=== PATIENT | female | born 1940 | race Caucasian/White ===

== ENCOUNTER 2017-02-09 08:48 | Inpatient (IN) | payer MEDICARE, OTHER ==
[2017-02-09 09:18] LABS: Hematocrit 42 % (35-47); Hemoglobin 14.4 g/dl (12.0-16.0); Mean Corpuscular HGB Conc 35 g/dl (31-36); Mean Corpuscular Hemoglobin 33 pg (27-31); Mean Corpuscular Volume 95 fL (80-97); Mean Platelet Volume 9 um3 (7.4-10.4); Red Blood Count 4.39 10^6/ul (4.0-5.4); Red Cell Distribution Width 12 % (10.5-15); White Blood Count 7.9 10^3/ul (3.5-10.8)
--- NOTE | 2017-02-09 09:30 | RAD ---
INDICATION: Right-sided weakness. COMPARISON: There are no prior studies available for comparison. TECHNIQUE: A portable view of the chest was obtained. FINDINGS: Cardiac and mediastinal contours appear to be within normal limits. The lungs are clear. No pleural effusion is seen. IMPRESSION: NO EVIDENCE FOR ACUTE DISEASE.
--- NOTE | 2017-02-09 09:33 | RAD ---
INDICATION: Right-sided weakness. COMPARISON: There are no prior studies available for comparison. TECHNIQUE: Contiguous axial sections of the brain were obtained from the skull base to the vertex without contrast. FINDINGS: The ventricles, cisterns and sulci are enlarged consistent with age-related atrophy. No significant focal abnormality or mass effect is seen. There is no evidence for hemorrhage. No significant focal osseous abnormality is seen. The visualized portion of the paranasal sinuses and mastoid air cells appear clear. IMPRESSION: NO EVIDENCE FOR GROSS ACUTE INFARCT, MASS EFFECT OR HEMORRHAGE.
[2017-02-09 09:37] LABS: Troponin I 0.01 ng/mL (<0.04)
[2017-02-09 09:40] LABS: ALT 9 U/L (7-52); AST 23 U/L (13-39); Alkaline Phosphatase 90 U/L (34-104); Anion Gap 5 mmol/L (2-11); BUN/Creatinine Ratio 23.2 (8-20); Blood Urea Nitrogen 16 mg/dL (6-24); CO2 Carbon Dioxide 26 mmol/L (22-32); Calcium 8.7 mg/dL (8.6-10.3); Chloride 105 mmol/L (101-111); Cholesterol 204 mg/dL; EGFR African American 105.8 (>60); EGFR Non-African American 82.3 (>60); Globulin 2.5 g/dL (2-4); Glucose 114 mg/dL (70-100); HDL Cholesterol 46.7 mg/dL; LDL Cholesterol 144 mg/dL; Potassium 3.7 mmol/L (3.5-5.0); Sodium 136 mmol/L (133-145); Total Protein 6.5 g/dL (6.4-8.9); Triglycerides 66 mg/dL
[2017-02-09] MEDS ORDERED: Aspirin SUPP* 300 MG PR ONE (09:44)
[2017-02-09 09:48] LABS: Urine Bacteria Absent (Absent); Urine Bilirubin Negative (Negative); Urine Glucose Negative (Negative); Urine Nitrite Negative (Negative)
[2017-02-09] MEDS ORDERED: Iohexol 350* (CONTRAST) 500 ML MDV IV ONE (10:05)
[2017-02-09] MEDS ORDERED: LORazepam INJ* 2 MG/ML 1 ML VIAL IV PUSH PRN (11:07)
[2017-02-09] MEDS ORDERED: Labetalol IV* 5 MG/ML 20 ML VIAL IV PUSH PRN (11:08)
--- NOTE | 2017-02-09 11:19 | RAD ---
INDICATION: Seizure. Possible CVA. Negative noncontrast CT brain COMPARISON: CT brain same date TECHNIQUE: Axial source images were acquired with coronal and sagittal reconstructions. CT angiographic technique was utilized with injection of 80 mL Omnipaque 350. FINDINGS: Aortic arch: There are no significant CT angiogram abnormalities of the arch or the great vessels arising from the arch. Right carotid: The internal carotid artery, carotid bifurcation, extracranial portions of the internal carotid artery, carotid artery at the skull base, carotid siphon, and carotid termination appear patent there is limited evaluation. The origin of the internal carotid artery due to artifact from dental amalgam and due to motion. Suggest sonography. The right internal carotid artery is also noted to be very tortuous with a loop configuration. Left carotid:The internal carotid artery, carotid bifurcation, extracranial portions of the internal carotid artery, carotid artery at the skull base, carotid siphon, and carotid termination appear patent. There is a smooth, 30% stenosis at the origin of the left internal carotid artery. There is also significant tortuosity of the left internal carotid artery. Right middle and anterior cerebral arteries: There are no significant CT angiographic abnormalities of the middle or anterior cerebral arteries. Left middle and anterior cerebral arteries: There are no CT angiographic abnormalities of the anterior cerebral artery. There is a apparent high-grade stenosis of the M1 segment of the left MCA. The distal distribution of the MCA is normal. Right vertebral: The right vertebral artery is very diminutive in size from its origin to the skull base. At the skull base the vertebral artery is difficult to visualize at its confluence to form the basilar artery. Left vertebral: The CT angiographic appearance of the vertebral artery is normal. The left vertebral artery is dominant Basilar artery: The basilar artery and basilar tip appear normal. Posterior cerebral arteries: The distal distribution of the right and left posterior cerebral arteries is normal. [place]: The CT angiographic appearance of the [place] is normal. Source images show no evidence of mass or adenopathy within the neck. There are no focal parenchymal abnormalities or abnormal areas of enhancement. IMPRESSION: 1. Limited evaluation the right bifurcation due to the presence of mild underlying disease, artifact from dental amalgam, and motion. Suggest sonographic interrogation.. Smooth, 30% diameter stenosis left internal carotid artery. 2. Diminutive right vertebral artery. The right vertebral artery at the skull base is difficult to delineate. 3. Probable high-grade left M1 segment MCA stenosis. CPT II Codes: 3100F PQRS
[2017-02-09 11:46] LABS: TSH (Thyroid Stimulating Horm) 2.01 mcIU/mL (0.34-5.60)
[2017-02-09] MEDS ORDERED: Ondansetron INJ* 2 MG/ML VIAL IV PRN (11:50)
[2017-02-09] MEDS ORDERED: Acetaminophen SUPP* 650 MG SUPP PR PRN (11:50)
[2017-02-09 11:58] LABS: Folate > 20.00 ng/mL (>3.99); Vitamin B12 718 pg/mL (180-914)
[2017-02-09 11:59] LABS: Free T4 1.13 ng/dL (0.61-1.12)
[2017-02-09 12:18] LABS: Creatine Kinase 434 U/L (10-223)
[2017-02-09] MEDS: NS 0.9% 1000 ML* 1,000 ML IV SCH (13:38)
--- NOTE | 2017-02-09 13:43 | CONS ---
CONSULTATION REPORT: DATE OF CONSULT: 02/09/17 LOCATION: She is currently in the ER. REASON FOR CONSULT: Right-sided weakness and history of seizures. HISTORY OF PRESENT ILLNESS: Ms. Marrero is a 76-year-old female who lives with her at an assisted living home. She has a history of seizures that her states was diagnosed 20 years ago. She follows with Dr. Heath in [place] and is currently on Keppra 1500 mg p.o. b.i.d. and zonisamide 100 mg p.o. b.i.d. Her states that her last seizure was approximately 2 years ago and that she has been well controlled. She has Ativan, which she takes p.r.n. seizure activity and has taken it a couple of times when she had some anxiety and depression, but overall she does not take that on a regular basis. Her states that yesterday at around 9 p.m. they were coming in from swimming and she suddenly became very tremulous and was grabbing onto the wall. He was concerned that she may be having a seizure. He was able to get her down and subsequently she was shaking, was confused afterwards. There was no bladder incontinence at that time. No bowel incontinence and no tongue biting, although her states that she has had tongue biting in the past. He states that her seizures in the past are more generalized tonic clonic in nature. She has also had several episodes in the last several years where she would stare and Dr. Heath was aware of this, but apparently made no medication changes and told her that she could take Ativan if those happened. She has not had any of those recently. After she stabilized, he was able to get her to bed. He states that he woke up at around midnight to go to the bathroom , when he came back to the bed, her legs were hanging over the side of the bed and she was drooping off the side of the bed. She was not very responsive to him. Apparently, she was not talking at that time. He states that since her episode at 9 last night, she was not talking as much, but was communicating some but last night at midnight, he states that she was not speaking to him, he had a very hard time getting her to the bathroom, but he is unclear whether she had focal weakness at that time. He states that he worked for several hours in the bathroom to try to get her onto the toilet and to get her to use the bathroom. She had bladder incontinence at least 3 times. There was no reported generalized tonic-clonic activity at that time, but she was very confused. Finally, he got a pillow, cleaned her up and put a blanket down and she slept on the floor in the bathroom. This morning when he got up, he noticed that she was not speaking at all and that her right side was not moving at all. He brought her to the hospital for further workup. Initial CT of the head was reviewed, shows no acute abnormalities. No evidence of bleeding. Her lab work in the ER shows a CBC with diff that is essentially normal. INR of 0.95 and a complete metabolic profile significant for a BUN/creatinine ratio of 23.2 and a glucose of 114. Her lactic acid was 0.7. LDL cholesterol 144, HDL cholesterol 46.7, cholesterol of 204, and triglycerides of 66. The states that she has been in her usual state of health. No recent illness, fevers, chills, nausea, vomiting, diarrhea, constipation, dysuria, frequency, urgency, neck pain, headaches, vision changes, focal numbness, tingling, or weakness. She has had no shortness of breath, dyspnea on exertion. She has had no problems swallowing or speaking. No vision changes and she has never had an episode like this in the past. In the ER, she continues to have profound right-sided weakness and is not able to give me any history. Currently aphasic. PAST MEDICAL HISTORY: Includes: 1. Seizure disorder, followed by a neurologist, on medication. 2. History of hypothyroidism. 3. History of glaucoma. 4. History of several episodes of depression, but none recently. PAST SURGICAL HISTORY: Includes bilateral hip replacement several years ago. No other significant surgeries. FAMILY HISTORY: There is no history of seizures, strokes, heart attacks in her family that they are aware of. SOCIAL HISTORY: No tobacco, alcohol or drug use. She did drink in the past socially, but quit 20 years ago when she was diagnosed with epilepsy. She lives with her in an assisted living facility. Her son is with her at the bedside currently and is active in her care. ALLERGIES: To AMOXICILLIN and SULFA. CURRENT HOME MEDICATIONS: Include: 1. Keppra 1500 mg p.o. b.i.d. 2. Zonisamide 100 mg p.o. b.i.d. 3. Timolol eye drops. 4. Levothyroxine 50 mcg daily. 5. Lorazepam 0.5 mg b.i.d. p.r.n. seizure activity. REVIEW OF SYSTEMS: Review of systems in 14-organ systems as noted above from the . The patient is unable to give me any information. PHYSICAL EXAM: Vital Signs: Blood pressure 130/64 to 129/74 to 118/63, pulse of 55, respiratory rate of 12, pulse ox of 99%. She is afebrile. In general, she is a well-nourished, well-developed female. She is sitting in her hospital bed with head approximately at 60 degrees. Her and son were at the bedside. She is well dressed, well groomed. HEENT: She is normocephalic, atraumatic. Sclerae are anicteric. Mucous membranes are moist. Oropharynx appears clear with good dentition. Nares are patent. Neck is supple. No thyromegaly. No carotid bruits. Chest: Clear to auscultation bilaterally. Cardiovascular: Regular rate and rhythm without murmurs. Abdomen: Nondistended. Extremities: There is no significant clubbing, cyanosis, or edema. She does have some bruising on her right knee, which her states that she injured at one point. Her skin is warm and dry otherwise. On neurologic exam, she is awake, she is somewhat somnolent, but sitting up. She remains awake during the entire examination. Her speech, she is aphasic, not producing any words. It appears to be more of a expressive aphasia, although there appears to be an element of some receptive aphasia as well. Cranial Nerves: Her pupils are equally round and reactive to light. Extraocular muscles, she is looking in all quadrants and follows my finger. Her visual campo appear to be intact by confrontation. She blinks from all quadrants. Her face shows a right lower facial droop with inability to smile, although the examination is very difficult. She does not follow all of my commands. It is difficult to assess facial sensation. Hearing appears to be grossly intact bilaterally. Tongue: She would not protrude her tongue, but appears to be midline in the mouth. Palate was difficult to visualize but appears to be symmetric bilaterally. I could not test her sternocleido-mastoid and trapezius. Motor exam: On the left side, she has good resistance. She is lifting her arm and leg. Does follow simple command to lift the arm and leg. She would not hold it up in position, so drift is difficult to tell but in general, she appears to have resistance on that side. On the right side, she has some movement to command. She will try to lift her right arm and try to lift her right leg, although she is only able to really move them at the shoulder and hip. Otherwise, dense paresis. She does have increased tone in the right arm and leg to flexion and extension throughout. She would not casino controller my hand on the right. She would not wiggle her toes on the right, she did on the left, and her tone on the left appears to be slightly increased but more normal. DTRs were difficult to assess because of the patient's compliance, but appeared to be symmetric, 2+ in the upper and lower extremities. I saw no hyperreflexia. Babinski's were equivocal. Sensation: It appears that she is not withdrawing in the right arm and leg, she does on the left. Gait could not be tested at this time. DIAGNOSTIC STUDIES/LAB DATA: Lab work as noted above. She did have the CT as noted above. Chest x-ray showed no active disease. She did receive aspirin 1 time in the ER. ASSESSMENT: Ms. Marrero is a 76-year-old female with a history of hypothyroidism , history of epilepsy diagnosed 20 years ago, followed by Dr. Heath in [place], [place] on Keppra 1500 mg p.o. b.i.d. and Zonegran 100 mg p.o. b.i.d. She appears to have had a seizure yesterday at around 9 p.m., although the semiology and the description of the event is somewhat unclear. The feels that she had something another event at midnight, which could have been another seizure, was confused afterwards. This morning, presents with clear right-sided hemiparesis, facial droop, some aphasia and my suspicion that this is a Benedict's paralysis is extremely low. Her hemiparesis on the right side has not improved. Of concern to me is the fact that her tone on the right side is increased. I am going to get a stat EEG to rule out any status or subclinical status given her continued symptoms, but my suspicion is low that she is currently in status. I suspect a left MCA stroke causing her symptoms. CT shows no evidence of hemorrhage. PLAN: 1. She received an aspirin in the ER. Will continue this daily. 2. Will need to start a statin once she is stable, but for now she is n.p.o. 3. Swallowing evaluation but n.p.o. until cleared. 4. She is to have a CT angiogram and MRI of the brain and echocardiogram for a full stroke workup. 5. I will check labs to rule out reversible causes of stroke. 6. I will continue her Keppra 1500 mg IV for now b.i.d. Zonegran only comes orally, for now we will hold that and if she continues to have seizure activity , I may supplement with another medication. 7. Place her on seizure precautions. Will have Ativan p.r.n. for seizures. 8. DVT prophylaxis. 9. I will continue to follow her closely and make further recommendations as necessary. Thank you for the opportunity to participate in her care. [id number]/[facility] #: [id number] JR
--- NOTE | 2017-02-09 15:40 | RAD ---
CPT II: CPT II Codes: 3100F Indication: Carotid artery stenosis. Duplex Doppler sonography of the carotid arteries was performed. Comparison is made with a recent CTA of the neck dated earlier the same day. The right common carotid artery demonstrates intimal wall thickening with plaque in the carotid bulb. Peak systolic velocity of the right internal carotid artery is 90 cm/s. Peak systolic velocity of the distal right common carotid artery is 76 cm/s. The ICA/CC ratio is 1.2. Right vertebral artery demonstrates antegrade flow. The left common carotid artery demonstrates intimal wall thickening with plaque in the carotid bulb extending into the left internal carotid artery. Peak systolic velocity of the distal left common carotid artery 69 cm/s. Peak systolic velocity of the left internal carotid artery proximally is 55 cm/s. The IC/CC ratio is 0.8. Left vertebral artery demonstrates antegrade flow. IMPRESSION: Less than 50% stenosis of both internal carotid arteries.
--- NOTE | 2017-02-09 16:39 | RAD ---
INDICATION: CVA. COMPARISON: Comparison is made with a prior CT of the brain from February 09, 2017. TECHNIQUE: Sagittal T1, axial T1, T2, susceptibility, FLAIR and diffusion weighted images were obtained. FINDINGS: There is a focal moderate size area of increased T2 signal intensity and of restricted diffusion present in the left basal ganglia and periventricular white matter. There is mild local mass effect with compression of the body of the left lateral ventricle. No midline shift is present. There is also a small focus of restricted diffusion present in the posterior inferior left temporal lobe. There is no evidence for hemorrhage. There are also scattered small focal areas of increased T2 signal intensity in the periventricular and subcortical white matter bilaterally most system with mild chronic small vessel ischemic changes. The visualized portion of the paranasal sinuses and mastoid air cells appear clear. The results of this examination were discussed with Dr. Stewart. IMPRESSION: FINDINGS CONSISTENT WITH A NONHEMORRHAGIC INFARCT PRESENT IN THE LEFT LENTIFORM NUCLEUS AND PERIVENTRICULAR WHITE MATTER MODERATE IN SIZE WITH MILD MASS EFFECT. THERE IS ALSO A SECOND SMALL FOCUS OF INFARCTION IN THE POSTERIOR INFERIOR LEFT TEMPORAL LOBE.
--- NOTE | 2017-02-09 20:27 | HP ---
CC: Dr. Rose Marie Beth; Dr. Stewart * HISTORY AND PHYSICAL: DATE OF ADMISSION: 02/09/17 PRIMARY CARE PROVIDER: Dr. Rose Marie Beth. ATTENDING PHYSICIAN WHILE IN THE HOSPITAL: Esvin Galvez MD * (report dictated by Chris Heaton NP). CONSULTING NEUROLOGIST: Dr. Stewart. CHIEF COMPLAINTS: 1. Question of seizure. 2. Altered mental status. 3. Right-sided weakness. HISTORY OF PRESENT ILLNESS: Mrs. Marrero is a 76-year-old female patient. She has a history of hypothyroidism, history of seizures, and a history of glaucoma. She comes in to the ED today and is really unable to tell me what happened as she is aphasic. According to the , it is noted around 9 o' clock last night she became very tense and stiff and she was having a little bit of shaking and she hit the wall and it had looked like that she was having a seizure. He gave her some Ativan. He got her into bed. She really was having a hard time walking and brought her in to the bedroom with a rolling chair. He got up around midnight to check on her and he noted that she was half in bed, half out of bed. She was having difficulty with moving still. She was trying to get to the bathroom. The thinks she is unsure if she had another seizure or not. There were no reports of incontinence at that point ; however, he was able to move her into the bathroom and she was incontinent at that point, but there was no seizure-like activity reported. The patient's laid her down and she slept on the floor through the night. This morning, he was hopeful that when he woke up that she would be better. He felt that she had had a seizure, unfortunately though the patient was not speaking, she was lethargic, she was not moving her right side, called the son and son was concerned and brought her in to the hospital. There have been no reports of recently any medication changes. She has been taking her meds as prescribed. She has had a history of seizures for about 20 years and the last time she had a seizure was 2 years ago. She does get her care from Dr. Heath at [facility]. Again, there has been no nausea, vomiting. No chest pain was reported. No shortness of breath. She came in, there was concern for possible stroke or seizure. We were asked to evaluate for admission. PAST MEDICAL HISTORY: She has a history of seizure, glaucoma, and a history of hypothyroidism. PAST SURGICAL HISTORY: She has had bilateral total hip arthroplasties. MEDICATIONS: The home meds include: 1. Zonegran 100 mg p.o. b.i.d. 2. Timolol 1 drop both eyes b.i.d. 3. Synthroid 50 mcg daily. 4. Keppra 1500 mg p.o. b.i.d. 5. Ativan 0.5 mg p.o. b.i.d. as needed. ALLERGIES: Her allergies to medications include SULFA DRUGS and AMOXICILLIN. FAMILY HISTORY: Mother's history was reviewed, noncontributory. There have been no reports of seizures or strokes. Father does have a history of OR at 79. SOCIAL HISTORY: She does not smoke. She does not drink. Surrogate decision maker is her . She lives at [facility]. REVIEW OF SYSTEMS: Unable to be obtained from the patient given that she is aphasic at this point. PHYSICAL EXAMINATION GENERAL: At this time, Mrs. Marrero is an 76-year-old female patient. She appears to be well nourished, well developed. She does not appear to be in any acute distress. She is sitting in the ER stretcher. VITAL SIGNS: Blood pressure 141/66, pulse 62, respirations 15, O2 sat 98%, and temperature 97.6. HEENT: Head: Atraumatic, normocephalic. Sclerae were anicteric, not pale. Throat: Oral mucosa appears to be moist. No oropharyngeal erythema. NECK: Supple. LUNGS: Clear to auscultation. HEART: Sounds S1, S2. Regular rate and rhythm. No murmurs, rubs, or gallops. ABDOMEN: Soft, flat, nontender. Bowel sounds were present. EXTREMITIES: Pulses 2+ throughout. No peripheral edema. NEUROLOGIC: Again, she will awaken to her name being called. She will follow simple commands. She has hemiplegia noted to the right upper and right lower extremity. She is unable to move the right arm. She cannot move her fingers at this point, it is contracted at the elbow. She is able to move her toes on the right side. Sensation is intact. In terms of speech, again she is aphasic. She does have a facial droop to the right side and her tongue is deviated to the right. EOMs were intact. No other gross focal deficits. SKIN: Intact. LABORATORY DATA/DIAGNOSTIC STUDIES: WBC 7.9, RBC of 4.39, hemoglobin 14.4, hematocrit 42, and platelet count of 153. INR 0.95. Sodium 136, potassium of 3.7, chloride of 105, bicarb 26, BUN 16, creatinine of 0.69, and glucose 114. Lactate 0.7. Calcium 8.7. Total bili 0.7, AST 23, ALT 9, alk phos 90. Troponin 0.01. Albumin 4.0. The triglycerides were 266, LDH 144. TSH normal. Free T3 pending. Urine obtained negative. She had a brain CT obtained today, which revealed no evidence of gross acute infarct, mass effect, or hemorrhage. Chest x-ray obtained today showed no evidence for acute disease. Head CTA showed limited evaluation of the right bifurcation due to presence of mild underlying disease. Artifact from dental amalgam and motion suggests this sonographic interrogation smooth, 30% diameter stenosis in the left internal carotid. She had a diminutive right vertebral artery. The vertebral artery is at the skull base. It is difficult to delineate, she had probable high grade left M1 segment MCA stenosis. EKG shows a sinus bradycardia, rate of 54, no ST elevation or T wave inversions. Old medical records were reviewed. ASSESSMENT AND PLAN: Mrs. Marrero is a 76-year-old female patient coming in to the ED today with complaints of concern for seizure, now found to have right- sided weakness, hemiplegia, and she is aphasic. She will be admitted under inpatient status for: 1. Presumed cerebrovascular accident. At this point, I suspect that she had a left-sided M1 segment of the MCA on the left side stroke. The MRI is pending. Dr. Stewart did evaluate the patient. I have ordered a speech evaluation for swallowing safety. I also have ordered aspirin HI. I would like to start her on Plavix when she is able to take p.o. due to the high-grade stenosis. In addition to this, she will benefit from a high-dose statin when she is able to take p.o., but I do not think she is safe for now to swallow. We will continue the aspirin just for now. We will keep the head of the bed 20 degrees or less, hydrate her, keep the blood pressure at least greater than 140 and we will treat for blood pressure, systolics 200 and diastolics greater than 110. I will get neuro checks frequently. Echo has been ordered and we will continue to follow. 2. Seizure disorder. EEG was performed. We are awaiting for official read, but there does not appear to be any obvious abnormality at this point. We will go ahead and continue her Keppra as prescribed. We will order for seizure precautions. 3. Glaucoma. We are holding the timolol at this point. 4. Hypothyroidism. Continue IV Synthroid. 5. DVT prophylaxis. In the setting of a stroke, I am going to hold off on heparin subcu. We will just put her on SCDs. 6. Code status. The who is speaking for her as her healthcare proxy, said that she had wished to be a DNR. He states he does have paperwork on this. We will try to get that paperwork. If not, we will fill on a MOLST form. 7. Fluids, electrolytes, and nutrition. She is n.p.o. pending swallow eval. TIME SPENT: On the admission was approximately 60 minutes, greater than half the time was spent [id number] with the patient obtaining my history and physical; other half time was spent going over the plan of care and implementing plan of care. I did discuss the plan of care with my attending, Dr. Galvez, he is in agreement. CHRIS HEATON, FERMIN [id number]/[facility] #: [id number] JR
--- NOTE | 2017-02-10 03:12 | EEG ---
ELECTROENCEPHALOGRAPHY: DATE OF STUDY: 02/09/17 - ROOM #447 LOCATION: The patient is in the emergency department. ORDERING PHYSICIAN: Dr. Leon and Dr. Stewart. CLINICAL PROBLEM: This is a 76-year-old woman with a history of epilepsy. The family states that she had a seizure at 9 p.m. last evening and her gave her Ativan and put her to bed. Around midnight, he woke up to use the bathroom and noticed her dangling off the edge of the bed. He called their son to come help at 7 o'clock. They tried to get her up, got her dressed and called the ambulance to bring her to the emergency department. In the emergency department, she is awake and alert, but unable to speak with right- sided facial weakness and right-sided hemiplegia. EEG is requested to evaluate for status epilepticus. MEDICATIONS: Levetiracetam. REPORT: The most notable feature of the interictal EEG is the presence of continuous, polymorphic slowing in the left temporal region, which sometimes extends into the left frontal central region as well. The slowing is in the range of 2 to 5 Hz with superimposed beta activity. Occasionally, there are sharp contours associated with this slowing, but there are no definitive focal epileptiform discharges. In addition, the patient has occasional generalized spike and wave discharges, which are sometimes seen to fragment in the right or left frontal regions and at other times are seen to be represented diffusely across both hemispheres. Most commonly, the discharges occur as single spike wave discharges lasting a fraction of a second. On one occasion, a cluster of discharges lasting 1.5 seconds was noted at a frequency of 3 Hz with a bias towards the right hemisphere. There were some polyspike components intermixed within this burst of discharges. Otherwise, the waking background showed appropriate organization with clearly defined anterior to posterior voltage and frequency gradients. There was a defined, posterior dominant rhythm of 8 Hz, which was symmetrical, but was slower than expected for age. Anteriorly, there was an expected pattern of lower voltage, irregular, mixed faster frequencies. There was excess beta activity noted, which was better seen over the right hemisphere than the left hemisphere. CLINICAL IMPRESSION: This is an abnormal waking EEG with 2 distinct findings. 1. First, there is continuous, slowing in the left hemisphere, which is maximal in the left temporal region, but also extends into the left frontal region at times. 2. There are burst of generalized discharges, which have a frontal central predominance and at most last 1.5 seconds during the recording. In addition, there is a slow background rhythm. These findings are suggestive of a generalized epilepsy trait with superimposed underlying neuronal dysfunction in the left hemisphere, which primarily affects the left temporal region. There is no evidence of status epilepticus on this EEG. Given the presence of focal dysfunction in the left temporal region, further imaging with CT scan or MRI scan is recommended if clinically appropriate. [id number]/[facility] #: [id number] JR
[2017-02-10] MEDS: NS 0.9% 1000 ML* 1,000 ML IV SCH ×2 (04:12→09:41)
[2017-02-10] MEDS: Levothyroxine INJ* 100 MCG/5 ML VIAL IV SCH (05:53)
[2017-02-10 06:00] LABS: Hematocrit 38 % (35-47); Hemoglobin 12.8 g/dl (12.0-16.0); Mean Corpuscular HGB Conc 34 g/dl (31-36); Mean Corpuscular Hemoglobin 32 pg (27-31); Mean Corpuscular Volume 96 fL (80-97); Mean Platelet Volume 9 um3 (7.4-10.4); Red Blood Count 3.96 10^6/ul (4.0-5.4); Red Cell Distribution Width 13 % (10.5-15)
[2017-02-10 06:02] LABS: Comments Flag Yes
[2017-02-10 06:14] LABS: Calcium 8.2 mg/dL (8.6-10.3); EGFR African American 96.1 (>60); EGFR Non-African American 74.7 (>60); HDL Cholesterol 37.7 mg/dL; Potassium 3.5 mmol/L (3.5-5.0)
[2017-02-10] MEDS ORDERED: Perflutren Lipid Microsphere* 3 ML VIAL ONE (07:59)
[2017-02-10] MEDS ORDERED: NS 0.9% 500 ML* 500 ML IV ONE (08:29)
--- NOTE | 2017-02-10 08:32 | ED ---
Mu Palomino Angela, scribed for Shmuel Leon MD on 02/09/17 at 0900 . Neurological HPI - HPI Summary HPI Summary: This pt is a 76 y/o female accompanied by her and son presenting to [facility] via EMS from [place] c/o seizure last night at 2100. Per (who lives with her in [place]), pt was fine last night. states that he went swimming and pt was sitting down while watching him. reports that they both went back inside to their room at approximately 2100 last night. Once inside their room, notes the pt started to have a seizure and tried to calm her down. notes he gave her Ativan and both went to bed at 2200. At midnight, states that he woke up to go to the bathroom and his was dangling off the edge of the bed. He tried to move her to go to the bathroom but couldn't. At 0300 today, gave up as he couldn't move the pt to the bathroom, so he called his son. Pt's son arrived at 0715 and called an ambulance to bring her to the ED. Per , pt has not had a seizure in over 2 years. PMHx: epilepsy. states pt was diagnosed with epilepsy 20 years ago. HPI is limited due to level 5 caveat - pt is not verbal s/p seizure. - History of Current Complaint Stated Complaint: SEIZURE Hx Obtained From: Family/Claims Correspondence Clerk - and son Hx From Patient Unobtainable Due To: Other - level 5 caveat - pt is not verbal Onset/Duration: Sudden Onset - last night at 2100 Timing: Sudden Onset Neurological Deficit Location: Facial - right sided, RUE, RLE Headache Location: Diffuse (Right) Character: Impaired Speech Episode Lasting: Seconds/Minutes - minutes, per Associated Signs and Symptoms: Positive: Weakness, Impaired Speech Related Hx: Seizure - Allergy/Home Medications Allergies/Adverse Reactions: Allergies Allergy/AdvReac Type Severity Reaction Status Date / Time Amoxicillin Allergy Unknown Verified 02/09/17 09:20 Reaction Details Sulfa Antibiotics Allergy Unknown Verified 02/09/17 09:20 Reaction Details Home Medications: Home Medications LORazepam TAB(*) [Ativan 0.5 MG TAB (*)] 0.5 mg PO BID PRN 02/09/17 [History Confirmed 02/09/17] Levothyroxine TAB* [Synthroid TAB*] 50 mcg PO DAILY 02/09/17 [History Confirmed 02/09/17] Timolol 0.5% OPTH.IAM* [Timoptic 0.5% Opth*] 1 drop BOTH EYES BID 02/09/17 [ History Confirmed 02/09/17] Zonisamide(NF) [Zonegran(NF)] 100 mg PO BID 02/09/17 [History Confirmed 02/09/17 ] levETIRAcetam TAB* [Keppra TAB*] 1,500 mg PO BID 02/09/17 [History Confirmed ] PMH/Surg Hx/FS Hx/Imm Hx Endocrine/Hematology History: Denies: Hx Diabetes Cardiovascular History: Denies: Hx Hypertension Neurological History: Reports: Other Neuro Impairments/Disorders - epilepsy - Family History Known Family History: Positive: Unknown - due to pt's current condition, nonverbal - Social History Lives: Assisted Living - [place] Alcohol Use: None Hx Substance Use: No Substance Use Type: Reports: None Smoking Status (MU): Former Smoker Review of Systems Negative: Fever, Chills Neurological: Other - right sided facial droop Positive: Weakness - right sided All Other Systems Reviewed And Are Negative: No - Comments Additional Review of Systems Comments: ROS is limited secondary to level 5 caveat - pt is not verbal Physical Exam - Summary Physical Exam Summary: VITAL SIGNS: Reviewed. GENERAL: Patient is a well-developed female who is lying comfortable in the stretcher. Patient is not in any acute respiratory distress. HEAD AND FACE: No signs of trauma. No ecchymosis, hematomas or skull depressions. No sinus tenderness. EYES: PERRLA, EOMI x 2, No injected conjunctiva, no nystagmus. EARS: Hearing grossly intact. Ear canals and tympanic membranes are within normal limits. MOUTH: Oropharynx within normal limits. NECK: Supple, trachea is midline, no adenopathy, no JVD, no carotid bruit, no c- spine tenderness, neck with full ROM. CHEST: Symmetric, no tenderness at palpation LUNGS: Clear to auscultation bilaterally. No wheezing or crackles. CVS: Regular rate and rhythm, S1 and S2 present, no murmurs or gallops appreciated. ABDOMEN: Soft, non-tender. No signs of distention. No rebound no guarding, and no masses palpated. Bowel sounds are normal. EXTREMITIES: FROM in all major joints, no edema, no cyanosis or clubbing. NEURO: Pt has right sided weakness. She has right sided facial droop. Pt is not alert or oriented. SKIN: Dry and warm Triage Information Reviewed: Yes Vital Signs On Initial Exam: Initial Vitals Pulse Ox 99 02/09/17 08:59 Vital Signs Reviewed: Yes Completion Of Physical Exam Limited Due To: Level 5 - pt is not verbal Diagnostics - Vital Signs Vital Signs Temp Pulse Resp BP Pulse Ox 02/09/17 10:00 55 12 118/63 99 02/09/17 09:30 55 13 129/74 99 02/09/17 09:17 130/64 02/09/17 09:01 67 12 99 02/09/17 09:00 97.6 F 66 14 133/71 99 02/09/17 08:59 99 - Laboratory Lab Results: Lab Results 02/09/17 02/09/17 02/09/17 Range/Units 09:05 09:05 09:05 WBC 7.9 (3.5-10.8) 10^3/ul RBC 4.39 (4.0-5.4) 10^6/ul Hgb 14.4 (12.0-16.0) g/dl Hct 42 (35-47) % MCV 95 (80-97) fL MCH 33 H (27-31) pg MCHC 35 (31-36) g/dl RDW 12 (10.5-15) % Plt Count 163 (150-450) 10^3/ul MPV 9 (7.4-10.4) um3 Neut % (Auto) 77.8 (38-83) % Lymph % (Auto) 14.8 L (25-47) % Wise % (Auto) 6.6 (1-9) % Eos % (Auto) 0.2 (0-6) % Baso % (Auto) 0.6 (0-2) % Absolute Neuts (auto) 6.1 (1.5-7.7) 10^3/ul Absolute Lymphs (auto) 1.2 (1.0-4.8) 10^3/ul Absolute Monos (auto) 0.5 (0-0.8) 10^3/ul Absolute Eos (auto) 0 (0-0.6) 10^3/ul Absolute Basos (auto) 0 (0-0.2) 10^3/ul Absolute Nucleated RBC 0 10^3/ul Nucleated RBC % 0 INR (Anticoag Therapy) (0.89-1.11) Sodium 136 (133-145) mmol/L Potassium 3.7 (3.5-5.0) mmol/L Chloride 105 (101-111) mmol/L Carbon Dioxide 26 (22-32) mmol/L Anion Gap 5 (2-11) mmol/L BUN 16 (6-24) mg/dL Creatinine 0.69 (0.51-0.95) mg/dL Est GFR ( Amer) 105.8 (>60) Est GFR (Non-Af Amer) 82.3 (>60) BUN/Creatinine Ratio 23.2 H (8-20) Glucose 114 H (70-100) mg/dL Lactic Acid (0.5-2.0) mmol/L Calcium 8.7 (8.6-10.3) mg/dL Total Bilirubin 0.70 (0.2-1.0) mg/dL AST 23 (13-39) U/L ALT 9 (7-52) U/L Alkaline Phosphatase 90 (34-104) U/L Total Creatine Kinase 434 H (10-223) U/L Troponin I 0.01 (<0.04) ng/mL Total Protein 6.5 (6.4-8.9) g/dL Albumin 4.0 (3.2-5.2) g/dL Globulin 2.5 (2-4) g/dL Albumin/Globulin Ratio 1.6 (1-3) Triglycerides 66 mg/dL Cholesterol 204 mg/dL LDL Cholesterol 144 mg/dL HDL Cholesterol 46.7 mg/dL Vitamin B12 718 (180-914) pg/mL Folate > 20.00 (>3.99) ng/mL TSH 2.01 (0.34-5.60) mcIU/mL Free T4 1.13 H (0.61-1.12) ng/dL Urine Color Urine Appearance Urine pH (5-9) Ur Specific [place] (1.010-1.030) Urine Protein (Negative) Urine Ketones (Negative) Urine Blood (Negative) Urine Nitrate (Negative) Urine Bilirubin (Negative) Urine Urobilinogen (Negative) Ur Leukocyte Esterase (Negative) Urine WBC (Auto) (Absent) Urine RBC (Auto) (Absent) Urine Bacteria (Absent) Urine Glucose (Negative) Urine Ascorbic Acid (Negative) Blood Type O Positive Antibody Screen Negative 02/09/17 02/09/17 02/09/17 Range/Units 09:05 09:05 09:33 WBC (3.5-10.8) 10^3/ul RBC (4.0-5.4) 10^6/ul Hgb (12.0-16.0) g/dl Hct (35-47) % MCV (80-97) fL MCH (27-31) pg MCHC (31-36) g/dl RDW (10.5-15) % Plt Count (150-450) 10^3/ul MPV (7.4-10.4) um3 Neut % (Auto) (38-83) % Lymph % (Auto) (25-47) % Wise % (Auto) (1-9) % Eos % (Auto) (0-6) % Baso % (Auto) (0-2) % Absolute Neuts (auto) (1.5-7.7) 10^3/ul Absolute Lymphs (auto) (1.0-4.8) 10^3/ul Absolute Monos (auto) (0-0.8) 10^3/ul Absolute Eos (auto) (0-0.6) 10^3/ul Absolute Basos (auto) (0-0.2) 10^3/ul Absolute Nucleated RBC 10^3/ul Nucleated RBC % INR (Anticoag Therapy) 0.95 (0.89-1.11) Sodium (133-145) mmol/L Potassium (3.5-5.0) mmol/L Chloride (101-111) mmol/L Carbon Dioxide (22-32) mmol/L Anion Gap (2-11) mmol/L BUN (6-24) mg/dL Creatinine (0.51-0.95) mg/dL Est GFR ( Amer) (>60) Est GFR (Non-Af Amer) (>60) BUN/Creatinine Ratio (8-20) Glucose (70-100) mg/dL Lactic Acid 0.7 (0.5-2.0) mmol/L Calcium (8.6-10.3) mg/dL Total Bilirubin (0.2-1.0) mg/dL AST (13-39) U/L ALT (7-52) U/L Alkaline Phosphatase (34-104) U/L Total Creatine Kinase (10-223) U/L Troponin I (<0.04) ng/mL Total Protein (6.4-8.9) g/dL Albumin (3.2-5.2) g/dL Globulin (2-4) g/dL Albumin/Globulin Ratio (1-3) Triglycerides mg/dL Cholesterol mg/dL LDL Cholesterol mg/dL HDL Cholesterol mg/dL Vitamin B12 (180-914) pg/mL Folate (>3.99) ng/mL TSH (0.34-5.60) mcIU/mL Free T4 (0.61-1.12) ng/dL Urine Color Yellow Urine Appearance Cloudy Urine pH 8.0 (5-9) Ur Specific [place] 1.017 (1.010-1.030) Urine Protein Negative (Negative) Urine Ketones Trace H (Negative) Urine Blood Negative (Negative) Urine Nitrate Negative (Negative) Urine Bilirubin Negative (Negative) Urine Urobilinogen Negative (Negative) Ur Leukocyte Esterase Negative (Negative) Urine WBC (Auto) Trace(0-5/hpf) (Absent) Urine RBC (Auto) Trace(0-2/hpf) (Absent) Urine Bacteria Absent (Absent) Urine Glucose Negative (Negative) Urine Ascorbic Acid * H (Negative) Blood Type Antibody Screen Result Diagrams: 02/09/17 09:05 02/09/17 09:05 Lab Statement: Any lab studies that have been ordered have been reviewed, and results considered in the medical decision making process. - Radiology Chest XR Xray Interpretation: No Acute Changes - IMPRESSION: No evidence for acute disease. ED physician has reviewed this radiology report and agrees. Radiology Interpretation Completed By: Radiologist - CT CT Brain CT Interpretation: No Acute Changes - IMPRESSION: No evidence for gross acute infarct, mass effect, or hemorrhage. ED physician has reviewed this radiology report and agrees. CT Interpretation Completed By: Radiologist - EKG 0923 Cardiac Rate: Bradycardia - 54 bpm EKG Rhythm: Sinus Rhythm EKG Interpretation: No ST elevations - Additional Comments Diagnostic Additional Comments: Head CTA, per radiologist: IMPRESSION: 1. Limited evaluation the right bifurcation due to the presence of mild underlying disease, artifact from dental amalgam, and motion. Suggest sonographic interrogation. Smooth, 30% diameter stenosis left internal carotid artery. 2. Diminutive right vertebral artery. The right vertebral artery at the skull base is difficulty to delineate. 3. Probably high-grade left M1 segment MCA stenosis. ED physician has reviewed this radiology report and agrees. Course/Dx - Course Assessment/Plan: This pt is a 76 y/o female accompanied by her and son presenting to [facility] via EMS from [place] c/o seizure last night at 2100. Per (who lives with her in [place]), pt was fine last night. states that he went swimming and pt was sitting down while watching him. reports that they both went back inside to their room at approximately 2100 last night. Once inside their room, notes the pt started to have a seizure and tried to calm her down. notes he gave her Ativan and both went to bed at 2200. At midnight, states that he woke up to go to the bathroom and his was dangling off the edge of the bed. He tried to move her to go to the bathroom but couldn't. At 0300 today, gave up as he couldn't move the pt to the bathroom, so he called his son. Pt's son arrived at 0715 and called an ambulance to bring her to the ED. Per , pt has not had a seizure in over 2 years. PMHx: epilepsy. states pt was diagnosed with epilepsy 20 years ago. HPI is limited due to level 5 caveat - pt is not verbal s/p seizure. Test results show glucose of114, CPK of 434. Urinalysis is negative for UTI. Chest XR shows no evidence for acute disease. Head CT is negative for acute intracranial pathology. Pt was hydrated and was given aspirin. I discussed the case with Dr. Stewart who came and assessed the pt. He recommended an EEG, CTA and MRI. He also recommends the pt to be given 1.5 grams of Keppra and admit the pt to the hospitalist for further management. The pt is stable. I discussed the case with Dr. Galvez, who accepted the pt for admission and further management. - Differential Dx Differential Diagnoses Neuro: Positive: Cerebrovascular Accident, Seizure Disorder, Temporal Arteritis, Transient Ischemic Attack - Diagnoses Provider Diagnoses: Acute CVA (cerebrovascular accident) - Physician Notifications Discussed Care Of Patient With: Miguel Stewart Time Discussed With Above Provider: 09:57 Instructed by Provider To: Other - I discussed pt care with Dr. Stewart who recommends a CTA of head/neck. Dr. Stewart came to see the pt at 10:22. He requests to order an MRI in addition to a CTA. At 10:41 Dr. Stewart is requesting to order an EEG stat and give the pt Keppra. At 10:43, I discused patient care with Dr. Galvez, who has accepted the pt for admission. Discharge - Discharge Plan Condition: Stable Disposition: ADMITTED TO [facility] documentation as recorded by the Mu valverde Angela accurately reflects the service I personally performed and the decisions made by , Shmuel Leon MD.
[2017-02-10] MEDS: Aspirin SUPP* 300 MG PR SCH (09:08)
--- NOTE | 2017-02-10 11:50 | ECHO ---
Patient: KALPANA HAYES [facility] Rec#: [id number] : 1940 Date: 02/10/2017 Age: 76y Height: 154.94 cm / 61.0 in Weight: 59.87 kg / 132.0 lbs Sex: F BSA: 1.58 Room#: [facility] Admit Date#: 02/09/2017 Type: Inpatient Referring: Tod Stewart Reading: Yoel Hill MD Paid Intern: Caty Ding RDCS CC: Rose Marie Beth Transthoracic Echocardiogram Indication: CVA BP: 120/55 HR: 68 Rhythm: NSR Findings History: Seizures,hypothyroidism. Technical Comments: The study quality is good. Completed at 0900. Left Ventricle: The left ventricular chamber size is normal. Global left ventricular wall motion and contractility are within normal limits. There is normal left ventricular systolic function. The estimated ejection fraction is 55-60%. The assessment of diastolic function is non-diagnostic. The patient was unable to perform a Valsalva maneuver. Left Atrium: The left atrium is normal in size. Right Ventricle: The right ventricular cavity size is normal. The right ventricular global systolic function is normal. Right Atrium: The right atrial cavity size is normal. There were late bubbles seen in the left atrium. Agitated normal saline used to detect shunting. A patent foramen ovale is demonstrated by agitated contrast. Poor substernal views made color flow analysis suboptimal for shunt assessment. There is evidence of an atrial septal aneurysm. Aortic Valve: The aortic valve is trileaflet. There is no evidence of aortic regurgitation. There is no evidence of aortic stenosis. Mitral Valve: The mitral valve leaflets are mildly thickened. There is mild mitral regurgitation. There is no evidence of mitral stenosis. Tricuspid Valve: The tricuspid valve leaflets are normal. There is mild tricuspid regurgitation. There is no tricuspid stenosis. Pulmonic Valve: The pulmonic valve appears normal. There is trace to mild pulmonic regurgitation. There is no pulmonic stenosis. Pericardium: The pericardium appears normal. Aorta: The ascending aorta is not well visualized. There is no dilatation of the aortic arch. There is no dilation of the aortic root. Pulmonary Artery: The main pulmonary artery appears normal. Venous: The venous system is not well visualized. Contrast: Definity was used to optimize study. Intravenous contrast was used to enhance endocardial border definition. A total of 4 ml used. Conclusions The estimated ejection fraction is 55-60%. There is normal left ventricular systolic function. The assessment of diastolic function is non-diagnostic. The patient was unable to perform a Valsalva maneuver. No significant valvular disease. There were late bubbles seen in the left atrium. Agitated normal saline used to detect shunting. There is evidence of an atrial septal aneurysm. Poor substernal views made color flow analysis suboptimal for shunt assessment. Recommend SRINIVASAN for atrial septal assessment to assess for shunting. Measurements Name Value Normal Range RVIDd (AP) 2D 3.2 cm (0.9 - 2.6) RVDdMajor (2D) 3 cm (2.2 - 4.4) RAd ISD 4CH 4.3 cm (3.4 - 4.9) RA (A4C)W 3.6 cm (2.9 - 4.6) IVSd (2D) 1 cm (0.6 - 1) LVPWd (2D) 0.9 cm (0.6 - 1) LVIDd (2D) 3.6 cm (3.6 - 5.4) LVIDs (2D) 2.3 cm - LV FS (2D) 38 % (25 - 45) Aortic Annulus 1.6 cm (1.4 - 2.6) Ao root diameter (2D) 3.2 cm (2.1 - 3.5) Ascending Ao 3.1 cm (2.1 - 3.4) Aortic arch 2.1 cm (1.8 - 3.4) Descending Ao 0.7 cm - LA dimension (AP) 2D 2.8 cm (2.3 - 3.8) LAd ISD 4CH 4.2 cm (2.9 - 5.3) LA ISD 4CH W 3.2 cm (2.5 - 4.5) Name Value Normal Range LA ESV SP 4CH (A/L) 26 ml - LA ESV SP 2CH (A/L) 29 ml - LA ESV BP (A/L) 28 ml - LA ESV BP (A/L) index 17.44 ml/m2 - LA ESV SP 4CH (MOD) 23 ml - LA ESV SP 2CH (MOD) 27 ml - Name Value Normal Range MV E-wave Vmax 0.7 m/sec - MV deceleration time 178 msec - MV A-wave Vmax 1.09 m/sec - MV E:A ratio 0.59 ratio - LV septal e' Vmax 0.06 m/sec - LV lateral e' Vmax 0.09 m/sec - LV E:e' septal ratio 11.67 ratio - LV E:e' lateral ratio 7.78 ratio - Name Value Normal Range AV Vmax 1.6 m/sec - AV VTI 39.1 cm - AV peak gradient 10.42 mmHg - AV mean gradient 4.37 mmHg - LVOT Vmax 1.3 m/sec - LVOT VTI 30.7 cm - LVOT peak gradient 6.52 mmHg - LVOT mean gradient 2.5 mmHg - Name Value Normal Range TR Vmax 2.5 m/sec - TR peak gradient 24 mmHg - RAP 8 mmHg - RVSP 32 mmHg - Name Value Normal Range PV Vmax 0.8 m/sec - PV peak gradient 2.3 mmHg -
--- NOTE | 2017-02-10 14:02 | RAD ---
HISTORY: Cerebrovascular accident one day earlier TECHNIQUE: Multiple transverse and longitudinal ultrasound images were obtained of the veins of the bilateral lower extremities using grayscale, color Doppler, and spectral Doppler imaging with and without compression and with augmentation. FINDINGS: VEINS: The common femoral vein, deep femoral vein, femoral vein and popliteal vein are compressible throughout their course, with normal flow on color Doppler imaging and normal response to augmentation on spectral Doppler imaging. SOFT TISSUES: Grossly normal. No large popliteal fossa cyst was identified. IMPRESSION: No sonographic evidence of deep vein thrombosis.
--- NOTE | 2017-02-10 14:10 | PN ---
Subjective Date of Service: 02/10/17 Interval History: HOSPITALIST PROGRESS NOTE Patient seen and examined at bedside. Non-verbal, but able to follow commands. As per she's comfortable now. Family History: Unchanged from Admission Social History: Unchanged from Admission Past Medical History: Unchanged from Admission Objective Active Medications: Acetaminophen (Tylenol Supp*) 650 mg NJ Q4H PRN PRN Reason: FEVER/PAIN Aspirin (Aspirin Supp*) 300 mg NJ DAILY [facility] Last Admin: 02/10/17 09:08 Dose: 300 mg Levetiracetam 1,500 mg/ Sodium (Chloride) 115 mls @ 460 mls/hr IVPB Q12H [facility] Last Admin: 02/10/17 09:43 Dose: 460 mls/hr Sodium Chloride (Ns 0.9% 1000 Ml*) 1,000 mls @ 75 mls/hr IV PER RATE [facility] Last Admin: 02/10/17 09:41 Dose: 75 mls/hr Labetalol HCl (Trandate Iv*) 20 mg IV PUSH Q20M PRN PRN Reason: BLOOD PRESSURE Levothyroxine Sodium (Synthroid Inj*) 25 mcg IV 0600 [facility] Last Admin: 02/10/17 05:53 Dose: 25 mcg Lorazepam (Ativan Inj*) 1 mg IV PUSH Q10M PRN PRN Reason: SEIZURES Ondansetron HCl (Zofran Inj*) 4 mg IV Q6H PRN PRN Reason: NAUSEA Vital Signs 02/10/17 11:55 Temperature 98.9 F Pulse Rate 63 Respiratory 16 Rate Blood Pressure 133/61 (mmHg) O2 Sat by Pulse 98 Oximetry Oxygen Devices in Use Now: None Appearance: Elderly lady lying in bed in [facility]. Eyes: No Scleral Icterus Ears/Nose/Mouth/Throat: Mucous Membranes Moist Neck: Trachea Midline Respiratory: Symmetrical Chest Expansion and Respiratory Effort, Clear to Auscultation Cardiovascular: RRR - Normal S1 and S2 Neurological: - - Alert and awake, aphasic, follows commands, right facial weakness, right hemiparesis Lines/Tubes/Other Access: Clean, Dry and Intact Peripheral IV Result Diagrams: 02/10/17 05:29 02/10/17 05:32 Assess/Plan/Problems-Billing Assessment: Mrs. Marrero is a 76yo F with PMH of seizure disorder, hypothyroidism, glaucoma, who presented to ED with c/o altered MS and right sided weakness, found to have a left MCA CVA. - Patient Problems (1) CVA (cerebral vascular accident) Comment: - MRI brain showed non hemorrhagic infarct in the left lentiform nucleus and periventricular white matter moderate in size with mild mass effect and a second small focus in the inferior posterior left temporal lobe. - CTA head showed high grade left M1 segment MCA stenosis, carotid US showed less than 50% stenosis bilaterally. - D/w Neurology - recommended bed rest until tomorrow, monitor BP, continue Aspirin NJ. If not able to take PO by tomorrow, will place NGT so we can start Plavix. - Echo showed EF 55-60% with atrial septal aneurysm and late bubbles seen in the left atrium; recommended SRINIVASAN - Neurology recommends waiting until more stable. LE doppler negative for DVT. - Continue neurochecks. - PT/OT on hold for now. (2) Seizure disorder Comment: - Continue IV Keppra. (3) Hypothyroid Comment: - Continue IV levothyroxine. (4) DVT prophylaxis Comment: - SCDs for now, will probably start SQ heparin in AM. Status and Disposition: Inpatient. and sons updated at bedside.
--- NOTE | 2017-02-10 16:26 | PN ---
PROGRESS NOTE: DATE OF PROGRESS NOTE: 02/10/17 LOCATION: Currently in room 447, bed 1. SUBJECTIVE: Overnight, no seizure activity. The patient continues to have dense right-sided hemiparesis. She is unable to speak and has a right facial droop. There has been no real change in her status, although she does seem to be following some commands. Her son is at the bedside this morning and I updated him. She is receiving Keppra IV and aspirin suppository. She is NPO and have a swallowing evaluation, although given her current state, it might be difficult. No other new issues overnight. OBJECTIVE: Vital Signs: Blood pressures have been 118/68 to 135/65 to 114/50 to 120/55; she has been afebrile; pulse of 57 earlier this morning to 56 to 70; respiratory rate of 16; pulse ox of 96%. In general, she is a well-nourished, well- developed female, lying in the hospital bed. She is awake. Her son is at the bedside. HEENT: She is normocephalic, atraumatic. Sclerae are anicteric. Mucous membranes are dry. Oropharynx is clear. Neck is supple. No carotid bruits. Chest: Clear to auscultation bilaterally. Cardiovascular: Regular rate and rhythm. Abdomen is nondistended. Extremities: There is no significant clubbing, cyanosis, or edema. Her skin is warm and dry. Neurologic : She is awake. She is somewhat somnolent, but is responsive to some commands. She will wiggle her left fingers and toes and try to lift her left arm and leg. She has no movement on her right side. Her pupils are equally round and reactive to light. Extraocular muscles appeared to be intact, although she may have some difficulty with right gaze, again difficult to fully assess. She is not compliant with the examination. Face: She has significant right lower facial droop. She would not stick out her tongue. I could not evaluate her palate. She is spontaneously moving the left side and will move to command. No movement in the right side. She does withdraw slightly to pain in the right lower extremity and she extends her arm posture somewhat in the right upper extremity with pain. She winces on the left side bilaterally. It is difficult to tell if she is extinguishing. Could not test [id number], rapid alternating movements. DTRs were 1+ and symmetric on the right side, 2+ and symmetric on the left side. Withdraw Babinski on the left, somewhat upgoing on the right. DIAGNOSTIC STUDIES/LAB DATA: Lab work this morning, white count of 6.0, hemoglobin of 12.8 and hematocrit of 38, platelet count of 141. BMP was normal. Calcium of 8.2, LDL cholesterol 128, cholesterol 178, HDL of 37.7, triglycerides of 62. Her free T4 1.13, B12 718, folate of greater than 20, TSH of 2.01. Urine yesterday was essentially normal. She did have an EEG yesterday, which showed slowing in the left hemisphere, maximal in the left temporal region but also extends in the left frontal region , bursts of generalized discharges, which have a frontal central predominance and at most lasts 1.5 seconds during the recording. In addition, there is a slow background rhythm suggestive of a generalized epilepsy trait with superimposed underlying neuronal dysfunction in the left hemisphere. There is no evidence of status epilepticus. She had an MRI of the brain, which showed a nonhemorrhagic infarct present in the left lentiform nucleus and periventricular white matter moderate in size with mild mass effect. There is also second small focus of infarction in the posterior inferior left temporal lobe. She had a head and neck CTA done, which showed limited evaluation of the right bifurcation in the presence of mild underlying disease, artifacts from dental amalgam or motion, diminutive right vertebral artery at the skull base. It is difficult to delineate probable high-grade left M1 segment stenosis. The left internal carotid artery showed a 30% diameter stenosis. Echocardiogram is pending today. She did have a carotid ultrasound as well, followup, which showed less than 50% stenosis of both internal carotid arteries. ASSESSMENT AND PLAN: Ms. Marrero is a 76-year-old female with a known seizure disorder as an outpatient, on Keppra and Zonegran. She also has had a moderate size left-sided stroke with resultant expressive aphasia plus or minus some receptive aphasia, dense right hemiparesis. As far as her seizures are concerned currently, she is stable, there has been no seizure activity. EEG showed no status, although it did show evidence of underlying epileptogenic activity. She is getting Keppra 1500 mg IV b.i.d. at this point. We are holding her Zonegran as she cannot take p.o. If she has seizures, we can consider adding a second IV agent but I would hold for now. From a stroke standpoint, we are allowing for a permissive hypertension, I am going to bolus her some additional fluid this morning in an attempt to keep her blood pressures elevated. She is on aspirin given the high- grade stenosis in the M1. She will need to be on dual-antiplatelet therapy. We will add Plavix once she can take p.o. or we have addressed the nutrition issue. She will need a statin as well once she is able to take p.o. She is currently NPO pending a swallowing evaluation. I suspect she will fail and we will need to address nutritional status in the next 24 to 48 hours. We will follow up the echocardiogram report. Continue to watch for any decline and would repeat a CT scan given the mild mass effect noted on MRI. At this point, I see no worsening of her symptoms, but no improvement as well. I did briefly update the family this morning and will continue to see them throughout the day. We will continue to follow her closely and make further recommendations. [id number]/[facility] #: [id number] JR
[2017-02-11] MEDS: NS 0.9% 1000 ML* 1,000 ML IV SCH ×2 (00:16→15:45)
[2017-02-11] MEDS: Levothyroxine INJ* 100 MCG/5 ML VIAL IV SCH (06:12)
--- NOTE | 2017-02-11 08:44 | RAD ---
INDICATION: Nonhemorrhagic left lentiform nucleus infarct COMPARISON: CT brain February 09, 2017; MRI brain February 09, 2017 TECHNIQUE: Noncontrast axial source images were acquired from the skull base to the vertex. FINDINGS: Ventricles/sulci: There is mild mass effect upon the left frontal horn. Brain parenchyma: There is decreased attenuation in the left basal ganglia and periventricular white matter consistent with evolving nonhemorrhagic infarct. This is described on earlier MR imaging. There are no additional focal parenchymal findings. There is mild mass effect on the left frontal horn and there is mild effacement of adjacent sulci. Intracranial hemorrhage:None. Extra-axial spaces: There are no abnormal extra axial fluid collections or evidence of extra-axial mass. Calvarium: There is no calvarial fracture or other calvarial abnormality. Scalp: There is no evidence of scalp or extracalvarial soft tissue abnormality. Paranasal sinuses/mastoid: The paranasal sinuses and mastoid air cells are clear. Other: None. IMPRESSION: Evolving nonhemorrhagic left basal ganglia and periventricular infarct with mild associated mass effect.
[2017-02-11] MEDS: Aspirin SUPP* 300 MG PR SCH (08:53)
--- NOTE | 2017-02-11 14:03 | PN ---
Subjective Date of Service: 02/11/17 Interval History: HOSPITALIST PROGRESS NOTE Patient seen and examined at bedside. She is non-verbal, but able to communicate with nods and shakes of her head. Points to Hall catheter when asked if she has pain. Family History: Unchanged from Admission Social History: Unchanged from Admission Past Medical History: Unchanged from Admission Objective Active Medications: Acetaminophen (Tylenol Supp*) 650 mg IA Q4H PRN PRN Reason: FEVER/PAIN Aspirin (Aspirin Supp*) 300 mg IA DAILY [facility] Last Admin: 02/11/17 08:53 Dose: 300 mg Levetiracetam 1,500 mg/ Sodium (Chloride) 115 mls @ 460 mls/hr IVPB Q12H [facility] Last Admin: 02/11/17 08:53 Dose: 460 mls/hr Sodium Chloride (Ns 0.9% 1000 Ml*) 1,000 mls @ 75 mls/hr IV PER RATE [facility] Last Admin: 02/11/17 00:16 Dose: 75 mls/hr Labetalol HCl (Trandate Iv*) 20 mg IV PUSH Q20M PRN PRN Reason: BLOOD PRESSURE Levothyroxine Sodium (Synthroid Inj*) 25 mcg IV 0600 [facility] Last Admin: 02/11/17 06:12 Dose: 25 mcg Lorazepam (Ativan Inj*) 1 mg IV PUSH Q10M PRN PRN Reason: SEIZURES Ondansetron HCl (Zofran Inj*) 4 mg IV Q6H PRN PRN Reason: NAUSEA Vital Signs 02/11/17 02/11/17 02/11/17 03:20 08:00 08:01 Temperature 98.4 F 98.6 F Pulse Rate 66 71 Respiratory 16 20 20 Rate Blood Pressure 144/57 152/67 (mmHg) O2 Sat by Pulse 95 97 Oximetry Oxygen Devices in Use Now: None Appearance: Elderly lady lying in bed in [facility]. Eyes: No Scleral Icterus Ears/Nose/Mouth/Throat: Mucous Membranes Moist Neck: Trachea Midline Respiratory: Symmetrical Chest Expansion and Respiratory Effort, Clear to Auscultation Cardiovascular: RRR - Normal S1 and S2 Abdominal: NL Sounds; No Tenderness; No Distention Extremities: No Edema Neurological: - - Alert and awake, non-verbal, but follows commands, right facial weakness, right hemiparesis, arm>leg Lines/Tubes/Other Access: Clean, Dry and Intact Peripheral IV Result Diagrams: 02/10/17 05:29 02/10/17 05:32 Assess/Plan/Problems-Billing Assessment: Mrs. Marrero is a 76yo F with PMH of seizure disorder, hypothyroidism, glaucoma, who presented to ED with c/o altered MS and right sided weakness, found to have a left MCA CVA. - Patient Problems (1) CVA (cerebral vascular accident) Comment: - MRI brain showed non hemorrhagic infarct in the left lentiform nucleus and periventricular white matter moderate in size with mild mass effect and a second small focus in the inferior posterior left temporal lobe. - CTA head showed high grade left M1 segment MCA stenosis, carotid US showed less than 50% stenosis bilaterally. - D/w Neurology - recommended bed rest until tomorrow, monitor BP, continue Aspirin IA. If not able to take PO by tomorrow, will place NGT so we can start Plavix. - Echo showed EF 55-60% with atrial septal aneurysm and late bubbles seen in the left atrium; recommended SRINIVASAN - Neurology recommends waiting until more stable. LE doppler negative for DVT. - Change neurochecks to q4h. - PT/OT evaluations. - Speech therapy eval appreciated - recommends pureed diet, crushed meds in pudding, pudding thick liquids. - Change Aspirin to PO, add Plavix and Atorvastatin. (2) Seizure disorder Comment: - Continue IV Keppra. (3) Hypothyroid Comment: - Change levothyroxine to PO. (4) DVT prophylaxis Comment: - SCDs for now, will probably start SQ heparin in AM. (5) Full code status Comment: - D/w and sons - patient is a Full code at this time. I left a MOLST form with them so they can go over it and ask questions as needed. Status and Disposition: Inpatient. and sons updated at bedside.
[2017-02-11] MEDS ORDERED: Acetaminophen TAB* 325 MG PO PRN (14:13)
[2017-02-11] MEDS: Clopidogrel TAB* 75 MG PO SCH (15:56)
[2017-02-11] MEDS: Atorvastatin* 80 MG TAB PO SCH (19:44)
--- NOTE | 2017-02-11 23:02 | PN ---
PROGRESS NOTE: DATE OF PROGRESS NOTE: 02/11/17 LOCATION: She is currently in room 447, bed 1. SUBJECTIVE: Overnight, the nurse noted that she may have had some weakness in her left death clearance coordinator. A CT of the head was reported. I reviewed the films. I see no obvious hemorrhage, no major changes in the left-sided stroke. She does have some mass effect on the lateral ventricle. Otherwise, she has no major changes. This morning, she was much more compliant with the examination, so I feel that it may have just been confusion on her part and I had to ask her to do things multiple times. There has been no other major issues overnight. No seizure activity was reported. OBJECTIVE: Vital Signs: Temp of 98.4, pulse rate is 66, respiratory rate of 16 , O2 sat of 95, blood pressure 144/57, mean blood pressure 77. Her blood pressures overnight had been in the 140s/60s. In general, she is a well- nourished, well- developed female, lying in her hospital bed. She smiles, is pleasant, awake. HEENT: She is normocephalic, atraumatic. Sclerae are anicteric. Mucous membranes are dry. Oropharynx is clear. Neck is supple. No carotid bruits. Chest: Clear to auscultation bilaterally. Cardiovascular: Regular rate and rhythm. Abdomen is nontender. Extremities: There is no significant clubbing, cyanosis, or edema. Her skin is warm and dry. On neurologic exam, she is awake, she is alert. She tries to speak, but is unable to speak. Her speech is nonfluent with an expressive aphagia. She seems to understand and follow some commands. Pupils are equal, round, and reactive to light. Extraocular muscles appear intact. She looks in all quadrants. Visual campo were difficult to assess, but there does not appear to be any major deficits. She has a right lower facial droop. No significant change since yesterday. Facial sensation difficult to assess. Her hearing appears to be intact bilaterally as she is following some commands. Tongue is midline. The posterior oropharynx is difficult to visualize. She spontaneously moves her left thigh. She is following commands. She will hold her arm up antigravity. There was no significant left arm drift. She squeezes my hand approximately 4+/ 5. Her left leg, she will hold up. There is no significant drift, but it took me several times to get her to comply with the examination on the left side. On the right side, she has dense hemiparesis. She has no real movement of the right arm or leg. She would not move to command. She did verbalize that she felt sensation on her left side, but again difficult examination. She appears to have withdraw on the left side and is withdrawing with some extension posturing on the right lower extremity and right upper extremity with grimacing. DTRs were somewhat difficult to assess, but appeared to be 1+ in the upper extremities bilaterally, trace at patella bilaterally, absent at the ankles, and upgoing Babinski on the right. LABORATORY WORK: Her hemoglobin A1c was 5.2. LDL of 128, cholesterol of 178, triglycerides of 62, HDL 37.7. No new labs. DIAGNOSTIC STUDIES: CT scan as noted above. She did have venous Dopplers yesterday, which showed no sonographic evidence of deep vein thrombosis. Her transthoracic echocardiogram did show evidence of ASD. Her current transthoracic echocardiogram showed an ejection fraction of 55% to 60%, normal left ventricular systolic function, assessment of diastolic function is nondiagnostic. The patient was unable to perform a Valsalva maneuver. No significant valvular disease. There were late bubbles seen in the left atrium, agitated normal saline used to detect shunting. There is evidence of an atrial septal defect, poor substernal views, for shunt assessment. Recommend SRINIVASAN for atrial assessment. ASSESSMENT AND PLAN: Ms. Marrero is a 76-year-old female with a known history of seizures, previously on Keppra and Zonegran, possible seizure on the day of admission, although it is unclear. She also has been found to have a moderate to large left-sided infarct involving the left lentiform nucleus and periventricular white matter with some mass effect, also a small focus of infarction in the posterior inferior left temporal lobe. 1. Her seizures seemed to be well controlled. She is currently on IV Keppra. Unfortunately, she is unable to take p.o. at this point. Once she is, we will restart the Zonegran, but she has had no further seizure activity. Her EEG did show some suspicious activity, but no ongoing seizure activity. 2. Stroke. From a stroke standpoint, she is relatively stable. She has not made any major improvement. She does have what appears to be more of a expressive aphasia and she is following some commands. She has dense right hemiparesis as well. Swallowing has been an issue. She has failed several swallowing studies. The plan is to get another swallowing study today. If she fails, then we will put an NG tube in. Because of her high-grade stenosis on the left M1, I would like to manage her with dual-antiplatelet. Once she has an NG tube or is able to swallow, we will start Plavix. We will also start high -dose statin therapy. At this point, we are letting her blood pressures ride and hydrating her. Given the stenosis, eventually we will want to start to bring those down and control them closely. She has no strong evidence of diabetes at this time. Her venous Dopplers were negative. Again, the atrial septal defect, they recommended a SRINIVASAN, but I worry about the possibility of hypotension during the examination and I think at this point given the size of her stroke, it would not change coordinator. Stroke was more likely thromboembolic and not cardioembolic. She has no history of atrial fibrillation in the past. We will continue with dual-antiplatelet therapy, can address the possible atrial septal defect at a later; but at this point, I would not put her through a SRINIVASAN. We will continue to follow her closely and make further recommendations if necessary. Dr. Santoyo will be taking over the service tomorrow, I will sign off to him. [id number]/[facility] #: [id number] JR
[2017-02-12] MEDS: Levothyroxine TAB* 50 MCG TAB PO SCH (05:22)
[2017-02-12 06:31] LABS: BUN/Creatinine Ratio 16.1 (8-20); Calcium 8.1 mg/dL (8.6-10.3); EGFR African American 119.7 (>60); EGFR Non-African American 93.1 (>60); Potassium 3.9 mmol/L (3.5-5.0)
[2017-02-12] MEDS ORDERED: Aspirin EC Low Dose* 81 MG TAB.EC PO SCH (09:00)
[2017-02-12] MEDS: Clopidogrel TAB* 75 MG PO SCH (09:29)
[2017-02-12] MEDS: NS 0.9% 1000 ML* 1,000 ML IV SCH (09:31)
[2017-02-12] MEDS: Docusate LIQ* 100 MG/10 ML UDC PO PRN (17:03)
[2017-02-12] MEDS: Atorvastatin* 80 MG TAB PO SCH (17:03)
[2017-02-12] MEDS: Magnesium Hydroxide LIQ* 30 ML UDC PO PRN (17:03)
[2017-02-12] MEDS: levETIRAcetam LIQ* 500 MG/5 ML UDC PO SCH (21:14)
[2017-02-12] MEDS: CMC:Zonisamide (NF) 50 MG CAP PO SCH (21:14)
[2017-02-12] MEDS: Polyethylene Glycol 3350* 17 GM PACKET PO SCH ×2 (21:18→21:38)
--- NOTE | 2017-02-12 23:07 | PN ---
NEUROLOGICAL FOLLOWUP NOTE: DATE OF VISIT: 02/12/2017. PATIENT OF: Dr. Lawrence. HISTORY: This is a neurological followup on this 76-year-old woman who sustained a severe stroke leaving her aphasic with dense hemiparesis and is on aspirin and Plavix after an evaluation by Dr. Stewart. She has had no further seizures in the hospital. She had been on Zonegran at home 100 mg twice a day in addition to her Keppra 1500 mg a day. She is on the Keppra now, aspirin, and Plavix, and Synthroid 50 mg daily. Temperature 97.8, pulse 68, respirations 16, blood pressure 136/64. She was alert, did not speak, did not follow commands. She had a right facial droop and some possible neglect or decreased reaction to threat on the right side. She had a dense right hemiparesis. Chest is clear. Cardiovascular: Regular rate and rhythm. Abdomen: Soft with positive bowel sounds. I do not have further recommendations regarding stroke. I would recommend that she be started on Zonegran 100 mg b.i.d. when she can tolerate p.o. medications well. [id number]/[facility] #: [id number] [facility]
[2017-02-13] MEDS: Levothyroxine TAB* 50 MCG TAB PO SCH (05:40)
[2017-02-13] MEDS: NS 0.9% 1000 ML* 1,000 ML IV SCH (05:45)
--- NOTE | 2017-02-13 08:40 | RAD ---
Indication: Fever, aphasia. CVA, seizure. Comparison: February 09, 2017 Technique: Upright AP 0025 hours Report: Suboptimal inspiration with crowding of the pulmonary markings. Disproportionate mild alveolar opacity at the LEFT lung base. Potential small LEFT pleural effusion. Negative for pneumothorax. Upper normal heart size. Unremarkable central pulmonary vasculature. IMPRESSION: Low lung volumes with subsegmental atelectasis. Disproportionate alveolar consolidation at the LEFT lung base may represent pneumonia. Potential small LEFT pleural effusion.
[2017-02-13] MEDS: Aspirin Low Dose CHEW TAB* 81 MG PO SCH (08:57)
[2017-02-13] MEDS: Clopidogrel TAB* 75 MG PO SCH (08:57)
[2017-02-13] MEDS: levETIRAcetam LIQ* 500 MG/5 ML UDC PO SCH ×2 (08:58→19:55)
[2017-02-13] MEDS: CMC:Zonisamide (NF) 50 MG CAP PO SCH ×2 (09:02→19:56)
--- NOTE | 2017-02-13 09:13 | PN ---
Subjective Date of Service: 02/13/17 Interval History: HOSPITALIST PROGRESS NOTE Patient seen and examined at bedside. In good spirits, today, being fed by her son. Tolerating pureed diet and pudding thick liquids well, was able to swallow Zonisamide capsule with no problem. Spiked fever 103 last night, noted to have some right hand swelling, but no other new complaints. Family History: Unchanged from Admission Social History: Unchanged from Admission Past Medical History: Unchanged from Admission Objective Active Medications: Acetaminophen (Tylenol Tab*) 650 mg PO Q6H PRN PRN Reason: pain/fever Last Admin: 02/12/17 23:44 Dose: 650 mg Aspirin (Aspirin Low Dose Tab*) 81 mg PO DAILY [facility] Last Admin: 02/13/17 08:57 Dose: 81 mg Atorvastatin Calcium (Lipitor*) 80 mg PO 1700 [facility] Last Admin: 02/12/17 17:03 Dose: 80 mg Clopidogrel Bisulfate (Plavix Tab*) 75 mg PO DAILY [facility] Last Admin: 02/13/17 08:57 Dose: 75 mg Docusate Sodium (Colace Liq*) 100 mg PO BID PRN PRN Reason: CONSTIPATION Last Admin: 02/12/17 17:03 Dose: 100 mg Sodium Chloride (Ns 0.9% 1000 Ml*) 1,000 mls @ 50 mls/hr IV PER RATE [facility] Last Admin: 02/13/17 05:45 Dose: 50 mls/hr Levetiracetam (Keppra Liq*) 1,500 mg PO BID [facility] Last Admin: 02/13/17 08:58 Dose: 1,500 mg Levothyroxine Sodium (Synthroid Tab*) 50 mcg PO DAILY@0600 [facility] Last Admin: 02/13/17 05:40 Dose: 50 mcg Magnesium Hydroxide (Milk Of Magnesia Liq*) 30 ml PO BID PRN PRN Reason: CONSTIPATION Last Admin: 02/12/17 17:03 Dose: 30 ml Ondansetron HCl (Zofran Inj*) 4 mg IV Q6H PRN PRN Reason: NAUSEA Polyethylene Glycol/Electrolytes (Miralax*) 17 gm PO 0800,2100 [facility] Last Admin: 02/12/17 21:38 Dose: Not Given Timolol Maleate (Timoptic 0.5% Opth*) 1 drop BOTH EYES BID [facility] Zonisamide (Zonegran (Nf)) 100 mg PO BID BRIAN Last Admin: 02/13/17 09:02 Dose: 100 mg Vital Signs 02/13/17 02/13/17 02/13/17 05:46 08:15 08:32 Temperature 97.5 F 98.2 F Pulse Rate 73 Respiratory 20 Rate Blood Pressure 142/68 (mmHg) O2 Sat by Pulse 97 96 Oximetry Oxygen Devices in Use Now: None Appearance: Pleasant lady lying in bed, smiling, non-verbal, but able to communicate with nods and shakes of her head. Eyes: No Scleral Icterus Ears/Nose/Mouth/Throat: Mucous Membranes Moist Neck: Trachea Midline Respiratory: Symmetrical Chest Expansion and Respiratory Effort, Clear to Auscultation Cardiovascular: RRR - Normal S1 and S2 Abdominal: NL Sounds; No Tenderness; No Distention Extremities: - - Mild right hand edema, no erythema, warmth or tenderness. No edema of LE. Neurological: - - Alert and awake, right hemiparesis, non-verbal, but follows commands Result Diagrams: 02/10/17 05:29 02/12/17 05:33 Assess/Plan/Problems-Billing Assessment: Mrs. Marrero is a 76yo F with PMH of seizure disorder, hypothyroidism, glaucoma, who presented to ED with c/o altered MS and right sided weakness, found to have a left MCA CVA. - Patient Problems (1) CVA (cerebral vascular accident) Comment: - MRI brain showed non hemorrhagic infarct in the left lentiform nucleus and periventricular white matter moderate in size with mild mass effect and a second small focus in the inferior posterior left temporal lobe. - CTA head showed high grade left M1 segment MCA stenosis, carotid US showed less than 50% stenosis bilaterally. - Tolerating Aspirin, Plavix, statin PO. - Echo showed EF 55-60% with atrial septal aneurysm and late bubbles seen in the left atrium; recommended SRINIVASAN - Neurology recommends waiting until more stable. LE doppler negative for DVT. - Continue neurochecks q4h. - PT/OT evaluations appreciated. - Speech therapy eval appreciated - recommends pureed diet, crushed meds in pudding, pudding thick liquids. (2) Seizure disorder Comment: - Continue Keppra and Zonisamide. (3) Hypothyroid Comment: - Change levothyroxine to PO. (4) DVT prophylaxis Comment: - SCDs. (5) Full code status Status and Disposition: Inpatient. Son updated at bedside.
[2017-02-13] MEDS: Polyethylene Glycol 3350* 17 GM PACKET PO SCH ×2 (10:14→19:55)
[2017-02-13] MEDS: cefTRIAXone VIAL(*) 1,000 MG in NS 0.9% 50 ML* 50 ML IVPB SCH (10:15)
[2017-02-13 10:22] LABS: Urine Bacteria Absent (Absent); Urine Bilirubin Negative (Negative); Urine Glucose Negative (Negative); Urine Nitrite Negative (Negative)
[2017-02-13] MEDS: metroNIDAZOLE IV 500 MG/100ML* 500 MG/100 ML BAG IVPB SCH ×2 (11:10→17:33)
[2017-02-13] MEDS: Timolol 0.5% OPTH.SOL* BTL BOTH EYES SCH ×2 (11:10→19:55)
[2017-02-13] MEDS: Magnesium Hydroxide LIQ* 30 ML UDC PO PRN (17:33)
[2017-02-13] MEDS: Docusate LIQ* 100 MG/10 ML UDC PO PRN (17:33)
[2017-02-13] MEDS: Atorvastatin* 80 MG TAB PO SCH (17:34)
[2017-02-14] MEDS: metroNIDAZOLE IV 500 MG/100ML* 500 MG/100 ML BAG IVPB SCH (02:45)
[2017-02-14] MEDS: NS 0.9% 1000 ML* 1,000 ML IV SCH (04:17)
[2017-02-14] MEDS: Levothyroxine TAB* 50 MCG TAB PO SCH (04:46)
[2017-02-14] MEDS ORDERED: Perflutren Lipid Microsphere* 3 ML VIAL ONE (07:56)
[2017-02-14] MEDS: levETIRAcetam LIQ* 500 MG/5 ML UDC PO SCH (09:54)
[2017-02-14] MEDS: Clopidogrel TAB* 75 MG PO SCH (09:56)
[2017-02-14] MEDS: CMC:Zonisamide (NF) 50 MG CAP PO SCH (09:57)
[2017-02-14] MEDS: Aspirin Low Dose CHEW TAB* 81 MG PO SCH (09:58)
[2017-02-14] MEDS: Polyethylene Glycol 3350* 17 GM PACKET PO SCH (09:58)
[2017-02-14] MEDS: Timolol 0.5% OPTH.SOL* BTL BOTH EYES SCH (10:00)
[2017-02-14] MEDS: cefTRIAXone VIAL(*) 1,000 MG in NS 0.9% 50 ML* 50 ML IVPB SCH (10:01)
[2017-02-14 12:16] VITALS: BP 118/60
--- NOTE | 2017-02-15 12:42 | DS ---
CC: Rose Marie Beth MD; Dr. Stewart; Susie Avitia MD* DISCHARGE SUMMARY: DATE OF ADMISSION: 02/09/17 DATE OF DISCHARGE: 02/14/17 PRIMARY CARE PROVIDER: Rose Marie Beth MD CLASSROOM AIDE NEUROLOGIST: Dr. Stewart. ACCEPTING [facility] PHYSICIAN: Susie Avitia MD DISCHARGE DIAGNOSES: 1. 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 2. Possible aspiration pneumonia. SECONDARY DIAGNOSES: 1. Seizure disorder. 2. Hypothyroidism. 3. Glaucoma. MEDICATION LIST: 1. Zonisamide 100 mg p.o. b.i.d. 2. Timolol 0.5% one drop to both eyes b.i.d. 3. Levothyroxine 50 mcg p.o. daily. 4. Lorazepam 0.5 mg p.o. b.i.d. as needed for anxiety. 5. Keppra 1500 mg p.o. b.i.d. New medications: 1. Metronidazole 500 mg IV q.8 hours. 2. Ceftriaxone 1 g IV daily. 3. MiraLAX 17 g p.o. b.i.d. 4. Milk of magnesia 30 mL p.o. b.i.d. as needed for constipation. 5. Clopidogrel 75 mg p.o. daily. 6. Atorvastatin 80 mg p.o. daily. 7. Aspirin 81 mg p.o. daily. 8. Acetaminophen 650 mg p.o. q.6 hours p.r.n. pain or fever. HOSPITAL COURSE: Ms. Marrero is a 76-year-old lady with a past medical history as stated above that presented to the emergency room on 02/09/17 with altered mental status and right-sided weakness. The patient has a known history of seizure disorder and the thought that at 9 o'clock at night prior to admission she had a seizure at home. He gave her some Ativan and he was able to get her into bed. Around midnight, he checked on her and noted that [facility] [place] [facility] and with difficulty moving. The was not sure if she had another seizure or not. The patient was trying to go to the bathroom and became incontinent, but with no seizure-like activity at that moment. The next morning, the patient was too aphasic. She was not moving her right side. So, he decided to bring her to the emergency room for further evaluation. For more details about her presentation, I refer you to her history and physical. She was seen in consultation by Neurology (Dr. Stewart) and his impression is that although it appears as she had seizure the day prior to admission, he felt that her presentation was clear right-sided hemiparesis, facial droop, aphasia, was that she likely had a CVA, a left MCA stroke and not Benedict's paralysis. The patient was admitted for further workup. Initial CT of the brain showed no evidence for a gross acute infarct, mass effect, or hemorrhage. Chest x-ray showed no evidence for acute disease. CTA of the head showed probable high grade left M1 segment MCA stenosis. The carotid arteries were not well visualized and the recommendation was for a carotid Doppler study that showed less than 50% stenosis on both internal carotid arteries. MRI of the brain showed findings consistent with a known hemorrhagic infarct in the left lentiform nucleus and periventricular white matter, moderate in size with mild mass effect. There is also second small focus of infarction in the posterior inferior left temporal lobe. Transthoracic echocardiogram showed ejection fraction of 55% to 60% with normal left ventricular systolic function. There were late bubbles in the left atrium. Agitated normal saline was used to detect shunting, but there was no evidence of an atrial septal aneurysm. Poor sternal views made color flow analysis suboptimal for shunt assessment. Recommendation was for SRINIVASAN for atrial septal assessment to assess for shunting. Those recommendations were discussed with Dr. Stewart and he felt the patient was not stable to have this procedure performed as the concern was that sedation necessary for SRINIVASAN would cause worsening of her CVA at this point. The plan is later on when the patient is more stable to have a SRINIVASAN done as outpatient. The patient initially failed her swallow evaluation. She was kept n.p.o. and received IV medications. Later on, she had some improvement and she was able to tolerate a pureed texture diet with pudding thick liquids. She was also able to tolerate medications crushed. The zonisamide cannot be crushed, so the patient had to take that capsule whole and she was able to do so. For now, she is taking Keppra in its liquid form and tolerated it well. As there was concern for possible right to left shunt, the patient had a lower extremity Doppler and it showed no evidence of deep vein thrombosis. A repeat CT of the brain showed an evolving no hemorrhagic left basal ganglia, impaired ventricular infarct with mild associated mass effect, but no signs of bleeding. The patient continued to put great effort into her PT/OT sessions and continues to make progress. At this point, she is still aphasic, but able to communicate pointing to things, nodding and shaking her head. She has significant PT/OT and speech needs and she was offered a bed at [facility] to continue her rehabilitation process. Unfortunately, on 02/13/17, the patient spiked a temperature of 103. Blood cultures showed no growth so far. Her urinalysis showed 3+ blood, 3+ wbc's, 3+ rbc's and urine culture is pending at this time. A chest x-ray was performed that showed low lung volumes with subsegmental atelectasis. Disproportionate alveolar consolidation at the left lung base may represent pneumonia and there was concern that this could represent aspiration pneumonia considering her significant dysphagia. The patient is allergic to AMOXICILLIN, so she was started on ceftriaxone and metronidazole. This was discussed with [facility] provider and they will continue her antibiotic therapy at [facility] and follow her final culture results. PHYSICAL EXAMINATION: Vital Signs: Temperature 97.8, heart rate is 75, respiratory rate is 18, oxygen saturation is 97% on room air, and blood pressure is 118/60. General: The patient is a pleasant elderly lady, sitting up in a recliner, in no acute distress. HEENT: Pupils are equal. Moist mucous membranes. CVS: Normal S1, S2. Regular rate and rhythm with no murmurs. Chest: Breath sounds present bilaterally with no added sounds. Extremities: Lower extremities, no edema. There is mild edema to the right hand. There is no erythema. Neuro: She is alert and awake. Aphasic. Able to communicate through shakes and nods of her head. She has right hemiparesis ( she is able to move her right leg, but not her right arm). There is right facial asymmetry with weakness. DIET: Regular diet, pureed texture, pudding thick liquids. ACTIVITIES: Continue PT, OT, and speech as tolerated. DISPOSITION: To [facility] STATUS WHILE IN THE HOSPITAL: Inpatient. Please keep in mind this is a summarized version of this patient's complex hospital stay. If you need more information, please feel free to call me at [phone] or please obtain the full medical records. TIME SPENT: Approximately 45 minutes were spent to complete this discharge. [id number]/[facility] #: [id number] JR
== END 2017-02-14 13:08 | DRG 64 ==
LOC: ED 08:48 → MEDTELE 10:53
PROVIDERS: ADMIT Hospitalist; ATTEND Internal Medicine
PROC: 4A00X4Z Measurement of Central Nervous Electrical Activity, External Approach (ICD-10-PCS; principal; 2017-02-09)
DX: I63.512 Cerebral infarction due to unspecified occlusion or stenosis of left middle cerebral artery (principal); J69.0 Pneumonitis due to inhalation of food and vomit; G81.91 Hemiplegia, unspecified affecting right dominant side; R47.01 Aphasia; R13.10 Dysphagia, unspecified; G40.909 Epilepsy, unspecified, not intractable, without status epilepticus; H40.9 Unspecified glaucoma; R29.810 Facial weakness; R00.1 Bradycardia, unspecified; F32.9 Major depressive disorder, single episode, unspecified; I65.23 Occlusion and stenosis of bilateral carotid arteries; E03.9 Hypothyroidism, unspecified; Z88.1 Allergy status to other antibiotic agents; Z88.2 Allergy status to sulfonamides
CPT/HCPCS: 36415; 70450; 70496; 70498; 70551; 71010; 80048; 80053; 80061; 81003; 81015; 82550; 82607; 82746; 83036; 83090; 83605; 84439; 84443; 84484; 85025; 85610; 86850; 86900; 86901; 87040; 87641; 93005; 93306; 93880; 93970; 94760; 95816; A9270-GY; C8929; G8996-GN-CL; G8996-GN-CN; G8997-GN-CJ; J0696; Q9967

== ENCOUNTER 2017-02-14 11:06 | Inpatient (IN) | payer MEDICARE, OTHER ==
[2017-02-14] MEDS ORDERED: Magnesium Hydroxide LIQ* 30 ML UDC PO PRN (15:52)
[2017-02-14] MEDS ORDERED: Polyethylene Glycol 3350* 17 GM PACKET PO PRN (17:00)
[2017-02-14] MEDS: Atorvastatin* 80 MG TAB PO SCH (17:46)
[2017-02-14] MEDS ORDERED: Enoxaparin(*) 30 MG/0.3 ML SYR SUBCUT SCH (18:00)
[2017-02-14] MEDS: metroNIDAZOLE IV 500 MG/100ML* 500 MG/100 ML BAG IVPB SCH (18:10)
[2017-02-14] MEDS ORDERED: Senna TAB PO PRN (21:00)
[2017-02-14] MEDS: Timolol 0.5% OPTH.SOL* BTL BOTH EYES SCH (21:39)
[2017-02-14] MEDS: levETIRAcetam TAB* 500 MG PO SCH (21:39)
[2017-02-14] MEDS: Docusate CAP* 100 MG PO SCH (21:39)
[2017-02-14] MEDS: CMCS: Zonisamide (NF) 50 MG CAP PO SCH (21:40)
--- NOTE | 2017-02-14 23:12 | HP ---
ADMISSION HISTORY AND PHYSICAL: DATE OF ADMISSION: 02/14/17 REASON FOR ADMISSION: Stroke with right hemiplegia and aphasia. HISTORY OF ILLNESS AND HOSPITAL COURSE: Becki Marrero is a 76-year-old female. She has a medical history significant for a seizure disorder, which she has had for 20 years. Over the course of the past 3 years, she has had increasing difficulty with memory. At her son's request, she and her moved from [place], [place] to [place] to be closer to her son. She lived in the [facility] apartments at [place], which are completely independent. According to the son, the patient had a seizure on 02/08/17. It was the first seizure she had had in nearly 2 years. Her was able to get her settled and she seemed to return to her baseline. She went to bed and in the middle of the night , her noticed that her legs were hanging out outside of the bed. This was atypical. The felt something was wrong and he called his son. The son came over to the house and felt that 911 should be called. The patient was brought to the hospital and had noticeable right facial weakness as well as right arm weakness. She also had difficulty communicating and was felt to be aphasic. She had a CAT scan of her brain, which was read as having no evidence of a new stroke. She also had a CT angiogram done. She had a consultation done with Dr. Tod Stewart from Neurology. The CT angiogram showed some stenosis in the right carotid at the bifurcation. The MRI of the brain, which was done on 02/09/17, showed a non- hemorrhagic infarct in the left lentiform nucleus and periventricular white matter. There also appeared to be a second small sulcus of infarction in the posteroinferior left temporal lobe. Dr. Stewart saw the patient and recommended continuing her on an aspirin a day. The patient was having difficulty swallowing and was n.p.o. A NG tube was placed, so that she could start Plavix. She was kept on bedrest initially and on IV Keppra. The patient was worked with Speech Therapy. She was able to start swallowing medications. She was put on a pureed diet with putting thick liquids. She did spike a fever to 103 and was felt to have an aspiration pneumonia after her chest x-ray showed some consolidation at the left lung base. She was started on IV ceftriaxone and Flagyl. The patient was felt to have needs in physical therapy, occupational therapy, and speech therapy. She is now being admitted for inpatient rehab, so that she might return to independent living. PAST MEDICAL HISTORY: Significant for the aforementioned seizure disorder. She has a history of hypothyroidism as well and glaucoma. As mentioned, there may have been some memory problems, which necessitated to move to [place]. CURRENT MEDICATIONS: Include: 1. Keppra. 2. Zonegran. 3. Aspirin. 4. Plavix. 5. Lipitor. 6. Synthroid. 7. IV ceftriaxone. 8. IV Flagyl. ALLERGIES: To AMOXICILLIN and SULFA. SOCIAL HISTORY: She is a nonsmoker and nondrinker, lives with her in one of the [facility] apartments at [place]. She has a son living nearby. Her is her healthcare proxy. REVIEW OF SYSTEMS: The patient is aphasic. Really unable to answer. PHYSICAL EXAMINATION Vital Signs: The patient's temperature is 99.5, blood pressure is 118/53, pulse 74, respirations 20. HEENT: Her extraocular movements are intact. NECK: Supple with no lymphadenopathy. LUNGS: Sounded mostly clear with some scattered rhonchi. HEART: Heart sounds are regular. S1, S2 are audible. ABDOMEN: Soft and nontender. EXTREMITIES: Her right upper extremity had increased tone as did the right lower extremity. Peripheral pulses were intact. NEUROLOGIC: She was awake and alert. She was almost completely aphasic, although was able to mutter no a few times. It was unclear how accurate her yes /no answers were. Her muscle strength was about 5/5 on the left and 0/5 in the right arm. There was trace movement at the right shoulder. Her right leg again trace at the right hip, but otherwise I did not detect any active movement. Her functional exam, the patient transfers independent. 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 PLAN: We are going to integrate her into comprehensive and therapeutic rehab program with the following goals: 1. Physical Therapy will see the patient. They are going to work on functional transfer training, wheel chair mobilities, and possibly gait training. 2. Occupational Therapy will see the patient and work on her activities of daily living including toileting and toilet transfers. 3. Speech Therapy will see the patient and work her on her swallowing dysfunction as well as treating her aphasia. 4. Lovenox for DVT prophylaxis. 5. Continue aspirin and Plavix for secondary stroke prevention. 6. Continue Keppra and Zonegran for seizures. 7. For hypothyroidism, we will continue Synthroid. 8. For her aspiration pneumonia, we are going to continue IV Flagyl and IV ceftriaxone and switch to oral meds when appropriate. 9. Her bowels will be regulated. 10. director of student services will be closely involved to make sure that any services and equipment that the patient requires are in place prior to discharge. 11. Family training as appropriate. 12. SSRIs and a trial of Prozac as appropriate. 13. Back to [place] with an appropriate level of care and appropriate services. ESTIMATED LENGTH OF STAY: Four weeks. [id number]/CPS #: [id number]
[2017-02-15] MEDS: Levothyroxine TAB* 50 MCG TAB PO SCH (06:26)
[2017-02-15] MEDS: metroNIDAZOLE IV 500 MG/100ML* 500 MG/100 ML BAG IVPB SCH ×2 (06:26→17:32)
[2017-02-15] MEDS: CMCS: Zonisamide (NF) 50 MG CAP PO SCH ×2 (07:57→20:48)
[2017-02-15] MEDS: levETIRAcetam TAB* 500 MG PO SCH ×2 (07:57→20:48)
[2017-02-15] MEDS: Aspirin Low Dose CHEW TAB* 81 MG PO SCH (07:58)
[2017-02-15] MEDS: Clopidogrel TAB* 75 MG PO SCH (07:58)
[2017-02-15] MEDS: Timolol 0.5% OPTH.SOL* BTL BOTH EYES SCH ×2 (07:58→20:48)
[2017-02-15] MEDS: Docusate CAP* 100 MG PO SCH ×2 (07:58→20:48)
[2017-02-15 09:46] LABS: Hematocrit 40 % (35-47); Hemoglobin 13.7 g/dl (12.0-16.0); Mean Corpuscular HGB Conc 34 g/dl (31-36); Mean Corpuscular Hemoglobin 32 pg (27-31); Mean Corpuscular Volume 95 fL (80-97); Mean Platelet Volume 9 um3 (7.4-10.4); Red Blood Count 4.25 10^6/ul (4.0-5.4); Red Cell Distribution Width 13 % (10.5-15); White Blood Count 5.2 10^3/ul (3.5-10.8)
[2017-02-15] MEDS: cefTRIAXone VIAL(*) 1,000 MG in NS 0.9% 50 ML* 50 ML IVPB SCH (10:07)
--- NOTE | 2017-02-15 12:40 | PMRUTEAM ---
PMRU: Goals Current Status: Nursing: Current Status Skin Deviations [Right Knee] Other Skin Deviation Description [ scab Right Knee] Physical Therapy: Current Status Bed Mobility Assistance Max Assist x 2 Transfer Moblility Assistance Mod Assist X2 Ambulation Assistance Not tested Stairs Assistance Not Tested Occupational Therapy: Current Status Upper Body Dressing Max Asst Lower Body Dressing Total Assist,2 Person Assist Bathing Total Assist,2 Person Assist Toileting Total Assist Toilet Transfer Mod Assist,2 Person Assist Shower Transfer Mod Assist,2 Person Assist Eating Supervision Rec Therapy: Current Status Summary of Assessment and Introduced RT services, d/t pt.'s aphasia it was Clinical Impression difficult to discuss leisure interests or involvement. Pt.'s son provided some information surrounding pt.'s leisure lifestyle. Treatment Goals Pt. will engage in leisure activities while on the unit. Treatment Plan Assess leisure interests and involvement when appropriate to do so. Provide RT services and encourage involvement. Social Work: Current Status Discharge Plan return home with home care svs and family support Potential for Family Training pt's is involved and supportive Anticipated Discharge Home Destination Discharge With home care svs and family support Nutrition: Current Status Monitoring Pt admitted s/p left CVA with right hemiparesis and aphasia. Pt s/p [employer] evaluation recommending pureed solids and pudding thick liquids. Pt consumed 100% of dinner 02/14, although some coughing after eating was noted. Pt also noted to feed herself very quickly. Pt has been education to slow down to prevent aspiration. If coughing continues, may consider additional [employer] evaluation. Will monitor tolerance to modified texture diet. No GI s/sx such as N/V noted. Per chart, skin intact, although Asher Score of 13 places pt at increased risk of skin breakdown. Last BM documented 02/15. Pt is on a bowel regimen. Labs reviewed 02/12; nutritionally pertinent WNL. Will continue to monitor; full nutirtion assessment to follow per protocol. Speech: Current Status Assessment Patient tolerated breakfast tray with only two initial coughs on pudding-thick water at bedside. She ultimately consumed cream of wheat, orange juice, milk, and hot chocolate without s/s of aspiration/penetration. Benefits from cues for lingual lateralization and dry swallow to clear oral stasis. Recommend continued diet with nursing checking oral cavity following meals. Patient will continue to benefit from skilled [employer] services targeting dysphagia to safely tolerate the least restrictive diet. Goals: Physical Therapy: Updated Goals Transfer/Bed Mobility None Recommended Devices Occupational Therapy: Initial Goals Goals to be Completed in (Days 4-6 weeks ) Upper Body Bathing Routine Independent Lower Body Bathing Routine Modified Independent with Upper Body Dressing Routine Independent Lower Body Dressing Routine Modified Independent with Toilet Hygeine and Clothing Modified Independent with Management Routine Toilet Transfer Routine Modified Independent with Step-In Shower Transfer Supervision/Set Up Routine Functional Transfers for ADL Modified Independent with Grooming Routine Independent Feeding Routine Independent Nutrition: Goals Intervention Goals 1. Adequate PO intake to maintain weight/prevent loss of lean body mass 2. Pt will tolerate diet w/o s/sx of difficulty chewing/swallowing 3. Skin will remain intact; no evidence of skin breakdown 4. Remain regularity of BM w/o constipation or diarrhea Speech: Goals Speech Goal 1 Dysphagia Speech Evaluation Status Goal puree, pudding-thick 1 Speech Current Status Goal 1 puree, pudding-thick Goal 1 Comments LTO: Patient will safely tolerate the least restrictive diet. ST) Patient will safely tolerate 10/10 trials of honey-thick liquids without s/s of aspiration/ penetration. Status: Patient seen with breakfast tray this date . She initially exhibited cough x2, however after initial two bites she safely tolerated pudding- thick liquids and puree solids without s/s of aspiration/penetration. She ultimately consumed cream of wheat, orange juice, milk, and hot chocolate without s/s of aspiration/penetration. Patient tends to eat/drink quickly, cues provided for one bite/sip at a time following by a pharyngeal swallow. Given verbal cues, the patient demonstrates lingual lateralization and multiple swallows to clear oral cavity. Recommend conitnued diet. Encourage nursing to check oral cavity (specifically right buccal cavity) following meals. 2) Patient will safely tolerate 10/10 trials of mechanical ground solids without s/s of aspiration /penetration. 3) Patient will complete dysphagia exercises targeting lingual strength/coordination and hyolaryngeal excursion. Speech Goal 2 Receptive Language Speech Goal 2 Evaluation yes/no: 60%; 2-step direction: 0% Status Speech Goal 2 Current Status yes/no: 60%; 2-step direction: 0% Speech Goal 2 Comments LTO: Patient will increase receptive language skills. ST) Patient will follow answer yes/no questions with at least 90% accuracy over two-consecutive sessions. 2) Patient will following two-step directions with at least 90% accuracy. Speech Goal 3 Expressive Language Speech Goal 3 Evaluation approximations of two-words given KIP Status Speech Goal 3 Current Status approximations of two-words given KIP Speech Goal 3 Comments LTO: Patient will increase expressive language skills. ST) Patient will repeat phrases given model with melodic intonation, for 70% of the opportunities presented. 2) The patient will express basic wants/needs to this wrtier and caregiver via alternative communiction approach (e.g. communication board). Speech Goal 4 Motor Speech Speech Goal 4 Comments LTO: To increase motor speech skills. ST) Patient will complete oral-motor exercises following model from [employer]ERSON/caregiver/family member, for 80% for the opportunities presented. Social Work: Goals Discharge Plan return home with home care svs and family support Potential for Family Training pt's is involved and supportive Anticipated Discharge Home Destination Discharge With home care svs and family support Care Plan: Care Plan Communication-Improve/Maintain Start: 02/14/17 17:06 Freq: QSHIFT Status: Active Target: Activity Type Activity Date Activity User E-Sign Co-Sign Detail Recorded Client Recorded Date Recorded By Document 02/14/17 23:56 [id number] [id number] 02/15/17 00:04 [id number] 02/14/17 23:56 PMRU Outcome: Communication/Cognitive Status Outcome/Goals Use Comm Tools/ Devices Makes Needs Known Effectively Outcome/Goals Met Comment pt is non- verbal at this time Coping/Psych-Improve/Maintain Start: 02/14/17 17:06 Freq: QSHIFT Status: Active Target: Activity Type Activity Date Activity User E-Sign Co-Sign Detail Recorded Client Recorded Date Recorded By Document 02/14/17 23:56 [id number] [id number] 02/15/17 00:04 [id number] 02/14/17 23:56 PMRU Outcome: Coping/Psychosocial Coping Outcome/Goals Willingness to Participate in Treatment Plan and Basic Needs Absence of Destructive Behavior to Self/Others Psychosocial Outcome/Goals Maintain/ Improve Emotional Health Cooperate/ Participate in Plan DVT Prophylaxis- Improve/Maintain Start: 02/14/17 17:06 Freq: QSHIFT Status: Active Target: Activity Type Activity Date Activity User E-Sign Co-Sign Detail Recorded Client Recorded Date Recorded By Document 02/14/17 23:56 [id number] 02/15/17 00:04 [id number] 02/14/17 23:56 PMRU Outcome: DVT Prophylaxis Outcome/Goals Remains Free of DVT TEDS Stockings on Every AM, Off at HS Discharge Planning - Improve/Maintain Start: 02/14/17 17:06 Freq: QSHIFT Status: Active Target: Activity Type Activity Date Activity User E-Sign Co-Sign Detail Recorded Client Recorded Date Recorded By Document 02/14/17 23:56 [id number] [email or web address] 02/15/17 00:04 [id number] 02/14/17 23:56 PMRU Outcome: Discharge Planning Update Patient Family No Outcome/Goals Demonstrates Understanding of Discharge Plan Education-Improve/Maintain Start: 02/14/17 23:48 Freq: QSHIFT Status: Active Target: Activity Type Activity Date Activity User E-Sign Co-Sign Detail Recorded Client Recorded Date Recorded By Document 02/14/17 23:56 [id number] [email or web address] 02/15/17 00:04 [id number] 02/14/17 23:56 PMRU Outcome: Education Outcome/Goals Demonstrate/ Verbalize Understanding of Written Discharge Instructions Encourage Questions /GI-Improve/Maintain Start: 02/14/17 17:06 Freq: QSHIFT Status: Active Target: Activity Type Activity Date Activity User E-Sign Co-Sign Detail Recorded Client Recorded Date Recorded By Document 02/14/17 23:56 [id number] [email or web address] 02/15/17 00:04 [id number] 02/14/17 23:56 PMRU Outcome: Genitourinary/ Gastrointestinal Genitourinary- Outcome/Goals Maintain/ Achieve Urinary Continence Gastrointestinal-Outcome/Goals Prevent Constipation Outcome/Goals Met Comment pt incontinent Neurological- Improve/Maintain Start: 02/14/17 17:06 Freq: QSHIFT Status: Active Target: Activity Type Activity Date Activity User E-Sign Co-Sign Detail Recorded Client Recorded Date Recorded By Document 02/14/17 23:56 [id number] [email or web address] 02/15/17 00:04 [id number] 02/14/17 23:56 PMRU Outcome: Neurological Weakness/Aphasia Weakness Aphasia Right Side Outcome/Goals Maintain/ Achieve Baseline Neurological Status Improve Neurological Status Maintain/ Improve Strength/ROM Nutrition/Swallowing- Improve/Maintain Start: 02/14/17 17:06 Freq: QSHIFT Status: Active Target: Activity Type Activity Date Activity User E-Sign Co-Sign Detail Recorded Client Recorded Date Recorded By Document 02/14/17 23:56 [id number] [email or web address] 02/15/17 00:04 [id number] 02/14/17 23:56 PMRU Outcome: Nutrition/Swallowing Outcome/Goals Demonstrates Adequate Hydration/ Prevents Dehydration Maintain/ Improve Nutritional Status Outcome/Goals Met Comment pudding thick, pills whole in apple sauce. Pain/Comfort- Improve/Maintain Start: 02/14/17 17:06 Freq: QSHIFT Status: Active Target: Activity Type Activity Date Activity User E-Sign Co-Sign Detail Recorded Client Recorded Date Recorded By Document 02/14/17 23:56 [id number] [email or web address] 02/15/17 00:04 [id number] 02/14/17 23:56 PMRU Outcome: Pain/Comfort Outcome/Goals Demonstrates Knowledge and Use of Available Comfort Measures Maintain Comfort Level Allowing Patient to Fully Participate in Rehab Respiratory - Improve/Maintain Start: 02/14/17 17:06 Freq: QSHIFT Status: Active Target: Activity Type Activity Date Activity User E-Sign Co-Sign Detail Recorded Client Recorded Date Recorded By Document 02/14/17 23:56 [id number] [email or web address] 02/15/17 00:04 [id number] 02/14/17 23:56 PMRU Outcome: Respiratory Does Patient Have a Trach No Outcome/Goals Maintain/ Improve O2 Sat per MD Order Maintain/ Improve Activity Tolerance Prevent Pneumonia/ Atelectasis Remain Aspiration Free Safety- Improve/Maintain Start: 02/14/17 17:06 Freq: QSHIFT Status: Active Target: Activity Type Activity Date Activity User E-Sign Co-Sign Detail Recorded Client Recorded Date Recorded By Document 02/14/17 23:56 [id number] [email or web address] 02/15/17 00:04 [id number] 02/14/17 23:56 PMRU Outcome: Safety Outcome/Goals Remain Free of Injury or Harm Prevent Falls/ Injury Skin- Improve/Maintain Start: 02/14/17 17:06 Freq: QSHIFT Status: Active Target: Activity Type Activity Date Activity User E-Sign Co-Sign Detail Recorded Client Recorded Date Recorded By Document 02/14/17 23:56 [id number] [email or web address] 02/15/17 00:04 [id number] 02/14/17 23:56 PMRU Outcome: Skin Skin Risk Level High Skin Orders Turn/Position q2hr While in Bed Outcome/Goals Maintain/ Improve Skin Intergrity Medicine Note: Length of Stay: 6 weeks Anticipated Discharge Destination: Home Tentative Discharge Date: 03/29/17 Discharged to: Home
--- NOTE | 2017-02-15 15:54 | PN ---
Progress Note - Progress Note Date of Service: 02/15/17 Note: Becki visited. She remains aphasic, with almost no verbal output. There are also receptive elements, her Y/N are estimated to be 70% accurate by FACILITY OPERATIONS MANAGER. Her PO intake is ok. She remains on IV flagyl/ceftriaxone for aspiration pneumonia, hope to change to PO tomorrow. Her Depends was soaked with a bloody fluid; my guess is she has hematuria, from a garrett? Will check to see if garrett inserted during acute stay. On Plavix/ASA/Lovenox. No seizures seen. She was discussed in interdisciplinary team rounds. Current Medications Acetaminophen (Tylenol Tab*) 650 mg PO Q6H PRN PRN Reason: FEVER/PAIN Aspirin (Aspirin Low Dose Tab*) 81 mg PO DAILY [facility] Last Admin: 02/15/17 07:58 Dose: 81 mg Atorvastatin Calcium (Lipitor*) 80 mg PO 1700 [facility] Last Admin: 02/14/17 17:46 Dose: 80 mg Clopidogrel Bisulfate (Plavix Tab*) 75 mg PO DAILY [facility] Last Admin: 02/15/17 07:58 Dose: 75 mg Docusate Sodium (Colace Cap*) 100 mg PO BID [facility] Last Admin: 02/15/17 07:58 Dose: 100 mg Enoxaparin Sodium (Lovenox(*)) 30 mg SUBCUT Q24H [facility] Last Admin: 02/14/17 18:20 Dose: 30 mg Ceftriaxone Sodium 1,000 mg/ (Sodium Chloride) 50 mls @ 200 mls/hr IVPB Q24H [facility] Last Admin: 02/15/17 10:07 Dose: 200 mls/hr Metronidazole/Sodium Chloride (Flagyl 500 Mg Ivpb*) 500 mg in 100 mls @ 100 mls /hr IVPB Q12H [facility] Last Admin: 02/15/17 06:26 Dose: 100 mls/hr Levetiracetam (Keppra Tab*) 1,500 mg PO BID [facility] Last Admin: 02/15/17 07:57 Dose: 1,500 mg Levothyroxine Sodium (Synthroid Tab*) 50 mcg PO DAILY@0600 [facility] Last Admin: 02/15/17 06:26 Dose: 50 mcg Magnesium Hydroxide (Milk Of Magnesia Liq*) 30 ml PO Q6H PRN PRN Reason: CONSTIPATION Polyethylene Glycol/Electrolytes (Miralax*) 17 gm PO DAILY PRN PRN Reason: CONSTIPATION Senna (Senokot Tab*) 2 tab PO BEDTIME PRN PRN Reason: CONSTIPATION Timolol Maleate (Timoptic 0.5% Opth*) 1 drop BOTH EYES BID [facility] Last Admin: 02/15/17 07:58 Dose: 1 drop Zonisamide (Zonegran (Nf)) 100 mg PO BID [facility] Last Admin: 02/15/17 07:57 Dose: 100 mg Laboratory Results - last 24 hr 02/15/17 08:58 WBC 5.2 RBC 4.25 Hgb 13.7 Hct 40 MCV 95 MCH 32 H MCHC 34 RDW 13 Plt Count 188 MPV 9 Neut % (Auto) 66.0 Lymph % (Auto) 22.6 L Burnet % (Auto) 5.6 Eos % (Auto) 4.4 Baso % (Auto) 1.4 Absolute Neuts (auto) 3.4 Absolute Lymphs (auto) 1.2 Absolute Monos (auto) 0.3 Absolute Eos (auto) 0.2 Absolute Basos (auto) 0.1 Absolute Nucleated RBC 0.01 Nucleated RBC % 0.1 Vital Signs Temp Pulse Resp BP Pulse Ox 98.1 F 67 18 111/62 97 02/15/17 05:48 02/15/17 05:48 02/15/17 05:48 02/15/17 05:48 02/15/17 08:00 EXAM: HEENT: Right facial LUNGS: Coarse BS, LLL HEART: S1, S2 ABDOMEN: Soft NEUROLOGIC: Increased tone RLE and RUE; Aphasic ASSESSMENT/PLAN: 1. 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 Dysphagia: Pureed consistencies, pudding thick liquids 3. Seizure Disorder: Keppra/Zonegran 4. Aspiration Pneumonia: IV Ceftriaxone/Flagyl. Change to PO tomorrow 5. DVT Prophylaxis: Lovenox 6. Code Status: full code. 7. Hypothyroidism: Synthroid 8. Depression: May try Prozac in a few days 9. Hematuria: check u/a; may be tough to get a sample; Hb/Hct stable
[2017-02-15] MEDS: Atorvastatin* 80 MG TAB PO SCH (17:31)
[2017-02-16] MEDS: Levothyroxine TAB* 50 MCG TAB PO SCH (06:47)
[2017-02-16] MEDS: metroNIDAZOLE IV 500 MG/100ML* 500 MG/100 ML BAG IVPB SCH ×2 (06:48→17:53)
[2017-02-16 08:44] LABS: Hematocrit 43 % (35-47); Hemoglobin 14.6 g/dl (12.0-16.0); Mean Corpuscular HGB Conc 34 g/dl (31-36); Mean Corpuscular Hemoglobin 32 pg (27-31); Mean Corpuscular Volume 95 fL (80-97); Mean Platelet Volume 9 um3 (7.4-10.4); Red Blood Count 4.51 10^6/ul (4.0-5.4); Red Cell Distribution Width 13 % (10.5-15); White Blood Count 9.6 10^3/ul (3.5-10.8)
[2017-02-16 09:04] LABS: Albumin 3.6 g/dL (3.2-5.2); BUN/Creatinine Ratio 16.1 (8-20); Calcium 8.8 mg/dL (8.6-10.3); EGFR African American 119.7 (>60); EGFR Non-African American 93.1 (>60); Potassium 4.3 mmol/L (3.5-5.0); Total Bilirubin 0.3 mg/dL (0.2-1.0); Total Protein 6.6 g/dL (6.4-8.9)
[2017-02-16] MEDS: Timolol 0.5% OPTH.SOL* BTL BOTH EYES SCH ×2 (09:09→20:20)
[2017-02-16] MEDS: Docusate CAP* 100 MG PO SCH ×2 (09:10→20:19)
[2017-02-16] MEDS: Clopidogrel TAB* 75 MG PO SCH (09:10)
[2017-02-16] MEDS: levETIRAcetam TAB* 500 MG PO SCH ×2 (09:10→20:15)
[2017-02-16] MEDS: Aspirin Low Dose CHEW TAB* 81 MG PO SCH (09:10)
[2017-02-16] MEDS: CMCS: Zonisamide (NF) 50 MG CAP PO SCH ×2 (09:10→20:15)
[2017-02-16] MEDS: cefTRIAXone VIAL(*) 1,000 MG in NS 0.9% 50 ML* 50 ML IVPB SCH (09:45)
[2017-02-16 13:30] LABS: Urine Bacteria Absent (Absent)
[2017-02-16] MEDS: Atorvastatin* 80 MG TAB PO SCH (17:28)
--- NOTE | 2017-02-16 21:36 | PN ---
Progress Note - Progress Note Date of Service: 02/16/17 Note: Minda visited. Therapy notes read and reviewed. Remains aphasic, she has been able to say occasional monosyllables. Her dysphagia persists: still on pureed/ pudding thick liquids. I have spoken to her about a Prozac trial. Still on IV antibiotics. Will change to PO. Hematuria lessened after holding Lovenox Current Medications Acetaminophen (Tylenol Tab*) 650 mg PO Q6H PRN PRN Reason: FEVER/PAIN Aspirin (Aspirin Low Dose Tab*) 81 mg PO DAILY [facility] Last Admin: 02/16/17 09:10 Dose: 81 mg Atorvastatin Calcium (Lipitor*) 80 mg PO 1700 [facility] Last Admin: 02/16/17 17:28 Dose: 80 mg Clopidogrel Bisulfate (Plavix Tab*) 75 mg PO DAILY [facility] Last Admin: 02/16/17 09:10 Dose: 75 mg Docusate Sodium (Colace Cap*) 100 mg PO BID [facility] Last Admin: 02/16/17 20:19 Dose: 100 mg Ceftriaxone Sodium 1,000 mg/ (Sodium Chloride) 50 mls @ 200 mls/hr IVPB Q24H [facility] Last Admin: 02/16/17 09:45 Dose: 200 mls/hr Metronidazole/Sodium Chloride (Flagyl 500 Mg Ivpb*) 500 mg in 100 mls @ 100 mls /hr IVPB Q12H [facility] Last Admin: 02/16/17 17:53 Dose: 100 mls/hr Levetiracetam (Keppra Tab*) 1,500 mg PO BID [facility] Last Admin: 02/16/17 20:15 Dose: 1,500 mg Levothyroxine Sodium (Synthroid Tab*) 50 mcg PO DAILY@0600 [facility] Last Admin: 02/16/17 06:47 Dose: 50 mcg Magnesium Hydroxide (Milk Of Magnesia Liq*) 30 ml PO Q6H PRN PRN Reason: CONSTIPATION Polyethylene Glycol/Electrolytes (Miralax*) 17 gm PO DAILY PRN PRN Reason: CONSTIPATION Senna (Senokot Tab*) 2 tab PO BEDTIME PRN PRN Reason: CONSTIPATION Timolol Maleate (Timoptic 0.5% Opth*) 1 drop BOTH EYES BID [facility] Last Admin: 02/16/17 20:20 Dose: 1 drop Zonisamide (Zonegran (Nf)) 100 mg PO BID [facility] Last Admin: 02/16/17 20:15 Dose: 100 mg Laboratory Results - last 24 hr 02/16/17 02/16/17 02/16/17 08:31 08:31 11:15 WBC 9.6 RBC 4.51 Hgb 14.6 Hct 43 MCV 95 MCH 32 H MCHC 34 RDW 13 Plt Count 228 MPV 9 Neut % (Auto) 75.8 Lymph % (Auto) 14.4 L Dare % (Auto) 5.6 Eos % (Auto) 2.4 Baso % (Auto) 1.8 Absolute Neuts (auto) 7.3 Absolute Lymphs (auto) 1.4 Absolute Monos (auto) 0.5 Absolute Eos (auto) 0.2 Absolute Basos (auto) 0.2 Absolute Nucleated RBC 0.01 Nucleated RBC % 0.1 Sodium 135 Potassium 4.3 Chloride 105 Carbon Dioxide 23 Anion Gap 7 BUN 10 Creatinine 0.62 Est GFR ( Amer) 119.7 Est GFR (Non-Af Amer) 93.1 BUN/Creatinine Ratio 16.1 Glucose 116 H Calcium 8.8 Total Bilirubin 0.30 AST 25 ALT 19 Alkaline Phosphatase 74 Total Protein 6.6 Albumin 3.6 Globulin 3.0 Albumin/Globulin Ratio 1.2 Urine Color Red A Urine Appearance Turbid Ur Specific Chauncey 1.016 Urine WBC (Auto) Absent Urine RBC (Auto) 3+(>10/hpf) H Urine Bacteria Absent Vital Signs Temp Pulse Resp BP Pulse Ox 98.2 F 79 18 138/66 98 02/16/17 15:44 02/16/17 15:44 02/16/17 16:07 02/16/17 15:44 02/16/17 15:44 EXAM: HEENT: Right facial LUNGS: Coarse BS, LLL HEART: S1, S2 ABDOMEN: Soft NEUROLOGIC: Increased tone RLE and RUE; Aphasic ASSESSMENT/PLAN: 1. 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 Dysphagia: Pureed consistencies, pudding thick liquids 3. Seizure Disorder: Keppra/Zonegran 4. Aspiration Pneumonia: IV Ceftriaxone/Flagyl. Change to PO 5. DVT Prophylaxis: Lovenox on hold. TEDs 6. Code Status: full code. 7. Hypothyroidism: Synthroid 8. Depression: May try Prozac in a few days 9. Hematuria: lessened after holding lovenox; Hb/Hct stable
[2017-02-17] MEDS: Levothyroxine TAB* 50 MCG TAB PO SCH (06:34)
[2017-02-17] MEDS: Docusate CAP* 100 MG PO SCH ×2 (10:01→20:12)
[2017-02-17] MEDS: Aspirin Low Dose CHEW TAB* 81 MG PO SCH (10:03)
[2017-02-17] MEDS: CMCS: Zonisamide (NF) 50 MG CAP PO SCH ×2 (10:03→20:12)
[2017-02-17] MEDS: metroNIDAZOLE TAB* 250 MG PO SCH ×3 (10:03→20:10)
[2017-02-17] MEDS: Timolol 0.5% OPTH.SOL* BTL BOTH EYES SCH ×2 (10:03→20:15)
[2017-02-17] MEDS: levETIRAcetam TAB* 500 MG PO SCH ×2 (10:03→20:12)
[2017-02-17] MEDS: Clopidogrel TAB* 75 MG PO SCH (10:03)
[2017-02-17] MEDS: ceFUROXime TAB(*) 250 MG PO SCH ×2 (10:03→20:11)
[2017-02-17] MEDS: Atorvastatin* 80 MG TAB PO SCH (17:41)
--- NOTE | 2017-02-17 19:37 | PN ---
Progress Note - Progress Note Date of Service: 02/17/17 Note: Minda visited. She is still quite aphasic. I spoke with her who agrees a Prozac trial is worth doing. Her hematuria has lessened. Will start Heparin. Remains on pureed/pudding thick liquid diet Current Medications Acetaminophen (Tylenol Tab*) 650 mg PO Q6H PRN PRN Reason: FEVER/PAIN Aspirin (Aspirin Low Dose Tab*) 81 mg PO DAILY [facility] Last Admin: 02/17/17 10:03 Dose: 81 mg Atorvastatin Calcium (Lipitor*) 80 mg PO 1700 [facility] Last Admin: 02/17/17 17:41 Dose: 80 mg Cefuroxime Axetil (Ceftin Tab(*)) 500 mg PO BID [facility] Last Admin: 02/17/17 10:03 Dose: 500 mg Clopidogrel Bisulfate (Plavix Tab*) 75 mg PO DAILY [facility] Last Admin: 02/17/17 10:03 Dose: 75 mg Docusate Sodium (Colace Cap*) 100 mg PO BID [facility] Last Admin: 02/17/17 10:01 Dose: Not Given Levetiracetam (Keppra Tab*) 1,500 mg PO BID [facility] Last Admin: 02/17/17 10:03 Dose: 1,500 mg Levothyroxine Sodium (Synthroid Tab*) 50 mcg PO DAILY@0600 [facility] Last Admin: 02/17/17 06:34 Dose: 50 mcg Magnesium Hydroxide (Milk Of Magnesia Liq*) 30 ml PO Q6H PRN PRN Reason: CONSTIPATION Metronidazole (Flagyl Tab*) 250 mg PO TID [facility] Last Admin: 02/17/17 16:01 Dose: 250 mg Polyethylene Glycol/Electrolytes (Miralax*) 17 gm PO DAILY PRN PRN Reason: CONSTIPATION Senna (Senokot Tab*) 2 tab PO BEDTIME PRN PRN Reason: CONSTIPATION Timolol Maleate (Timoptic 0.5% Opth*) 1 drop BOTH EYES BID [facility] Last Admin: 02/17/17 10:03 Dose: 1 drop Zonisamide (Zonegran (Nf)) 100 mg PO BID [facility] Last Admin: 02/17/17 10:03 Dose: 100 mg Vital Signs Temp Pulse Resp BP Pulse Ox 98.8 F 76 18 132/62 100 02/17/17 15:51 02/17/17 15:51 02/17/17 15:51 02/17/17 15:51 02/17/17 15:51 EXAM: HEENT: Right facial LUNGS: Coarse BS, LLL HEART: S1, S2 ABDOMEN: Soft NEUROLOGIC: Increased tone RLE and RUE; Aphasic ASSESSMENT/PLAN: 1. 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 Dysphagia: Pureed consistencies, pudding thick liquids 3. Seizure Disorder: Keppra/Zonegran 4. Aspiration Pneumonia: PO Ceftin/Flagyl. 5. DVT Prophylaxis: Lovenox stopped, will try Heparin S/Q. TEDs 6. Code Status: full code. 7. Hypothyroidism: Synthroid 8. Depression: Will try Prozac tomorrow 9. Hematuria: lessened after holding lovenox; Hb/Hct stable
[2017-02-17] MEDS: Heparin VIAL(*) 5000 UNITS/ML VIAL (FIVE THOUSAND) SUBCUT SCH (21:36)
[2017-02-18] MEDS: Levothyroxine TAB* 50 MCG TAB PO SCH (05:16)
[2017-02-18] MEDS: Heparin VIAL(*) 5000 UNITS/ML VIAL (FIVE THOUSAND) SUBCUT SCH ×3 (05:18→21:58)
[2017-02-18] MEDS: Timolol 0.5% OPTH.SOL* BTL BOTH EYES SCH ×3 (08:39→21:36)
[2017-02-18] MEDS: Aspirin Low Dose CHEW TAB* 81 MG PO SCH (08:40)
[2017-02-18] MEDS: Clopidogrel TAB* 75 MG PO SCH (08:40)
[2017-02-18] MEDS: FLUoxetine CAP* 10 MG PO SCH (08:40)
[2017-02-18] MEDS: Docusate CAP* 100 MG PO SCH ×2 (08:40→21:55)
[2017-02-18] MEDS: metroNIDAZOLE TAB* 250 MG PO SCH ×3 (08:40→21:55)
[2017-02-18] MEDS: levETIRAcetam TAB* 500 MG PO SCH ×2 (08:40→21:55)
[2017-02-18] MEDS: CMCS: Zonisamide (NF) 50 MG CAP PO SCH ×2 (08:41→21:56)
[2017-02-18] MEDS: ceFUROXime TAB(*) 250 MG PO SCH ×2 (08:41→21:55)
--- NOTE | 2017-02-18 17:29 | PN ---
Progress Note - Progress Note Date of Service: 02/18/17 Note: Minda visited. Therapy notes read and reviewed. She started Prozac today and seemed to benefit from it. She is certainly brighter than she was. Her verbal output remains limited to a few monosyllables, usually only one at a time. Current Medications Acetaminophen (Tylenol Tab*) 650 mg PO Q6H PRN PRN Reason: FEVER/PAIN Aspirin (Aspirin Low Dose Tab*) 81 mg PO DAILY [facility] Last Admin: 02/18/17 08:40 Dose: 81 mg Atorvastatin Calcium (Lipitor*) 80 mg PO 1700 [facility] Last Admin: 02/17/17 17:41 Dose: 80 mg Cefuroxime Axetil (Ceftin Tab(*)) 500 mg PO BID [facility] Last Admin: 02/18/17 08:41 Dose: 500 mg Clopidogrel Bisulfate (Plavix Tab*) 75 mg PO DAILY [facility] Last Admin: 02/18/17 08:40 Dose: 75 mg Docusate Sodium (Colace Cap*) 100 mg PO BID [facility] Last Admin: 02/18/17 08:40 Dose: 100 mg Fluoxetine HCl (Prozac Cap*) 10 mg PO DAILY [facility] Last Admin: 02/18/17 08:40 Dose: 10 mg Heparin Sodium (Porcine) (Heparin Vial(*)) 5,000 units SUBCUT Q8HR [facility] Last Admin: 02/18/17 16:00 Dose: 5,000 units Levetiracetam (Keppra Tab*) 1,500 mg PO BID [facility] Last Admin: 02/18/17 08:40 Dose: 1,500 mg Levothyroxine Sodium (Synthroid Tab*) 50 mcg PO DAILY@0600 [facility] Last Admin: 02/18/17 05:16 Dose: 50 mcg Magnesium Hydroxide (Milk Of Magnesia Liq*) 30 ml PO Q6H PRN PRN Reason: CONSTIPATION Metronidazole (Flagyl Tab*) 250 mg PO TID [facility] Last Admin: 02/18/17 16:00 Dose: 250 mg Polyethylene Glycol/Electrolytes (Miralax*) 17 gm PO DAILY PRN PRN Reason: CONSTIPATION Senna (Senokot Tab*) 2 tab PO BEDTIME PRN PRN Reason: CONSTIPATION Timolol Maleate (Timoptic 0.5% Opth*) 1 drop BOTH EYES BID [facility] Last Admin: 02/18/17 08:39 Dose: 1 drop Zonisamide (Zonegran (Nf)) 100 mg PO BID [facility] Last Admin: 02/18/17 08:41 Dose: 100 mg Vital Signs Temp Pulse Resp BP Pulse Ox 98.6 F 73 20 126/63 96 02/18/17 05:13 02/18/17 05:13 02/18/17 05:13 02/18/17 05:13 02/18/17 05:13 EXAM: HEENT: Right facial LUNGS: Coarse BS, LLL HEART: S1, S2 ABDOMEN: Soft NEUROLOGIC: Increased tone RLE and RUE; Aphasic; some movement at right ankle appears volitional ASSESSMENT/PLAN: 1. 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 Dysphagia: Pureed consistencies, pudding thick liquids 3. Seizure Disorder: Keppra/Zonegran 4. Aspiration Pneumonia: PO Ceftin/Flagyl. 5. DVT Prophylaxis: Heparin S/Q. TEDs 6. Code Status: full code. 7. Hypothyroidism: Synthroid 8. Depression: Will try Prozac tomorrow 9. Hematuria: stopped after holding lovenox; Hb/Hct stable
[2017-02-18] MEDS: Atorvastatin* 80 MG TAB PO SCH (17:33)
[2017-02-19] MEDS: Levothyroxine TAB* 50 MCG TAB PO SCH (06:12)
[2017-02-19] MEDS: Heparin VIAL(*) 5000 UNITS/ML VIAL (FIVE THOUSAND) SUBCUT SCH ×3 (06:13→21:24)
[2017-02-19] MEDS: Timolol 0.5% OPTH.SOL* BTL BOTH EYES SCH ×2 (09:13→21:38)
[2017-02-19] MEDS: CMCS: Zonisamide (NF) 50 MG CAP PO SCH ×2 (09:14→21:35)
[2017-02-19] MEDS: FLUoxetine CAP* 10 MG PO SCH (09:15)
[2017-02-19] MEDS: levETIRAcetam TAB* 500 MG PO SCH ×2 (09:16→21:26)
[2017-02-19] MEDS: Docusate CAP* 100 MG PO SCH ×2 (09:17→21:34)
[2017-02-19] MEDS: Clopidogrel TAB* 75 MG PO SCH (09:17)
[2017-02-19] MEDS: metroNIDAZOLE TAB* 250 MG PO SCH ×3 (09:17→21:34)
[2017-02-19] MEDS: Aspirin Low Dose CHEW TAB* 81 MG PO SCH (09:18)
[2017-02-19] MEDS: ceFUROXime TAB(*) 250 MG PO SCH ×2 (09:18→21:33)
[2017-02-19] MEDS: Atorvastatin* 80 MG TAB PO SCH (17:13)
--- NOTE | 2017-02-19 19:40 | PN ---
Progress Note - Progress Note Date of Service: 02/19/17 Note: Minda visited. Therapy notes read and reviewed. She definitely seems brighter today, really since she started Prozac. Still only an occasional monosyllable uttered when I visited. No new movement seen since yesterday. Current Medications Acetaminophen (Tylenol Tab*) 650 mg PO Q6H PRN PRN Reason: FEVER/PAIN Aspirin (Aspirin Low Dose Tab*) 81 mg PO DAILY [facility] Last Admin: 02/19/17 09:18 Dose: 81 mg Atorvastatin Calcium (Lipitor*) 80 mg PO 1700 [facility] Last Admin: 02/19/17 17:13 Dose: 80 mg Cefuroxime Axetil (Ceftin Tab(*)) 500 mg PO BID [facility] Last Admin: 02/19/17 09:18 Dose: 500 mg Clopidogrel Bisulfate (Plavix Tab*) 75 mg PO DAILY [facility] Last Admin: 02/19/17 09:17 Dose: 75 mg Docusate Sodium (Colace Cap*) 100 mg PO BID [facility] Last Admin: 02/19/17 09:17 Dose: 100 mg Fluoxetine HCl (Prozac Cap*) 10 mg PO DAILY [facility] Last Admin: 02/19/17 09:15 Dose: 10 mg Heparin Sodium (Porcine) (Heparin Vial(*)) 5,000 units SUBCUT Q8HR [facility] Last Admin: 02/19/17 15:01 Dose: 5,000 units Levetiracetam (Keppra Tab*) 1,500 mg PO BID [facility] Last Admin: 02/19/17 09:16 Dose: 1,500 mg Levothyroxine Sodium (Synthroid Tab*) 50 mcg PO DAILY@0600 [facility] Last Admin: 02/19/17 06:12 Dose: 50 mcg Magnesium Hydroxide (Milk Of Magnesia Liq*) 30 ml PO Q6H PRN PRN Reason: CONSTIPATION Metronidazole (Flagyl Tab*) 250 mg PO TID [facility] Last Admin: 02/19/17 15:00 Dose: 250 mg Polyethylene Glycol/Electrolytes (Miralax*) 17 gm PO DAILY PRN PRN Reason: CONSTIPATION Senna (Senokot Tab*) 2 tab PO BEDTIME PRN PRN Reason: CONSTIPATION Timolol Maleate (Timoptic 0.5% Opth*) 1 drop BOTH EYES BID [facility] Last Admin: 02/19/17 09:13 Dose: 1 drop Zonisamide (Zonegran (Nf)) 100 mg PO BID [facility] Last Admin: 02/19/17 09:14 Dose: 100 mg Vital Signs Temp Pulse Resp BP Pulse Ox 97.2 F 73 18 130/59 100 02/19/17 16:11 02/19/17 16:11 02/19/17 16:11 02/19/17 16:11 02/19/17 16:11 EXAM: HEENT: Right facial palsy LUNGS: Coarse BS, LLL HEART: S1, S2 ABDOMEN: Soft NEUROLOGIC: Increased tone RLE and RUE; Aphasic; some movement at right ankle appears volitional ASSESSMENT/PLAN: 1. 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 Dysphagia: Pureed consistencies, pudding thick liquids 3. Seizure Disorder: Keppra/Zonegran 4. Aspiration Pneumonia: PO Ceftin/Flagyl through 02/22. 5. DVT Prophylaxis: Heparin S/Q. TEDs 6. Code Status: full code. 7. Hypothyroidism: Synthroid 8. Depression: Prozac trial 9. Hematuria: stopped after holding lovenox; Hb/Hct stable
[2017-02-20] MEDS: Levothyroxine TAB* 50 MCG TAB PO SCH (05:59)
[2017-02-20] MEDS: Heparin VIAL(*) 5000 UNITS/ML VIAL (FIVE THOUSAND) SUBCUT SCH ×3 (06:03→22:41)
[2017-02-20] MEDS: Timolol 0.5% OPTH.SOL* BTL BOTH EYES SCH ×2 (09:57→22:42)
[2017-02-20] MEDS: CMCS: Zonisamide (NF) 50 MG CAP PO SCH ×2 (09:59→22:37)
[2017-02-20] MEDS: ceFUROXime TAB(*) 250 MG PO SCH ×2 (10:00→22:37)
[2017-02-20] MEDS: levETIRAcetam TAB* 500 MG PO SCH ×2 (10:01→22:37)
[2017-02-20] MEDS: FLUoxetine CAP* 10 MG PO SCH (10:03)
[2017-02-20] MEDS: Aspirin Low Dose CHEW TAB* 81 MG PO SCH (10:03)
[2017-02-20] MEDS: Clopidogrel TAB* 75 MG PO SCH (10:03)
[2017-02-20] MEDS: Docusate CAP* 100 MG PO SCH ×2 (10:03→21:33)
[2017-02-20] MEDS: metroNIDAZOLE TAB* 250 MG PO SCH ×3 (10:03→22:37)
--- NOTE | 2017-02-20 17:05 | PN ---
Progress Note - Progress Note Date of Service: 02/20/17 Note: Minda visited. She was able to answer "Yes" when asked if she got out yesterday. She seems bright. A little movement in right ankle. On Ceftin/Flagyl for aspiration pneumonia. Current Medications Acetaminophen (Tylenol Tab*) 650 mg PO Q6H PRN PRN Reason: FEVER/PAIN Aspirin (Aspirin Low Dose Tab*) 81 mg PO DAILY [facility] Last Admin: 02/20/17 10:03 Dose: 81 mg Atorvastatin Calcium (Lipitor*) 80 mg PO 1700 [facility] Last Admin: 02/19/17 17:13 Dose: 80 mg Cefuroxime Axetil (Ceftin Tab(*)) 500 mg PO BID [facility] Stop: 02/22/17 23:59 Last Admin: 02/20/17 10:00 Dose: 500 mg Clopidogrel Bisulfate (Plavix Tab*) 75 mg PO DAILY [facility] Last Admin: 02/20/17 10:03 Dose: 75 mg Docusate Sodium (Colace Cap*) 100 mg PO BID [facility] Last Admin: 02/20/17 10:03 Dose: 100 mg Fluoxetine HCl (Prozac Cap*) 10 mg PO DAILY [facility] Last Admin: 02/20/17 10:03 Dose: 10 mg Heparin Sodium (Porcine) (Heparin Vial(*)) 5,000 units SUBCUT Q8HR [facility] Last Admin: 02/20/17 14:54 Dose: 5,000 units Levetiracetam (Keppra Tab*) 1,500 mg PO BID [facility] Last Admin: 02/20/17 10:01 Dose: 1,500 mg Levothyroxine Sodium (Synthroid Tab*) 50 mcg PO DAILY@0600 [facility] Last Admin: 02/20/17 05:59 Dose: 50 mcg Magnesium Hydroxide (Milk Of Magnesia Liq*) 30 ml PO Q6H PRN PRN Reason: CONSTIPATION Metronidazole (Flagyl Tab*) 250 mg PO TID [facility] Stop: 02/22/17 23:59 Last Admin: 02/20/17 14:54 Dose: 250 mg Polyethylene Glycol/Electrolytes (Miralax*) 17 gm PO DAILY PRN PRN Reason: CONSTIPATION Senna (Senokot Tab*) 2 tab PO BEDTIME PRN PRN Reason: CONSTIPATION Timolol Maleate (Timoptic 0.5% Opth*) 1 drop BOTH EYES BID [facility] Last Admin: 10/29/17 09:57 Dose: 1 drop Zonisamide (Zonegran (Nf)) 100 mg PO BID [facility] Last Admin: 02/20/17 09:59 Dose: 100 mg Vital Signs Temp Pulse Resp BP Pulse Ox 98.7 F 75 20 126/59 95 02/20/17 15:30 02/20/17 15:30 02/20/17 15:30 02/20/17 15:30 02/20/17 15:30 EXAM: HEENT: Right facial palsy LUNGS: Coarse BS, LLL HEART: S1, S2 ABDOMEN: Soft NEUROLOGIC: Increased tone RLE and RUE; Aphasic; some movement at right ankle appears volitional ASSESSMENT/PLAN: 1. 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 Dysphagia: Pureed consistencies, pudding thick liquids 3. Seizure Disorder: Keppra/Zonegran 4. Aspiration Pneumonia: PO Ceftin/Flagyl through 02/22. 5. DVT Prophylaxis: Heparin S/Q. TEDs 6. Code Status: full code. 7. Hypothyroidism: Synthroid 8. Depression: Prozac trial
[2017-02-20] MEDS: Atorvastatin* 80 MG TAB PO SCH (17:40)
[2017-02-21] MEDS: Levothyroxine TAB* 50 MCG TAB PO SCH (06:23)
[2017-02-21] MEDS: Heparin VIAL(*) 5000 UNITS/ML VIAL (FIVE THOUSAND) SUBCUT SCH ×3 (06:26→21:48)
[2017-02-21] MEDS: CMCS: Zonisamide (NF) 50 MG CAP PO SCH ×2 (10:07→20:14)
[2017-02-21] MEDS: Timolol 0.5% OPTH.SOL* BTL BOTH EYES SCH ×2 (10:07→20:13)
[2017-02-21] MEDS: Docusate CAP* 100 MG PO SCH ×2 (10:08→20:14)
[2017-02-21] MEDS: Aspirin Low Dose CHEW TAB* 81 MG PO SCH (10:08)
[2017-02-21] MEDS: levETIRAcetam TAB* 500 MG PO SCH ×2 (10:08→20:13)
[2017-02-21] MEDS: ceFUROXime TAB(*) 250 MG PO SCH ×2 (10:08→20:13)
[2017-02-21] MEDS: metroNIDAZOLE TAB* 250 MG PO SCH ×3 (10:08→21:48)
[2017-02-21] MEDS: FLUoxetine CAP* 10 MG PO SCH (10:08)
[2017-02-21] MEDS: Clopidogrel TAB* 75 MG PO SCH (10:08)
--- NOTE | 2017-02-21 16:11 | PN ---
Progress Note - Progress Note Date of Service: 02/21/17 Note: Minda visited. She looks ok, and seems bright, but remains aphasic. Verbal output remains limited to monosyllables, an occasional "yes" or "no". No return in right arm; right ankle has some movement. Current Medications Acetaminophen (Tylenol Tab*) 650 mg PO Q6H PRN PRN Reason: FEVER/PAIN Aspirin (Aspirin Low Dose Tab*) 81 mg PO DAILY [facility] Last Admin: 02/21/17 10:08 Dose: 81 mg Atorvastatin Calcium (Lipitor*) 80 mg PO 1700 [facility] Last Admin: 02/20/17 17:40 Dose: 80 mg Cefuroxime Axetil (Ceftin Tab(*)) 500 mg PO BID [facility] Stop: 02/22/17 23:59 Last Admin: 02/21/17 10:08 Dose: 500 mg Clopidogrel Bisulfate (Plavix Tab*) 75 mg PO DAILY [facility] Last Admin: 02/21/17 10:08 Dose: 75 mg Docusate Sodium (Colace Cap*) 100 mg PO BID [facility] Last Admin: 02/21/17 10:08 Dose: Not Given Fluoxetine HCl (Prozac Cap*) 10 mg PO DAILY [facility] Last Admin: 02/21/17 10:08 Dose: 10 mg Heparin Sodium (Porcine) (Heparin Vial(*)) 5,000 units SUBCUT Q8HR [facility] Last Admin: 02/21/17 15:24 Dose: 5,000 units Levetiracetam (Keppra Tab*) 1,500 mg PO BID [facility] Last Admin: 02/21/17 10:08 Dose: 1,500 mg Levothyroxine Sodium (Synthroid Tab*) 50 mcg PO DAILY@0600 [facility] Last Admin: 02/21/17 06:23 Dose: 50 mcg Magnesium Hydroxide (Milk Of Magnesia Liq*) 30 ml PO Q6H PRN PRN Reason: CONSTIPATION Metronidazole (Flagyl Tab*) 250 mg PO TID [facility] Stop: 02/22/17 23:59 Last Admin: 02/21/17 16:02 Dose: 250 mg Polyethylene Glycol/Electrolytes (Miralax*) 17 gm PO DAILY PRN PRN Reason: CONSTIPATION Senna (Senokot Tab*) 2 tab PO BEDTIME PRN PRN Reason: CONSTIPATION Timolol Maleate (Timoptic 0.5% Opth*) 1 drop BOTH EYES BID [facility] Last Admin: 02/21/17 10:07 Dose: 1 drop Zonisamide (Zonegran (Nf)) 100 mg PO BID [facility] Last Admin: 02/21/17 10:07 Dose: 100 mg Vital Signs Temp Pulse Resp BP Pulse Ox 99.5 F 71 18 145/64 98 02/21/17 15:41 02/21/17 15:41 02/21/17 15:41 02/21/17 15:41 02/21/17 15:41 EXAM: HEENT: Right facial palsy LUNGS: Clear HEART: S1, S2 ABDOMEN: Soft NEUROLOGIC: Increased tone RLE and RUE; Aphasic; some movement at right ankle appears volitional ASSESSMENT/PLAN: 1. 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 Dysphagia: Pureed consistencies, pudding thick liquids 3. Seizure Disorder: Keppra/Zonegran 4. Aspiration Pneumonia: PO Ceftin/Flagyl through 02/22. 5. DVT Prophylaxis: Heparin S/Q. TEDs 6. Code Status: full code. 7. Hypothyroidism: Synthroid 8. Depression: Prozac
[2017-02-21] MEDS: Atorvastatin* 80 MG TAB PO SCH (17:45)
[2017-02-22] MEDS: Levothyroxine TAB* 50 MCG TAB PO SCH (05:41)
[2017-02-22] MEDS: Heparin VIAL(*) 5000 UNITS/ML VIAL (FIVE THOUSAND) SUBCUT SCH ×3 (05:41→21:51)
[2017-02-22] MEDS: FLUoxetine CAP* 10 MG PO SCH (09:02)
[2017-02-22] MEDS: levETIRAcetam TAB* 500 MG PO SCH ×2 (09:02→21:51)
[2017-02-22] MEDS: metroNIDAZOLE TAB* 250 MG PO SCH ×3 (09:02→21:51)
[2017-02-22] MEDS: CMCS: Zonisamide (NF) 50 MG CAP PO SCH ×2 (09:02→21:51)
[2017-02-22] MEDS: Aspirin Low Dose CHEW TAB* 81 MG PO SCH (09:02)
[2017-02-22] MEDS: Clopidogrel TAB* 75 MG PO SCH (09:02)
[2017-02-22] MEDS: ceFUROXime TAB(*) 250 MG PO SCH ×2 (09:02→21:51)
[2017-02-22] MEDS: Timolol 0.5% OPTH.SOL* BTL BOTH EYES SCH ×2 (09:04→19:09)
[2017-02-22] MEDS: Docusate CAP* 100 MG PO SCH ×2 (09:05→21:29)
--- NOTE | 2017-02-22 12:33 | PMRUTEAM ---
PMRU: Goals Current Status: Nursing: Current Status Skin Deviations [Back] Rash Skin Deviations [Right Knee] Abrasion Skin Deviation Description [ lotion applied, less red Back] Skin Deviation Description [ scabbed Right Knee] Bladder Current Status Toileting schedule, pt incontinent, often rings to tell us she needs to use toilet but is then already wet Bowel Current Status incontinent, holding bowel meds d/t soft/loose stools Nutrition Current Status adequate Physical Therapy: Current Status Bed Mobility Assistance Mod Assist,Max Assist,Total Assist Transfer Moblility Assistance Min Assist,Mod Assist,2 or More Person Assist Transfer/Bed Mobility None Recommended Devices Ambulation Assistance Min Assist,Mod Assist Ambulation Assistive Devices Railings Number of Feet Patient 6' x 2 and 10' forward and backward. Ambulated Ambulation Comment Pt. is slowly making small but postive gains. Stairs Assistance Not Tested Occupational Therapy: Current Status Upper Body Dressing Mod Assist Lower Body Dressing Mod Assist,Max Asst Bathing Max Asst Toileting Total Assist,2 Person Assist Toilet Transfer Min Assist,2 Person Assist Shower Transfer Min Assist,2 Person Assist Eating Supervision Rec Therapy: Current Status Summary of Assessment and Introduced RT services, d/t pt.'s aphasia it was Clinical Impression difficult to discuss leisure interests or involvement. Pt.'s son provided some information surrounding pt.'s leisure lifestyle. Treatment Goals Pt. will engage in leisure activities while on the unit. Treatment Plan Assess leisure interests and involvement when appropriate to do so. Provide RT services and encourage involvement. Social Work: Current Status Discharge Plan return home with home care svs and family support Potential for Family Training pt's is involved and supportive Anticipated Discharge Home Destination Discharge With home care svs and family support Nutrition: Current Status Monitoring Pt not in room earlier today, and with RN when approached again, so not able to visit today. Pt eating 100% of most meals past few days; needs containers opened and supervision, but otherwise eating independently. Regular BMs per bowel records. No new labs to report. Skin remains intact, at moderate risk for breakdown (Asher 15) . Making good progress towards nutrition goals; will continue to follow, but no changes to suggest at this time. Speech: Current Status Assessment Patient safely tolerated trials of honey-thick liquid with AM tray via spoon; throat clear x2 noted for trials via sip by cup. Recommend diet upgrade to honey-thick liquid via spoon; results discussed with DAYANA Valentine. Patient will continue to benefit from skilled speech-language pathology services targeting expressive/receptive language, motor speech, and dysphagia to increase safety, function, and independence of daily tasks. Goals: Physical Therapy: Initial Goals Bed Mobility Assistance Independent Transfer Mobility Assistance Independent Transfer/Bed Mobility Enzo Walker Recommended Devices Ambulation Independent Ambulation Recommended Devices Enzo Walker Ambulation Distance 150 Stairs Assistance Independent Stair Recommended Devices One Rail Number of Stairs 5 Physical Therapy: Updated Goals Bed Mobility Assistance Independent Transfer Mobility Assistance Independent Transfer/Bed Mobility None Recommended Devices Ambulation Assistance Independent Ambulation Assistive Devices Rolling Walker Ambulation Distance (ft) 150 Stairs Assistance Independent Stairs Recommended Devices Two Rails Number of Stairs 5 Occupational Therapy: Initial Goals Goals to be Completed in (Days 4-6 weeks ) Upper Body Bathing Routine Independent Lower Body Bathing Routine Modified Independent with Upper Body Dressing Routine Independent Lower Body Dressing Routine Modified Independent with Toilet Hygeine and Clothing Modified Independent with Management Routine Toilet Transfer Routine Modified Independent with Step-In Shower Transfer Supervision/Set Up Routine Functional Transfers for ADL Modified Independent with Grooming Routine Independent Feeding Routine Independent Nursing: Goals Bladder Goal independent with marco care and changing brief Bowel Goal continence Nutrition Goal adequate Nutrition: Goals Intervention Goals 1. adequate po intake to maintain stable weight, hydration, and lean body mass 2. pt will tolerate least-restrictive diet texture w/o s/sx of difficulty chewing/swallowing 3. skin will remain intact; no evidence of skin breakdown 4. maintain regulation of bowel pattern w/o constipation or diarrhea Speech: Goals Speech Goal 1 Dysphagia Speech Evaluation Status Goal puree, pudding-thick 1 Speech Current Status Goal 1 puree, honey-thick via spoon Goal 1 Comments LTO: Patient will safely tolerate the least restrictive diet. ST) Patient will safely tolerate 10/10 trials of honey-thick liquids without s/s of aspiration/ penetration. Status: Patient seen with breakfast tray this AM with honey-thickened liquids. She drank 8 ounces of orange juice and one container of milk (both honey-thick) via sip by spoon without s/s of aspiration/penetration. She drank one container of honey-thickened milk via sip by cup with throat clear x2 indicating likely aspiration/penetration . Of note: During speech/language tasks patient appears to aspirate on secrections, as she demonstrates a sudden cough and wet vocal quality without PO trials. 2) Patient will safely tolerate 10/10 trials of mechanical ground solids without s/s of aspiration /penetration. 3) Patient will complete dysphagia exercises targeting lingual strength/coordination and hyolaryngeal excursion. Speech Goal 2 Receptive Language Speech Goal 2 Evaluation yes/no: 60%; 2-step direction: 0% Status Speech Goal 2 Current Status yes/no: 62%; 2-step direction: 100% with direct model Speech Goal 2 Comments LTO: Patient will increase receptive language skills. ST) Patient will follow answer yes/no questions with at least 90% accuracy over two-consecutive sessions. Status as of 02/21/17: Patient provided with yes/ no visual in color. Patient responded to yes/no questions with head nod/shake and verbal "yeah" and "no". Patient answered yes/no questions regarding orientation to the immediate environment and functional items with 70==62% accuracy, no cues. 2) Patient will following two-step directions with at least 90% accuracy. Speech Goal 3 Expressive Language Speech Goal 3 Evaluation approximations of two-words given KIP Status Speech Goal 3 Current Status approximations of two-words given KIP Speech Goal 3 Comments LTO: Patient will increase expressive language skills. ST) Patient will repeat phrases given model with melodic intonation, for 70% of the opportunities presented. Status: Objective not addressed this date; encouraged continued practice for HEP. 2) The patient will express basic wants/needs to this wrtier and caregiver via alternative communiction approach (e.g. communication board). Status: - Patient wrote her name, birthday, and today's date following written model. Patient's writing is legible, however paraphasias noted in her writing. Patient is unaware of paraphasias despite cues from MANUFACTURERS AGENT. Speech Goal 4 Motor Speech Speech Goal 4 Comments LTO: To increase motor speech skills. ST) Patient will complete oral-motor exercises following model from MANUFACTURERS AGENT/caregiver/family member, for 80% for the opportunities presented. Status as of 02/21/17: Jaw exercises: 100% accuracy, initial model required Labial exercises: 100% accuracy, initial model required only; minimal verbal reminders after that . Lingual exercises: 100% accuracy, initial model required. Note: patient demonstrated a signifcant cough during this exercise, suspect she apsirated on her secretions. Volitional single sound production practice: /o/: 100% accuracy, initial model given. /s/: Verbal and visual placement cues provided with immediate imitation. Patient unable to coordinate enough air to create fricative sound through teeth; no bursts of air noted /a/: 100% accuracy with initial model given /i/: Model provided along with cues for phonetic placement, however patient had difficulty with coordination of respiration for voicing. Social Work: Goals Discharge Plan return home with home care svs and family support Potential for Family Training pt's is involved and supportive Anticipated Discharge Home Destination Discharge With home care svs and family support Care Plan: Care Plan ADL's - Improve/Maintain Start: 02/14/17 23:48 Freq: QSHIFT Status: Active Target: Activity Type Activity Date Activity User E-Sign Co-Sign Detail Recorded Client Recorded Date Recorded By Document 02/22/17 10:37 [id number] [id number] 02/22/17 10:37 [id number] 02/22/17 10:37 PMRU Outcome: ADL's/ADL Transfers Orders/Interventions Occupational Therapy Evaluation & Treatment Communication Tool in Patient Room Patient to receive OT 5x/wk for 60-120 Therex min/day Self Care Management Group Therapy Neuromuscular ReEducation UE/LE ADL's with Assist Yes: mod I ADL Transfers with Assist Yes: mod I Toileting: Transfers,Clothing Management Yes: mod I ,Hygeine w/Assist Progression Toward Outcome/Goals Progressing Outcome/Goals Met Pt's standing and transfers continue to improve. No significant changes in RUE function noted. Communication-Improve/Maintain Start: 02/14/17 17:06 Freq: QSHIFT Status: Active Target: Activity Type Activity Date Activity User E-Sign Co-Sign Detail Recorded Client Recorded Date Recorded By Document 02/22/17 11:19 [id number] [email or web address] 02/22/17 11:20 [id number] 02/22/17 11:19 PMRU Outcome: Communication/Cognitive Status Outcome/Goals Use Comm Tools/ Devices Makes Needs Known Effectively Other Outcomes/Goals 1) Patient will follow answer yes/no questions with at least 90% accuracy over two-consecutive sessions. 2) Patient will following two- step directions with at least 90% accuracy. 3) Patient will repeat phrases given model with melodic intonation, for 70% of the opportunities presented. 4) The patient will express basic wants/ needs to this wrtier and caregiver via alternative communiction approach (e.g. communication board). 5) Patient will complete oral- motor exercises following model from [employer]UFACTUR[employer] AGENT/ caregiver/ family member, for 80% for the opportunities presented. Progression Toward Outcomes/Goals Progressing Outcome/Goals Met Comment 4) Writing targeted this date. Patient' s writing is legible, however she demonstrated paraphasias in her writing and is unaware, despite verbal cues. With written model, patient is able to write her name, today's date, and her birthday. Coping/Psych-Improve/Maintain Start: 02/14/17 17:06 Freq: QSHIFT Status: Active Target: Activity Type Activity Date Activity User E-Sign Co-Sign Detail Recorded Client Recorded Date Recorded By Document 02/22/17 11:32 [id number] 02/22/17 11:33 [id number] 02/22/17 11:32 PMRU Outcome: Coping/Psychosocial Coping Outcome/Goals Verbalization of Acceptance of Rehab Admit Verbalization of Sense of Control Over Health Status Utilization of Appropriate Problem Solving Techniques Willingness to Participate in Treatment Plan and Basic Needs Psychosocial Outcome/Goals Maintain/ Improve Emotional Health Demonstrates Knowledge of Healthy Coping Mechanisms Available Progression Toward Outcome/Goals - Progressing Coping Progression Toward Outcome/Goals - Progressing Psychosocial DVT Prophylaxis- Improve/Maintain Start: 02/14/17 17:06 Freq: QSHIFT Status: Active Target: Activity Type Activity Date Activity User E-Sign Co-Sign Detail Recorded Client Recorded Date Recorded By Document 02/22/17 11:32 [id number] 02/22/17 11:33 [id number] 02/22/17 11:32 PMRU Outcome: DVT Prophylaxis Outcome/Goals Remains Free of DVT Free of complications from current DVT Complies with DVT Prophylaxis /Treatment TEDS Stockings on Every AM, Off at HS Progression Toward Outcome/Goals Progressing Discharge Planning - Improve/Maintain Start: 02/14/17 17:06 Freq: QSHIFT Status: Active Target: Activity Type Activity Date Activity User E-Sign Co-Sign Detail Recorded Client Recorded Date Recorded By Document 02/22/17 11:32 [id number] 02/22/17 11:33 [id number] 02/22/17 11:32 PMRU Outcome: Discharge Planning Update Patient Family No Outcome/Goals Demonstrates Understanding of Discharge Plan Progression Toward Outcome/Goals Progressing Education-Improve/Maintain Start: 02/14/17 23:48 Freq: QSHIFT Status: Active Target: Activity Type Activity Date Activity User E-Sign Co-Sign Detail Recorded Client Recorded Date Recorded By Document 02/22/17 11:32 [id number] 02/22/17 11:33 [id number] 02/22/17 11:32 PMRU Outcome: Education Outcome/Goals Demonstrates Skills Progression Toward Outcome/Goals Progressing Outcome/Goals Met Comment aphasia, non verbal /GI-Improve/Maintain Start: 02/14/17 17:06 Freq: QSHIFT Status: Active Target: Activity Type Activity Date Activity User E-Sign Co-Sign Detail Recorded Client Recorded Date Recorded By Document 02/22/17 11:32 [id number] 02/22/17 11:33 [id number] 02/22/17 11:32 PMRU Outcome: Genitourinary/ Gastrointestinal Genitourinary- Outcome/Goals Maintain/ Achieve Urinary Continence Maintain/ Achieve Adequate Urinary Output Gastrointestinal-Outcome/Goals Maintain/ Achieve Bowel Regularity in Accordance with Pt's Baseline Prevent Constipation Progression Toward Outcome/Goals - Not Progressing Progression Toward Outcome/Goals - GI Progressing Outcome/Goals Met Comment incontinent of bowel and bladder Mobility- Improve/Maintain Start: 02/14/17 23:48 Freq: QSHIFT Status: Active Target: Activity Type Activity Date Activity User E-Sign Co-Sign Detail Recorded Client Recorded Date Recorded By Document 02/21/17 12:19 [id number] 02/21/17 12:19 [id number] 02/21/17 12:19 PMRU Outcome: Mobility Physical Therapy Evaluation and Yes Treatment Activity OOB with Assistance Yes WBAT Yes Device Yes Assistance Yes Patient to be seen 5x/wk for 60-120 min/ Therex day for: Mobility Training Gait Training W/C Mobility Balance Outcome/Goals Maintain/ Achieve Baseline Mobility Status Improve Mobility Status Demonstrates Proper Use of Assistive Devices Free from Complications of Immobility Progression Toward Outcome/Goals Progressing Bed Mobility Yes: independent Transfers Yes: independent with hemiwalker Gait x ft Yes: independent with hemiwalker 150' Up/Down Stairs Yes: inependent with 1 rail up /down 5 stairs Neurological- Improve/Maintain Start: 02/14/17 17:06 Freq: QSHIFT Status: Active Target: Activity Type Activity Date Activity User E-Sign Co-Sign Detail Recorded Client Recorded Date Recorded By Document 02/22/17 11:32 [id number] 02/22/17 11:33 [id number] 02/22/17 11:32 PMRU Outcome: Neurological Weakness/Aphasia Weakness Aphasia Right Side Outcome/Goals Maintain/ Achieve Baseline Neurological Status Improve Neurological Status Maintain/ Improve Strength/ROM Progression Toward Outcome/Goals Progressing Nutrition/Swallowing- Improve/Maintain Start: 02/14/17 17:06 Freq: QSHIFT Status: Active Target: Activity Type Activity Date Activity User E-Sign Co-Sign Detail Recorded Client Recorded Date Recorded By Document 02/22/17 11:20 [id number] [email or web address] 02/22/17 11:20 [id number] 02/22/17 11:20 PMRU Outcome: Nutrition/Swallowing Outcome/Goals Demonstrates Adequate Hydration/ Prevents Dehydration Maintain/ Improve Nutritional Status Other Outcome/Goals Patient will safely tolerate the least restrictive diet without s/ s of aspiration /penetration Progression Toward Outcome/Goals Progressing Outcome/Goals Met Comment Patient safely tolerated trials of honey -thick liquid with AM tray via spoon; throat clear x2 noted for trials via sip by cup. Recommend diet upgrade to honey-thick liquid via spoon; results discussed with DAYANA Valentine. Pain/Comfort- Improve/Maintain Start: 02/14/17 17:06 Freq: QSHIFT Status: Active Target: Activity Type Activity Date Activity User E-Sign Co-Sign Detail Recorded Client Recorded Date Recorded By Document 02/22/17 11:32 [id number] 02/22/17 11:33 [id number] 02/22/17 11:32 PMRU Outcome: Pain/Comfort Outcome/Goals Demonstrates Knowledge and Use of Available Comfort Measures Achieves Acceptable Comfort/Pain Level as Determined by Patient/Condit Maintain Comfort Level Allowing Patient to Fully Participate in Rehab Progression Toward Outcome/Goals Progressing Respiratory - Improve/Maintain Start: 02/14/17 17:06 Freq: QSHIFT Status: Active Target: Activity Type Activity Date Activity User E-Sign Co-Sign Detail Recorded Client Recorded Date Recorded By Document 02/22/17 11:32 [id number] 02/22/17 11:33 [id number] 02/22/17 11:32 PMRU Outcome: Respiratory Does Patient Have a Trach No Outcome/Goals Maintain/ Improve O2 Sat per MD Order Maintain/ Improve Baseline Respiratory Status Maintain/ Improve Activity Tolerance Prevent Pneumonia/ Atelectasis Progression Toward Outcome/Goals Progressing Outcome/Goals Met Comment antibitoics to treat current aspiration pneumonia. Honey thickened liquids on a spoon, pureed diet. Safety- Improve/Maintain Start: 02/14/17 17:06 Freq: QSHIFT Status: Active Target: Activity Type Activity Date Activity User E-Sign Co-Sign Detail Recorded Client Recorded Date Recorded By Document 02/22/17 11:32 [id number] 02/22/17 11:33 [id number] 02/22/17 11:32 PMRU Outcome: Safety Outcome/Goals Remain Free of Injury or Harm Cooperates with Safety Measures for Least Restrictive Environment Prevent Falls/ Injury Progression Toward Outcome/Goals Progressing Outcome/Goals Met Comment PA in place for safety, ringing appropriately Skin- Improve/Maintain Start: 02/14/17 17:06 Freq: QSHIFT Status: Active Target: Activity Type Activity Date Activity User E-Sign Co-Sign Detail Recorded Client Recorded Date Recorded By Document 02/22/17 11:32 [id number] [id number] 02/22/17 11:33 [id number] 02/22/17 11:32 PMRU Outcome: Skin Skin Risk Level High Skin Orders Turn/Position q2hr While in Bed Outcome/Goals Maintain/ Improve Skin Intergrity Progression Toward Outcome/Goals Progressing Outcome/Goals Met Comment prn incont care provided Medicine Note: Length of Stay: 5 weeks Anticipated Discharge Destination: Home Tentative Discharge Date: 03/29/17 Discharged to: Home
[2017-02-22] MEDS: Atorvastatin* 80 MG TAB PO SCH (15:54)
--- NOTE | 2017-02-22 16:28 | PN ---
Progress Note - Progress Note Date of Service: 02/22/17 Note: Minda visited. She was discussed in interdisciplinary team rounds. Her diet has been advanced to honey thick liquids and she is doing ok. She finishes up antibiotics for aspiration pneumonia tonight. Able to walk 6 steps in parallel bars Current Medications Acetaminophen (Tylenol Tab*) 650 mg PO Q6H PRN PRN Reason: FEVER/PAIN Aspirin (Aspirin Low Dose Tab*) 81 mg PO DAILY [facility] Last Admin: 02/22/17 09:02 Dose: 81 mg Atorvastatin Calcium (Lipitor*) 80 mg PO 1700 [facility] Last Admin: 02/22/17 15:54 Dose: 80 mg Cefuroxime Axetil (Ceftin Tab(*)) 500 mg PO BID [facility] Stop: 02/22/17 23:59 Last Admin: 02/22/17 09:02 Dose: 500 mg Clopidogrel Bisulfate (Plavix Tab*) 75 mg PO DAILY [facility] Last Admin: 02/22/17 09:02 Dose: 75 mg Docusate Sodium (Colace Cap*) 100 mg PO BID [facility] Last Admin: 02/22/17 09:05 Dose: Not Given Fluoxetine HCl (Prozac Cap*) 10 mg PO DAILY [facility] Last Admin: 02/22/17 09:02 Dose: 10 mg Heparin Sodium (Porcine) (Heparin Vial(*)) 5,000 units SUBCUT Q8HR [facility] Last Admin: 02/22/17 15:54 Dose: 5,000 units Levetiracetam (Keppra Tab*) 1,500 mg PO BID [facility] Last Admin: 02/22/17 09:02 Dose: 1,500 mg Levothyroxine Sodium (Synthroid Tab*) 50 mcg PO DAILY@0600 [facility] Last Admin: 02/22/17 05:41 Dose: 50 mcg Magnesium Hydroxide (Milk Of Magnesia Liq*) 30 ml PO Q6H PRN PRN Reason: CONSTIPATION Metronidazole (Flagyl Tab*) 250 mg PO TID [facility] Stop: 02/22/17 23:59 Last Admin: 02/22/17 15:54 Dose: 250 mg Polyethylene Glycol/Electrolytes (Miralax*) 17 gm PO DAILY PRN PRN Reason: CONSTIPATION Senna (Senokot Tab*) 2 tab PO BEDTIME PRN PRN Reason: CONSTIPATION Timolol Maleate (Timoptic 0.5% Opth*) 1 drop BOTH EYES BID [facility] Last Admin: 02/22/17 09:04 Dose: 1 drop Zonisamide (Zonegran (Nf)) 100 mg PO BID [facility] Last Admin: 02/22/17 09:02 Dose: 100 mg Vital Signs Temp Pulse Resp BP Pulse Ox 98.1 F 80 18 135/63 98 02/22/17 15:39 02/22/17 15:46 02/22/17 15:39 02/22/17 15:39 02/22/17 15:39 EXAM: HEENT: Right facial palsy LUNGS: Clear HEART: S1, S2 ABDOMEN: Soft NEUROLOGIC: Increased tone RLE and RUE; Aphasic; some movement at right ankle and knee appears volitional ASSESSMENT/PLAN: 1. 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 Dysphagia: Pureed consistencies, honey thick liquids 3. Seizure Disorder: Keppra/Zonegran 4. Aspiration Pneumonia: PO Ceftin/Flagyl through 02/22. 5. DVT Prophylaxis: Heparin S/Q. TEDs 6. Code Status: full code. 7. Hypothyroidism: Synthroid 8. Depression: Prozac
[2017-02-23] MEDS: Heparin VIAL(*) 5000 UNITS/ML VIAL (FIVE THOUSAND) SUBCUT SCH ×3 (05:53→21:07)
[2017-02-23] MEDS: Levothyroxine TAB* 50 MCG TAB PO SCH (05:54)
[2017-02-23 08:11] LABS: Hematocrit 39 % (35-47); Hemoglobin 12.9 g/dl (12.0-16.0); Mean Corpuscular HGB Conc 33 g/dl (31-36); Mean Corpuscular Hemoglobin 32 pg (27-31); Mean Corpuscular Volume 95 fL (80-97); Mean Platelet Volume 8 um3 (7.4-10.4); Red Blood Count 4.06 10^6/ul (4.0-5.4); Red Cell Distribution Width 13 % (10.5-15)
[2017-02-23] MEDS: Docusate CAP* 100 MG PO SCH ×2 (08:15→21:04)
[2017-02-23] MEDS: FLUoxetine CAP* 10 MG PO SCH (08:16)
[2017-02-23] MEDS: Clopidogrel TAB* 75 MG PO SCH (08:16)
[2017-02-23] MEDS: Aspirin Low Dose CHEW TAB* 81 MG PO SCH (08:16)
[2017-02-23] MEDS: CMCS: Zonisamide (NF) 50 MG CAP PO SCH ×2 (08:16→21:05)
[2017-02-23] MEDS: levETIRAcetam TAB* 500 MG PO SCH ×2 (08:16→21:04)
[2017-02-23 08:22] LABS: Albumin 3.1 g/dL (3.2-5.2); BUN/Creatinine Ratio 16.9 (8-20); Calcium 8.7 mg/dL (8.6-10.3); EGFR African American 126.8 (>60); EGFR Non-African American 98.6 (>60); Globulin 2.7 g/dL (2-4); Potassium 4.2 mmol/L (3.5-5.0); Total Bilirubin 0.3 mg/dL (0.2-1.0); Total Protein 5.8 g/dL (6.4-8.9)
[2017-02-23] MEDS: Timolol 0.5% OPTH.SOL* BTL BOTH EYES SCH ×2 (08:25→21:04)
[2017-02-23] MEDS: Acetaminophen TAB* 325 MG PO PRN (15:35)
[2017-02-23] MEDS: Atorvastatin* 80 MG TAB PO SCH (17:46)
--- NOTE | 2017-02-23 18:43 | PN ---
Progress Note - Progress Note Date of Service: 02/23/17 Note: Minda visited. Therapy notes read and reviewed. She is doing better with her swallowing and mobility. Verbal output remains limited. Eating well. Off antibiotics. Current Medications Acetaminophen (Tylenol Tab*) 650 mg PO Q6H PRN PRN Reason: FEVER/PAIN Last Admin: 02/23/17 15:35 Dose: 650 mg Aspirin (Aspirin Low Dose Tab*) 81 mg PO DAILY [facility] Last Admin: 02/23/17 08:16 Dose: 81 mg Atorvastatin Calcium (Lipitor*) 80 mg PO 1700 [facility] Last Admin: 02/23/17 17:46 Dose: 80 mg Clopidogrel Bisulfate (Plavix Tab*) 75 mg PO DAILY [facility] Last Admin: 02/23/17 08:16 Dose: 75 mg Docusate Sodium (Colace Cap*) 100 mg PO BID [facility] Last Admin: 02/23/17 08:15 Dose: Not Given Fluoxetine HCl (Prozac Cap*) 10 mg PO DAILY [facility] Last Admin: 02/23/17 08:16 Dose: 10 mg Heparin Sodium (Porcine) (Heparin Vial(*)) 5,000 units SUBCUT Q8HR [facility] Last Admin: 02/23/17 13:40 Dose: 5,000 units Levetiracetam (Keppra Tab*) 1,500 mg PO BID [facility] Last Admin: 02/23/17 08:16 Dose: 1,500 mg Levothyroxine Sodium (Synthroid Tab*) 50 mcg PO DAILY@0600 [facility] Last Admin: 02/23/17 05:54 Dose: 50 mcg Magnesium Hydroxide (Milk Of Magnesia Liq*) 30 ml PO Q6H PRN PRN Reason: CONSTIPATION Polyethylene Glycol/Electrolytes (Miralax*) 17 gm PO DAILY PRN PRN Reason: CONSTIPATION Senna (Senokot Tab*) 2 tab PO BEDTIME PRN PRN Reason: CONSTIPATION Timolol Maleate (Timoptic 0.5% Opth*) 1 drop BOTH EYES BID [facility] Last Admin: 02/23/17 08:25 Dose: 1 drop Zonisamide (Zonegran (Nf)) 100 mg PO BID [facility] Last Admin: 02/23/17 08:16 Dose: 100 mg Laboratory Results - last 24 hr 02/23/17 02/23/17 07:58 07:58 WBC 8.0 RBC 4.06 Hgb 12.9 Hct 39 MCV 95 MCH 32 H MCHC 33 RDW 13 Plt Count 272 MPV 8 Neut % (Auto) 66.9 Lymph % (Auto) 23.7 L [place] % (Auto) 6.0 Eos % (Auto) 2.5 Baso % (Auto) 0.9 Absolute Neuts (auto) 5.4 Absolute Lymphs (auto) 1.9 Absolute Monos (auto) 0.5 Absolute Eos (auto) 0.2 Absolute Basos (auto) 0.1 Absolute Nucleated RBC 0 Nucleated RBC % 0 Sodium 137 Potassium 4.2 Chloride 105 Carbon Dioxide 26 Anion Gap 6 BUN 10 Creatinine 0.59 Est GFR ( Amer) 126.8 Est GFR (Non-Af Amer) 98.6 BUN/Creatinine Ratio 16.9 Glucose 93 Calcium 8.7 Total Bilirubin 0.30 AST 30 ALT 33 Alkaline Phosphatase 76 Total Protein 5.8 L Albumin 3.1 L Globulin 2.7 Albumin/Globulin Ratio 1.1 Vital Signs Temp Pulse Resp BP Pulse Ox 98.3 F 72 20 121/57 97 02/23/17 16:33 02/23/17 16:33 02/23/17 16:33 02/23/17 16:33 02/23/17 16:33 EXAM: HEENT: Right facial palsy LUNGS: Clear HEART: S1, S2 ABDOMEN: Soft NEUROLOGIC: Increased tone RLE and RUE; Aphasic; movement at right ankle and knee appears volitional ASSESSMENT/PLAN: 1. 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 Dysphagia: Pureed consistencies, honey thick liquids 3. Seizure Disorder: Keppra/Zonegran 4. Aspiration Pneumonia: PO Ceftin/Flagyl finished. 5. DVT Prophylaxis: Heparin S/Q. TEDs 6. Code Status: full code. 7. Hypothyroidism: Synthroid 8. Depression/Neuronal recovery: Prozac
[2017-02-23] MEDS ORDERED: Al Hydrox/Mg Hydrox/Simet LIQ* 30 ML UDC PO PRN (20:18)
[2017-02-24] MEDS: Heparin VIAL(*) 5000 UNITS/ML VIAL (FIVE THOUSAND) SUBCUT SCH ×3 (06:29→21:40)
[2017-02-24] MEDS: Levothyroxine TAB* 50 MCG TAB PO SCH (06:30)
[2017-02-24] MEDS: Docusate CAP* 100 MG PO SCH ×2 (08:54→21:15)
[2017-02-24] MEDS: Clopidogrel TAB* 75 MG PO SCH (08:54)
[2017-02-24] MEDS: Aspirin Low Dose CHEW TAB* 81 MG PO SCH (08:54)
[2017-02-24] MEDS: levETIRAcetam TAB* 500 MG PO SCH ×2 (08:55→20:06)
[2017-02-24] MEDS: Timolol 0.5% OPTH.SOL* BTL BOTH EYES SCH ×2 (08:56→21:14)
[2017-02-24] MEDS: FLUoxetine CAP* 10 MG PO SCH (08:56)
[2017-02-24] MEDS: CMCS: Zonisamide (NF) 50 MG CAP PO SCH ×2 (08:57→20:06)
[2017-02-24] MEDS: Atorvastatin* 80 MG TAB PO SCH (17:16)
[2017-02-24] MEDS ORDERED: Methocarbamol TAB* 500 MG PO PRN (17:53)
--- NOTE | 2017-02-24 19:45 | PN ---
Progress Note - Progress Note Date of Service: 02/24/17 Note: Minda visited. She complained of pain in her left leg, with some muscle spasms seen in the leg. This is likely from overuse of the leg. Will order Robaxin. Otherwise stable. Current Medications Acetaminophen (Tylenol Tab*) 650 mg PO Q6H PRN PRN Reason: FEVER/PAIN Last Admin: 02/23/17 15:35 Dose: 650 mg Al Hydrox/Mg Hydrox/Simethicone (Maalox Plus*) 30 ml PO Q6H PRN PRN Reason: DYSPEPSIA Aspirin (Aspirin Low Dose Tab*) 81 mg PO DAILY [facility] Last Admin: 02/24/17 08:54 Dose: 81 mg Atorvastatin Calcium (Lipitor*) 80 mg PO 1700 [facility] Last Admin: 02/24/17 17:16 Dose: 80 mg Clopidogrel Bisulfate (Plavix Tab*) 75 mg PO DAILY [facility] Last Admin: 02/24/17 08:54 Dose: 75 mg Docusate Sodium (Colace Cap*) 100 mg PO BID [facility] Last Admin: 02/24/17 08:54 Dose: 100 mg Fluoxetine HCl (Prozac Cap*) 10 mg PO DAILY [facility] Last Admin: 02/24/17 08:56 Dose: 10 mg Heparin Sodium (Porcine) (Heparin Vial(*)) 5,000 units SUBCUT Q8HR [facility] Last Admin: 02/24/17 14:16 Dose: 5,000 units Levetiracetam (Keppra Tab*) 1,500 mg PO BID [facility] Last Admin: 02/24/17 08:55 Dose: 1,500 mg Levothyroxine Sodium (Synthroid Tab*) 50 mcg PO DAILY@0600 [facility] Last Admin: 02/24/17 06:30 Dose: 50 mcg Magnesium Hydroxide (Milk Of Magnesia Liq*) 30 ml PO Q6H PRN PRN Reason: CONSTIPATION Methocarbamol (Robaxin Tab*) 750 mg PO Q6H PRN PRN Reason: SPASMS Polyethylene Glycol/Electrolytes (Miralax*) 17 gm PO DAILY PRN PRN Reason: CONSTIPATION Senna (Senokot Tab*) 2 tab PO BEDTIME PRN PRN Reason: CONSTIPATION Timolol Maleate (Timoptic 0.5% Opth*) 1 drop BOTH EYES BID [facility] Last Admin: 02/24/17 08:56 Dose: 1 drop Zonisamide (Zonegran (Nf)) 100 mg PO BID [facility] Last Admin: 02/24/17 08:57 Dose: 100 mg Vital Signs Temp Pulse Resp BP Pulse Ox 99.1 F 72 20 121/58 96 02/24/17 15:54 02/24/17 15:54 02/24/17 15:54 02/24/17 15:54 02/24/17 15:54 EXAM: HEENT: Right facial palsy LUNGS: Clear HEART: S1, S2 ABDOMEN: Soft NEUROLOGIC: Increased tone RLE and RUE; Aphasic; movement at right ankle and knee ASSESSMENT/PLAN: 1. 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 Dysphagia: Pureed consistencies, honey thick liquids 3. Seizure Disorder: Keppra/Zonegran 4. Spasms: Robaxin 5. DVT Prophylaxis: Heparin S/Q. TEDs 6. Code Status: full code. 7. Hypothyroidism: Synthroid 8. Depression/Neuronal recovery: Prozac
[2017-02-25] MEDS: Heparin VIAL(*) 5000 UNITS/ML VIAL (FIVE THOUSAND) SUBCUT SCH ×3 (05:49→21:02)
[2017-02-25] MEDS: Levothyroxine TAB* 50 MCG TAB PO SCH (05:50)
[2017-02-25] MEDS: FLUoxetine CAP* 10 MG PO SCH (09:49)
[2017-02-25] MEDS: Aspirin Low Dose CHEW TAB* 81 MG PO SCH (09:49)
[2017-02-25] MEDS: levETIRAcetam TAB* 500 MG PO SCH ×2 (09:49→19:58)
[2017-02-25] MEDS: Timolol 0.5% OPTH.SOL* BTL BOTH EYES SCH ×2 (09:49→20:02)
[2017-02-25] MEDS: CMCS: Zonisamide (NF) 50 MG CAP PO SCH ×2 (09:49→19:59)
[2017-02-25] MEDS: Docusate CAP* 100 MG PO SCH ×2 (09:49→19:59)
[2017-02-25] MEDS: Clopidogrel TAB* 75 MG PO SCH (09:49)
--- NOTE | 2017-02-25 12:36 | PN ---
Progress Note - Progress Note Date of Service: 02/25/17 Note: No new issues overnight. Nursing and therapy notes reviewed. is visiting. Ate a good lunch. Denies any pain or discomfort. Acetaminophen (Tylenol Tab*) 650 mg PO Q6H PRN PRN Reason: FEVER/PAIN Last Admin: 02/23/17 15:35 Dose: 650 mg Al Hydrox/Mg Hydrox/Simethicone (Maalox Plus*) 30 ml PO Q6H PRN PRN Reason: DYSPEPSIA Aspirin (Aspirin Low Dose Tab*) 81 mg PO DAILY [facility] Last Admin: 02/25/17 09:49 Dose: 81 mg Atorvastatin Calcium (Lipitor*) 80 mg PO 1700 [facility] Last Admin: 02/24/17 17:16 Dose: 80 mg Clopidogrel Bisulfate (Plavix Tab*) 75 mg PO DAILY [facility] Last Admin: 02/25/17 09:49 Dose: 75 mg Docusate Sodium (Colace Cap*) 100 mg PO BID [facility] Last Admin: 02/25/17 09:49 Dose: 100 mg Fluoxetine HCl (Prozac Cap*) 10 mg PO DAILY [facility] Last Admin: 02/25/17 09:49 Dose: 10 mg Heparin Sodium (Porcine) (Heparin Vial(*)) 5,000 units SUBCUT Q8HR [facility] Last Admin: 02/25/17 05:49 Dose: 5,000 units Levetiracetam (Keppra Tab*) 1,500 mg PO BID [facility] Last Admin: 02/25/17 09:49 Dose: 1,500 mg Levothyroxine Sodium (Synthroid Tab*) 50 mcg PO DAILY@0600 [facility] Last Admin: 02/25/17 05:50 Dose: 50 mcg Magnesium Hydroxide (Milk Of Magnesia Liq*) 30 ml PO Q6H PRN PRN Reason: CONSTIPATION Methocarbamol (Robaxin Tab*) 750 mg PO Q6H PRN PRN Reason: SPASMS Polyethylene Glycol/Electrolytes (Miralax*) 17 gm PO DAILY PRN PRN Reason: CONSTIPATION Senna (Senokot Tab*) 2 tab PO BEDTIME PRN PRN Reason: CONSTIPATION Timolol Maleate (Timoptic 0.5% Opth*) 1 drop BOTH EYES BID [facility] Last Admin: 02/25/17 09:49 Dose: 1 drop Zonisamide (Zonegran (Nf)) 100 mg PO BID [facility] Last Admin: 02/25/17 09:49 Dose: 100 mg Vital Signs 02/24/17 02/24/17 02/25/17 15:54 20:00 05:34 Temperature 99.1 F 99.0 F Pulse Rate 72 67 Respiratory 20 18 Rate Blood Pressure 121/58 126/61 (mmHg) O2 Sat by Pulse 96 96 99 Oximetry 02/25/17 08:00 Temperature Pulse Rate Respiratory 18 Rate Blood Pressure (mmHg) O2 Sat by Pulse 99 Oximetry EXAM: GEN: No acute distress. Alert and appropriate. Aphasia. LUNGS: Clear bilaterally HEART: regular ABDOMEN: Soft, non-tender, non-distended. NEUROLOGIC: Right CN VII palsy. Increased tone RLE and RUE; Motor 0/5 in RUE and 3/5 at least in RLE. Does not follow directions consistently. ASSESSMENT/PLAN: 76 yo woman with CVA and right hemiplegia and aphasia 1. 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 Dysphagia: Pureed consistencies, honey thick liquids 3. Seizure Disorder: Keppra/Zonegran 4. Spasms: Robaxin prn 5. DVT Prophylaxis: Heparin S/Q. TEDs 6. Hypothyroidism: Synthroid 7. Depression/Neuronal recovery: Prozac 8. Code Status: full code. is hcp
[2017-02-25] MEDS: Atorvastatin* 80 MG TAB PO SCH (16:55)
[2017-02-26] MEDS: Heparin VIAL(*) 5000 UNITS/ML VIAL (FIVE THOUSAND) SUBCUT SCH ×3 (05:30→21:45)
[2017-02-26] MEDS: Levothyroxine TAB* 50 MCG TAB PO SCH (05:32)
[2017-02-26] MEDS: CMCS: Zonisamide (NF) 50 MG CAP PO SCH ×2 (08:54→20:44)
[2017-02-26] MEDS: Aspirin Low Dose CHEW TAB* 81 MG PO SCH (08:55)
[2017-02-26] MEDS: FLUoxetine CAP* 10 MG PO SCH (08:55)
[2017-02-26] MEDS: Docusate CAP* 100 MG PO SCH ×2 (08:55→20:27)
[2017-02-26] MEDS: Clopidogrel TAB* 75 MG PO SCH (08:55)
[2017-02-26] MEDS: levETIRAcetam TAB* 500 MG PO SCH ×2 (08:55→20:27)
[2017-02-26] MEDS: Timolol 0.5% OPTH.SOL* BTL BOTH EYES SCH ×2 (08:56→20:43)
--- NOTE | 2017-02-26 10:02 | PN ---
Progress Note - Progress Note Date of Service: 02/26/17 Note: Frequently incontinent, but also has times when she calls to go to bathroom and is dry, and voids appropriately. Denies pain. Acetaminophen (Tylenol Tab*) 650 mg PO Q6H PRN PRN Reason: FEVER/PAIN Last Admin: 02/23/17 15:35 Dose: 650 mg Al Hydrox/Mg Hydrox/Simethicone (Maalox Plus*) 30 ml PO Q6H PRN PRN Reason: DYSPEPSIA Aspirin (Aspirin Low Dose Tab*) 81 mg PO DAILY [facility] Last Admin: 02/26/17 08:55 Dose: 81 mg Atorvastatin Calcium (Lipitor*) 80 mg PO 1700 [facility] Last Admin: 02/25/17 16:55 Dose: 80 mg Clopidogrel Bisulfate (Plavix Tab*) 75 mg PO DAILY [facility] Last Admin: 02/26/17 08:55 Dose: 75 mg Docusate Sodium (Colace Cap*) 100 mg PO BID [facility] Last Admin: 02/26/17 08:55 Dose: 100 mg Fluoxetine HCl (Prozac Cap*) 10 mg PO DAILY [facility] Last Admin: 02/26/17 08:55 Dose: 10 mg Heparin Sodium (Porcine) (Heparin Vial(*)) 5,000 units SUBCUT Q8HR [facility] Last Admin: 02/26/17 05:30 Dose: 5,000 units Levetiracetam (Keppra Tab*) 1,500 mg PO BID [facility] Last Admin: 02/26/17 08:55 Dose: 1,500 mg Levothyroxine Sodium (Synthroid Tab*) 50 mcg PO DAILY@0600 [facility] Last Admin: 02/26/17 05:32 Dose: 50 mcg Magnesium Hydroxide (Milk Of Magnesia Liq*) 30 ml PO Q6H PRN PRN Reason: CONSTIPATION Methocarbamol (Robaxin Tab*) 750 mg PO Q6H PRN PRN Reason: SPASMS Polyethylene Glycol/Electrolytes (Miralax*) 17 gm PO DAILY PRN PRN Reason: CONSTIPATION Senna (Senokot Tab*) 2 tab PO BEDTIME PRN PRN Reason: CONSTIPATION Timolol Maleate (Timoptic 0.5% Opth*) 1 drop BOTH EYES BID [facility] Last Admin: 02/26/17 08:56 Dose: 1 drop Zonisamide (Zonegran (Nf)) 100 mg PO BID [facility] Last Admin: 02/26/17 08:54 Dose: 100 mg Vital Signs Temp Pulse Resp BP Pulse Ox 97.7 F 55 18 105/50 98 02/26/17 05:27 02/26/17 05:27 02/26/17 05:27 02/26/17 05:27 02/26/17 09:01 EXAM: GEN: No acute distress. Alert and appropriate. Aphasia. LUNGS: Clear bilaterally HEART: regular ABDOMEN: Soft, non-tender, non-distended. NEUROLOGIC: Right CN VII palsy. Increased tone RLE and RUE; Motor 0/5 in RUE and 3/5 at least in RLE. Does not follow directions consistently. ASSESSMENT/PLAN: 76 yo woman with CVA and right hemiplegia and aphasia 1. 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 Dysphagia: Pureed consistencies, honey thick liquids 3. Seizure Disorder: Keppra/Zonegran 4. Spasms: Robaxin prn 5. DVT Prophylaxis: Heparin S/Q. TEDs 6. Hypothyroidism: Synthroid 7. Depression/Neuronal recovery: Prozac 8. Code Status: full code. is hcp
[2017-02-26] MEDS: Atorvastatin* 80 MG TAB PO SCH (17:13)
[2017-02-27] MEDS: Heparin VIAL(*) 5000 UNITS/ML VIAL (FIVE THOUSAND) SUBCUT SCH ×3 (04:56→22:05)
[2017-02-27] MEDS: Levothyroxine TAB* 50 MCG TAB PO SCH (04:57)
[2017-02-27] MEDS: Timolol 0.5% OPTH.SOL* BTL BOTH EYES SCH ×2 (09:15→21:10)
[2017-02-27] MEDS: FLUoxetine CAP* 10 MG PO SCH (09:16)
[2017-02-27] MEDS: CMCS: Zonisamide (NF) 50 MG CAP PO SCH ×2 (09:16→21:10)
[2017-02-27] MEDS: levETIRAcetam TAB* 500 MG PO SCH ×2 (09:16→21:10)
[2017-02-27] MEDS: Docusate CAP* 100 MG PO SCH ×2 (09:16→21:10)
[2017-02-27] MEDS: Clopidogrel TAB* 75 MG PO SCH (09:17)
[2017-02-27] MEDS: Aspirin Low Dose CHEW TAB* 81 MG PO SCH (09:17)
--- NOTE | 2017-02-27 09:44 | PN ---
Progress Note - Progress Note Date of Service: 02/27/17 Note: Still with incontinence but rings when she is wet. In the evening last night she did have some voids appropriately. PVR 26cc. Denies pain. Nursing notes reviewed. Vital Signs Temp Pulse Resp BP Pulse Ox 98.5 F 74 16 133/60 96 02/27/17 05:01 02/27/17 05:01 02/27/17 05:01 02/27/17 05:01 02/27/17 09:41 EXAM: GEN: No acute distress. Alert and appropriate. Aphasia. LUNGS: Clear bilaterally HEART: regular ABDOMEN: Soft, non-tender, non-distended. NEUROLOGIC: Right CN VII palsy. Increased tone RLE and RUE; Motor 0/5 in RUE and 3/5 at least in RLE. Does not follow directions consistently. ASSESSMENT/PLAN: 76 yo woman with CVA and right hemiplegia and aphasia 1. 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 Dysphagia: Pureed consistencies, honey thick liquids 3. Seizure Disorder: Keppra/Zonegran 4. Spasms: Robaxin prn 5. DVT Prophylaxis: Heparin S/Q. TEDs 6. Hypothyroidism: Synthroid 7. Depression/Neuronal recovery: Prozac 8. Code Status: full code. is hcp
[2017-02-27] MEDS: Atorvastatin* 80 MG TAB PO SCH (16:03)
[2017-02-28] MEDS: Levothyroxine TAB* 50 MCG TAB PO SCH (06:03)
[2017-02-28] MEDS: Heparin VIAL(*) 5000 UNITS/ML VIAL (FIVE THOUSAND) SUBCUT SCH ×3 (06:03→21:43)
[2017-02-28] MEDS: Docusate CAP* 100 MG PO SCH ×2 (09:15→20:14)
[2017-02-28] MEDS: levETIRAcetam TAB* 500 MG PO SCH ×2 (09:15→20:13)
[2017-02-28] MEDS: Clopidogrel TAB* 75 MG PO SCH (09:15)
[2017-02-28] MEDS: FLUoxetine CAP* 10 MG PO SCH (09:15)
[2017-02-28] MEDS: Aspirin Low Dose CHEW TAB* 81 MG PO SCH (09:15)
[2017-02-28] MEDS: CMCS: Zonisamide (NF) 50 MG CAP PO SCH ×2 (09:15→20:14)
[2017-02-28] MEDS: Timolol 0.5% OPTH.SOL* BTL BOTH EYES SCH ×2 (09:18→20:15)
[2017-02-28] MEDS: Atorvastatin* 80 MG TAB PO SCH (17:08)
--- NOTE | 2017-02-28 17:16 | PN ---
Progress Note - Progress Note Date of Service: 02/28/17 Note: Minda visited. Therapy notes read and reviewed. She remains bright. Difficulty voiding on commode. Has voided on bedpan. Denies any pain with voiding. Still with only occasional monosyllables. Current Medications Acetaminophen (Tylenol Tab*) 650 mg PO Q6H PRN PRN Reason: FEVER/PAIN Last Admin: 02/23/17 15:35 Dose: 650 mg Al Hydrox/Mg Hydrox/Simethicone (Maalox Plus*) 30 ml PO Q6H PRN PRN Reason: DYSPEPSIA Aspirin (Aspirin Low Dose Tab*) 81 mg PO DAILY [facility] Last Admin: 02/28/17 09:15 Dose: 81 mg Atorvastatin Calcium (Lipitor*) 80 mg PO 1700 [facility] Last Admin: 02/28/17 17:08 Dose: 80 mg Clopidogrel Bisulfate (Plavix Tab*) 75 mg PO DAILY [facility] Last Admin: 02/28/17 09:15 Dose: 75 mg Docusate Sodium (Colace Cap*) 100 mg PO BID [facility] Last Admin: 02/28/17 09:15 Dose: 100 mg Fluoxetine HCl (Prozac Cap*) 10 mg PO DAILY [facility] Last Admin: 02/28/17 09:15 Dose: 10 mg Heparin Sodium (Porcine) (Heparin Vial(*)) 5,000 units SUBCUT Q8HR [facility] Last Admin: 02/28/17 14:14 Dose: 5,000 units Levetiracetam (Keppra Tab*) 1,500 mg PO BID [facility] Last Admin: 02/28/17 09:15 Dose: 1,500 mg Levothyroxine Sodium (Synthroid Tab*) 50 mcg PO DAILY@0600 [facility] Last Admin: 02/28/17 06:03 Dose: 50 mcg Magnesium Hydroxide (Milk Of Magnesia Liq*) 30 ml PO Q6H PRN PRN Reason: CONSTIPATION Methocarbamol (Robaxin Tab*) 750 mg PO Q6H PRN PRN Reason: SPASMS Polyethylene Glycol/Electrolytes (Miralax*) 17 gm PO DAILY PRN PRN Reason: CONSTIPATION Senna (Senokot Tab*) 2 tab PO BEDTIME PRN PRN Reason: CONSTIPATION Last Admin: 02/26/17 20:27 Dose: 2 tab Timolol Maleate (Timoptic 0.5% Opth*) 1 drop BOTH EYES BID [facility] Last Admin: 02/28/17 09:18 Dose: 1 drop Zonisamide (Zonegran (Nf)) 100 mg PO BID [facility] Last Admin: 02/28/17 09:15 Dose: 100 mg Vital Signs Temp Pulse Resp BP Pulse Ox 97.4 F 82 20 133/64 95 02/28/17 15:34 02/28/17 15:34 02/28/17 15:34 02/28/17 15:34 02/28/17 15:34 EXAM: HEENT: Right facial palsy LUNGS: Clear HEART: S1, S2 ABDOMEN: Soft NEUROLOGIC: Increased tone RLE and RUE; Aphasic; movement at right ankle and knee ASSESSMENT/PLAN: 1. 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 Dysphagia: Pureed consistencies, honey thick liquids 3. Seizure Disorder: Keppra/Zonegran 4. Spasms: Robaxin 5. DVT Prophylaxis: Heparin S/Q. TEDs 6. Code Status: full code. 7. Hypothyroidism: Synthroid 8. Depression/Neuronal recovery: Prozac
[2017-03-01] MEDS: Levothyroxine TAB* 50 MCG TAB PO SCH (06:20)
[2017-03-01] MEDS: Heparin VIAL(*) 5000 UNITS/ML VIAL (FIVE THOUSAND) SUBCUT SCH ×3 (06:20→22:02)
[2017-03-01] MEDS: Clopidogrel TAB* 75 MG PO SCH (08:03)
[2017-03-01] MEDS: Aspirin Low Dose CHEW TAB* 81 MG PO SCH (08:03)
[2017-03-01] MEDS: CMCS: Zonisamide (NF) 50 MG CAP PO SCH ×2 (08:03→20:47)
[2017-03-01] MEDS: FLUoxetine CAP* 10 MG PO SCH (08:03)
[2017-03-01] MEDS: Docusate CAP* 100 MG PO SCH ×2 (08:03→20:43)
[2017-03-01] MEDS: levETIRAcetam TAB* 500 MG PO SCH ×2 (08:04→20:43)
[2017-03-01] MEDS: Timolol 0.5% OPTH.SOL* BTL BOTH EYES SCH ×2 (08:07→20:46)
--- NOTE | 2017-03-01 12:55 | PMRUTEAM ---
PMRU: Goals Current Status: Nursing: Current Status Skin Deviations [Back] Other Skin Deviations [Right Knee] Abrasion Skin Deviation Description [ redness lotion in place Back] Skin Deviation Description [ scabbed Right Knee] Bladder Current Status Toileting schedule, pt incontinent, often rings to tell us she needs to use toilet but is then already wet Bowel Current Status bm 02/28/17 Nutrition Current Status adequate Medication Current Status meds whole in pudding Physical Therapy: Current Status Bed Mobility Assistance Mod Assist,Not Tested Transfer Moblility Assistance Mod Assist Transfer/Bed Mobility None Recommended Devices Transfer Mobility Comment mod A x 1 for SPT. Ambulation Assistance Min Assist Ambulation Assistive Devices Platform Walker,Railings Number of Feet Patient 25' with siderail in hallway min a x 1 with w/c to Ambulated follow. Ambulation Comment 30' with cardiac walker min a x 1. Stairs Assistance Not Tested Curb Not Tested Occupational Therapy: Current Status Upper Body Dressing Mod Assist Lower Body Dressing Mod Assist,Max Asst Bathing Max Asst Toileting Total Assist,2 Person Assist Toilet Transfer Mod Assist Shower Transfer Min Assist,2 Person Assist Eating Supervision Rec Therapy: Current Status Summary of Assessment and RT assessment complete with information obtained Clinical Impression from pt.'s . Pt. has been polite in visits and has leisure activities for her room to engage in. Treatment Goals Pt. will engage in leisure activities while on the unit. Treatment Plan Provide RT services and encourage involvement. Social Work: Current Status Discharge Plan return home with home care svs and family support Potential for Family Training pt's is involved and supportive Anticipated Discharge Home Destination Discharge With home care svs and family support Nutrition: Current Status Monitoring pt remains aphasic, though progressing w/[employer]. Dysphagia also continues; pt still requiring pureed solids, but able to tolerate HONEY-thick liquids for past week. She cont to eat very well (100% of meals), and is taking fluids and applesauce fairly well per nsg notes. Staff encouraging increased fluid intake. She requires set-up and supervision for meals; otherwise, eating independently. BMs 02/26, 02/28. Labs wnl. Skin remains intact with low/mod risk for breakdown. Speech: Current Status Assessment Patient progressing; will continue to benefit from skilled speech-language pathology services targeting expressive/receptive language, motor speech, and dysphagia to increase safety, function , and independence of daily tasks. Goals: Physical Therapy: Initial Goals Bed Mobility Assistance Independent Transfer Mobility Assistance Independent Transfer/Bed Mobility Enzo Walker Recommended Devices Ambulation Independent Ambulation Recommended Devices Enzo Walker Ambulation Distance 150 Stairs Assistance Independent Stair Recommended Devices One Rail Number of Stairs 5 Physical Therapy: Updated Goals Bed Mobility Assistance Independent Transfer Mobility Assistance Independent Transfer/Bed Mobility None Recommended Devices Ambulation Assistance Independent Ambulation Assistive Devices Rolling Walker Ambulation Distance (ft) 150 Stairs Assistance Independent Stairs Recommended Devices Two Rails Number of Stairs 5 Occupational Therapy: Initial Goals Goals to be Completed in (Days 4-6 weeks ) Upper Body Bathing Routine Independent Lower Body Bathing Routine Modified Independent with Upper Body Dressing Routine Independent Lower Body Dressing Routine Modified Independent with Toilet Hygeine and Clothing Modified Independent with Management Routine Toilet Transfer Routine Modified Independent with Step-In Shower Transfer Supervision/Set Up Routine Functional Transfers for ADL Modified Independent with Grooming Routine Independent Feeding Routine Independent Nursing: Goals Bladder Goal independent with marco care and changing brief Bowel Goal continence Nutrition Goal adequate Medication Goal needs reinforcement. Nutrition: Goals Intervention Goals 1. adequate po intake to maintain stable weight, hydration, and lean body mass 2. pt will tolerate least-restrictive diet texture w/o s/sx of difficulty chewing/swallowing 3. skin will remain intact; no evidence of skin breakdown 4. maintain regulation of bowel pattern w/o constipation or diarrhea Speech: Goals Speech Goal 1 Dysphagia Speech Evaluation Status Goal puree, pudding-thick 1 Speech Current Status Goal 1 puree, honey-thick via spoon Goal 1 Comments LTO: Patient will safely tolerate the least restrictive diet. ST) Patient will safely tolerate 10/10 trials of nectar-thick liquids without s/s of aspiration/ penetration. Status: Patient deferred trials of nectar-thick liquid this date. Status as of 02/24: Patient presented with 10 trials of nectar- thickened liquid via teaspoon intermittently throughout the session. She appeared to safely tolerate 5/10 trials without oropharyngeal difficulty; remaining 5/10 patient exhibited a throat clear and wet vocal quality. Vocal quality cleared after throat clears and effortful swallows with verbal cues. Ongoing. 2) Patient will safely tolerate 10/10 trials of mechanical ground solids without s/s of aspiration /penetration. Status: Patient deferred trials of mechanical ground solids this date. 3) Patient will complete dysphagia exercises targeting lingual strength/coordination and hyolaryngeal excursion. Speech Goal 2 Receptive Language Speech Goal 2 Evaluation yes/no: 60%; 2-step direction: 0% Status Speech Goal 2 Current Status yes/no: 80%; 2-step direction: 33% accuracy, independently Speech Goal 2 Comments LTO: Patient will increase receptive language skills. ST) Patient will answer yes/no questions with at least 90% accuracy over two-consecutive sessions. Status: Patient answered yes/no questions regarding orientation to the immediate environment and functional items via head shake/nod along with verbal approximations with 80% accuracy, no cues. 2) Patient will following two-step directions with at least 90% accuracy. Status: Two-step directions: 33% accuracy independently, increasing to 100% with maximum verbal cues (steps were broken down into separate 1-step directions then combined for two-step directions). Speech Goal 3 Expressive Language Speech Goal 3 Evaluation approximations of two-words given [facility] Status Speech Goal 3 Current Status See below Speech Goal 3 Comments LTO: Patient will increase expressive language skills. ST) Patient will repeat phrases given model with melodic intonation, for 70% of the opportunities presented. Status: Confrontational naming; - Functional objects: Patient named objects with 67% accuracy with slow, repeated, verbalizations; she yuan pictures and wrote sentences that frequently contained paraphasias for the remaining words. Patient does not appear aware of the paraphasias. - ABC: 70%, no cues; improved to 90% with maximum verbal prompts. - Stating letter names: correctly stated B, M, P, W, S, T, F with minimal cueing *Patient continues to demonstrate weak vocal quality with low volume and pitch. She also demonstrates difficulty with breath support and coordination of respiration/phonation. Ongoing. 2) The patient will express basic wants/needs to this verse writer and caregiver via alternative communiction approach (e.g. communication board). Status: Not specifically addressed this date. Ongoing. Speech Goal 4 Motor Speech Speech Goal 4 Comments LTO: To increase motor speech skills. ST) Patient will complete oral-motor exercises following model from [employer]/caregiver/family member, for 80% for the opportunities presented. Status: Patient able to successfully open her mouth and complete labial protrusion exercises and produce bilabial phonemes; however, lip smacks, labial retraction, and placing teeth together when smiling continues to be challenging for the patient to control. Therefore, phonemes /s, t, f, v/ targeted this date were difficult to produce for the patient. She did demonstrate plosive phoneme /p/ and /b/ with breath support this date, however fricatives phonemes continue to be challenging d/t patient's poor breath support and coordination. Social Work: Goals Discharge Plan return home with home care svs and family support Potential for Family Training pt's is involved and supportive Anticipated Discharge Home Destination Discharge With home care svs and family support Care Plan: Care Plan ADL's - Improve/Maintain Start: 02/14/17 23:48 Freq: DAILY Status: Active Target: Activity Type Activity Date Activity User E-Sign Co-Sign Detail Recorded Client Recorded Date Recorded By Document 02/25/17 11:50 [id number] 02/25/17 11:50 [id number] 02/25/17 11:50 PMRU Outcome: ADL's/ADL Transfers Orders/Interventions Occupational Therapy Evaluation & Treatment Communication Tool in Patient Room Patient to receive OT 5x/wk for 60-120 Therex min/day Self Care Management Group Therapy Neuromuscular ReEducation UE/LE ADL's with Assist Yes: mod I ADL Transfers with Assist Yes: mod I Toileting: Transfers,Clothing Management Yes: mod I ,Hygeine w/Assist Progression Toward Outcome/Goals Progressing Outcome/Goals Met Pt having increased difficulty following 1 step commands today but is showing some elbow flexion against gravity . STS and SP transfers notably improved from start of the week. Communication-Improve/Maintain Start: 02/14/17 17:06 Freq: DAILY Status: Active Target: Activity Type Activity Date Activity User E-Sign Co-Sign Detail Recorded Client Recorded Date Recorded By Document 03/01/17 11:26 [id number] 03/01/17 11:27 [id number] 03/01/17 11:26 PMRU Outcome: Communication/Cognitive Status Outcome/Goals Use Comm Tools/ Devices Makes Needs Known Effectively Other Outcomes/Goals 1) Patient will follow answer yes/no questions with at least 90% accuracy over two-consecutive sessions. 2) Patient will following two- step directions with at least 90% accuracy. 3) Patient will repeat phrases given model with melodic intonation, for 70% of the opportunities presented. 4) The patient will express basic wants/ needs to this wrtier and caregiver via alternative communiction approach (e.g. communication board). 5) Patient will complete oral- motor exercises following model from [employer]/ caregiver/ family member, for 80% for the opportunities presented. Progression Toward Outcomes/Goals Progressing Outcome/Goals Met Comment 1) Increase to 80% accuracy 2) 33% accuracy independently, increasing to 100% with maximum cues 3)Naming: - Functional objects: Patient named objects with 67 % accuracy with slow, repeated , verbalizations; she yuan pictures and wrote sentences that frequently contained paraphasias for the remaining words. Patient does not appear aware of the paraphasias. - ABC: 70%, no cues; improved to 90% with maximum verbal prompts. - Stating letter names: correctly stated B, M, P, W, S, T, F with minimal cueing 5) Plosive phonemes /b, p/ targeted this date with breath support; good progress noted Coping/Psych-Improve/Maintain Start: 02/14/17 17:06 Freq: DAILY Status: Active Target: Activity Type Activity Date Activity User E-Sign Co-Sign Detail Recorded Client Recorded Date Recorded By Document 03/01/17 10:36 [id number] 03/01/17 10:42 [id number] 03/01/17 10:36 PMRU Outcome: Coping/Psychosocial Coping Outcome/Goals Verbalization of Acceptance of Rehab Admit Verbalization of Sense of Control Over Health Status Utilization of Appropriate Problem Solving Techniques Willingness to Participate in Treatment Plan and Basic Needs Psychosocial Outcome/Goals Maintain/ Improve Emotional Health Demonstrates Knowledge of Healthy Coping Mechanisms Available Progression Toward Outcome/Goals - Progressing Coping Progression Toward Outcome/Goals - Progressing Psychosocial DVT Prophylaxis- Improve/Maintain Start: 02/14/17 17:06 Freq: DAILY Status: Active Target: Activity Type Activity Date Activity User E-Sign Co-Sign Detail Recorded Client Recorded Date Recorded By Document 03/01/17 10:36 [id number] 03/01/17 10:42 [id number] 03/01/17 10:36 PMRU Outcome: DVT Prophylaxis Outcome/Goals Remains Free of DVT Free of complications from current DVT Complies with DVT Prophylaxis /Treatment TEDS Stockings on Every AM, Off at HS Progression Toward Outcome/Goals Progressing Discharge Planning - Improve/Maintain Start: 02/14/17 17:06 Freq: DAILY Status: Active Target: Activity Type Activity Date Activity User E-Sign Co-Sign Detail Recorded Client Recorded Date Recorded By Document 02/27/17 15:33 [id number] 02/27/17 15:34 [id number] 02/27/17 15:33 PMRU Outcome: Discharge Planning Identify Patient Needs yes Update Patient Family No Outcome/Goals Demonstrates Understanding of Discharge Plan Progression Toward Outcome/Goals Progressing Education-Improve/Maintain Start: 02/14/17 23:48 Freq: DAILY Status: Active Target: Activity Type Activity Date Activity User E-Sign Co-Sign Detail Recorded Client Recorded Date Recorded By Document 03/01/17 10:36 [id number] 03/01/17 10:42 [id number] 03/01/17 10:36 PMRU Outcome: Education Outcome/Goals Demonstrates Skills Progression Toward Outcome/Goals Progressing Outcome/Goals Met Comment aphasia, mostly non-verbal /GI-Improve/Maintain Start: 02/14/17 17:06 Freq: DAILY Status: Active Target: Activity Type Activity Date Activity User E-Sign Co-Sign Detail Recorded Client Recorded Date Recorded By Document 03/01/17 10:36 [id number] 03/01/17 10:42 [id number] 03/01/17 10:36 PMRU Outcome: Genitourinary/ Gastrointestinal Genitourinary- Outcome/Goals Maintain/ Achieve Adequate Urinary Output Remain Free of Hospital- Acquired UTI Gastrointestinal-Outcome/Goals Maintain/ Achieve Bowel Regularity in Accordance with Pt's Baseline Remain Free of Emesis Prevent Constipation Laxatives as Ordered Progression Toward Outcome/Goals - Progressing Progression Toward Outcome/Goals - GI Progressing Outcome/Goals Met Comment incontinent at present Mobility- Improve/Maintain Start: 02/14/17 23:48 Freq: DAILY Status: Active Target: Activity Type Activity Date Activity User E-Sign Co-Sign Detail Recorded Client Recorded Date Recorded By Document 03/01/17 12:07 [id number] 03/01/17 12:07 [id number] 03/01/17 12:07 PMRU Outcome: Mobility Physical Therapy Evaluation and Yes Treatment Activity OOB with Assistance Yes WBAT Yes Device Yes Assistance Yes Patient to be seen 5x/wk for 60-120 min/ Therex day for: Mobility Training Gait Training W/C Mobility Balance Outcome/Goals Maintain/ Achieve Baseline Mobility Status Improve Mobility Status Demonstrates Proper Use of Assistive Devices Free from Complications of Immobility Progression Toward Outcome/Goals Progressing Bed Mobility Yes: independent Transfers Yes: independent with hemiwalker Gait x ft Yes: independent with hemiwalker 150' Up/Down Stairs Yes: inependent with 1 rail up /down 5 stairs Neurological- Improve/Maintain Start: 02/14/17 17:06 Freq: DAILY Status: Active Target: Activity Type Activity Date Activity User E-Sign Co-Sign Detail Recorded Client Recorded Date Recorded By Document 03/01/17 10:36 [id number] 03/01/17 10:42 [id number] 03/01/17 10:36 PMRU Outcome: Neurological Weakness/Aphasia Weakness Aphasia Right Side Outcome/Goals Maintain/ Achieve Baseline Neurological Status Improve Neurological Status Maintain/ Improve Strength/ROM Progression Toward Outcome/Goals Progressing Nutrition/Swallowing- Improve/Maintain Start: 02/14/17 17:06 Freq: DAILY Status: Active Target: Activity Type Activity Date Activity User E-Sign Co-Sign Detail Recorded Client Recorded Date Recorded By Document 02/28/17 20:00 [id number] 03/01/17 02:04 [id number] 02/28/17 20:00 PMRU Outcome: Nutrition/Swallowing Outcome/Goals Demonstrates Adequate Hydration/ Prevents Dehydration Maintain/ Improve Nutritional Status Other Outcome/Goals Patient will safely tolerate the least restrictive diet without s/ s of aspiration /penetration Progression Toward Outcome/Goals Progressing Outcome/Goals Met Comment honey thick liquids with a spoon Pain/Comfort- Improve/Maintain Start: 02/14/17 17:06 Freq: DAILY Status: Complete Target: Activity Type Activity Date Activity User E-Sign Co-Sign Detail Recorded Client Recorded Date Recorded By Document 03/01/17 10:36 [id number] 03/01/17 10:42 [id number] 03/01/17 10:36 PMRU Outcome: Pain/Comfort Outcome/Goals Demonstrates Knowledge and Use of Available Comfort Measures Achieves Acceptable Comfort/Pain Level as Determined by Patient/Condit Maintain Comfort Level Allowing Patient to Fully Participate in Rehab Progression Toward Outcome/Goals Progressing Outcome/Goals Met Maintain Comfort Level Allowing Patient to Fully Participate in Rehab Outcome/Goals Met Comment denies pain. Respiratory - Improve/Maintain Start: 02/14/17 17:06 Freq: DAILY Status: Active Target: Activity Type Activity Date Activity User E-Sign Co-Sign Detail Recorded Client Recorded Date Recorded By Document 03/01/17 10:36 [id number] 03/01/17 10:42 [id number] 03/01/17 10:36 PMRU Outcome: Respiratory Does Patient Have a Trach No Outcome/Goals Maintain/ Improve O2 Sat per MD Order Maintain/ Improve Baseline Respiratory Status Maintain/ Improve Activity Tolerance Prevent Pneumonia/ Atelectasis Progression Toward Outcome/Goals Progressing Outcome/Goals Met Comment Honey thickened liquids with a spoon, pureed diet- aspiration precautions in place Safety- Improve/Maintain Start: 02/14/17 17:06 Freq: DAILY Status: Active Target: Activity Type Activity Date Activity User E-Sign Co-Sign Detail Recorded Client Recorded Date Recorded By Document 03/01/17 10:36 [id number] 03/01/17 10:42 [id number] 03/01/17 10:36 PMRU Outcome: Safety Outcome/Goals Remain Free of Injury or Harm Cooperates with Safety Measures for Least Restrictive Environment Prevent Falls/ Injury Progression Toward Outcome/Goals Progressing Outcome/Goals Met Comment PA in place for safety, ringing appropriately Skin- Improve/Maintain Start: 02/14/17 17:06 Freq: DAILY Status: Active Target: Activity Type Activity Date Activity User E-Sign Co-Sign Detail Recorded Client Recorded Date Recorded By Document 03/01/17 10:36 [id number] 03/01/17 10:42 [id number] 03/01/17 10:36 PMRU Outcome: Skin Skin Risk Level High Skin Orders Air Mattress Spenco Boots Turn/Position q2hr While in Bed Outcome/Goals Maintain/ Improve Skin Intergrity Progression Toward Outcome/Goals Progressing Outcome/Goals Met Comment prn incont care provided Medicine Note: Length of Stay: 4 weeks Anticipated Discharge Destination: Home Tentative Discharge Date: 03/29/17 Discharged to: Home
[2017-03-01] MEDS: Atorvastatin* 80 MG TAB PO SCH (17:16)
--- NOTE | 2017-03-01 18:03 | PN ---
Progress Note - Progress Note Date of Service: 03/01/17 Note: Minda was visited. She was discussed in interdisciplinary team rounds. She has had trouble with being able to get on to the toilet. She had a PVR over the weekend which was fine. I met with her after the meeting to discuss her progress and to get him thinking about the future. Current Medications Acetaminophen (Tylenol Tab*) 650 mg PO Q6H PRN PRN Reason: FEVER/PAIN Last Admin: 02/23/17 15:35 Dose: 650 mg Al Hydrox/Mg Hydrox/Simethicone (Maalox Plus*) 30 ml PO Q6H PRN PRN Reason: DYSPEPSIA Aspirin (Aspirin Low Dose Tab*) 81 mg PO DAILY [facility] Last Admin: 03/01/17 08:03 Dose: 81 mg Atorvastatin Calcium (Lipitor*) 80 mg PO 1700 [facility] Last Admin: 03/01/17 17:16 Dose: 80 mg Clopidogrel Bisulfate (Plavix Tab*) 75 mg PO DAILY [facility] Last Admin: 03/01/17 08:03 Dose: 75 mg Docusate Sodium (Colace Cap*) 100 mg PO BID [facility] Last Admin: 03/01/17 08:03 Dose: 100 mg Fluoxetine HCl (Prozac Cap*) 10 mg PO DAILY [facility] Last Admin: 03/01/17 08:03 Dose: 10 mg Heparin Sodium (Porcine) (Heparin Vial(*)) 5,000 units SUBCUT Q8HR [facility] Last Admin: 03/01/17 13:05 Dose: 5,000 units Levetiracetam (Keppra Tab*) 1,500 mg PO BID [facility] Last Admin: 03/01/17 08:04 Dose: 1,500 mg Levothyroxine Sodium (Synthroid Tab*) 50 mcg PO DAILY@0600 [facility] Last Admin: 03/01/17 06:20 Dose: 50 mcg Magnesium Hydroxide (Milk Of Magnesia Liq*) 30 ml PO Q6H PRN PRN Reason: CONSTIPATION Methocarbamol (Robaxin Tab*) 750 mg PO Q6H PRN PRN Reason: SPASMS Polyethylene Glycol/Electrolytes (Miralax*) 17 gm PO DAILY PRN PRN Reason: CONSTIPATION Senna (Senokot Tab*) 2 tab PO BEDTIME PRN PRN Reason: CONSTIPATION Last Admin: 02/26/17 20:27 Dose: 2 tab Timolol Maleate (Timoptic 0.5% Opth*) 1 drop BOTH EYES BID [facility] Last Admin: 03/01/17 08:07 Dose: 1 drop Zonisamide (Zonegran (Nf)) 100 mg PO BID [facility] Last Admin: 03/01/17 08:03 Dose: 100 mg Vital Signs Temp Pulse Resp BP Pulse Ox 97.8 F 72 20 123/57 98 03/01/17 15:25 03/01/17 15:25 03/01/17 15:25 03/01/17 15:25 03/01/17 16:26 EXAM: HEENT: Right facial palsy LUNGS: Clear HEART: S1, S2 ABDOMEN: Soft NEUROLOGIC: Increased tone RLE and RUE; Aphasic; movement at right ankle and knee nothing functional in arm ASSESSMENT/PLAN: 1. 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 Dysphagia: Pureed consistencies, honey thick liquids 3. Seizure Disorder: Keppra/Zonegran 4. Spasms: Robaxin 5. DVT Prophylaxis: Heparin S/Q. TEDs 6. Code Status: full code. 7. Hypothyroidism: Synthroid 8. Depression/Neuronal recovery: Prozac
[2017-03-02] MEDS: Levothyroxine TAB* 50 MCG TAB PO SCH (05:00)
[2017-03-02] MEDS: Heparin VIAL(*) 5000 UNITS/ML VIAL (FIVE THOUSAND) SUBCUT SCH ×3 (05:02→22:15)
[2017-03-02 07:49] LABS: Hematocrit 40 % (35-47); Hemoglobin 13.5 g/dl (12.0-16.0); Mean Corpuscular HGB Conc 34 g/dl (31-36); Mean Corpuscular Hemoglobin 32 pg (27-31); Mean Corpuscular Volume 96 fL (80-97); Mean Platelet Volume 8 um3 (7.4-10.4); Red Blood Count 4.17 10^6/ul (4.0-5.4); Red Cell Distribution Width 13 % (10.5-15)
[2017-03-02 08:01] LABS: Albumin 3.5 g/dL (3.2-5.2); BUN/Creatinine Ratio 20.8 (8-20); Calcium 9.1 mg/dL (8.6-10.3); EGFR African American 143.5 (>60); EGFR Non-African American 111.6 (>60); Globulin 3.1 g/dL (2-4); Total Bilirubin 0.5 mg/dL (0.2-1.0); Total Protein 6.6 g/dL (6.4-8.9)
[2017-03-02] MEDS: CMCS: Zonisamide (NF) 50 MG CAP PO SCH ×2 (08:48→20:13)
[2017-03-02] MEDS: Timolol 0.5% OPTH.SOL* BTL BOTH EYES SCH ×2 (08:48→20:14)
[2017-03-02] MEDS: Docusate CAP* 100 MG PO SCH ×2 (08:49→20:13)
[2017-03-02] MEDS: levETIRAcetam TAB* 500 MG PO SCH ×2 (08:49→20:13)
[2017-03-02] MEDS: FLUoxetine CAP* 10 MG PO SCH (08:49)
[2017-03-02] MEDS: Clopidogrel TAB* 75 MG PO SCH (08:49)
[2017-03-02] MEDS: Aspirin Low Dose CHEW TAB* 81 MG PO SCH (08:49)
[2017-03-02] MEDS: Atorvastatin* 80 MG TAB PO SCH (16:57)
--- NOTE | 2017-03-02 20:22 | PN ---
Progress Note - Progress Note Date of Service: 03/02/17 Note: Minda visited. She may have a few more words at once, still monosyllables. Still with problems urinating. May repeat U/A but am reluctant to catheterize just to get specimen. Will monitor, may be forced to cath Current Medications Acetaminophen (Tylenol Tab*) 650 mg PO Q6H PRN PRN Reason: FEVER/PAIN Last Admin: 02/23/17 15:35 Dose: 650 mg Al Hydrox/Mg Hydrox/Simethicone (Maalox Plus*) 30 ml PO Q6H PRN PRN Reason: DYSPEPSIA Aspirin (Aspirin Low Dose Tab*) 81 mg PO DAILY [facility] Last Admin: 03/02/17 08:49 Dose: 81 mg Atorvastatin Calcium (Lipitor*) 80 mg PO 1700 [facility] Last Admin: 03/02/17 16:57 Dose: 80 mg Clopidogrel Bisulfate (Plavix Tab*) 75 mg PO DAILY [facility] Last Admin: 03/02/17 08:49 Dose: 75 mg Docusate Sodium (Colace Cap*) 100 mg PO BID [facility] Last Admin: 03/02/17 20:13 Dose: 100 mg Fluoxetine HCl (Prozac Cap*) 10 mg PO DAILY [facility] Last Admin: 03/02/17 08:49 Dose: 10 mg Heparin Sodium (Porcine) (Heparin Vial(*)) 5,000 units SUBCUT Q8HR [facility] Last Admin: 03/02/17 14:01 Dose: 5,000 units Levetiracetam (Keppra Tab*) 1,500 mg PO BID [facility] Last Admin: 03/02/17 20:13 Dose: 1,500 mg Levothyroxine Sodium (Synthroid Tab*) 50 mcg PO DAILY@0600 [facility] Last Admin: 03/02/17 05:00 Dose: 50 mcg Magnesium Hydroxide (Milk Of Magnesia Liq*) 30 ml PO Q6H PRN PRN Reason: CONSTIPATION Methocarbamol (Robaxin Tab*) 750 mg PO Q6H PRN PRN Reason: SPASMS Polyethylene Glycol/Electrolytes (Miralax*) 17 gm PO DAILY PRN PRN Reason: CONSTIPATION Senna (Senokot Tab*) 2 tab PO BEDTIME PRN PRN Reason: CONSTIPATION Last Admin: 02/26/17 20:27 Dose: 2 tab Timolol Maleate (Timoptic 0.5% Opth*) 1 drop BOTH EYES BID [facility] Last Admin: 03/02/17 20:14 Dose: 1 drop Zonisamide (Zonegran (Nf)) 100 mg PO BID [facility] Last Admin: 03/02/17 20:13 Dose: 100 mg Laboratory Results - last 24 hr 03/02/17 03/02/17 07:38 07:38 WBC 10.0 RBC 4.17 Hgb 13.5 Hct 40 MCV 96 MCH 32 H MCHC 34 RDW 13 Plt Count 265 MPV 8 Neut % (Auto) 73.9 Lymph % (Auto) 16.4 L [place] % (Auto) 7.4 Eos % (Auto) 1.6 Baso % (Auto) 0.7 Absolute Neuts (auto) 7.4 Absolute Lymphs (auto) 1.6 Absolute Monos (auto) 0.7 Absolute Eos (auto) 0.2 Absolute Basos (auto) 0.1 Absolute Nucleated RBC 0 Nucleated RBC % 0 Sodium 134 Potassium 4.0 Chloride 103 Carbon Dioxide 27 Anion Gap 4 BUN 11 Creatinine 0.53 Est GFR ( Amer) 143.5 Est GFR (Non-Af Amer) 111.6 BUN/Creatinine Ratio 20.8 H Glucose 100 Calcium 9.1 Total Bilirubin 0.50 AST 20 ALT 32 Alkaline Phosphatase 92 Total Protein 6.6 Albumin 3.5 Globulin 3.1 Albumin/Globulin Ratio 1.1 Vital Signs Temp Pulse Resp BP Pulse Ox 98.1 F 76 20 131/64 98 03/02/17 16:18 03/02/17 16:18 03/02/17 16:18 03/02/17 16:18 03/02/17 17:10 EXAM: HEENT: Right facial palsy LUNGS: Clear HEART: S1, S2 ABDOMEN: Soft NEUROLOGIC: Increased tone RLE and RUE; Aphasic; movement at right ankle and knee nothing functional in arm ASSESSMENT/PLAN: 1. 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 Dysphagia: Pureed consistencies, honey thick liquids 3. Seizure Disorder: Keppra/Zonegran 4. Spasms: Robaxin 5. DVT Prophylaxis: Heparin S/Q. TEDs 6. Code Status: full code. 7. Hypothyroidism: Synthroid 8. Depression/Neuronal recovery: Will increase Prozac to 20 mg
[2017-03-03] MEDS: Heparin VIAL(*) 5000 UNITS/ML VIAL (FIVE THOUSAND) SUBCUT SCH ×3 (07:14→21:52)
[2017-03-03] MEDS: Levothyroxine TAB* 50 MCG TAB PO SCH (07:14)
[2017-03-03] MEDS: Clopidogrel TAB* 75 MG PO SCH (08:03)
[2017-03-03] MEDS: levETIRAcetam TAB* 500 MG PO SCH ×2 (08:03→21:53)
[2017-03-03] MEDS: Docusate CAP* 100 MG PO SCH ×2 (08:03→21:53)
[2017-03-03] MEDS: Aspirin Low Dose CHEW TAB* 81 MG PO SCH (08:03)
[2017-03-03] MEDS: CMCS: Zonisamide (NF) 50 MG CAP PO SCH ×2 (08:03→21:53)
[2017-03-03] MEDS: FLUoxetine CAP* 20 MG PO SCH (08:03)
[2017-03-03] MEDS: Timolol 0.5% OPTH.SOL* BTL BOTH EYES SCH ×2 (08:05→21:52)
[2017-03-03] MEDS: Artificial Tears* 15 ML BTL BOTH EYES PRN (18:46)
[2017-03-03] MEDS: Atorvastatin* 80 MG TAB PO SCH (18:46)
--- NOTE | 2017-03-03 22:33 | PN ---
Progress Note - Progress Note Date of Service: 03/03/17 Note: Minda visited. Therapy notes read and reviewed. She is on Prozac 20 mg now. She complains of dry eyes. Still incontinent of urine. Current Medications Acetaminophen (Tylenol Tab*) 650 mg PO Q6H PRN PRN Reason: FEVER/PAIN Last Admin: 02/23/17 15:35 Dose: 650 mg Al Hydrox/Mg Hydrox/Simethicone (Maalox Plus*) 30 ml PO Q6H PRN PRN Reason: DYSPEPSIA Aspirin (Aspirin Low Dose Tab*) 81 mg PO DAILY [facility] Last Admin: 03/03/17 08:03 Dose: 81 mg Atorvastatin Calcium (Lipitor*) 80 mg PO 1700 [facility] Last Admin: 03/03/17 18:46 Dose: 80 mg Clopidogrel Bisulfate (Plavix Tab*) 75 mg PO DAILY [facility] Last Admin: 03/03/17 08:03 Dose: 75 mg Docusate Sodium (Colace Cap*) 100 mg PO BID [facility] Last Admin: 03/03/17 21:53 Dose: 100 mg Fluoxetine HCl (Prozac Cap*) 20 mg PO DAILY [facility] Last Admin: 03/03/17 08:03 Dose: 20 mg Heparin Sodium (Porcine) (Heparin Vial(*)) 5,000 units SUBCUT Q8HR [facility] Last Admin: 03/03/17 21:52 Dose: 5,000 units Levetiracetam (Keppra Tab*) 1,500 mg PO BID [facility] Last Admin: 03/03/17 21:53 Dose: 1,500 mg Levothyroxine Sodium (Synthroid Tab*) 50 mcg PO DAILY@0600 [facility] Last Admin: 03/03/17 07:14 Dose: Not Given Magnesium Hydroxide (Milk Of Magnesia Liq*) 30 ml PO Q6H PRN PRN Reason: CONSTIPATION Methocarbamol (Robaxin Tab*) 750 mg PO Q6H PRN PRN Reason: SPASMS Polyethylene Glycol/Electrolytes (Miralax*) 17 gm PO DAILY PRN PRN Reason: CONSTIPATION Polyvinyl Alcohol (Polyvinyl Alcohol 1.4% Opth*) 1 drop BOTH EYES Q2H PRN PRN Reason: DRY EYE Last Admin: 03/03/17 18:46 Dose: 1 applic Senna (Senokot Tab*) 2 tab PO BEDTIME PRN PRN Reason: CONSTIPATION Last Admin: 02/26/17 20:27 Dose: 2 tab Timolol Maleate (Timoptic 0.5% Opth*) 1 drop BOTH EYES BID [facility] Last Admin: 03/03/17 21:52 Dose: 1 drop Zonisamide (Zonegran (Nf)) 100 mg PO BID [facility] Last Admin: 03/03/17 21:53 Dose: 100 mg Vital Signs Temp Pulse Resp BP Pulse Ox 98.1 F 71 22 132/65 98 03/03/17 16:27 03/03/17 16:27 03/03/17 20:00 03/03/17 16:27 03/03/17 20:00 EXAM: HEENT: Right facial palsy LUNGS: Clear HEART: S1, S2 ABDOMEN: Soft NEUROLOGIC: Increased tone RLE and RUE; Aphasic; movement at right ankle and knee nothing functional in arm ASSESSMENT/PLAN: 1. 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 Dysphagia: Pureed consistencies, honey thick liquids 3. Seizure Disorder: Keppra/Zonegran 4. Spasms: Robaxin 5. DVT Prophylaxis: Heparin S/Q. TEDs 6. Code Status: full code. 7. 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 Dry eyes: Natural tears
[2017-03-04] MEDS: Heparin VIAL(*) 5000 UNITS/ML VIAL (FIVE THOUSAND) SUBCUT SCH ×3 (05:52→21:34)
[2017-03-04] MEDS: Levothyroxine TAB* 50 MCG TAB PO SCH (05:54)
[2017-03-04] MEDS: levETIRAcetam TAB* 500 MG PO SCH ×2 (09:01→21:33)
[2017-03-04] MEDS: Aspirin Low Dose CHEW TAB* 81 MG PO SCH (09:01)
[2017-03-04] MEDS: FLUoxetine CAP* 20 MG PO SCH (09:01)
[2017-03-04] MEDS: Docusate CAP* 100 MG PO SCH ×2 (09:01→21:34)
[2017-03-04] MEDS: CMCS: Zonisamide (NF) 50 MG CAP PO SCH ×2 (09:01→21:35)
[2017-03-04] MEDS: Clopidogrel TAB* 75 MG PO SCH (09:01)
[2017-03-04] MEDS: Timolol 0.5% OPTH.SOL* BTL BOTH EYES SCH ×2 (09:02→21:34)
--- NOTE | 2017-03-04 10:21 | PN ---
Progress Note - Progress Note Date of Service: 03/04/17 Note: Nursing and therapy notes reviewed. Denies pain or discomfort. Acetaminophen (Tylenol Tab*) 650 mg PO Q6H PRN PRN Reason: FEVER/PAIN Last Admin: 02/23/17 15:35 Dose: 650 mg Al Hydrox/Mg Hydrox/Simethicone (Maalox Plus*) 30 ml PO Q6H PRN PRN Reason: DYSPEPSIA Aspirin (Aspirin Low Dose Tab*) 81 mg PO DAILY [facility] Last Admin: 03/04/17 09:01 Dose: 81 mg Atorvastatin Calcium (Lipitor*) 80 mg PO 1700 [facility] Last Admin: 03/03/17 18:46 Dose: 80 mg Clopidogrel Bisulfate (Plavix Tab*) 75 mg PO DAILY [facility] Last Admin: 03/04/17 09:01 Dose: 75 mg Docusate Sodium (Colace Cap*) 100 mg PO BID [facility] Last Admin: 03/04/17 09:01 Dose: 100 mg Fluoxetine HCl (Prozac Cap*) 20 mg PO DAILY [facility] Last Admin: 03/04/17 09:01 Dose: 20 mg Heparin Sodium (Porcine) (Heparin Vial(*)) 5,000 units SUBCUT Q8HR [facility] Last Admin: 03/04/17 05:52 Dose: 5,000 units Levetiracetam (Keppra Tab*) 1,500 mg PO BID [facility] Last Admin: 03/04/17 09:01 Dose: 1,500 mg Levothyroxine Sodium (Synthroid Tab*) 50 mcg PO DAILY@0600 [facility] Last Admin: 03/04/17 05:54 Dose: 50 mcg Magnesium Hydroxide (Milk Of Magnesia Liq*) 30 ml PO Q6H PRN PRN Reason: CONSTIPATION Methocarbamol (Robaxin Tab*) 750 mg PO Q6H PRN PRN Reason: SPASMS Polyethylene Glycol/Electrolytes (Miralax*) 17 gm PO DAILY PRN PRN Reason: CONSTIPATION Polyvinyl Alcohol (Polyvinyl Alcohol 1.4% Opth*) 1 drop BOTH EYES Q2H PRN PRN Reason: DRY EYE Last Admin: 03/03/17 18:46 Dose: 1 applic Senna (Senokot Tab*) 2 tab PO BEDTIME PRN PRN Reason: CONSTIPATION Last Admin: 02/26/17 20:27 Dose: 2 tab Timolol Maleate (Timoptic 0.5% Opth*) 1 drop BOTH EYES BID [facility] Last Admin: 03/04/17 09:02 Dose: 1 drop Zonisamide (Zonegran (Nf)) 100 mg PO BID [facility] Last Admin: 03/04/17 09:01 Dose: 100 mg Vital Signs Temp Pulse Resp BP Pulse Ox 97.8 F 59 16 127/58 99 03/04/17 05:47 03/04/17 05:47 03/04/17 05:47 03/04/17 05:47 03/04/17 09:21 EXAM: GEN: no acute distress. alert and appropriate. HEENT: Right facial palsy LUNGS: Clear bilaterally HEART: regular ABDOMEN: Soft, non-tender, non-distended, positive bowel sounds NEUROLOGIC: Increased tone RLE and RUE; Aphasic. Motor with trace right arm flexion and elbow flexion. 2/5 hip flexion and knee extension. trace ankle DF. ASSESSMENT/PLAN: 76yo woman with right hemiplegia after left CVA 1. 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 Dysphagia: Pureed consistencies, honey thick liquids 3. Seizure Disorder: Keppra/Zonegran 4. Spasms: Robaxin 5. DVT Prophylaxis: Heparin S/Q. TEDs 6. Dry eyes: Natural tears 7. 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 Code Status: full code.
[2017-03-04] MEDS: Artificial Tears* 15 ML BTL BOTH EYES PRN (16:37)
[2017-03-04] MEDS: Atorvastatin* 80 MG TAB PO SCH (17:45)
[2017-03-05] MEDS: Heparin VIAL(*) 5000 UNITS/ML VIAL (FIVE THOUSAND) SUBCUT SCH ×3 (05:12→21:40)
[2017-03-05] MEDS: Levothyroxine TAB* 50 MCG TAB PO SCH (05:12)
[2017-03-05] MEDS: CMCS: Zonisamide (NF) 50 MG CAP PO SCH ×2 (08:13→21:33)
[2017-03-05] MEDS: Aspirin Low Dose CHEW TAB* 81 MG PO SCH (08:14)
[2017-03-05] MEDS: FLUoxetine CAP* 20 MG PO SCH (08:14)
[2017-03-05] MEDS: levETIRAcetam TAB* 500 MG PO SCH ×2 (08:14→21:32)
[2017-03-05] MEDS: Clopidogrel TAB* 75 MG PO SCH (08:14)
[2017-03-05] MEDS: Docusate CAP* 100 MG PO SCH ×2 (08:15→21:33)
[2017-03-05] MEDS: Timolol 0.5% OPTH.SOL* BTL BOTH EYES SCH ×2 (09:40→21:39)
--- NOTE | 2017-03-05 10:38 | PN ---
Progress Note - Progress Note Date of Service: 03/05/17 Note: Nursing and therapy notes reviewed. No new concerns overnight. No chest pain, shortness of breath or abdominal pain. Vital Signs Temp Pulse Resp BP Pulse Ox 97.4 F 66 16 128/62 99 03/05/17 05:18 03/05/17 05:18 03/05/17 05:18 03/05/17 05:18 03/05/17 08:00 EXAM: GEN: no acute distress. alert and appropriate. HEENT: Right facial palsy LUNGS: Clear bilaterally HEART: regular ABDOMEN: Soft, non-tender, non-distended, positive bowel sounds NEUROLOGIC: Increased tone RLE and RUE; Aphasic. Motor with trace right arm flexion and elbow flexion. 2/5 hip flexion and knee extension. trace ankle DF. ASSESSMENT/PLAN: 76yo woman with right hemiplegia after left CVA 1. 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 Dysphagia: Pureed consistencies, honey thick liquids 3. Seizure Disorder: Keppra/Zonegran 4. Spasms: Robaxin 5. DVT Prophylaxis: Heparin S/Q. TEDs 6. Dry eyes: Natural tears 7. 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 Code Status: full code.
[2017-03-05] MEDS: Atorvastatin* 80 MG TAB PO SCH (17:15)
[2017-03-06] MEDS: Heparin VIAL(*) 5000 UNITS/ML VIAL (FIVE THOUSAND) SUBCUT SCH ×3 (05:36→21:29)
[2017-03-06] MEDS: Levothyroxine TAB* 50 MCG TAB PO SCH (05:37)
[2017-03-06] MEDS: FLUoxetine CAP* 20 MG PO SCH (09:06)
[2017-03-06] MEDS: Aspirin Low Dose CHEW TAB* 81 MG PO SCH (09:07)
[2017-03-06] MEDS: levETIRAcetam TAB* 500 MG PO SCH ×2 (09:07→21:31)
[2017-03-06] MEDS: Docusate CAP* 100 MG PO SCH ×2 (09:07→21:31)
[2017-03-06] MEDS: Clopidogrel TAB* 75 MG PO SCH (09:07)
[2017-03-06] MEDS: CMCS: Zonisamide (NF) 50 MG CAP PO SCH ×2 (09:07→21:31)
[2017-03-06] MEDS: Timolol 0.5% OPTH.SOL* BTL BOTH EYES SCH ×2 (09:10→21:35)
--- NOTE | 2017-03-06 09:39 | PN ---
Progress Note - Progress Note Date of Service: 03/06/17 Note: Pt writes that today is her 54th wedding anniversary. Nursing note reviewed. She is still incontinent and last night nurse thought she had more episodes than normal. No chest pain, shortness of breath or abdominal pain. Vital Signs Temp Pulse Resp BP Pulse Ox 98.6 F 68 18 128/58 100 03/06/17 05:16 03/06/17 05:16 03/06/17 05:16 03/06/17 05:16 03/06/17 05:16 EXAM: GEN: no acute distress. alert and appropriate. HEENT: Right facial palsy LUNGS: Clear bilaterally HEART: regular ABDOMEN: Soft, non-tender, non-distended, positive bowel sounds NEUROLOGIC: Increased tone RLE and RUE; Aphasic. Motor with trace right arm flexion and elbow flexion. 2/5 hip flexion and knee extension. trace ankle DF. ASSESSMENT/PLAN: 76yo woman with right hemiplegia after left CVA 1. 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 Dysphagia: Pureed consistencies, honey thick liquids 3. Seizure Disorder: Keppra/Zonegran 4. Spasms: Robaxin 5. DVT Prophylaxis: Heparin S/Q. TEDs 6. Dry eyes: Natural tears 7. 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 Urinary incontinence: recheck PVR and get UA. Try to get a clean catch. If this is impossible over the next day consider need to to straight cath for specimen. She previously had some hematuria. 10. Code Status: full code.
[2017-03-06] MEDS: Atorvastatin* 80 MG TAB PO SCH (17:22)
[2017-03-07] MEDS: Heparin VIAL(*) 5000 UNITS/ML VIAL (FIVE THOUSAND) SUBCUT SCH ×3 (06:16→21:17)
[2017-03-07] MEDS: Levothyroxine TAB* 50 MCG TAB PO SCH (06:18)
[2017-03-07] MEDS: Docusate CAP* 100 MG PO SCH ×2 (07:44→21:17)
[2017-03-07] MEDS: FLUoxetine CAP* 20 MG PO SCH (07:44)
[2017-03-07] MEDS: Aspirin Low Dose CHEW TAB* 81 MG PO SCH (07:44)
[2017-03-07] MEDS: Clopidogrel TAB* 75 MG PO SCH (07:45)
[2017-03-07] MEDS: levETIRAcetam TAB* 500 MG PO SCH ×2 (07:45→21:17)
[2017-03-07] MEDS: CMCS: Zonisamide (NF) 50 MG CAP PO SCH ×2 (07:45→21:17)
[2017-03-07] MEDS: Timolol 0.5% OPTH.SOL* BTL BOTH EYES SCH ×2 (07:48→21:17)
--- NOTE | 2017-03-07 16:18 | PN ---
Progress Note - Progress Note Date of Service: 03/07/17 Note: Minda visited. She seems in good spirits. Therapy notes read and reviewed. Still with limited verbal output. Will straight cath for urine sample as we have been unable to get one. Current Medications Acetaminophen (Tylenol Tab*) 650 mg PO Q6H PRN PRN Reason: FEVER/PAIN Last Admin: 02/23/17 15:35 Dose: 650 mg Al Hydrox/Mg Hydrox/Simethicone (Maalox Plus*) 30 ml PO Q6H PRN PRN Reason: DYSPEPSIA Aspirin (Aspirin Low Dose Tab*) 81 mg PO DAILY [facility] Last Admin: 03/07/17 07:44 Dose: 81 mg Atorvastatin Calcium (Lipitor*) 80 mg PO 1700 [facility] Last Admin: 03/06/17 17:22 Dose: 80 mg Clopidogrel Bisulfate (Plavix Tab*) 75 mg PO DAILY [facility] Last Admin: 03/07/17 07:45 Dose: 75 mg Docusate Sodium (Colace Cap*) 100 mg PO BID [facility] Last Admin: 03/07/17 07:44 Dose: 100 mg Fluoxetine HCl (Prozac Cap*) 20 mg PO DAILY [facility] Last Admin: 03/07/17 07:44 Dose: 20 mg Heparin Sodium (Porcine) (Heparin Vial(*)) 5,000 units SUBCUT Q8HR [facility] Last Admin: 03/07/17 13:46 Dose: 5,000 units Levetiracetam (Keppra Tab*) 1,500 mg PO BID [facility] Last Admin: 03/07/17 07:45 Dose: 1,500 mg Levothyroxine Sodium (Synthroid Tab*) 50 mcg PO DAILY@0600 [facility] Last Admin: 03/07/17 06:18 Dose: 50 mcg Magnesium Hydroxide (Milk Of Magnesia Liq*) 30 ml PO Q6H PRN PRN Reason: CONSTIPATION Methocarbamol (Robaxin Tab*) 750 mg PO Q6H PRN PRN Reason: SPASMS Polyethylene Glycol/Electrolytes (Miralax*) 17 gm PO DAILY PRN PRN Reason: CONSTIPATION Polyvinyl Alcohol (Polyvinyl Alcohol 1.4% Opth*) 1 drop BOTH EYES Q2H PRN PRN Reason: DRY EYE Last Admin: 03/04/17 16:37 Dose: 1 applic Senna (Senokot Tab*) 2 tab PO BEDTIME PRN PRN Reason: CONSTIPATION Last Admin: 02/26/17 20:27 Dose: 2 tab Timolol Maleate (Timoptic 0.5% Opth*) 1 drop BOTH EYES BID [facility] Last Admin: 03/07/17 07:48 Dose: 1 drop Zonisamide (Zonegran (Nf)) 100 mg PO BID [facility] Last Admin: 03/07/17 07:45 Dose: 100 mg Vital Signs Temp Pulse Resp BP Pulse Ox 98.4 F 70 16 115/51 95 03/07/17 06:14 03/07/17 06:14 03/07/17 06:14 03/07/17 06:14 03/07/17 06:14 EXAM: HEENT: Right facial palsy LUNGS: Clear HEART: S1, S2 ABDOMEN: Soft NEUROLOGIC: Increased tone RLE and RUE; Aphasic; some movement at right ankle and knee but nothing functional in arm ASSESSMENT/PLAN: 1. 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 Dysphagia: Pureed consistencies, honey thick liquids 3. Seizure Disorder: Keppra/Zonegran 4. Spasms: Robaxin 5. DVT Prophylaxis: Heparin S/Q. TEDs 6. Code Status: full code. 7. 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 Dry eyes: Natural tears 10. Urinary frequency: Straight cath to get U/A
[2017-03-07] MEDS: Atorvastatin* 80 MG TAB PO SCH (17:38)
[2017-03-07] MEDS: Artificial Tears* 15 ML BTL BOTH EYES PRN (17:41)
[2017-03-08] MEDS: Heparin VIAL(*) 5000 UNITS/ML VIAL (FIVE THOUSAND) SUBCUT SCH ×3 (06:01→21:24)
[2017-03-08] MEDS: Levothyroxine TAB* 50 MCG TAB PO SCH (06:03)
[2017-03-08] MEDS: Aspirin Low Dose CHEW TAB* 81 MG PO SCH (09:08)
[2017-03-08] MEDS: Docusate CAP* 100 MG PO SCH ×2 (09:08→21:24)
[2017-03-08] MEDS: levETIRAcetam TAB* 500 MG PO SCH ×2 (09:08→21:24)
[2017-03-08] MEDS: Clopidogrel TAB* 75 MG PO SCH (09:08)
[2017-03-08] MEDS: FLUoxetine CAP* 20 MG PO SCH (09:08)
[2017-03-08] MEDS: CMCS: Zonisamide (NF) 50 MG CAP PO SCH ×2 (09:08→21:24)
[2017-03-08] MEDS: Timolol 0.5% OPTH.SOL* BTL BOTH EYES SCH ×2 (09:10→21:24)
[2017-03-08 10:08] LABS: Urine Bacteria Absent (Absent); Urine Bilirubin Negative (Negative); Urine Glucose Negative (Negative); Urine Nitrite Negative (Negative)
--- NOTE | 2017-03-08 12:44 | PMRUTEAM ---
PMRU: Goals Current Status: Nursing: Current Status Skin Deviations [NO skin Other issues] Skin Deviations [Back] Other Skin Deviations [Right Knee] Abrasion Skin Deviation Description [NO no skin issues skin issues] Skin Deviation Description [ no skin issues noted at this time. Back] Skin Deviation Description [ scabbed Right Knee] Bladder Current Status Toileting schedule, pt incontinent, often rings to tell us she needs to use toilet but is then already wet Bowel Current Status bm 02/28/17 Nutrition Current Status adequate Medication Current Status meds whole in pudding Physical Therapy: Current Status Bed Mobility Assistance Max Assist,2 or More Person Assist Transfer Moblility Assistance Mod Assist Transfer/Bed Mobility None Recommended Devices Transfer Mobility Comment mod A x 1 for SPT. Ambulation Assistance Min Assist,Mod Assist Ambulation Assistive Devices Enzo Walker Number of Feet Patient 45' Ambulated Ambulation Comment 30' with cardiac walker min a x 1. Stairs Assistance Not Tested Curb Not Tested Occupational Therapy: Current Status Upper Body Dressing Mod Assist Lower Body Dressing Max Asst,2 Person Assist Bathing Mod Assist,Max Asst Toileting Total Assist Toilet Transfer Mod Assist,Max Asst Shower Transfer Mod Assist,Max Asst Eating Supervision Rec Therapy: Current Status Summary of Assessment and RT assessment complete with information obtained Clinical Impression from pt.'s . Pt. has been polite in visits and has leisure activities for her room to engage in. Treatment Goals Pt. will engage in leisure activities while on the unit. Treatment Plan Provide RT services and encourage involvement. Social Work: Current Status Discharge Plan return home with home care svs and family support Potential for Family Training pt's is attentive and involved Anticipated Discharge Home Destination Discharge With home care svs and family support Nutrition: Current Status Monitoring Pt still requiring pureed solids, but able to tolerate HONEY-thick liquids. Working towards goal of mech ground solids and nectar-thick liquids, though not specifically addressed in last two SUBSTATION SUPERVISOR sessions. She cont to eat very well (100% of meals ), eating independently and occasionally requiring assistance opening containers. Staff encouraging increased fluid intake. Regular BMs; last BMs , 03/07. No new labs to report. Skin remains intact with low/mod risk for breakdown. Speech: Current Status Assessment Patient demonstrated impulsivity with trials of mechanical ground this date, as she took multiple consecutive bites depsite repeated verbal cues from therapist. No s/s of aspiration/penetration, however significant stasis in right buccal cavity and on palate increase patient's risk for aspiration/penetration. The patient will continue to benefit from skilled SUBSTATION SUPERVISOR services to increase safety, function, and independence of daily tasks. Goals: Physical Therapy: Initial Goals Bed Mobility Assistance Independent Transfer Mobility Assistance Independent Transfer/Bed Mobility Enzo Walker Recommended Devices Ambulation Independent Ambulation Recommended Devices Enzo Walker Ambulation Distance 150 Stairs Assistance Independent Stair Recommended Devices One Rail Number of Stairs 5 Physical Therapy: Updated Goals Bed Mobility Assistance Independent Transfer Mobility Assistance Independent Transfer/Bed Mobility None Recommended Devices Ambulation Assistance Independent Ambulation Assistive Devices Rolling Walker Ambulation Distance (ft) 150 Stairs Assistance Independent Stairs Recommended Devices Two Rails Number of Stairs 5 Occupational Therapy: Initial Goals Goals to be Completed in (Days 4-6 weeks ) Upper Body Bathing Routine Independent Lower Body Bathing Routine Modified Independent with Upper Body Dressing Routine Independent Lower Body Dressing Routine Modified Independent with Toilet Hygeine and Clothing Modified Independent with Management Routine Toilet Transfer Routine Modified Independent with Step-In Shower Transfer Supervision/Set Up Routine Functional Transfers for ADL Modified Independent with Grooming Routine Independent Feeding Routine Independent Nursing: Goals Bladder Goal independent with marco care and changing brief Bowel Goal continence Nutrition Goal adequate Medication Goal needs reinforcement. Nutrition: Goals Intervention Goals 1. adequate po intake to maintain stable weight, hydration, and lean body mass 2. pt will tolerate least-restrictive diet texture w/o s/sx of difficulty chewing/swallowing 3. skin will remain intact; no evidence of skin breakdown 4. maintain regulation of bowel pattern w/o constipation or diarrhea Speech: Goals Speech Goal 1 Dysphagia Speech Evaluation Status Goal puree, pudding-thick 1 Speech Current Status Goal 1 puree, honey-thick via spoon Goal 1 Comments LTO: Patient will safely tolerate the least restrictive diet. ST) Patient will safely tolerate 10/10 trials of nectar-thick liquids without s/s of aspiration/ penetration. Status: Not specifically addressed this session. 2) Patient will safely tolerate 10/10 trials of mechanical ground solids without s/s of aspiration /penetration. Status: Patient had scrambled eggs and toast with breakfast tray. No s/s of aspiration/penetration, however she took multiple consecutive bites without oral preparation or a pharyngeal swallow. She required multiple repeated verbal cues to take one bite at a time and to not store food on her tongue. After a pharyngeal swallow she had significant stasis in right buccal cavity and on palate; models and cues required for lingual movement to remove stasis. Recommend continued diet of puree at this time. 3) Patient will complete dysphagia exercises targeting lingual strength/coordination and hyolaryngeal excursion. Status: Patient completed the following: Lingual: Patient able to complete lingual protrusion, elevation, and depression with 100% accuracy, model provided. Labial: alternative pucker/smile completed independently after initial SUBSTATION SUPERVISOR model. Ongoing. Speech Goal 2 Receptive Language Speech Goal 2 Evaluation yes/no: 60%; 2-step direction: 0% Status Speech Goal 2 Current Status yes/no: 80%; 2-step direction: 33% accuracy, independently Speech Goal 2 Comments LTO: Patient will increase receptive language skills. ST) Patient will answer yes/no questions with at least 90% accuracy over two-consecutive sessions. Status: Not addressed this date. Ongoing. 2) Patient will following two-step directions with at least 90% accuracy. Status: Not addressed this date. Ongoing. Speech Goal 3 Expressive Language Speech Goal 3 Evaluation approximations of two-words given [facility] [[email or web address]] Status Speech Goal 3 Current Status See below Speech Goal 3 Comments LTO: Patient will increase expressive language skills. ST) Patient will repeat phrases given model with melodic intonation, for 70% of the opportunities presented. Status: Patient stated names of letters T, B, M, N , C, S independently with 100% accuracy. However, isolating the speech sound was challening and required a direct model. The patient independently stated words/names with each beginning letter. - Targeted writing per patient's request/focus on writing this date. Patient wrote phrases following SUBSTATION SUPERVISOR model with perseveration and paraphasias noted, such as "tunafried" for " tunafish"; patient unaware of paraphasias. Ongoing. 2) The patient will express basic wants/needs to this radio news writer and caregiver via alternative communiction approach (e.g. communication board). Status: Not specifically addressed this date. Ongoing. Speech Goal 4 Motor Speech Speech Goal 4 Comments LTO: To increase motor speech skills. ST) Patient will complete oral-motor exercises following model from SUBSTATION SUPERVISOR/caregiver/family member, for 80% for the opportunities presented. Status: *Please refer to swallowing dysfunction section for details. *Patient continues to demonstrate low volume. She also demonstrates difficulty with breath support and coordination of respiration/phonation. Ongoing. Social Work: Goals Discharge Plan return home with home care svs and family support Potential for Family Training pt's is attentive and involved Anticipated Discharge Home Destination Discharge With home care svs and family support Care Plan: Care Plan ADL's - Improve/Maintain Start: 02/14/17 23:48 Freq: DAILY Status: Active Target: Protocol: Activity Type Activity Date Activity User E-Sign Co-Sign Detail Recorded Client Recorded Date Recorded By Document 03/07/17 13:44 [id number] 03/07/17 13:44 [id number] 03/07/17 13:44 PMRU Outcome: ADL's/ADL Transfers Orders/Interventions Occupational Therapy Evaluation & Treatment Communication Tool in Patient Room Patient to receive OT 5x/wk for 60-120 Therex min/day Self Care Management Group Therapy Neuromuscular ReEducation UE/LE ADL's with Assist Yes: mod I ADL Transfers with Assist Yes: mod I Toileting: Transfers,Clothing Management Yes: mod I ,Hygeine w/Assist Progression Toward Outcome/Goals Progressing Outcome/Goals Met Pt needs increased assistance for STS and stand pivot transfers today. She has increased difficulty with her menu. In general, she seems more fatigued and confused. Increased cueing provided . Note left for MD. [ End ] Communication-Improve/Maintain Start: 02/14/17 17:06 Freq: DAILY Status: Active Target: Protocol: Activity Type Activity Date Activity User E-Sign Co-Sign Detail Recorded Client Recorded Date Recorded By Document 03/08/17 11:27 [id number] [email or web address] 03/08/17 11:28 [id number] 03/08/17 11:27 PMRU Outcome: Communication/Cognitive Status Outcome/Goals Use Comm Tools/ Devices Makes Needs Known Effectively Other Outcomes/Goals 1) Patient will follow answer yes/no questions with at least 90% accuracy over two-consecutive sessions. 2) Patient will following two- step directions with at least 90% accuracy. 3) Patient will repeat phrases given model with melodic intonation, for 70% of the opportunities presented. 4) The patient will express basic wants/ needs to this wrtier and caregiver via alternative communiction approach (e.g. communication board). 5) Patient will complete oral- motor exercises following model from SUBSTATION SUPERVISOR/ caregiver/ family member, for 80% for the opportunities presented. Progression Toward Outcomes/Goals Progressing Outcome/Goals Met Comment Patient stated names of letters T, B, M , N, C, S independently with 100% accuracy. However, isolating the speech sound was challening and required a direct model. The patient independently stated words/ names with each beginning letter. - Targeted writing per patient's request/focus on writing this date. Patient wrote phrases following SUBSTATION SUPERVISOR model with perseveration and paraphasias noted, such as "tunafried" for "tunafish"; patient unaware of paraphasias. Coping/Psych-Improve/Maintain Start: 02/14/17 17:06 Freq: DAILY Status: Active Target: Protocol: Activity Type Activity Date Activity User E-Sign Co-Sign Detail Recorded Client Recorded Date Recorded By Document 03/08/17 00:21 [id number] 03/08/17 00:22 [id number] 03/08/17 00:21 PMRU Outcome: Coping/Psychosocial Coping Outcome/Goals Verbalization of Acceptance of Rehab Admit Verbalization of Sense of Control Over Health Status Utilization of Appropriate Problem Solving Techniques Willingness to Participate in Treatment Plan and Basic Needs Psychosocial Outcome/Goals Maintain/ Improve Emotional Health Demonstrates Knowledge of Healthy Coping Mechanisms Available Progression Toward Outcome/Goals - Progressing Coping Progression Toward Outcome/Goals - Progressing Psychosocial DVT Prophylaxis- Improve/Maintain Start: 02/14/17 17:06 Freq: DAILY Status: Active Target: Protocol: Activity Type Activity Date Activity User E-Sign Co-Sign Detail Recorded Client Recorded Date Recorded By Document 03/08/17 00:21 [id number] 03/08/17 00:22 [id number] 03/08/17 00:21 PMRU Outcome: DVT Prophylaxis Outcome/Goals Remains Free of DVT Free of complications from current DVT Complies with DVT Prophylaxis /Treatment TEDS Stockings on Every AM, Off at HS Progression Toward Outcome/Goals Progressing Discharge Planning - Improve/Maintain Start: 02/14/17 17:06 Freq: DAILY Status: Active Target: Protocol: Activity Type Activity Date Activity User E-Sign Co-Sign Detail Recorded Client Recorded Date Recorded By Document 03/08/17 00:21 [id number] 03/08/17 00:22 [id number] 03/08/17 00:21 PMRU Outcome: Discharge Planning Identify Patient Needs yes Update Patient Family No Outcome/Goals Demonstrates Understanding of Discharge Plan Progression Toward Outcome/Goals Progressing Education-Improve/Maintain Start: 02/14/17 23:48 Freq: DAILY Status: Active Target: Protocol: Activity Type Activity Date Activity User E-Sign Co-Sign Detail Recorded Client Recorded Date Recorded By Document 03/08/17 00:21 [id number] 03/08/17 00:22 [id number] 03/08/17 00:21 PMRU Outcome: Education Outcome/Goals Demonstrates Skills Progression Toward Outcome/Goals Progressing /GI-Improve/Maintain Start: 02/14/17 17:06 Freq: DAILY Status: Active Target: Protocol: Activity Type Activity Date Activity User E-Sign Co-Sign Detail Recorded Client Recorded Date Recorded By Document 03/08/17 00:21 [id number] 03/08/17 00:22 [id number] 03/08/17 00:21 PMRU Outcome: Genitourinary/ Gastrointestinal Genitourinary- Outcome/Goals Maintain/ Achieve Urinary Continence Maintain/ Achieve Adequate Urinary Output Remain Free of Hospital- Acquired UTI Gastrointestinal-Outcome/Goals Maintain/ Achieve Bowel Regularity in Accordance with Pt's Baseline Remain Free of Emesis Prevent Constipation Laxatives as Ordered Progression Toward Outcome/Goals - Not Progressing Progression Toward Outcome/Goals - GI Progressing Outcome/Goals Met Comment incontinent of urine Mobility- Improve/Maintain Start: 02/14/17 23:48 Freq: DAILY Status: Active Target: Protocol: Activity Type Activity Date Activity User E-Sign Co-Sign Detail Recorded Client Recorded Date Recorded By Document 03/07/17 15:43 [id number] 03/07/17 15:43 [id number] 03/07/17 15:43 PMRU Outcome: Mobility Physical Therapy Evaluation and Yes Treatment Activity OOB with Assistance Yes WBAT Yes Device Yes Assistance Yes Patient to be seen 5x/wk for 60-120 min/ Therex day for: Mobility Training Gait Training W/C Mobility Balance Outcome/Goals Maintain/ Achieve Baseline Mobility Status Improve Mobility Status Demonstrates Proper Use of Assistive Devices Free from Complications of Immobility Progression Toward Outcome/Goals Progressing Bed Mobility Yes: independent Transfers Yes: independent with hemiwalker Gait x ft Yes: independent with hemiwalker 150' Up/Down Stairs Yes: inependent with 1 rail up /down 5 stairs Neurological- Improve/Maintain Start: 02/14/17 17:06 Freq: DAILY Status: Active Target: Protocol: Activity Type Activity Date Activity User E-Sign Co-Sign Detail Recorded Client Recorded Date Recorded By Document 03/08/17 00:21 [id number] [id number] 03/08/17 00:22 [id number] 03/08/17 00:21 PMRU Outcome: Neurological Weakness/Aphasia Weakness Aphasia Right Side Outcome/Goals Maintain/ Achieve Baseline Neurological Status Improve Neurological Status Maintain/ Improve Strength/ROM Progression Toward Outcome/Goals Progressing Nutrition/Swallowing- Improve/Maintain Start: 02/14/17 17:06 Freq: DAILY Status: Active Target: Protocol: Activity Type Activity Date Activity User E-Sign Co-Sign Detail Recorded Client Recorded Date Recorded By Document 03/08/17 11:28 [id number] [email or web address] 03/08/17 11:28 [id number] 03/08/17 11:28 PMRU Outcome: Nutrition/Swallowing Outcome/Goals Demonstrates Adequate Hydration/ Prevents Dehydration Maintain/ Improve Nutritional Status Other Outcome/Goals 1) Patient will safely tolerate 10/10 trials of nectar-thick liquids without s/s of aspiration/ penetration. 2) Patient will safely tolerate 10/10 trials of mechanical ground solids without s/s of aspiration/ penetration. Progression Toward Outcome/Goals Progressing Outcome/Goals Met Comment 2) Patient had scrambled eggs and toast with breakfast tray. No s/s of aspiration/ penetration, however she took multiple consecutive bites without oral preparation or a pharyngeal swallow. She required multiple repeated verbal cues to take one bite at a time and to not store food on her tongue. After a pharyngeal swallow she had significant stasis in right buccal cavity and on palate; models and cues required for lingual movement to remove stasis. Recommend continued diet of puree at this time. Pain/Comfort- Improve/Maintain Start: 02/14/17 17:06 Freq: DAILY Status: Complete Target: Protocol: Activity Type Activity Date Activity User E-Sign Co-Sign Detail Recorded Client Recorded Date Recorded By Document 03/07/17 10:27 [id number] 03/07/17 10:36 [id number] 03/07/17 10:27 PMRU Outcome: Pain/Comfort Outcome/Goals Maintain Comfort Level Allowing Patient to Fully Participate in Rehab Progression Toward Outcome/Goals Progressing Respiratory - Improve/Maintain Start: 02/14/17 17:06 Freq: DAILY Status: Active Target: Protocol: Activity Type Activity Date Activity User E-Sign Co-Sign Detail Recorded Client Recorded Date Recorded By Document 03/08/17 00:21 [id number] [id number] 03/08/17 00:22 [id number] 03/08/17 00:21 PMRU Outcome: Respiratory Does Patient Have a Trach No Outcome/Goals Maintain/ Improve O2 Sat per MD Order Maintain/ Improve Baseline Respiratory Status Maintain/ Improve Activity Tolerance Prevent Pneumonia/ Atelectasis Progression Toward Outcome/Goals Progressing Outcome/Goals Met Comment Honey thickened liquids with a spoon, pureed diet- aspiration precautions in place Safety- Improve/Maintain Start: 02/14/17 17:06 Freq: DAILY Status: Active Target: Protocol: Activity Type Activity Date Activity User E-Sign Co-Sign Detail Recorded Client Recorded Date Recorded By Document 03/08/17 00:21 [id number] [id number] 03/08/17 00:22 [id number] 03/08/17 00:21 PMRU Outcome: Safety Outcome/Goals Remain Free of Injury or Harm Cooperates with Safety Measures for Least Restrictive Environment Prevent Falls/ Injury Progression Toward Outcome/Goals Progressing Outcome/Goals Met Comment PA in place for safety, ringing appropriately Skin- Improve/Maintain Start: 02/14/17 17:06 Freq: DAILY Status: Active Target: Protocol: Activity Type Activity Date Activity User E-Sign Co-Sign Detail Recorded Client Recorded Date Recorded By Document 03/08/17 00:21 [id number] 03/08/17 00:22 [id number] 03/08/17 00:21 PMRU Outcome: Skin Skin Risk Level High Skin Orders Air Mattress Spenco Boots Turn/Position q2hr While in Bed Outcome/Goals Maintain/ Improve Skin Intergrity Progression Toward Outcome/Goals Progressing Medicine Note: Length of Stay: 3 weeks Anticipated Discharge Destination: Home Tentative Discharge Date: 03/29/17 Discharged to: home
[2017-03-08] MEDS: Levofloxacin TAB* 250 MG PO SCH (14:21)
--- NOTE | 2017-03-08 16:18 | PN ---
Progress Note - Progress Note Date of Service: 03/08/17 Note: Minda visited. She was discussed in interdisciplinary team rounds. Her U/A came back highly suggestive of a UTI. She was noted to have a slight decline in function which hopefully can be attributed to the UTI. Started Levaquin; await culture results. Current Medications Acetaminophen (Tylenol Tab*) 650 mg PO Q6H PRN PRN Reason: FEVER/PAIN Last Admin: 02/23/17 15:35 Dose: 650 mg Al Hydrox/Mg Hydrox/Simethicone (Maalox Plus*) 30 ml PO Q6H PRN PRN Reason: DYSPEPSIA Aspirin (Aspirin Low Dose Tab*) 81 mg PO DAILY [facility] Last Admin: 03/08/17 09:08 Dose: 81 mg Atorvastatin Calcium (Lipitor*) 80 mg PO 1700 [facility] Last Admin: 03/07/17 17:38 Dose: 80 mg Clopidogrel Bisulfate (Plavix Tab*) 75 mg PO DAILY [facility] Last Admin: 03/08/17 09:08 Dose: 75 mg Docusate Sodium (Colace Cap*) 100 mg PO BID [facility] Last Admin: 03/08/17 09:08 Dose: 100 mg Fluoxetine HCl (Prozac Cap*) 20 mg PO DAILY [facility] Last Admin: 03/08/17 09:08 Dose: 20 mg Heparin Sodium (Porcine) (Heparin Vial(*)) 5,000 units SUBCUT Q8HR [facility] Last Admin: 03/08/17 14:22 Dose: 5,000 units Levetiracetam (Keppra Tab*) 1,500 mg PO BID [facility] Last Admin: 03/08/17 09:08 Dose: 1,500 mg Levofloxacin (Levaquin Tab*) 250 mg PO Q24H [facility] Last Admin: 03/08/17 14:21 Dose: 250 mg Levothyroxine Sodium (Synthroid Tab*) 50 mcg PO DAILY@0600 [facility] Last Admin: 03/08/17 06:03 Dose: 50 mcg Magnesium Hydroxide (Milk Of Magnesia Liq*) 30 ml PO Q6H PRN PRN Reason: CONSTIPATION Methocarbamol (Robaxin Tab*) 750 mg PO Q6H PRN PRN Reason: SPASMS Polyethylene Glycol/Electrolytes (Miralax*) 17 gm PO DAILY PRN PRN Reason: CONSTIPATION Polyvinyl Alcohol (Polyvinyl Alcohol 1.4% Opth*) 1 drop BOTH EYES Q2H PRN PRN Reason: DRY EYE Last Admin: 03/07/17 17:41 Dose: 1 applic Senna (Senokot Tab*) 2 tab PO BEDTIME PRN PRN Reason: CONSTIPATION Last Admin: 02/26/17 20:27 Dose: 2 tab Timolol Maleate (Timoptic 0.5% Opth*) 1 drop BOTH EYES BID [facility] Last Admin: 03/08/17 09:10 Dose: 1 drop Zonisamide (Zonegran (Nf)) 100 mg PO BID [facility] Last Admin: 03/08/17 09:08 Dose: 100 mg Laboratory Results - last 24 hr 03/08/17 09:33 Urine Color Yellow Urine Appearance Cloudy Urine pH 8.0 Ur Specific [place] 1.013 Urine Protein Negative Urine Ketones Negative Urine Blood Negative Urine Nitrate Negative Urine Bilirubin Negative Urine Urobilinogen Negative Ur Leukocyte Esterase 2+ H Urine WBC (Auto) 3+(>20/hpf) H Urine RBC (Auto) 2+(6-10/hpf) H Urine Bacteria Absent Urine Glucose Negative Urine Ascorbic Acid * H Vital Signs Temp Pulse Resp BP Pulse Ox 98.1 F 66 20 121/65 99 03/08/17 05:58 03/08/17 05:58 03/08/17 05:58 03/08/17 05:58 03/08/17 09:15 EXAM: HEENT: Right facial palsy LUNGS: Clear HEART: S1, S2 ABDOMEN: Soft NEUROLOGIC: Increased tone RLE and RUE; Aphasic; some movement at right ankle and knee but nothing functional in arm ASSESSMENT/PLAN: 1. 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 Dysphagia: Pureed consistencies, honey thick liquids 3. Seizure Disorder: Keppra/Zonegran 4. Spasms: Robaxin 5. DVT Prophylaxis: Heparin S/Q. TEDs 6. Code Status: full code. 7. 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 Dry eyes: Natural tears 10. Urinary tract infection: Levaquin day #1. Await culture results
[2017-03-08] MEDS: Atorvastatin* 80 MG TAB PO SCH (16:44)
[2017-03-08] MEDS: Artificial Tears* 15 ML BTL BOTH EYES PRN (16:47)
[2017-03-08] MEDS: Acetaminophen TAB* 325 MG PO PRN (21:23)
[2017-03-09] MEDS: Levothyroxine TAB* 50 MCG TAB PO SCH (05:36)
[2017-03-09] MEDS: Heparin VIAL(*) 5000 UNITS/ML VIAL (FIVE THOUSAND) SUBCUT SCH ×3 (05:36→20:54)
[2017-03-09] MEDS: Timolol 0.5% OPTH.SOL* BTL BOTH EYES SCH ×2 (07:37→20:53)
[2017-03-09 08:23] LABS: Hematocrit 38 % (35-47); Hemoglobin 12.7 g/dl (12.0-16.0); Mean Corpuscular HGB Conc 33 g/dl (31-36); Mean Corpuscular Hemoglobin 32 pg (27-31); Mean Corpuscular Volume 96 fL (80-97); Mean Platelet Volume 8 um3 (7.4-10.4); Red Blood Count 3.98 10^6/ul (4.0-5.4); Red Cell Distribution Width 13 % (10.5-15); White Blood Count 7.6 10^3/ul (3.5-10.8)
[2017-03-09 08:41] LABS: Albumin 3.4 g/dL (3.2-5.2); BUN/Creatinine Ratio 22.8 (8-20); Calcium 9.2 mg/dL (8.6-10.3); EGFR African American 131.9 (>60); EGFR Non-African American 102.6 (>60); Potassium 3.9 mmol/L (3.5-5.0); Total Bilirubin 0.4 mg/dL (0.2-1.0); Total Protein 6.4 g/dL (6.4-8.9)
[2017-03-09] MEDS: Aspirin Low Dose CHEW TAB* 81 MG PO SCH (08:56)
[2017-03-09] MEDS: Docusate CAP* 100 MG PO SCH ×2 (08:56→20:54)
[2017-03-09] MEDS: CMCS: Zonisamide (NF) 50 MG CAP PO SCH ×2 (08:56→20:53)
[2017-03-09] MEDS: Clopidogrel TAB* 75 MG PO SCH (08:56)
[2017-03-09] MEDS: FLUoxetine CAP* 20 MG PO SCH (08:56)
[2017-03-09] MEDS: levETIRAcetam TAB* 500 MG PO SCH ×2 (08:56→20:54)
[2017-03-09] MEDS: Levofloxacin TAB* 250 MG PO SCH (14:12)
[2017-03-09] MEDS: Artificial Tears* 15 ML BTL BOTH EYES PRN (15:23)
[2017-03-09] MEDS: Atorvastatin* 80 MG TAB PO SCH (17:34)
--- NOTE | 2017-03-09 18:27 | PN ---
Progress Note - Progress Note Date of Service: 03/09/17 Note: Minda visited. Therapy notes read and reviewed. Some improvement from yesterday. Urine culture: NGSF. Speech may be slightly better today. Was able to void on bedpan. Current Medications Acetaminophen (Tylenol Tab*) 650 mg PO Q6H PRN PRN Reason: FEVER/PAIN Last Admin: 03/08/17 21:23 Dose: 650 mg Al Hydrox/Mg Hydrox/Simethicone (Maalox Plus*) 30 ml PO Q6H PRN PRN Reason: DYSPEPSIA Aspirin (Aspirin Low Dose Tab*) 81 mg PO DAILY [facility] Last Admin: 03/09/17 08:56 Dose: 81 mg Atorvastatin Calcium (Lipitor*) 80 mg PO 1700 [facility] Last Admin: 03/09/17 17:34 Dose: 80 mg Clopidogrel Bisulfate (Plavix Tab*) 75 mg PO DAILY [facility] Last Admin: 03/09/17 08:56 Dose: 75 mg Docusate Sodium (Colace Cap*) 100 mg PO BID [facility] Last Admin: 03/09/17 08:56 Dose: 100 mg Fluoxetine HCl (Prozac Cap*) 20 mg PO DAILY [facility] Last Admin: 03/09/17 08:56 Dose: 20 mg Heparin Sodium (Porcine) (Heparin Vial(*)) 5,000 units SUBCUT Q8HR [facility] Last Admin: 03/09/17 14:12 Dose: 5,000 units Levetiracetam (Keppra Tab*) 1,500 mg PO BID [facility] Last Admin: 03/09/17 08:56 Dose: 1,500 mg Levofloxacin (Levaquin Tab*) 250 mg PO Q24H [facility] Last Admin: 03/09/17 14:12 Dose: 250 mg Levothyroxine Sodium (Synthroid Tab*) 50 mcg PO DAILY@0600 [facility] Last Admin: 03/09/17 05:36 Dose: 50 mcg Magnesium Hydroxide (Milk Of Magnesia Liq*) 30 ml PO Q6H PRN PRN Reason: CONSTIPATION Methocarbamol (Robaxin Tab*) 750 mg PO Q6H PRN PRN Reason: SPASMS Polyethylene Glycol/Electrolytes (Miralax*) 17 gm PO DAILY PRN PRN Reason: CONSTIPATION Polyvinyl Alcohol (Polyvinyl Alcohol 1.4% Opth*) 1 drop BOTH EYES Q2H PRN PRN Reason: DRY EYE Last Admin: 03/09/17 15:23 Dose: 1 applic Senna (Senokot Tab*) 2 tab PO BEDTIME PRN PRN Reason: CONSTIPATION Last Admin: 02/26/17 20:27 Dose: 2 tab Timolol Maleate (Timoptic 0.5% Opth*) 1 drop BOTH EYES BID [facility] Last Admin: 03/09/17 07:37 Dose: 1 drop Zonisamide (Zonegran (Nf)) 100 mg PO BID [facility] Last Admin: 03/09/17 08:56 Dose: 100 mg Laboratory Results - last 24 hr 03/09/17 03/09/17 07:59 08:00 WBC 7.6 RBC 3.98 L Hgb 12.7 Hct 38 MCV 96 MCH 32 H MCHC 33 RDW 13 Plt Count 247 MPV 8 Neut % (Auto) 68.5 Lymph % (Auto) 19.4 L [place] % (Auto) 8.6 Eos % (Auto) 2.7 Baso % (Auto) 0.8 Absolute Neuts (auto) 5.2 Absolute Lymphs (auto) 1.5 Absolute Monos (auto) 0.7 Absolute Eos (auto) 0.2 Absolute Basos (auto) 0.1 Absolute Nucleated RBC 0 Nucleated RBC % 0 Sodium 135 Potassium 3.9 Chloride 102 Carbon Dioxide 26 Anion Gap 7 BUN 13 Creatinine 0.57 Est GFR ( Amer) 131.9 Est GFR (Non-Af Amer) 102.6 BUN/Creatinine Ratio 22.8 H Glucose 101 H Calcium 9.2 Total Bilirubin 0.40 AST 19 ALT 33 Alkaline Phosphatase 84 Total Protein 6.4 Albumin 3.4 Globulin 3.0 Albumin/Globulin Ratio 1.1 Microbiology 03/08/17 09:33 Urine Urine Culture - Final No Growth (<1,000 CFU/mL) Vital Signs Temp Pulse Resp BP Pulse Ox 97.8 F 80 20 129/63 100 03/09/17 15:51 03/09/17 15:51 03/09/17 15:51 03/09/17 15:51 03/09/17 15:51 EXAM: HEENT: Right facial palsy LUNGS: Clear HEART: S1, S2 ABDOMEN: Soft NEUROLOGIC: Increased tone RLE and RUE; Aphasic; some movement at right ankle and knee but nothing functional in arm ASSESSMENT/PLAN: 1. 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 Dysphagia: Pureed consistencies, honey thick liquids 3. Seizure Disorder: Keppra/Zonegran 4. Spasms: Robaxin 5. DVT Prophylaxis: Heparin S/Q. TEDs 6. Code Status: full code. 7. 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 Dry eyes: Natural tears 10. Possible Urinary tract infection: Levaquin day #2. Await culture results
[2017-03-10] MEDS: Levothyroxine TAB* 50 MCG TAB PO SCH (05:56)
[2017-03-10] MEDS: Heparin VIAL(*) 5000 UNITS/ML VIAL (FIVE THOUSAND) SUBCUT SCH ×3 (05:56→20:58)
[2017-03-10] MEDS: Timolol 0.5% OPTH.SOL* BTL BOTH EYES SCH ×2 (07:40→20:57)
[2017-03-10] MEDS: Clopidogrel TAB* 75 MG PO SCH (08:30)
[2017-03-10] MEDS: levETIRAcetam TAB* 500 MG PO SCH ×2 (08:30→20:54)
[2017-03-10] MEDS: FLUoxetine CAP* 20 MG PO SCH (08:30)
[2017-03-10] MEDS: Aspirin Low Dose CHEW TAB* 81 MG PO SCH (08:30)
[2017-03-10] MEDS: CMCS: Zonisamide (NF) 50 MG CAP PO SCH ×2 (08:30→20:55)
[2017-03-10] MEDS: Docusate CAP* 100 MG PO SCH ×2 (08:30→20:55)
[2017-03-10] MEDS: Levofloxacin TAB* 250 MG PO SCH (14:06)
[2017-03-10] MEDS: Atorvastatin* 80 MG TAB PO SCH (17:06)
--- NOTE | 2017-03-10 19:32 | PN ---
Progress Note - Progress Note Date of Service: 03/10/17 Note: Minda visited. Therapy notes read and reviewed. Her urine culture shows no growth. Will d/c Levaquin. Her diet was upgraded to puree/nectar thick liquids. Current Medications Acetaminophen (Tylenol Tab*) 650 mg PO Q6H PRN PRN Reason: FEVER/PAIN Last Admin: 03/08/17 21:23 Dose: 650 mg Al Hydrox/Mg Hydrox/Simethicone (Maalox Plus*) 30 ml PO Q6H PRN PRN Reason: DYSPEPSIA Aspirin (Aspirin Low Dose Tab*) 81 mg PO DAILY [facility] Last Admin: 03/10/17 08:30 Dose: 81 mg Atorvastatin Calcium (Lipitor*) 80 mg PO 1700 [facility] Last Admin: 03/10/17 17:06 Dose: 80 mg Clopidogrel Bisulfate (Plavix Tab*) 75 mg PO DAILY [facility] Last Admin: 03/10/17 08:30 Dose: 75 mg Docusate Sodium (Colace Cap*) 100 mg PO BID [facility] Last Admin: 03/10/17 08:30 Dose: 100 mg Fluoxetine HCl (Prozac Cap*) 20 mg PO DAILY [facility] Last Admin: 03/10/17 08:30 Dose: 20 mg Heparin Sodium (Porcine) (Heparin Vial(*)) 5,000 units SUBCUT Q8HR [facility] Last Admin: 03/10/17 14:06 Dose: 5,000 units Levetiracetam (Keppra Tab*) 1,500 mg PO BID [facility] Last Admin: 03/10/17 08:30 Dose: 1,500 mg Levofloxacin (Levaquin Tab*) 250 mg PO Q24H [facility] Last Admin: 03/10/17 14:06 Dose: 250 mg Levothyroxine Sodium (Synthroid Tab*) 50 mcg PO DAILY@0600 [facility] Last Admin: 03/10/17 05:56 Dose: 50 mcg Magnesium Hydroxide (Milk Of Magnesia Liq*) 30 ml PO Q6H PRN PRN Reason: CONSTIPATION Methocarbamol (Robaxin Tab*) 750 mg PO Q6H PRN PRN Reason: SPASMS Polyethylene Glycol/Electrolytes (Miralax*) 17 gm PO DAILY PRN PRN Reason: CONSTIPATION Polyvinyl Alcohol (Polyvinyl Alcohol 1.4% Opth*) 1 drop BOTH EYES Q2H PRN PRN Reason: DRY EYE Last Admin: 03/09/17 15:23 Dose: 1 applic Senna (Senokot Tab*) 2 tab PO BEDTIME PRN PRN Reason: CONSTIPATION Last Admin: 02/26/17 20:27 Dose: 2 tab Timolol Maleate (Timoptic 0.5% Opth*) 1 drop BOTH EYES BID [facility] Last Admin: 03/10/17 07:40 Dose: 1 drop Zonisamide (Zonegran (Nf)) 100 mg PO BID [facility] Last Admin: 03/10/17 08:30 Dose: 100 mg Vital Signs Temp Pulse Resp BP Pulse Ox 97.2 F 72 18 144/68 100 03/10/17 16:24 03/10/17 16:24 03/10/17 16:24 03/10/17 16:24 03/10/17 16:24 EXAM: HEENT: Right facial palsy LUNGS: Clear HEART: S1, S2 ABDOMEN: Soft NEUROLOGIC: Increased tone RLE and RUE; Aphasic; some movement at right ankle and knee but nothing functional in arm ASSESSMENT/PLAN: 1. 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 Dysphagia: Pureed consistencies, nectar thick liquids 3. Seizure Disorder: Keppra/Zonegran 4. Spasms: Robaxin 5. DVT Prophylaxis: Heparin S/Q. TEDs 6. Code Status: full code. 7. 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 Dry eyes: Natural tears 10. Possible Urinary tract infection: Levaquin day #3. culture results: No growth. Will d/c levaquin
[2017-03-11] MEDS: Levothyroxine TAB* 50 MCG TAB PO SCH (05:53)
[2017-03-11] MEDS: Heparin VIAL(*) 5000 UNITS/ML VIAL (FIVE THOUSAND) SUBCUT SCH ×3 (05:53→20:32)
[2017-03-11] MEDS: Artificial Tears* 15 ML BTL BOTH EYES PRN ×2 (06:05→19:44)
[2017-03-11] MEDS: CMCS: Zonisamide (NF) 50 MG CAP PO SCH ×2 (09:06→20:32)
[2017-03-11] MEDS: levETIRAcetam TAB* 500 MG PO SCH ×2 (09:06→20:30)
[2017-03-11] MEDS: Clopidogrel TAB* 75 MG PO SCH (09:06)
[2017-03-11] MEDS: Aspirin Low Dose CHEW TAB* 81 MG PO SCH (09:06)
[2017-03-11] MEDS: Docusate CAP* 100 MG PO SCH ×2 (09:06→20:38)
[2017-03-11] MEDS: FLUoxetine CAP* 20 MG PO SCH (09:06)
[2017-03-11] MEDS: Timolol 0.5% OPTH.SOL* BTL BOTH EYES SCH ×2 (09:06→20:33)
[2017-03-11] MEDS: Atorvastatin* 80 MG TAB PO SCH (17:16)
--- NOTE | 2017-03-11 19:15 | PN ---
Progress Note - Progress Note Date of Service: 03/11/17 Note: Minda visited. Her spirits seem bright but her verbal output is limited. Working hard with therapy. Therapy notes read and reviewed. Still some trouble voiding on commode. Current Medications Acetaminophen (Tylenol Tab*) 650 mg PO Q6H PRN PRN Reason: FEVER/PAIN Last Admin: 03/08/17 21:23 Dose: 650 mg Al Hydrox/Mg Hydrox/Simethicone (Maalox Plus*) 30 ml PO Q6H PRN PRN Reason: DYSPEPSIA Aspirin (Aspirin Low Dose Tab*) 81 mg PO DAILY [facility] Last Admin: 03/11/17 09:06 Dose: 81 mg Atorvastatin Calcium (Lipitor*) 80 mg PO 1700 [facility] Last Admin: 03/11/17 17:16 Dose: 80 mg Clopidogrel Bisulfate (Plavix Tab*) 75 mg PO DAILY [facility] Last Admin: 03/11/17 09:06 Dose: 75 mg Docusate Sodium (Colace Cap*) 100 mg PO BID [facility] Last Admin: 03/11/17 09:06 Dose: 100 mg Fluoxetine HCl (Prozac Cap*) 20 mg PO DAILY [facility] Last Admin: 03/11/17 09:06 Dose: 20 mg Heparin Sodium (Porcine) (Heparin Vial(*)) 5,000 units SUBCUT Q8HR [facility] Last Admin: 03/11/17 13:37 Dose: 5,000 units Levetiracetam (Keppra Tab*) 1,500 mg PO BID [facility] Last Admin: 03/11/17 09:06 Dose: 1,500 mg Levothyroxine Sodium (Synthroid Tab*) 50 mcg PO DAILY@0600 [facility] Last Admin: 03/11/17 05:53 Dose: 50 mcg Magnesium Hydroxide (Milk Of Magnesia Liq*) 30 ml PO Q6H PRN PRN Reason: CONSTIPATION Methocarbamol (Robaxin Tab*) 750 mg PO Q6H PRN PRN Reason: SPASMS Polyethylene Glycol/Electrolytes (Miralax*) 17 gm PO DAILY PRN PRN Reason: CONSTIPATION Polyvinyl Alcohol (Polyvinyl Alcohol 1.4% Opth*) 1 drop BOTH EYES Q2H PRN PRN Reason: DRY EYE Last Admin: 03/11/17 06:05 Dose: 1 applic Senna (Senokot Tab*) 2 tab PO BEDTIME PRN PRN Reason: CONSTIPATION Last Admin: 02/26/17 20:27 Dose: 2 tab Timolol Maleate (Timoptic 0.5% Opth*) 1 drop BOTH EYES BID [facility] Last Admin: 03/11/17 09:06 Dose: 1 drop Zonisamide (Zonegran (Nf)) 100 mg PO BID [facility] Last Admin: 03/11/17 09:06 Dose: 100 mg Vital Signs Temp Pulse Resp BP Pulse Ox 98.4 F 71 21 119/50 99 03/11/17 15:51 03/11/17 15:51 03/11/17 16:53 03/11/17 15:51 03/11/17 16:53 EXAM: HEENT: Right facial palsy LUNGS: Clear HEART: S1, S2 ABDOMEN: Soft NEUROLOGIC: Increased tone RLE and RUE; Aphasic; some movement at right ankle and knee but nothing functional in arm ASSESSMENT/PLAN: 1. 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 Dysphagia: Pureed consistencies, nectar thick liquids 3. Seizure Disorder: Keppra/Zonegran 4. Spasms: Robaxin 5. DVT Prophylaxis: Heparin S/Q. TEDs 6. Code Status: full code. 7. 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 Dry eyes: Natural tears
[2017-03-12] MEDS: Levothyroxine TAB* 50 MCG TAB PO SCH (05:07)
[2017-03-12] MEDS: Heparin VIAL(*) 5000 UNITS/ML VIAL (FIVE THOUSAND) SUBCUT SCH ×3 (05:09→21:57)
[2017-03-12] MEDS: Artificial Tears* 15 ML BTL BOTH EYES PRN ×2 (05:16→18:14)
[2017-03-12] MEDS: CMCS: Zonisamide (NF) 50 MG CAP PO SCH ×2 (10:06→21:57)
[2017-03-12] MEDS: Docusate CAP* 100 MG PO SCH ×2 (10:06→21:57)
[2017-03-12] MEDS: FLUoxetine CAP* 20 MG PO SCH (10:06)
[2017-03-12] MEDS: Clopidogrel TAB* 75 MG PO SCH (10:06)
[2017-03-12] MEDS: levETIRAcetam TAB* 500 MG PO SCH ×2 (10:07→21:57)
[2017-03-12] MEDS: Aspirin Low Dose CHEW TAB* 81 MG PO SCH (10:07)
[2017-03-12] MEDS: Timolol 0.5% OPTH.SOL* BTL BOTH EYES SCH ×2 (10:09→21:57)
--- NOTE | 2017-03-12 16:31 | PN ---
Progress Note - Progress Note Date of Service: 03/12/17 Note: Minda visited. Perhaps slightly more verbal output. She offers no complaints otherwise. Spirits remain good. Current Medications Acetaminophen (Tylenol Tab*) 650 mg PO Q6H PRN PRN Reason: FEVER/PAIN Last Admin: 03/08/17 21:23 Dose: 650 mg Al Hydrox/Mg Hydrox/Simethicone (Maalox Plus*) 30 ml PO Q6H PRN PRN Reason: DYSPEPSIA Aspirin (Aspirin Low Dose Tab*) 81 mg PO DAILY [facility] Last Admin: 03/12/17 10:07 Dose: 81 mg Atorvastatin Calcium (Lipitor*) 80 mg PO 1700 [facility] Last Admin: 03/11/17 17:16 Dose: 80 mg Clopidogrel Bisulfate (Plavix Tab*) 75 mg PO DAILY [facility] Last Admin: 03/12/17 10:06 Dose: 75 mg Docusate Sodium (Colace Cap*) 100 mg PO BID [facility] Last Admin: 03/12/17 10:06 Dose: 100 mg Fluoxetine HCl (Prozac Cap*) 20 mg PO DAILY [facility] Last Admin: 03/12/17 10:06 Dose: 20 mg Heparin Sodium (Porcine) (Heparin Vial(*)) 5,000 units SUBCUT Q8HR [facility] Last Admin: 03/12/17 14:06 Dose: 5,000 units Levetiracetam (Keppra Tab*) 1,500 mg PO BID [facility] Last Admin: 03/12/17 10:07 Dose: 1,500 mg Levothyroxine Sodium (Synthroid Tab*) 50 mcg PO DAILY@0600 [facility] Last Admin: 03/12/17 05:07 Dose: 50 mcg Magnesium Hydroxide (Milk Of Magnesia Liq*) 30 ml PO Q6H PRN PRN Reason: CONSTIPATION Methocarbamol (Robaxin Tab*) 750 mg PO Q6H PRN PRN Reason: SPASMS Polyethylene Glycol/Electrolytes (Miralax*) 17 gm PO DAILY PRN PRN Reason: CONSTIPATION Polyvinyl Alcohol (Polyvinyl Alcohol 1.4% Opth*) 1 drop BOTH EYES Q2H PRN PRN Reason: DRY EYE Last Admin: 03/12/17 05:16 Dose: 1 applic Senna (Senokot Tab*) 2 tab PO BEDTIME PRN PRN Reason: CONSTIPATION Last Admin: 11/04/17 20:27 Dose: 2 tab Timolol Maleate (Timoptic 0.5% Opth*) 1 drop BOTH EYES BID [facility] Last Admin: 03/12/17 10:09 Dose: 1 drop Zonisamide (Zonegran (Nf)) 100 mg PO BID [facility] Last Admin: 03/12/17 10:06 Dose: 100 mg Vital Signs Temp Pulse Resp BP Pulse Ox 98.4 F 75 16 130/65 100 03/12/17 05:19 03/12/17 05:19 03/12/17 05:19 03/12/17 05:19 03/12/17 10:12 EXAM: HEENT: Right facial palsy LUNGS: Clear HEART: S1, S2 ABDOMEN: Soft NEUROLOGIC: Increased tone RLE and RUE; Aphasic; some movement at right ankle and knee but nothing functional in arm ASSESSMENT/PLAN: 1. 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 Dysphagia: Pureed consistencies, nectar thick liquids 3. Seizure Disorder: Keppra/Zonegran 4. Spasms: Robaxin PRN 5. DVT Prophylaxis: Heparin S/Q. TEDs 6. Code Status: full code. 7. 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 Dry eyes: Natural tears
[2017-03-12] MEDS: Atorvastatin* 80 MG TAB PO SCH (17:06)
[2017-03-13] MEDS: Heparin VIAL(*) 5000 UNITS/ML VIAL (FIVE THOUSAND) SUBCUT SCH ×3 (05:32→21:34)
[2017-03-13] MEDS: Levothyroxine TAB* 50 MCG TAB PO SCH (05:32)
[2017-03-13] MEDS: CMCS: Zonisamide (NF) 50 MG CAP PO SCH ×2 (07:42→20:51)
[2017-03-13] MEDS: Clopidogrel TAB* 75 MG PO SCH (07:42)
[2017-03-13] MEDS: Aspirin Low Dose CHEW TAB* 81 MG PO SCH (07:42)
[2017-03-13] MEDS: FLUoxetine CAP* 20 MG PO SCH (07:42)
[2017-03-13] MEDS: levETIRAcetam TAB* 500 MG PO SCH ×2 (07:42→20:50)
[2017-03-13] MEDS: Docusate CAP* 100 MG PO SCH ×2 (07:43→20:50)
[2017-03-13] MEDS: Timolol 0.5% OPTH.SOL* BTL BOTH EYES SCH ×2 (08:26→20:52)
--- NOTE | 2017-03-13 16:53 | PN ---
Progress Note - Progress Note Date of Service: 03/13/17 Note: Minda visited. There are no new complaints. Her speech remains limited. Eating ok. encouraged by her progress. Nursing notes read and reviewed. Current Medications Acetaminophen (Tylenol Tab*) 650 mg PO Q6H PRN PRN Reason: FEVER/PAIN Last Admin: 03/08/17 21:23 Dose: 650 mg Al Hydrox/Mg Hydrox/Simethicone (Maalox Plus*) 30 ml PO Q6H PRN PRN Reason: DYSPEPSIA Aspirin (Aspirin Low Dose Tab*) 81 mg PO DAILY [facility] Last Admin: 03/13/17 07:42 Dose: 81 mg Atorvastatin Calcium (Lipitor*) 80 mg PO 1700 [facility] Last Admin: 03/12/17 17:06 Dose: 80 mg Clopidogrel Bisulfate (Plavix Tab*) 75 mg PO DAILY [facility] Last Admin: 03/13/17 07:42 Dose: 75 mg Docusate Sodium (Colace Cap*) 100 mg PO BID [facility] Last Admin: 03/13/17 07:43 Dose: Not Given Fluoxetine HCl (Prozac Cap*) 20 mg PO DAILY [facility] Last Admin: 03/13/17 07:42 Dose: 20 mg Heparin Sodium (Porcine) (Heparin Vial(*)) 5,000 units SUBCUT Q8HR [facility] Last Admin: 03/13/17 13:56 Dose: 5,000 units Levetiracetam (Keppra Tab*) 1,500 mg PO BID [facility] Last Admin: 03/13/17 07:42 Dose: 1,500 mg Levothyroxine Sodium (Synthroid Tab*) 50 mcg PO DAILY@0600 [facility] Last Admin: 03/13/17 05:32 Dose: 50 mcg Magnesium Hydroxide (Milk Of Magnesia Liq*) 30 ml PO Q6H PRN PRN Reason: CONSTIPATION Methocarbamol (Robaxin Tab*) 750 mg PO Q6H PRN PRN Reason: SPASMS Polyethylene Glycol/Electrolytes (Miralax*) 17 gm PO DAILY PRN PRN Reason: CONSTIPATION Polyvinyl Alcohol (Polyvinyl Alcohol 1.4% Opth*) 1 drop BOTH EYES Q2H PRN PRN Reason: DRY EYE Last Admin: 03/12/17 18:14 Dose: 1 applic Senna (Senokot Tab*) 2 tab PO BEDTIME PRN PRN Reason: CONSTIPATION Last Admin: 02/26/17 20:27 Dose: 2 tab Timolol Maleate (Timoptic 0.5% Opth*) 1 drop BOTH EYES BID [facility] Last Admin: 03/13/17 08:26 Dose: 1 drop Zonisamide (Zonegran (Nf)) 100 mg PO BID [facility] Last Admin: 03/13/17 07:42 Dose: 100 mg Vital Signs Temp Pulse Resp BP Pulse Ox 97.3 F 69 20 141/67 97 03/13/17 15:23 03/13/17 15:23 03/13/17 15:23 03/13/17 15:23 03/13/17 15:23 EXAM: HEENT: Right facial palsy LUNGS: Clear HEART: S1, S2 ABDOMEN: Soft NEUROLOGIC: Increased tone RLE and RUE; Aphasic; some movement at right ankle and knee but nothing functional in arm ASSESSMENT/PLAN: 1. 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 Dysphagia: Pureed consistencies, nectar thick liquids 3. Seizure Disorder: Keppra/Zonegran 4. Spasms: Robaxin PRN 5. DVT Prophylaxis: Heparin S/Q. TEDs 6. Code Status: full code. 7. 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 Dry eyes: Natural tears
[2017-03-13] MEDS: Atorvastatin* 80 MG TAB PO SCH (17:00)
[2017-03-14] MEDS: Heparin VIAL(*) 5000 UNITS/ML VIAL (FIVE THOUSAND) SUBCUT SCH ×3 (05:41→21:09)
[2017-03-14] MEDS: Levothyroxine TAB* 50 MCG TAB PO SCH (05:41)
[2017-03-14] MEDS: Timolol 0.5% OPTH.SOL* BTL BOTH EYES SCH ×2 (08:43→21:09)
[2017-03-14] MEDS: levETIRAcetam TAB* 500 MG PO SCH ×2 (09:06→21:08)
[2017-03-14] MEDS: FLUoxetine CAP* 20 MG PO SCH (09:06)
[2017-03-14] MEDS: Aspirin Low Dose CHEW TAB* 81 MG PO SCH (09:06)
[2017-03-14] MEDS: CMCS: Zonisamide (NF) 50 MG CAP PO SCH ×2 (09:06→21:08)
[2017-03-14] MEDS: Docusate CAP* 100 MG PO SCH ×2 (09:06→21:08)
[2017-03-14] MEDS: Clopidogrel TAB* 75 MG PO SCH (09:06)
[2017-03-14] MEDS: Atorvastatin* 80 MG TAB PO SCH (16:47)
--- NOTE | 2017-03-14 17:40 | PN ---
Progress Note - Progress Note Date of Service: 03/14/17 Note: Minda visited. Therapy notes read and reviewed. 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 Spirits remain upbeat. On Prozac. MAybe a few more words. Current Medications Acetaminophen (Tylenol Tab*) 650 mg PO Q6H PRN PRN Reason: FEVER/PAIN Last Admin: 03/08/17 21:23 Dose: 650 mg Al Hydrox/Mg Hydrox/Simethicone (Maalox Plus*) 30 ml PO Q6H PRN PRN Reason: DYSPEPSIA Aspirin (Aspirin Low Dose Tab*) 81 mg PO DAILY [facility] Last Admin: 03/14/17 09:06 Dose: 81 mg Atorvastatin Calcium (Lipitor*) 80 mg PO 1700 [facility] Last Admin: 03/14/17 16:47 Dose: 80 mg Clopidogrel Bisulfate (Plavix Tab*) 75 mg PO DAILY [facility] Last Admin: 03/14/17 09:06 Dose: 75 mg Docusate Sodium (Colace Cap*) 100 mg PO BID [facility] Last Admin: 03/14/17 09:06 Dose: Not Given Fluoxetine HCl (Prozac Cap*) 20 mg PO DAILY [facility] Last Admin: 03/14/17 09:06 Dose: 20 mg Heparin Sodium (Porcine) (Heparin Vial(*)) 5,000 units SUBCUT Q8HR [facility] Last Admin: 03/14/17 13:05 Dose: 5,000 units Levetiracetam (Keppra Tab*) 1,500 mg PO BID [facility] Last Admin: 03/14/17 09:06 Dose: 1,500 mg Levothyroxine Sodium (Synthroid Tab*) 50 mcg PO DAILY@0600 [facility] Last Admin: 03/14/17 05:41 Dose: 50 mcg Magnesium Hydroxide (Milk Of Magnesia Liq*) 30 ml PO Q6H PRN PRN Reason: CONSTIPATION Methocarbamol (Robaxin Tab*) 750 mg PO Q6H PRN PRN Reason: SPASMS Polyethylene Glycol/Electrolytes (Miralax*) 17 gm PO DAILY PRN PRN Reason: CONSTIPATION Polyvinyl Alcohol (Polyvinyl Alcohol 1.4% Opth*) 1 drop BOTH EYES Q2H PRN PRN Reason: DRY EYE Last Admin: 03/12/17 18:14 Dose: 1 applic Senna (Senokot Tab*) 2 tab PO BEDTIME PRN PRN Reason: CONSTIPATION Last Admin: 02/26/17 20:27 Dose: 2 tab Timolol Maleate (Timoptic 0.5% Opth*) 1 drop BOTH EYES BID [facility] Last Admin: 03/14/17 08:43 Dose: 1 drop Zonisamide (Zonegran (Nf)) 100 mg PO BID [facility] Last Admin: 03/14/17 09:06 Dose: 100 mg Vital Signs Temp Pulse Resp BP Pulse Ox 98.6 F 71 16 131/65 98 03/14/17 15:36 03/14/17 15:36 03/14/17 15:36 03/14/17 15:36 03/14/17 15:36 EXAM: HEENT: Right facial palsy LUNGS: Clear HEART: S1, S2 ABDOMEN: Soft NEUROLOGIC: Increased tone RLE and RUE; Aphasic; some movement at right ankle and knee but nothing functional in arm ASSESSMENT/PLAN: 1. 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 Dysphagia: Pureed consistencies, nectar thick liquids 3. Seizure Disorder: Keppra/Zonegran 4. Spasms: Robaxin PRN 5. DVT Prophylaxis: Heparin S/Q. TEDs 6. Code Status: full code. 7. 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 Dry eyes: Natural tears
[2017-03-15] MEDS: Heparin VIAL(*) 5000 UNITS/ML VIAL (FIVE THOUSAND) SUBCUT SCH ×3 (05:49→21:30)
[2017-03-15] MEDS: Levothyroxine TAB* 50 MCG TAB PO SCH (05:51)
[2017-03-15] MEDS: Artificial Tears* 15 ML BTL BOTH EYES PRN (05:58)
[2017-03-15] MEDS: CMCS: Zonisamide (NF) 50 MG CAP PO SCH ×2 (08:34→21:30)
[2017-03-15] MEDS: FLUoxetine CAP* 20 MG PO SCH (08:35)
[2017-03-15] MEDS: levETIRAcetam TAB* 500 MG PO SCH ×2 (08:35→21:29)
[2017-03-15] MEDS: Acetaminophen TAB* 325 MG PO PRN (08:35)
[2017-03-15] MEDS: Docusate CAP* 100 MG PO SCH ×2 (08:35→21:29)
[2017-03-15] MEDS: Aspirin Low Dose CHEW TAB* 81 MG PO SCH (08:35)
[2017-03-15] MEDS: Clopidogrel TAB* 75 MG PO SCH (08:35)
[2017-03-15] MEDS: Timolol 0.5% OPTH.SOL* BTL BOTH EYES SCH ×2 (08:37→21:30)
--- NOTE | 2017-03-15 12:48 | PMRUTEAM ---
PMRU: Goals Current Status: Nursing: Current Status Skin Deviations [NO skin Other issues] Skin Deviations [Back] Other Skin Deviations [Right Knee] Abrasion Skin Deviation Description [NO no skin issues skin issues] Skin Deviation Description [ no skin issues noted at this time. Back] Skin Deviation Description [ scabbed Right Knee] Bladder Current Status Toileting schedule, pt incontinent, often rings to tell us she needs to use toilet but is then already wet Bowel Current Status bm 03/07/17, taking routine bowel meds Nutrition Current Status adequate Medication Current Status meds whole in pudding/applesauce Physical Therapy: Current Status Bed Mobility Assistance Mod Assist,Max Assist,2 or More Person Assist Transfer Moblility Assistance Min Assist,Mod Assist Transfer/Bed Mobility None Recommended Devices Transfer Mobility Comment mod A x 1 for SPT. Ambulation Assistance Contact Guard Assist,Min Assist Ambulation Assistive Devices Enzo Walker Number of Feet Patient 50' x 2 Ambulated Ambulation Comment 30' with cardiac walker min a x 1. Stairs Assistance Independent Stairs Recommended Devices One Rail Number of Stairs 5 Curb Not Tested Occupational Therapy: Current Status Upper Body Dressing Mod Assist Lower Body Dressing Max Asst,2 Person Assist Bathing Mod Assist,Max Asst Toileting Total Assist Toilet Transfer Mod Assist Shower Transfer Mod Assist Eating Ind with Adaptive Equip,Supervision Rec Therapy: Current Status Summary of Assessment and RT assessment complete and pt. is aware of RT Clinical Impression services. Pt. has been polite in visits and has leisure activities for her room to engage in. Treatment Goals Pt. will engage in leisure activities while on the unit. Treatment Plan Provide RT services and encourage involvement. Social Work: Current Status Discharge Plan return home with home care svs and family support Potential for Family Training pt's is involved and attentive Anticipated Discharge Home Destination Discharge With home care svs and family support Nutrition: Current Status Monitoring continues to eat consistently very well (100% of meals), eating independently w/occasional assistance opening containers. Still requiring pureed solids, but was able to upgrade to nectar- thick liquids on 03/11. Working toward goal of [facility] ground solids and perhaps thin liquids. Regular bowel pattern noted; last BM 03/14. Skin remains intact with low/mod risk for breakdown. Tentative d/c 03/29. Speech: Current Status Assessment Patient trialed thin liquids this date with no s/ s of aspiration/penetration for 4 ounces. She had difficulty with receptive category tasks this date , as she became distracted with writing and drawing despite cues/prompts to attend to task. She will continue to benefit from skilled MECHANICAL OPERATOR services to increase safety, function, and independence of daily tasks. Goals: Physical Therapy: Initial Goals Bed Mobility Assistance Independent Transfer Mobility Assistance Independent Transfer/Bed Mobility Enzo Walker Recommended Devices Ambulation Independent Ambulation Recommended Devices Enzo Walker Ambulation Distance 150 Stairs Assistance Independent Stair Recommended Devices One Rail Number of Stairs 5 Physical Therapy: Updated Goals Bed Mobility Assistance Independent Transfer Mobility Assistance Independent Transfer/Bed Mobility None Recommended Devices Ambulation Assistance Independent Ambulation Assistive Devices Rolling Walker Ambulation Distance (ft) 150 Stairs Assistance Independent Stairs Recommended Devices Two Rails Number of Stairs 5 Occupational Therapy: Initial Goals Goals to be Completed in (Days 4-6 weeks ) Upper Body Bathing Routine Independent Lower Body Bathing Routine Modified Independent with Upper Body Dressing Routine Independent Lower Body Dressing Routine Modified Independent with Toilet Hygeine and Clothing Modified Independent with Management Routine Toilet Transfer Routine Modified Independent with Step-In Shower Transfer Supervision/Set Up Routine Functional Transfers for ADL Modified Independent with Grooming Routine Independent Feeding Routine Independent Nursing: Goals Bladder Goal independent with marco care and changing brief Bowel Goal continence Nutrition Goal adequate Medication Goal needs reinforcement. Nutrition: Goals Intervention Goals 1. adequate po intake to maintain stable weight, hydration, and lean body mass 2. pt will tolerate least-restrictive diet texture w/o s/sx of difficulty chewing/swallowing 3. skin will remain intact; no evidence of skin breakdown 4. maintain regulation of bowel pattern w/o constipation or diarrhea Speech: Goals Speech Goal 1 Dysphagia Speech Evaluation Status Goal puree, pudding-thick 1 Speech Current Status Goal 1 puree, nectar-thick Goal 1 Comments LTO: Patient will safely tolerate the least restrictive diet. ST) Patient will safely tolerate 10/10 trials of thin liquids without s/s of aspiration/penetration . Status: *Trials provided along with speech/ language tasks; swallowing dysfunction not billed this date.* - Patient had 9 trials (approximately 4 ounces) of thin liquid via sip by cup without s/s of aspiration/penetration. 2) Patient will safely tolerate 10/10 trials of mechanical ground solids without s/s of aspiration /penetration. Status as of 11/17/17: Patient had turkey sandwich with lettuce and tomato for trials of mechanical ground this date. Cough x1 noted, which may represent aspiration/penetration. The patient took large bites and required moderate cueing to take one bite at a time and complete mastication and a swallow before adding additional foodstuff into oral cavity. Ongoing. 3) Patient will complete dysphagia exercises targeting lingual strength/coordination and hyolaryngeal excursion. Status: Not formally addressed this date. Ongoing. Speech Goal 2 Receptive Language Speech Goal 2 Evaluation yes/no: 60%; 2-step direction: 0% Status Speech Goal 2 Current Status See below Speech Goal 2 Comments LTO: Patient will increase receptive language skills. ST) Patient will answer yes/no questions with at least 90% accuracy over two-consecutive sessions. Status: - Receptive categories targeted this date via category cross-out. The patient identified via crossing out one word out of 5 that did not belong in category with 71% accuracy. - Attempted category sorting via patient writing the correct word in the correct category, however patient became distracted by writing required for the task and began to draw and would not stop unless paper was physically taken away from her. Ongoing. 2) Patient will following two-step directions with at least 90% accuracy. Status: Not addressed this date. Ongoing. Speech Goal 3 Expressive Language Speech Goal 3 Evaluation approximations of two-words given [facility] Status Speech Goal 3 Current Status See below Speech Goal 3 Comments LTO: Patient will increase expressive language skills. ST) Patient will repeat phrases given model with melodic intonation, for 70% of the opportunities presented. Status: - Patient attempting to use writing and gestures to express thoughts/ideas/wants with therapist this date; not specifically addressed this date. Ongoing. 2) The patient will express basic wants/needs to this junior technical writer and caregiver via alternative communiction approach (e.g. communication board). Status: Not specifically addressed this date. Ongoing. Speech Goal 4 Motor Speech Speech Goal 4 Current Status See below Speech Goal 4 Comments LTO: To increase motor speech skills. ST) Patient will complete oral-motor exercises following model from MECHANICAL OPERATOR/caregiver/family member, for 80% for the opportunities presented. Status: Not directly targeted this date. *Patient continues to demonstrate low volume. She also demonstrates difficulty with breath support and coordination of respiration/phonation. Ongoing. Social Work: Goals Discharge Plan return home with home care svs and family support Potential for Family Training pt's is involved and attentive Anticipated Discharge Home Destination Discharge With home care svs and family support Care Plan: Care Plan ADL's - Improve/Maintain Start: 02/14/17 23:48 Freq: DAILY Status: Active Target: Protocol: Activity Type Activity Date Activity User E-Sign Co-Sign Detail Recorded Client Recorded Date Recorded By Document 03/15/17 12:00 [id number] 03/15/17 12:00 [id number] 03/15/17 12:00 PMRU Outcome: ADL's/ADL Transfers Orders/Interventions Occupational Therapy Evaluation & Treatment Communication Tool in Patient Room Patient to receive OT 5x/wk for 60-120 Therex min/day Self Care Management Group Therapy Neuromuscular ReEducation UE/LE ADL's with Assist Yes: mod I ADL Transfers with Assist Yes: mod I Toileting: Transfers,Clothing Management Yes: mod I ,Hygeine w/Assist Progression Toward Outcome/Goals Progressing Outcome/Goals Met Increased difficulty with static sitting balance. Limited by pain in RUE (does not want limb touched or moved, RN aware ). More confused and insistent upon writing/drawing in her note pad. Communication-Improve/Maintain Start: 02/14/17 17:06 Freq: DAILY Status: Active Target: Protocol: Activity Type Activity Date Activity User E-Sign Co-Sign Detail Recorded Client Recorded Date Recorded By Document 03/15/17 11:45 [id number] [email or web address] 03/15/17 11:45 [id number] 03/15/17 11:45 PMRU Outcome: Communication/Cognitive Status Outcome/Goals Use Comm Tools/ Devices Makes Needs Known Effectively Other Outcomes/Goals 1) Patient will follow answer yes/no questions with at least 90% accuracy over two-consecutive sessions. 2) Patient will following two- step directions with at least 90% accuracy. 3) Patient will repeat phrases given model with melodic intonation, for 70% of the opportunities presented. 4) The patient will express basic wants/ needs to this wrtier and caregiver via alternative communiction approach (e.g. communication board). 5) Patient will complete oral- motor exercises following model from MECHANICAL OPERATOR/ caregiver/ family member, for 80% for the opportunities presented. Progression Toward Outcomes/Goals Progressing Outcome/Goals Met Comment 1) - Receptive categories targeted this date via category cross- out. The patient identified via crossing out one word out of 5 that did not belong in category with 71% accuracy. - Attempted category sorting via patient writing the correct word in the correct category, however patient became distracted by writing required for the task and began to draw and would not stop unless paper was physically taken away from her. Coping/Psych-Improve/Maintain Start: 02/14/17 17:06 Freq: DAILY Status: Active Target: Protocol: Activity Type Activity Date Activity User E-Sign Co-Sign Detail Recorded Client Recorded Date Recorded By Document 03/15/17 02:36 [id number] [id number] 03/15/17 02:37 [id number] 03/15/17 02:36 PMRU Outcome: Coping/Psychosocial Coping Outcome/Goals Verbalization of Acceptance of Rehab Admit Verbalization of Sense of Control Over Health Status Utilization of Appropriate Problem Solving Techniques Willingness to Participate in Treatment Plan and Basic Needs Psychosocial Outcome/Goals Maintain/ Improve Emotional Health Demonstrates Knowledge of Healthy Coping Mechanisms Available Progression Toward Outcome/Goals - Progressing Coping Progression Toward Outcome/Goals - Progressing Psychosocial DVT Prophylaxis- Improve/Maintain Start: 02/14/17 17:06 Freq: DAILY Status: Active Target: Protocol: Activity Type Activity Date Activity User E-Sign Co-Sign Detail Recorded Client Recorded Date Recorded By Document 03/15/17 02:36 [id number] 03/15/17 02:37 [id number] 03/15/17 02:36 PMRU Outcome: DVT Prophylaxis Outcome/Goals Remains Free of DVT Free of complications from current DVT Complies with DVT Prophylaxis /Treatment TEDS Stockings on Every AM, Off at HS Progression Toward Outcome/Goals Progressing Discharge Planning - Improve/Maintain Start: 02/14/17 17:06 Freq: DAILY Status: Active Target: Protocol: Activity Type Activity Date Activity User E-Sign Co-Sign Detail Recorded Client Recorded Date Recorded By Document 03/15/17 02:36 [id number] [id number] 03/15/17 02:37 [id number] 03/15/17 02:36 PMRU Outcome: Discharge Planning Identify Patient Needs yes Update Patient Family No Outcome/Goals Demonstrates Understanding of Discharge Plan Progression Toward Outcome/Goals Progressing Education-Improve/Maintain Start: 02/14/17 23:48 Freq: DAILY Status: Active Target: Protocol: Activity Type Activity Date Activity User E-Sign Co-Sign Detail Recorded Client Recorded Date Recorded By Document 03/15/17 02:36 [id number] 03/15/17 02:37 [id number] 03/15/17 02:36 PMRU Outcome: Education Outcome/Goals Demonstrates Skills Progression Toward Outcome/Goals Progressing /GI-Improve/Maintain Start: 02/14/17 17:06 Freq: DAILY Status: Active Target: Protocol: Activity Type Activity Date Activity User E-Sign Co-Sign Detail Recorded Client Recorded Date Recorded By Document 03/15/17 02:36 [id number] 03/15/17 02:37 [id number] 03/15/17 02:36 PMRU Outcome: Genitourinary/ Gastrointestinal Genitourinary- Outcome/Goals Maintain/ Achieve Adequate Urinary Output Remain Free of Hospital- Acquired UTI Gastrointestinal-Outcome/Goals Maintain/ Achieve Bowel Regularity in Accordance with Pt's Baseline Remain Free of Emesis Prevent Constipation Laxatives as Ordered Progression Toward Outcome/Goals - Goals Adjusted Progression Toward Outcome/Goals - GI Progressing Mobility- Improve/Maintain Start: 02/14/17 23:48 Freq: DAILY Status: Active Target: Protocol: Activity Type Activity Date Activity User E-Sign Co-Sign Detail Recorded Client Recorded Date Recorded By Document 03/15/17 12:10 [id number] 03/15/17 12:10 [id number] 03/15/17 12:10 PMRU Outcome: Mobility Physical Therapy Evaluation and Yes Treatment Activity OOB with Assistance Yes WBAT Yes Device Yes Assistance Yes Patient to be seen 5x/wk for 60-120 min/ Therex day for: Mobility Training Gait Training W/C Mobility Balance Outcome/Goals Maintain/ Achieve Baseline Mobility Status Improve Mobility Status Demonstrates Proper Use of Assistive Devices Free from Complications of Immobility Progression Toward Outcome/Goals Progressing Bed Mobility Yes: independent Transfers Yes: independent with hemiwalker Gait x ft Yes: independent with hemiwalker 150' Up/Down Stairs Yes: inependent with 1 rail up /down 5 stairs Neurological- Improve/Maintain Start: 02/14/17 17:06 Freq: DAILY Status: Active Target: Protocol: Activity Type Activity Date Activity User E-Sign Co-Sign Detail Recorded Client Recorded Date Recorded By Document 03/15/17 02:36 [id number] 03/15/17 02:37 [id number] 03/15/17 02:36 PMRU Outcome: Neurological Weakness/Aphasia Weakness Aphasia Right Side Outcome/Goals Maintain/ Achieve Baseline Neurological Status Improve Neurological Status Maintain/ Improve Strength/ROM Progression Toward Outcome/Goals Progressing Nutrition/Swallowing- Improve/Maintain Start: 02/14/17 17:06 Freq: DAILY Status: Active Target: Protocol: Activity Type Activity Date Activity User E-Sign Co-Sign Detail Recorded Client Recorded Date Recorded By Document 03/15/17 11:45 [id number] [email or web address] 03/15/17 11:45 [id number] 03/15/17 11:45 PMRU Outcome: Nutrition/Swallowing Outcome/Goals Demonstrates Adequate Hydration/ Prevents Dehydration Maintain/ Improve Nutritional Status Other Other Outcome/Goals 1) Patient will safely tolerate 10/10 trials of thin liquids without s/s of aspiration/ penetration. 2) Patient will safely tolerate 10/10 trials of mechanical ground solids without s/s of aspiration/ penetration. Progression Toward Outcome/Goals Progressing Outcome/Goals Met Comment Patient safely tolerated 4 ounces of thin liquid without s/s of aspiration/ penetration. Pain/Comfort- Improve/Maintain Start: 02/14/17 17:06 Freq: DAILY Status: Complete Target: Protocol: Activity Type Activity Date Activity User E-Sign Co-Sign Detail Recorded Client Recorded Date Recorded By Document 03/07/17 10:27 [id number] 03/07/17 10:36 [id number] 03/07/17 10:27 PMRU Outcome: Pain/Comfort Outcome/Goals Maintain Comfort Level Allowing Patient to Fully Participate in Rehab Progression Toward Outcome/Goals Progressing Respiratory - Improve/Maintain Start: 02/14/17 17:06 Freq: DAILY Status: Active Target: Protocol: Activity Type Activity Date Activity User E-Sign Co-Sign Detail Recorded Client Recorded Date Recorded By Document 03/15/17 02:36 [id number] 03/15/17 02:37 [id number] 03/15/17 02:36 PMRU Outcome: Respiratory Does Patient Have a Trach No Outcome/Goals Maintain/ Improve O2 Sat per MD Order Maintain/ Improve Baseline Respiratory Status Maintain/ Improve Activity Tolerance Prevent Pneumonia/ Atelectasis Progression Toward Outcome/Goals Progressing Safety- Improve/Maintain Start: 02/14/17 17:06 Freq: DAILY Status: Active Target: Protocol: Activity Type Activity Date Activity User E-Sign Co-Sign Detail Recorded Client Recorded Date Recorded By Document 03/15/17 02:36 [id number] [id number] 03/15/17 02:37 [id number] 03/15/17 02:36 PMRU Outcome: Safety Outcome/Goals Remain Free of Injury or Harm Cooperates with Safety Measures for Least Restrictive Environment Prevent Falls/ Injury Progression Toward Outcome/Goals Progressing Outcome/Goals Met Comment PA in place for safety, ringing appropriately Skin- Improve/Maintain Start: 02/14/17 17:06 Freq: DAILY Status: Active Target: Protocol: Activity Type Activity Date Activity User E-Sign Co-Sign Detail Recorded Client Recorded Date Recorded By Document 03/15/17 02:36 [id number] 03/15/17 02:37 [id number] 03/15/17 02:36 PMRU Outcome: Skin Skin Risk Level High Skin Orders Air Mattress Spenco Boots Turn/Position q2hr While in Bed Outcome/Goals Maintain/ Improve Skin Intergrity Free from Decubitus Progression Toward Outcome/Goals Progressing Medicine Note: Length of Stay: 2 weeks Anticipated Discharge Destination: Home Tentative Discharge Date: 03/29/17 Discharged to: D
--- NOTE | 2017-03-15 16:35 | PN ---
Progress Note - Progress Note Date of Service: 03/15/17 Note: Minda visited. She was discussed in interdisciplinary team rounds. She has made some gains in her abilities to ambulate but still requires a lot of assistance in her ADLs especially self-care/toileting. Will need to meet with family to discuss other therapy options Current Medications Acetaminophen (Tylenol Tab*) 650 mg PO Q6H PRN PRN Reason: FEVER/PAIN Last Admin: 03/15/17 08:35 Dose: 650 mg Al Hydrox/Mg Hydrox/Simethicone (Maalox Plus*) 30 ml PO Q6H PRN PRN Reason: DYSPEPSIA Aspirin (Aspirin Low Dose Tab*) 81 mg PO DAILY [facility] Last Admin: 03/15/17 08:35 Dose: 81 mg Atorvastatin Calcium (Lipitor*) 80 mg PO 1700 [facility] Last Admin: 03/14/17 16:47 Dose: 80 mg Clopidogrel Bisulfate (Plavix Tab*) 75 mg PO DAILY [facility] Last Admin: 03/15/17 08:35 Dose: 75 mg Docusate Sodium (Colace Cap*) 100 mg PO BID [facility] Last Admin: 03/15/17 08:35 Dose: 100 mg Fluoxetine HCl (Prozac Cap*) 20 mg PO DAILY [facility] Last Admin: 03/15/17 08:35 Dose: 20 mg Heparin Sodium (Porcine) (Heparin Vial(*)) 5,000 units SUBCUT Q8HR [facility] Last Admin: 03/15/17 14:02 Dose: 5,000 units Levetiracetam (Keppra Tab*) 1,500 mg PO BID [facility] Last Admin: 03/15/17 08:35 Dose: 1,500 mg Levothyroxine Sodium (Synthroid Tab*) 50 mcg PO DAILY@0600 [facility] Last Admin: 03/15/17 05:51 Dose: 50 mcg Magnesium Hydroxide (Milk Of Magnesia Liq*) 30 ml PO Q6H PRN PRN Reason: CONSTIPATION Methocarbamol (Robaxin Tab*) 750 mg PO Q6H PRN PRN Reason: SPASMS Polyethylene Glycol/Electrolytes (Miralax*) 17 gm PO DAILY PRN PRN Reason: CONSTIPATION Polyvinyl Alcohol (Polyvinyl Alcohol 1.4% Opth*) 1 drop BOTH EYES Q2H PRN PRN Reason: DRY EYE Last Admin: 03/15/17 05:58 Dose: 1 applic Senna (Senokot Tab*) 2 tab PO BEDTIME PRN PRN Reason: CONSTIPATION Last Admin: 02/26/17 20:27 Dose: 2 tab Timolol Maleate (Timoptic 0.5% Opth*) 1 drop BOTH EYES BID [facility] Last Admin: 03/15/17 08:37 Dose: 1 drop Zonisamide (Zonegran (Nf)) 100 mg PO BID [facility] Last Admin: 03/15/17 08:34 Dose: 100 mg Vital Signs Temp Pulse Resp BP Pulse Ox 97.3 F 68 18 126/55 97 03/15/17 15:39 03/15/17 15:39 03/15/17 15:39 03/15/17 15:39 03/15/17 16:10 EXAM: HEENT: Right facial palsy LUNGS: Clear HEART: S1, S2 ABDOMEN: Soft NEUROLOGIC: Increased tone RLE and RUE; Aphasic; some movement at right ankle and knee but nothing functional in arm ASSESSMENT/PLAN: 1. 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 Dysphagia: Pureed consistencies, nectar thick liquids 3. Seizure Disorder: Keppra/Zonegran 4. Spasms: Robaxin PRN 5. DVT Prophylaxis: Heparin S/Q. TEDs 6. Code Status: full code. 7. 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 Dry eyes: Natural tears 10: Disposition: prabha have family meeting with , son
[2017-03-15] MEDS: Atorvastatin* 80 MG TAB PO SCH (17:04)
[2017-03-16] MEDS: Artificial Tears* 15 ML BTL BOTH EYES PRN ×2 (01:27→06:08)
[2017-03-16] MEDS: Levothyroxine TAB* 50 MCG TAB PO SCH (06:04)
[2017-03-16] MEDS: Heparin VIAL(*) 5000 UNITS/ML VIAL (FIVE THOUSAND) SUBCUT SCH ×3 (06:08→21:15)
[2017-03-16 06:42] LABS: Hematocrit 38 % (35-47); Hemoglobin 12.7 g/dl (12.0-16.0); Mean Corpuscular HGB Conc 34 g/dl (31-36); Mean Corpuscular Hemoglobin 32 pg (27-31); Mean Corpuscular Volume 96 fL (80-97); Mean Platelet Volume 8 um3 (7.4-10.4); Red Blood Count 3.94 10^6/ul (4.0-5.4); Red Cell Distribution Width 13 % (10.5-15); White Blood Count 7.1 10^3/ul (3.5-10.8)
[2017-03-16 06:57] LABS: Albumin 3.4 g/dL (3.2-5.2); BUN/Creatinine Ratio 16.9 (8-20); Calcium 9.3 mg/dL (8.6-10.3); EGFR African American 113.4 (>60); EGFR Non-African American 88.2 (>60); Globulin 2.9 g/dL (2-4); Potassium 3.8 mmol/L (3.5-5.0); Total Bilirubin 0.4 mg/dL (0.2-1.0); Total Protein 6.3 g/dL (6.4-8.9)
[2017-03-16] MEDS: FLUoxetine CAP* 20 MG PO SCH (08:52)
[2017-03-16] MEDS: Aspirin Low Dose CHEW TAB* 81 MG PO SCH (08:52)
[2017-03-16] MEDS: CMCS: Zonisamide (NF) 50 MG CAP PO SCH ×2 (08:52→20:01)
[2017-03-16] MEDS: Clopidogrel TAB* 75 MG PO SCH (08:52)
[2017-03-16] MEDS: Docusate CAP* 100 MG PO SCH ×2 (08:52→20:01)
[2017-03-16] MEDS: levETIRAcetam TAB* 500 MG PO SCH ×2 (08:52→20:01)
[2017-03-16] MEDS: Timolol 0.5% OPTH.SOL* BTL BOTH EYES SCH ×2 (08:54→20:01)
[2017-03-16] MEDS: Acetaminophen TAB* 325 MG PO PRN (13:03)
[2017-03-16] MEDS: Atorvastatin* 80 MG TAB PO SCH (16:22)
--- NOTE | 2017-03-16 17:54 | PN ---
Progress Note - Progress Note Date of Service: 03/16/17 Note: Minda visited. She remains in good spirits. Therapy notes read and reviewed. She is trying hard but some difficulties in making measurable gains with OT. Current Medications Acetaminophen (Tylenol Tab*) 650 mg PO Q6H PRN PRN Reason: FEVER/PAIN Last Admin: 03/16/17 13:03 Dose: 650 mg Al Hydrox/Mg Hydrox/Simethicone (Maalox Plus*) 30 ml PO Q6H PRN PRN Reason: DYSPEPSIA Aspirin (Aspirin Low Dose Tab*) 81 mg PO DAILY [facility] Last Admin: 03/16/17 08:52 Dose: 81 mg Atorvastatin Calcium (Lipitor*) 80 mg PO 1700 [facility] Last Admin: 03/16/17 16:22 Dose: 80 mg Clopidogrel Bisulfate (Plavix Tab*) 75 mg PO DAILY [facility] Last Admin: 03/16/17 08:52 Dose: 75 mg Docusate Sodium (Colace Cap*) 100 mg PO BID [facility] Last Admin: 03/16/17 08:52 Dose: 100 mg Fluoxetine HCl (Prozac Cap*) 20 mg PO DAILY [facility] Last Admin: 03/16/17 08:52 Dose: 20 mg Heparin Sodium (Porcine) (Heparin Vial(*)) 5,000 units SUBCUT Q8HR [facility] Last Admin: 03/16/17 13:04 Dose: 5,000 units Levetiracetam (Keppra Tab*) 1,500 mg PO BID [facility] Last Admin: 03/16/17 08:52 Dose: 1,500 mg Levothyroxine Sodium (Synthroid Tab*) 50 mcg PO DAILY@0600 [facility] Last Admin: 03/16/17 06:04 Dose: 50 mcg Magnesium Hydroxide (Milk Of Magnesia Liq*) 30 ml PO Q6H PRN PRN Reason: CONSTIPATION Methocarbamol (Robaxin Tab*) 750 mg PO Q6H PRN PRN Reason: SPASMS Polyethylene Glycol/Electrolytes (Miralax*) 17 gm PO DAILY PRN PRN Reason: CONSTIPATION Polyvinyl Alcohol (Polyvinyl Alcohol 1.4% Opth*) 1 drop BOTH EYES Q2H PRN PRN Reason: DRY EYE Last Admin: 03/16/17 06:08 Dose: 1 applic Senna (Senokot Tab*) 2 tab PO BEDTIME PRN PRN Reason: CONSTIPATION Last Admin: 02/26/17 20:27 Dose: 2 tab Timolol Maleate (Timoptic 0.5% Opth*) 1 drop BOTH EYES BID [facility] Last Admin: 03/16/17 08:54 Dose: 1 drop Zonisamide (Zonegran (Nf)) 100 mg PO BID [facility] Last Admin: 03/16/17 08:52 Dose: 100 mg Laboratory Results - last 24 hr 03/16/17 03/16/17 06:31 06:31 WBC 7.1 RBC 3.94 L Hgb 12.7 Hct 38 MCV 96 MCH 32 H MCHC 34 RDW 13 Plt Count 270 MPV 8 Neut % (Auto) 66.1 Lymph % (Auto) 23.4 L [place] % (Auto) 6.2 Eos % (Auto) 3.3 Baso % (Auto) 1.0 Absolute Neuts (auto) 4.7 Absolute Lymphs (auto) 1.7 Absolute Monos (auto) 0.4 Absolute Eos (auto) 0.2 Absolute Basos (auto) 0.1 Absolute Nucleated RBC 0 Nucleated RBC % 0 Sodium 134 Potassium 3.8 Chloride 100 L Carbon Dioxide 29 Anion Gap 5 BUN 11 Creatinine 0.65 Est GFR ( Amer) 113.4 Est GFR (Non-Af Amer) 88.2 BUN/Creatinine Ratio 16.9 Glucose 118 H Calcium 9.3 Total Bilirubin 0.40 AST 18 ALT 31 Alkaline Phosphatase 94 Total Protein 6.3 L Albumin 3.4 Globulin 2.9 Albumin/Globulin Ratio 1.2 Vital Signs Temp Pulse Resp BP Pulse Ox 98.0 F 73 18 116/49 96 03/16/17 15:57 03/16/17 15:57 03/16/17 15:57 03/16/17 15:57 03/16/17 15:57 EXAM: HEENT: Right facial palsy LUNGS: Clear HEART: S1, S2 ABDOMEN: Soft NEUROLOGIC: Increased tone RLE and RUE; Aphasic; some movement at right ankle and knee but nothing functional in arm ASSESSMENT/PLAN: 1. 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 Dysphagia: Pureed consistencies, nectar thick liquids 3. Seizure Disorder: Keppra/Zonegran 4. Spasms: Robaxin PRN 5. DVT Prophylaxis: Heparin S/Q. TEDs 6. Code Status: full code. 7. 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 Dry eyes: Natural tears 10: Disposition: prabha have family meeting with , son on Tuesday
[2017-03-17] MEDS: Artificial Tears* 15 ML BTL BOTH EYES PRN ×4 (03:17→22:44)
[2017-03-17] MEDS: Levothyroxine TAB* 50 MCG TAB PO SCH (05:28)
[2017-03-17] MEDS: Heparin VIAL(*) 5000 UNITS/ML VIAL (FIVE THOUSAND) SUBCUT SCH ×3 (05:29→21:12)
[2017-03-17] MEDS: Docusate CAP* 100 MG PO SCH ×2 (08:40→19:59)
[2017-03-17] MEDS: FLUoxetine CAP* 20 MG PO SCH (08:40)
[2017-03-17] MEDS: Aspirin Low Dose CHEW TAB* 81 MG PO SCH (08:40)
[2017-03-17] MEDS: Clopidogrel TAB* 75 MG PO SCH (08:40)
[2017-03-17] MEDS: levETIRAcetam TAB* 500 MG PO SCH ×2 (08:41→19:59)
[2017-03-17] MEDS: CMCS: Zonisamide (NF) 50 MG CAP PO SCH ×2 (08:42→19:59)
[2017-03-17] MEDS: Timolol 0.5% OPTH.SOL* BTL BOTH EYES SCH ×2 (08:42→20:01)
--- NOTE | 2017-03-17 12:50 | PN ---
Progress Note - Progress Note Date of Service: 03/17/17 Note: Minda visited. She has no complaints. Was able to say "all right" at lunch when asked how she felt. Appetitie good. Current Medications Acetaminophen (Tylenol Tab*) 650 mg PO Q6H PRN PRN Reason: FEVER/PAIN Last Admin: 03/16/17 13:03 Dose: 650 mg Al Hydrox/Mg Hydrox/Simethicone (Maalox Plus*) 30 ml PO Q6H PRN PRN Reason: DYSPEPSIA Last Admin: 03/16/17 19:17 Dose: 30 ml Aspirin (Aspirin Low Dose Tab*) 81 mg PO DAILY [facility] Last Admin: 03/17/17 08:40 Dose: 81 mg Atorvastatin Calcium (Lipitor*) 80 mg PO 1700 [facility] Last Admin: 03/16/17 16:22 Dose: 80 mg Clopidogrel Bisulfate (Plavix Tab*) 75 mg PO DAILY [facility] Last Admin: 03/17/17 08:40 Dose: 75 mg Docusate Sodium (Colace Cap*) 100 mg PO BID [facility] Last Admin: 03/17/17 08:40 Dose: 100 mg Fluoxetine HCl (Prozac Cap*) 20 mg PO DAILY [facility] Last Admin: 03/17/17 08:40 Dose: 20 mg Heparin Sodium (Porcine) (Heparin Vial(*)) 5,000 units SUBCUT Q8HR [facility] Last Admin: 03/17/17 05:29 Dose: 5,000 units Levetiracetam (Keppra Tab*) 1,500 mg PO BID [facility] Last Admin: 03/17/17 08:41 Dose: 1,500 mg Levothyroxine Sodium (Synthroid Tab*) 50 mcg PO DAILY@0600 [facility] Last Admin: 03/17/17 05:28 Dose: 50 mcg Magnesium Hydroxide (Milk Of Magnesia Liq*) 30 ml PO Q6H PRN PRN Reason: CONSTIPATION Methocarbamol (Robaxin Tab*) 750 mg PO Q6H PRN PRN Reason: SPASMS Polyethylene Glycol/Electrolytes (Miralax*) 17 gm PO DAILY PRN PRN Reason: CONSTIPATION Polyvinyl Alcohol (Polyvinyl Alcohol 1.4% Opth*) 1 drop BOTH EYES Q2H PRN PRN Reason: DRY EYE Last Admin: 03/17/17 05:28 Dose: 1 applic Senna (Senokot Tab*) 2 tab PO BEDTIME PRN PRN Reason: CONSTIPATION Last Admin: 02/26/17 20:27 Dose: 2 tab Timolol Maleate (Timoptic 0.5% Opth*) 1 drop BOTH EYES BID [facility] Last Admin: 03/17/17 08:42 Dose: 1 drop Zonisamide (Zonegran (Nf)) 100 mg PO BID [facility] Last Admin: 03/17/17 08:42 Dose: 100 mg Vital Signs Temp Pulse Resp BP Pulse Ox 97.6 F 61 18 114/55 97 03/17/17 05:26 03/17/17 05:26 03/17/17 08:00 03/17/17 05:26 03/17/17 08:00 EXAM: HEENT: Right facial palsy LUNGS: Clear HEART: S1, S2 ABDOMEN: Soft NEUROLOGIC: Increased tone RLE and RUE; Aphasic; some movement at right ankle and knee but nothing functional in arm ASSESSMENT/PLAN: 1. 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 Dysphagia: Pureed consistencies, nectar thick liquids 3. Seizure Disorder: Keppra/Zonegran 4. Spasms: Robaxin PRN 5. DVT Prophylaxis: Heparin S/Q. TEDs 6. Code Status: full code. 7. 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 Dry eyes: Natural tears 10: Disposition: prabha have family meeting with , son on Tuesday
[2017-03-17] MEDS: Atorvastatin* 80 MG TAB PO SCH (17:04)
[2017-03-18] MEDS: Levothyroxine TAB* 50 MCG TAB PO SCH (05:36)
[2017-03-18] MEDS: Heparin VIAL(*) 5000 UNITS/ML VIAL (FIVE THOUSAND) SUBCUT SCH ×3 (05:36→20:53)
[2017-03-18] MEDS: Artificial Tears* 15 ML BTL BOTH EYES PRN ×2 (05:39→16:11)
[2017-03-18] MEDS: Timolol 0.5% OPTH.SOL* BTL BOTH EYES SCH ×2 (08:56→20:55)
[2017-03-18] MEDS: Aspirin Low Dose CHEW TAB* 81 MG PO SCH (10:14)
[2017-03-18] MEDS: levETIRAcetam TAB* 500 MG PO SCH ×2 (10:14→20:52)
[2017-03-18] MEDS: Clopidogrel TAB* 75 MG PO SCH (10:14)
[2017-03-18] MEDS: FLUoxetine CAP* 20 MG PO SCH (10:14)
[2017-03-18] MEDS: Docusate CAP* 100 MG PO SCH ×2 (10:14→20:52)
[2017-03-18] MEDS: CMCS: Zonisamide (NF) 50 MG CAP PO SCH ×2 (10:15→20:52)
[2017-03-18] MEDS: Atorvastatin* 80 MG TAB PO SCH (16:09)
[2017-03-18] MEDS: Acetaminophen TAB* 325 MG PO PRN (16:09)
--- NOTE | 2017-03-18 17:45 | PN ---
Progress Note - Progress Note Date of Service: 03/18/17 Note: Minda visited. Therapy notes read and reviewed. We had a meeting with her husbands and sons regarding Minda's progress and appropriate next steps. They are going to try family training and also look at subacutes. Current Medications Acetaminophen (Tylenol Tab*) 650 mg PO Q6H PRN PRN Reason: FEVER/PAIN Last Admin: 03/18/17 16:09 Dose: 650 mg Al Hydrox/Mg Hydrox/Simethicone (Maalox Plus*) 30 ml PO Q6H PRN PRN Reason: DYSPEPSIA Last Admin: 03/16/17 19:17 Dose: 30 ml Aspirin (Aspirin Low Dose Tab*) 81 mg PO DAILY [facility] Last Admin: 03/18/17 10:14 Dose: 81 mg Atorvastatin Calcium (Lipitor*) 80 mg PO 1700 [facility] Last Admin: 03/18/17 16:09 Dose: 80 mg Clopidogrel Bisulfate (Plavix Tab*) 75 mg PO DAILY [facility] Last Admin: 03/18/17 10:14 Dose: 75 mg Docusate Sodium (Colace Cap*) 100 mg PO BID [facility] Last Admin: 03/18/17 10:14 Dose: 100 mg Fluoxetine HCl (Prozac Cap*) 20 mg PO DAILY [facility] Last Admin: 03/18/17 10:14 Dose: 20 mg Heparin Sodium (Porcine) (Heparin Vial(*)) 5,000 units SUBCUT Q8HR [facility] Last Admin: 03/18/17 14:15 Dose: 5,000 units Levetiracetam (Keppra Tab*) 1,500 mg PO BID [facility] Last Admin: 03/18/17 10:14 Dose: 1,500 mg Levothyroxine Sodium (Synthroid Tab*) 50 mcg PO DAILY@0600 [facility] Last Admin: 03/18/17 05:36 Dose: 50 mcg Magnesium Hydroxide (Milk Of Magnesia Liq*) 30 ml PO Q6H PRN PRN Reason: CONSTIPATION Methocarbamol (Robaxin Tab*) 750 mg PO Q6H PRN PRN Reason: SPASMS Polyethylene Glycol/Electrolytes (Miralax*) 17 gm PO DAILY PRN PRN Reason: CONSTIPATION Polyvinyl Alcohol (Polyvinyl Alcohol 1.4% Opth*) 1 drop BOTH EYES Q2H PRN PRN Reason: DRY EYE Last Admin: 03/18/17 16:11 Dose: 1 applic Senna (Senokot Tab*) 2 tab PO BEDTIME PRN PRN Reason: CONSTIPATION Last Admin: 02/26/17 20:27 Dose: 2 tab Timolol Maleate (Timoptic 0.5% Opth*) 1 drop BOTH EYES BID [facility] Last Admin: 03/18/17 08:56 Dose: 1 drop Zonisamide (Zonegran (Nf)) 100 mg PO BID [facility] Last Admin: 03/18/17 10:15 Dose: 100 mg Vital Signs Temp Pulse Resp BP Pulse Ox 97.6 F 68 18 135/65 98 03/18/17 16:39 03/18/17 16:39 03/18/17 16:39 03/18/17 16:39 03/18/17 16:39 EXAM: HEENT: Right facial palsy LUNGS: Clear HEART: S1, S2 ABDOMEN: Soft NEUROLOGIC: Increased tone RLE and RUE; Aphasic; some movement at right ankle and knee but nothing functional in arm ASSESSMENT/PLAN: 1. 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 Dysphagia: Pureed consistencies, nectar thick liquids 3. Seizure Disorder: Keppra/Zonegran 4. Spasms: Robaxin PRN 5. DVT Prophylaxis: Heparin S/Q. TEDs 6. Code Status: full code. 7. 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 Dry eyes: Natural tears 10: Disposition: TBD
[2017-03-19] MEDS: Artificial Tears* 15 ML BTL BOTH EYES PRN ×3 (02:08→15:55)
[2017-03-19] MEDS: Levothyroxine TAB* 50 MCG TAB PO SCH (05:40)
[2017-03-19] MEDS: Heparin VIAL(*) 5000 UNITS/ML VIAL (FIVE THOUSAND) SUBCUT SCH ×3 (05:40→21:01)
[2017-03-19] MEDS: Clopidogrel TAB* 75 MG PO SCH (08:22)
[2017-03-19] MEDS: FLUoxetine CAP* 20 MG PO SCH (08:22)
[2017-03-19] MEDS: CMCS: Zonisamide (NF) 50 MG CAP PO SCH ×2 (08:22→21:17)
[2017-03-19] MEDS: Timolol 0.5% OPTH.SOL* BTL BOTH EYES SCH ×2 (08:22→21:01)
[2017-03-19] MEDS: Docusate CAP* 100 MG PO SCH ×2 (08:23→20:59)
[2017-03-19] MEDS: levETIRAcetam TAB* 500 MG PO SCH ×2 (08:23→20:59)
[2017-03-19] MEDS: Aspirin Low Dose CHEW TAB* 81 MG PO SCH (08:23)
--- NOTE | 2017-03-19 13:45 | PN ---
Progress Note - Progress Note Date of Service: 03/19/17 Note: Minda visited. She has few complaints today. Therapy notes read and reviewed. Speech is slowly improving. Current Medications Acetaminophen (Tylenol Tab*) 650 mg PO Q6H PRN PRN Reason: FEVER/PAIN Last Admin: 03/18/17 16:09 Dose: 650 mg Al Hydrox/Mg Hydrox/Simethicone (Maalox Plus*) 30 ml PO Q6H PRN PRN Reason: DYSPEPSIA Last Admin: 03/16/17 19:17 Dose: 30 ml Aspirin (Aspirin Low Dose Tab*) 81 mg PO DAILY [facility] Last Admin: 03/19/17 08:23 Dose: 81 mg Atorvastatin Calcium (Lipitor*) 80 mg PO 1700 [facility] Last Admin: 03/18/17 16:09 Dose: 80 mg Clopidogrel Bisulfate (Plavix Tab*) 75 mg PO DAILY [facility] Last Admin: 03/19/17 08:22 Dose: 75 mg Docusate Sodium (Colace Cap*) 100 mg PO BID [facility] Last Admin: 03/19/17 08:23 Dose: 100 mg Fluoxetine HCl (Prozac Cap*) 20 mg PO DAILY [facility] Last Admin: 03/19/17 08:22 Dose: 20 mg Heparin Sodium (Porcine) (Heparin Vial(*)) 5,000 units SUBCUT Q8HR [facility] Last Admin: 03/19/17 05:40 Dose: 5,000 units Levetiracetam (Keppra Tab*) 1,500 mg PO BID [facility] Last Admin: 03/19/17 08:23 Dose: 1,500 mg Levothyroxine Sodium (Synthroid Tab*) 50 mcg PO DAILY@0600 [facility] Last Admin: 03/19/17 05:40 Dose: 50 mcg Magnesium Hydroxide (Milk Of Magnesia Liq*) 30 ml PO Q6H PRN PRN Reason: CONSTIPATION Methocarbamol (Robaxin Tab*) 750 mg PO Q6H PRN PRN Reason: SPASMS Polyethylene Glycol/Electrolytes (Miralax*) 17 gm PO DAILY PRN PRN Reason: CONSTIPATION Polyvinyl Alcohol (Polyvinyl Alcohol 1.4% Opth*) 1 drop BOTH EYES Q2H PRN PRN Reason: DRY EYE Last Admin: 03/19/17 05:51 Dose: 1 applic Senna (Senokot Tab*) 2 tab PO BEDTIME PRN PRN Reason: CONSTIPATION Last Admin: 02/26/17 20:27 Dose: 2 tab Timolol Maleate (Timoptic 0.5% Opth*) 1 drop BOTH EYES BID [facility] Last Admin: 03/19/17 08:22 Dose: 1 drop Zonisamide (Zonegran (Nf)) 100 mg PO BID [facility] Last Admin: 03/19/17 08:22 Dose: 100 mg Vital Signs Temp Pulse Resp BP Pulse Ox 98.1 F 60 16 118/54 100 03/19/17 05:36 03/19/17 05:36 03/19/17 05:36 03/19/17 05:36 03/19/17 08:00 EXAM: HEENT: Right facial palsy LUNGS: Clear HEART: S1, S2 ABDOMEN: Soft NEUROLOGIC: Increased tone RLE and RUE; Aphasic; some movement at right ankle and knee but nothing functional in arm ASSESSMENT/PLAN: 1. 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 Dysphagia: Pureed consistencies, nectar thick liquids 3. Seizure Disorder: Keppra/Zonegran 4. Spasms: Robaxin PRN 5. DVT Prophylaxis: Heparin S/Q. TEDs 6. Code Status: full code. 7. 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 Dry eyes: Natural tears 10: Disposition: TBD
[2017-03-19] MEDS: Atorvastatin* 80 MG TAB PO SCH (16:48)
[2017-03-20] MEDS: Levothyroxine TAB* 50 MCG TAB PO SCH (04:17)
[2017-03-20] MEDS: Artificial Tears* 15 ML BTL BOTH EYES PRN (04:19)
[2017-03-20] MEDS: Heparin VIAL(*) 5000 UNITS/ML VIAL (FIVE THOUSAND) SUBCUT SCH ×3 (04:29→21:41)
[2017-03-20] MEDS: levETIRAcetam TAB* 500 MG PO SCH ×2 (08:46→21:36)
[2017-03-20] MEDS: Docusate CAP* 100 MG PO SCH ×2 (08:47→21:36)
[2017-03-20] MEDS: Aspirin Low Dose CHEW TAB* 81 MG PO SCH (08:47)
[2017-03-20] MEDS: FLUoxetine CAP* 20 MG PO SCH (08:48)
[2017-03-20] MEDS: Clopidogrel TAB* 75 MG PO SCH (08:48)
[2017-03-20] MEDS: CMCS: Zonisamide (NF) 50 MG CAP PO SCH ×2 (08:48→21:38)
[2017-03-20] MEDS: Timolol 0.5% OPTH.SOL* BTL BOTH EYES SCH ×2 (08:49→21:39)
--- NOTE | 2017-03-20 15:18 | PN ---
Progress Note - Progress Note Date of Service: 03/20/17 Note: Minda visited. Nursing notes read and reviewed. She seems to have had better success today on the commode. Otherwise, no complaints. Current Medications Acetaminophen (Tylenol Tab*) 650 mg PO Q6H PRN PRN Reason: FEVER/PAIN Last Admin: 03/18/17 16:09 Dose: 650 mg Al Hydrox/Mg Hydrox/Simethicone (Maalox Plus*) 30 ml PO Q6H PRN PRN Reason: DYSPEPSIA Last Admin: 03/16/17 19:17 Dose: 30 ml Aspirin (Aspirin Low Dose Tab*) 81 mg PO DAILY [facility] Last Admin: 03/20/17 08:47 Dose: 81 mg Atorvastatin Calcium (Lipitor*) 80 mg PO 1700 [facility] Last Admin: 03/19/17 16:48 Dose: 80 mg Clopidogrel Bisulfate (Plavix Tab*) 75 mg PO DAILY [facility] Last Admin: 03/20/17 08:48 Dose: 75 mg Docusate Sodium (Colace Cap*) 100 mg PO BID [facility] Last Admin: 03/20/17 08:47 Dose: 100 mg Fluoxetine HCl (Prozac Cap*) 20 mg PO DAILY [facility] Last Admin: 03/20/17 08:48 Dose: 20 mg Heparin Sodium (Porcine) (Heparin Vial(*)) 5,000 units SUBCUT Q8HR [facility] Last Admin: 03/20/17 14:46 Dose: 5,000 units Levetiracetam (Keppra Tab*) 1,500 mg PO BID [facility] Last Admin: 03/20/17 08:46 Dose: 1,500 mg Levothyroxine Sodium (Synthroid Tab*) 50 mcg PO DAILY@0600 [facility] Last Admin: 03/20/17 04:17 Dose: 50 mcg Magnesium Hydroxide (Milk Of Magnesia Liq*) 30 ml PO Q6H PRN PRN Reason: CONSTIPATION Methocarbamol (Robaxin Tab*) 750 mg PO Q6H PRN PRN Reason: SPASMS Polyethylene Glycol/Electrolytes (Miralax*) 17 gm PO DAILY PRN PRN Reason: CONSTIPATION Polyvinyl Alcohol (Polyvinyl Alcohol 1.4% Opth*) 1 drop BOTH EYES Q2H PRN PRN Reason: DRY EYE Last Admin: 03/20/17 04:19 Dose: 1 applic Senna (Senokot Tab*) 2 tab PO BEDTIME PRN PRN Reason: CONSTIPATION Last Admin: 02/26/17 20:27 Dose: 2 tab Timolol Maleate (Timoptic 0.5% Opth*) 1 drop BOTH EYES BID [facility] Last Admin: 03/20/17 08:49 Dose: 1 drop Zonisamide (Zonegran (Nf)) 100 mg PO BID [facility] Last Admin: 03/20/17 08:48 Dose: 100 mg Vital Signs Temp Pulse Resp BP Pulse Ox 98.9 F 67 18 121/43 98 03/20/17 05:03 03/20/17 05:03 03/20/17 05:03 03/20/17 05:03 03/20/17 08:00 EXAM: HEENT: Right facial palsy LUNGS: Clear HEART: S1, S2 ABDOMEN: Soft NEUROLOGIC: Increased tone RLE and RUE; Aphasic; some movement at right ankle and knee but nothing functional in arm ASSESSMENT/PLAN: 1. 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 Dysphagia: Pureed consistencies, nectar thick liquids 3. Seizure Disorder: Keppra/Zonegran 4. Spasms: Robaxin PRN 5. DVT Prophylaxis: Heparin S/Q. TEDs 6. Code Status: full code. 7. 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 Dry eyes: Natural tears 10: Disposition: TBD
[2017-03-20] MEDS: Atorvastatin* 80 MG TAB PO SCH (17:56)
[2017-03-21] MEDS: Artificial Tears* 15 ML BTL BOTH EYES PRN ×3 (01:54→21:10)
[2017-03-21] MEDS: Levothyroxine TAB* 50 MCG TAB PO SCH (05:31)
[2017-03-21] MEDS: Heparin VIAL(*) 5000 UNITS/ML VIAL (FIVE THOUSAND) SUBCUT SCH ×3 (05:33→20:55)
[2017-03-21] MEDS: Docusate CAP* 100 MG PO SCH ×2 (08:38→19:33)
[2017-03-21] MEDS: levETIRAcetam TAB* 500 MG PO SCH ×2 (08:38→19:37)
[2017-03-21] MEDS: Clopidogrel TAB* 75 MG PO SCH (08:38)
[2017-03-21] MEDS: FLUoxetine CAP* 20 MG PO SCH (08:38)
[2017-03-21] MEDS: CMCS: Zonisamide (NF) 50 MG CAP PO SCH ×2 (08:38→19:37)
[2017-03-21] MEDS: Aspirin Low Dose CHEW TAB* 81 MG PO SCH (08:38)
[2017-03-21] MEDS: Timolol 0.5% OPTH.SOL* BTL BOTH EYES SCH ×2 (08:39→19:40)
--- NOTE | 2017-03-21 16:04 | PN ---
Progress Note - Progress Note Date of Service: 03/21/17 Note: Minda visited. Therapy notes read and reviewed. She is having family training today and is finding it is a lot of work. May need to look at subacutes. Current Medications Acetaminophen (Tylenol Tab*) 650 mg PO Q6H PRN PRN Reason: FEVER/PAIN Last Admin: 03/18/17 16:09 Dose: 650 mg Al Hydrox/Mg Hydrox/Simethicone (Maalox Plus*) 30 ml PO Q6H PRN PRN Reason: DYSPEPSIA Last Admin: 03/16/17 19:17 Dose: 30 ml Aspirin (Aspirin Low Dose Tab*) 81 mg PO DAILY [facility] Last Admin: 03/21/17 08:38 Dose: 81 mg Atorvastatin Calcium (Lipitor*) 80 mg PO 1700 [facility] Last Admin: 03/20/17 17:56 Dose: 80 mg Clopidogrel Bisulfate (Plavix Tab*) 75 mg PO DAILY [facility] Last Admin: 03/21/17 08:38 Dose: 75 mg Docusate Sodium (Colace Cap*) 100 mg PO BID [facility] Last Admin: 03/21/17 08:38 Dose: 100 mg Fluoxetine HCl (Prozac Cap*) 20 mg PO DAILY [facility] Last Admin: 03/21/17 08:38 Dose: 20 mg Heparin Sodium (Porcine) (Heparin Vial(*)) 5,000 units SUBCUT Q8HR [facility] Last Admin: 03/21/17 14:06 Dose: 5,000 units Levetiracetam (Keppra Tab*) 1,500 mg PO BID [facility] Last Admin: 03/21/17 08:38 Dose: 1,500 mg Levothyroxine Sodium (Synthroid Tab*) 50 mcg PO DAILY@0600 [facility] Last Admin: 03/21/17 05:31 Dose: 50 mcg Magnesium Hydroxide (Milk Of Magnesia Liq*) 30 ml PO Q6H PRN PRN Reason: CONSTIPATION Methocarbamol (Robaxin Tab*) 750 mg PO Q6H PRN PRN Reason: SPASMS Polyethylene Glycol/Electrolytes (Miralax*) 17 gm PO DAILY PRN PRN Reason: CONSTIPATION Polyvinyl Alcohol (Polyvinyl Alcohol 1.4% Opth*) 1 drop BOTH EYES Q2H PRN PRN Reason: DRY EYE Last Admin: 03/21/17 01:54 Dose: 1 applic Senna (Senokot Tab*) 2 tab PO BEDTIME PRN PRN Reason: CONSTIPATION Last Admin: 02/26/17 20:27 Dose: 2 tab Timolol Maleate (Timoptic 0.5% Opth*) 1 drop BOTH EYES BID [facility] Last Admin: 03/21/17 08:39 Dose: 1 drop Zonisamide (Zonegran (Nf)) 100 mg PO BID [facility] Last Admin: 03/21/17 08:38 Dose: 100 mg Vital Signs Temp Pulse Resp BP Pulse Ox 98.8 F 66 16 116/58 95 03/21/17 05:32 03/21/17 05:32 03/21/17 05:32 03/21/17 05:32 03/21/17 08:45 EXAM: HEENT: Right facial palsy LUNGS: Clear HEART: S1, S2 ABDOMEN: Soft NEUROLOGIC: Increased tone RLE and RUE; Aphasic; some movement at right ankle and knee but nothing functional in arm ASSESSMENT/PLAN: 1. 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 Dysphagia: Pureed consistencies, nectar thick liquids 3. Seizure Disorder: Keppra/Zonegran 4. Spasms: Robaxin PRN 5. DVT Prophylaxis: Heparin S/Q. TEDs 6. Code Status: full code. 7. 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 Dry eyes: Natural tears 10: Disposition: TBD
[2017-03-21] MEDS: Atorvastatin* 80 MG TAB PO SCH (17:32)
[2017-03-21] MEDS: Acetaminophen TAB* 325 MG PO PRN (19:18)
[2017-03-22] MEDS: Artificial Tears* 15 ML BTL BOTH EYES PRN ×2 (00:23→07:15)
[2017-03-22] MEDS: Heparin VIAL(*) 5000 UNITS/ML VIAL (FIVE THOUSAND) SUBCUT SCH ×3 (06:06→21:32)
[2017-03-22] MEDS: Levothyroxine TAB* 50 MCG TAB PO SCH (06:07)
[2017-03-22] MEDS: Timolol 0.5% OPTH.SOL* BTL BOTH EYES SCH ×2 (09:04→21:34)
[2017-03-22] MEDS: CMCS: Zonisamide (NF) 50 MG CAP PO SCH ×2 (09:05→21:32)
[2017-03-22] MEDS: Clopidogrel TAB* 75 MG PO SCH (09:06)
[2017-03-22] MEDS: Docusate CAP* 100 MG PO SCH ×2 (09:06→21:33)
[2017-03-22] MEDS: Aspirin Low Dose CHEW TAB* 81 MG PO SCH (09:06)
[2017-03-22] MEDS: FLUoxetine CAP* 20 MG PO SCH (09:06)
[2017-03-22] MEDS: levETIRAcetam TAB* 500 MG PO SCH ×2 (09:06→21:33)
--- NOTE | 2017-03-22 12:28 | PMRUTEAM ---
PMRU: Goals Current Status: Nursing: Current Status Skin Deviations [NO skin Other issues] Skin Deviations [Right Hand] Other Skin Deviations [Back] Other Skin Deviations [Right Knee] Abrasion Skin Deviation Description [NO no skin issues skin issues] Skin Deviation Description [ ISOtoner glove on Right Hand] Skin Deviation Description [ no skin issues noted at this time. Back] Skin Deviation Description [ scabbed Right Knee] Bladder Current Status Toileting schedule, pt incontinent, often rings to tell us she needs to use toilet but is then already wet Bowel Current Status bm 03/21/17, taking routine bowel meds Nutrition Current Status adequate Medication Current Status meds whole in pudding/applesauce Physical Therapy: Current Status Bed Mobility Assistance Not Tested Transfer Moblility Assistance Contact Guard Assist,Min Assist,Mod Assist Transfer/Bed Mobility None Recommended Devices Transfer Mobility Comment mod A x 1 for SPT. Ambulation Assistance Contact Guard Assist,Min Assist Ambulation Assistive Devices Enzo Walker Number of Feet Patient 30' x 2 Ambulated Ambulation Comment 30' with cardiac walker min a x 1. Stairs Assistance Not Tested Stairs Recommended Devices One Rail Number of Stairs 3 Curb Not Tested Objective Comments Pt. was see in OT for 75 min by OT Kadi. Occupational Therapy: Current Status Upper Body Dressing Mod Assist Lower Body Dressing Max Asst Bathing Mod Assist,Max Asst Toileting Mod Assist,Max Asst Toilet Transfer Min Assist Shower Transfer Min Assist,Mod Assist,2 Person Assist Eating Independent Rec Therapy: Current Status Summary of Assessment and RT assessment complete and pt. is aware of RT Clinical Impression services. Pt. has been polite in visits and has leisure activities for her room to engage in. Con 't to encourage RT groups and leisure sessions. Treatment Goals Pt. will engage in leisure activities while on the unit. Treatment Plan Provide RT services and encourage involvement. Social Work: Current Status Discharge Plan return home with home care svs and family support Potential for Family Training pt's is involved and attentive Anticipated Discharge Home Destination Discharge With home care svs and family support Nutrition: Current Status Monitoring has consistently eaten very well (nearly 100% since adm 02/14). Eating independently w/ occasional assistance w/opening containers. Still requiring pureed solids, but was able to upgrade to nectar-thick liquids on 03/11. Working w/KELLY MACHINE OPERATOR toward goal of [facility] ground solids and perhaps thin liquids. Having daily BMs. Weekly labs have been unremarkable. Skin remains intact with low/mod risk for breakdown. Speech: Current Status Assessment Slow-progress of expressive language tasks including confrontational naming. She is easily self-distracted with poor re-direction, limiting success with therapy tasks. The patient will continue to benefit from skilled KELLY MACHINE OPERATOR services to increase safety, function, and independence of daily tasks. Goals: Physical Therapy: Initial Goals Bed Mobility Assistance Independent Transfer Mobility Assistance Independent Transfer/Bed Mobility Enzo Walker Recommended Devices Ambulation Independent Ambulation Recommended Devices Enzo Walker Ambulation Distance 150 Stairs Assistance Independent Stair Recommended Devices One Rail Number of Stairs 5 Physical Therapy: Updated Goals Bed Mobility Assistance Independent Transfer Mobility Assistance Independent Transfer/Bed Mobility None Recommended Devices Ambulation Assistance Independent Ambulation Assistive Devices Rolling Walker Ambulation Distance (ft) 150 Stairs Assistance Independent Stairs Recommended Devices Two Rails Number of Stairs 5 Occupational Therapy: Initial Goals Goals to be Completed in (Days 4-6 weeks ) Upper Body Bathing Routine Independent Lower Body Bathing Routine Modified Independent with Upper Body Dressing Routine Independent Lower Body Dressing Routine Modified Independent with Toilet Hygeine and Clothing Modified Independent with Management Routine Toilet Transfer Routine Modified Independent with Step-In Shower Transfer Supervision/Set Up Routine Functional Transfers for ADL Modified Independent with Grooming Routine Independent Feeding Routine Independent Nursing: Goals Bladder Goal independent with marco care and changing brief Bowel Goal continence Nutrition Goal adequate Medication Goal needs reinforcement. Nutrition: Goals Intervention Goals 1. adequate po intake to maintain stable weight, hydration, and lean body mass 2. pt will tolerate least-restrictive diet texture w/o s/sx of difficulty chewing/swallowing 3. skin will remain intact; no evidence of skin breakdown 4. maintain regulation of bowel pattern w/o constipation or diarrhea Speech: Goals Speech Goal 1 Dysphagia Speech Evaluation Status Goal puree, pudding-thick 1 Speech Current Status Goal 1 puree, nectar-thick Goal 1 Comments LTO: Patient will safely tolerate the least restrictive diet. ST) Patient will safely tolerate 10/10 trials of thin liquids without s/s of aspiration/penetration . Status: Patient safely tolerated 4 ounces of thin liquid via sip by cup without s/s of aspiration/ penetration. 2) Patient will safely tolerate 10/10 trials of mechanical ground solids without clinical s/s of oropharyngeal dysphagia. Status as of 03/21/17: The patient trialed a turkey sandwich with lettuce, tomato, mustard, and brizuela. The first half of the sandwich she only required minimal cueing to take small bites and not overstuff her mouth. She performed lingual sweeps to reduce oral stasis with only minimal cueing as well. However, as the meal progressed the patient demonstrated an increase in impulsivity while eating and ultimately required maximum verbal cues and the therapist to remove food from patient's hand so that she did not continue to overstuff her mouth and choke. 3) Patient will complete dysphagia exercises targeting lingual strength/coordination and hyolaryngeal excursion. Status: Not formally addressed this date. Ongoing. Speech Goal 2 Receptive Language Speech Goal 2 Evaluation yes/no: 60%; 2-step direction: 0% Status Speech Goal 2 Current Status See below Speech Goal 2 Comments LTO: Patient will increase receptive language skills. ST) Patient will answer yes/no questions with at least 90% accuracy over two-consecutive sessions. Status: Not specifically addressed this session. Ongoing. 2) Patient will following two-step directions with at least 90% accuracy. Status:Not specifically addressed this session. Ongoing. Speech Goal 3 Expressive Language Speech Goal 3 Evaluation approximations of two-words given [facility] Status Speech Goal 3 Current Status See below Speech Goal 3 Comments LTO: Patient will increase expressive language skills. ST) Patient will repeat phrases given model with melodic intonation, for 70% of the opportunities presented. Status: Confrontational naming task without melodic intonatoin: 40% accuracy, with an increase in time. Patient wrote the word with 80% accuracy, no cues. Patient completed sentences read by KELLY MACHINE OPERATOR with 80% accuracy. Cues for diaphragmatic breathing required. Status as of 03/19/17: Confrontational naming task, without melodic intonation, completed with 10% accuracy, no cues; improved to 70% accuracy with verbal prompt and/or starter phrase. Patient asked to complete rote expressive tasks; patient spontaneously asked, "What?" x1 when she did not hear request. Patient recited the alphabet A-S with 100% accuracy, no cues; however, T-Z were errored. Patient counted 0-30 with success from 1-29, no cues; required prompts to verbalize 0 and 30. Ongoing. 2) The patient will express basic wants/needs to this sports book writer and caregiver via alternative communiction approach (e.g. communication board). Status as of 03/19/17: Not specifically addressed this date; however, patient independently relaying needs, wants, and thoughts verbally with good success as long as utterances are 1-3 words in length. Her vocal volume and clarity continues to be variable; reducing intelligibility much of the time. The patient also writes in close to full sentences at this point with intermittent paraphasias; however, many times the patient can get her point across via writing as long as her conversational partner has patience. - Short term goal will be discharged as of , as per sports book writer's note on 03/19/17, the patient can communicate her point. Speech Goal 4 Motor Speech Speech Goal 4 Current Status See below Speech Goal 4 Comments LTO: To increase motor speech skills. ST) Patient will complete oral-motor exercises following model from KELLY MACHINE OPERATOR/caregiver/family member, for 80% for the opportunities presented. Status: Not directly targeted this date. *Patient continues to demonstrate low volume. She also demonstrates difficulty with breath support and coordination of respiration/phonation. Ongoing. Social Work: Goals Discharge Plan return home with home care svs and family support Potential for Family Training pt's is involved and attentive Anticipated Discharge Home Destination Discharge With home care svs and family support Care Plan: Care Plan ADL's - Improve/Maintain Start: 02/14/17 23:48 Freq: DAILY Status: Active Target: Protocol: Activity Type Activity Date Activity User E-Sign Co-Sign Detail Recorded Client Recorded Date Recorded By Document 03/18/17 11:39 [id number] 03/18/17 11:40 [id number] 03/18/17 11:39 PMRU Outcome: ADL's/ADL Transfers Orders/Interventions Occupational Therapy Evaluation & Treatment Communication Tool in Patient Room Patient to receive OT 5x/wk for 60-120 Therex min/day Self Care Management Group Therapy Neuromuscular ReEducation UE/LE ADL's with Assist Yes: mod A ADL Transfers with Assist Yes: min A Toileting: Transfers,Clothing Management Yes: min A ,Hygeine w/Assist transfers, mod A hygiene/ clothing mmgt Progression Toward Outcome/Goals Not Progressing Outcome/Goals Met Pt limited by wanting to write and draw in her notebook . More difficult to re -direct pt. Lack of functional gains. Family meeting planned for today at 13:30. Communication-Improve/Maintain Start: 02/14/17 17:06 Freq: DAILY Status: Active Target: Protocol: Activity Type Activity Date Activity User E-Sign Co-Sign Detail Recorded Client Recorded Date Recorded By Document 03/21/17 20:21 [id number] 03/21/17 20:22 [id number] 03/21/17 20:21 PMRU Outcome: Communication/Cognitive Status Outcome/Goals Use Comm Tools/ Devices Makes Needs Known Effectively Other Outcomes/Goals 1) Patient will follow answer yes/no questions with at least 90% accuracy over two-consecutive sessions. 2) Patient will following two- step directions with at least 90% accuracy. 3) Patient will repeat phrases given model with melodic intonation, for 70% of the opportunities presented. 4) The patient will express basic wants/ needs to this wrtier and caregiver via alternative communiction approach (e.g. communication board). 5) Patient will complete oral- motor exercises following model from KELLY MACHINE OPERATOR/ caregiver/ family member, for 80% for the opportunities presented. Progression Toward Outcomes/Goals Progressing Outcome/Goals Met Comment Patient named and identified bills with 100% accuracy without KIP; names of coins were named with 0% accuracy initially, followed by 100 % accuracy given an initial model. She accurately counted bills with 100% accuracy, and 0 % accuracy for coins. Coping/Psych-Improve/Maintain Start: 02/14/17 17:06 Freq: DAILY Status: Active Target: Protocol: Activity Type Activity Date Activity User E-Sign Co-Sign Detail Recorded Client Recorded Date Recorded By Document 03/22/17 10:29 [id number] 03/22/17 10:29 [id number] 03/22/17 10:29 PMRU Outcome: Coping/Psychosocial Coping Outcome/Goals Verbalization of Acceptance of Rehab Admit Verbalization of Sense of Control Over Health Status Utilization of Appropriate Problem Solving Techniques Willingness to Participate in Treatment Plan and Basic Needs Psychosocial Outcome/Goals Maintain/ Improve Emotional Health Demonstrates Knowledge of Healthy Coping Mechanisms Available Progression Toward Outcome/Goals - Progressing Coping Progression Toward Outcome/Goals - Progressing Psychosocial DVT Prophylaxis- Improve/Maintain Start: 02/14/17 17:06 Freq: DAILY Status: Active Target: Protocol: Activity Type Activity Date Activity User E-Sign Co-Sign Detail Recorded Client Recorded Date Recorded By Document 03/22/17 10:29 [id number] 03/22/17 10:29 [id number] 03/22/17 10:29 PMRU Outcome: DVT Prophylaxis Outcome/Goals Remains Free of DVT Free of complications from current DVT Complies with DVT Prophylaxis /Treatment TEDS Stockings on Every AM, Off at HS Progression Toward Outcome/Goals Progressing Discharge Planning - Improve/Maintain Start: 02/14/17 17:06 Freq: DAILY Status: Active Target: Protocol: Activity Type Activity Date Activity User E-Sign Co-Sign Detail Recorded Client Recorded Date Recorded By Document 03/22/17 10:29 [id number] 03/22/17 10:29 [id number] 03/22/17 10:29 PMRU Outcome: Discharge Planning Identify Patient Needs yes Update Patient Family No Outcome/Goals Demonstrates Understanding of Discharge Plan Progression Toward Outcome/Goals Progressing Education-Improve/Maintain Start: 02/14/17 23:48 Freq: DAILY Status: Active Target: Protocol: Activity Type Activity Date Activity User E-Sign Co-Sign Detail Recorded Client Recorded Date Recorded By Document 03/22/17 10:29 [id number] 03/22/17 10:29 [id number] 03/22/17 10:29 PMRU Outcome: Education Outcome/Goals Demonstrates Skills Progression Toward Outcome/Goals Progressing /GI-Improve/Maintain Start: 02/14/17 17:06 Freq: DAILY Status: Active Target: Protocol: Activity Type Activity Date Activity User E-Sign Co-Sign Detail Recorded Client Recorded Date Recorded By Document 03/22/17 10:29 [id number] 03/22/17 10:29 [id number] 03/22/17 10:29 PMRU Outcome: Genitourinary/ Gastrointestinal Genitourinary- Outcome/Goals Maintain/ Achieve Adequate Urinary Output Remain Free of Hospital- Acquired UTI Gastrointestinal-Outcome/Goals Maintain/ Achieve Bowel Regularity in Accordance with Pt's Baseline Remain Free of Emesis Prevent Constipation Laxatives as Ordered Progression Toward Outcome/Goals - Progressing Progression Toward Outcome/Goals - GI Progressing Mobility- Improve/Maintain Start: 02/14/17 23:48 Freq: DAILY Status: Active Target: Protocol: Activity Type Activity Date Activity User E-Sign Co-Sign Detail Recorded Client Recorded Date Recorded By Document 03/22/17 10:50 [id number] 03/22/17 10:50 [id number] 03/22/17 10:50 PMRU Outcome: Mobility Physical Therapy Evaluation and Yes Treatment Activity OOB with Assistance Yes WBAT Yes Device Yes Assistance Yes Patient to be seen 5x/wk for 60-120 min/ Therex day for: Mobility Training Gait Training W/C Mobility Balance Outcome/Goals Maintain/ Achieve Baseline Mobility Status Improve Mobility Status Demonstrates Proper Use of Assistive Devices Free from Complications of Immobility Progression Toward Outcome/Goals Progressing Bed Mobility Yes: independent Transfers Yes: independent with hemiwalker Gait x ft Yes: independent with hemiwalker 150' Up/Down Stairs Yes: inependent with 1 rail up /down 5 stairs Neurological- Improve/Maintain Start: 02/14/17 17:06 Freq: DAILY Status: Active Target: Protocol: Activity Type Activity Date Activity User E-Sign Co-Sign Detail Recorded Client Recorded Date Recorded By Document 03/22/17 10:29 [id number] 03/22/17 10:29 [id number] 03/22/17 10:29 PMRU Outcome: Neurological Weakness/Aphasia Weakness Aphasia Right Side Outcome/Goals Maintain/ Achieve Baseline Neurological Status Improve Neurological Status Maintain/ Improve Strength/ROM Progression Toward Outcome/Goals Progressing Nutrition/Swallowing- Improve/Maintain Start: 02/14/17 17:06 Freq: DAILY Status: Active Target: Protocol: Activity Type Activity Date Activity User E-Sign Co-Sign Detail Recorded Client Recorded Date Recorded By Document 03/22/17 00:57 [id number] 03/22/17 00:58 [id number] 03/22/17 00:57 PMRU Outcome: Nutrition/Swallowing Outcome/Goals Demonstrates Adequate Hydration/ Prevents Dehydration Maintain/ Improve Nutritional Status Other Progression Toward Outcome/Goals Progressing Outcome/Goals Met Comment Taking nectar thick liquids well. Pain/Comfort- Improve/Maintain Start: 02/14/17 17:06 Freq: DAILY Status: Complete Target: Protocol: Activity Type Activity Date Activity User E-Sign Co-Sign Detail Recorded Client Recorded Date Recorded By Document 03/18/17 10:00 [id number] 03/18/17 13:53 [id number] 03/18/17 10:00 PMRU Outcome: Pain/Comfort Outcome/Goals Maintain Comfort Level Allowing Patient to Fully Participate in Rehab Progression Toward Outcome/Goals Progressing Outcome/Goals Met Comment no c/o pain Respiratory - Improve/Maintain Start: 02/14/17 17:06 Freq: DAILY Status: Active Target: Protocol: Activity Type Activity Date Activity User E-Sign Co-Sign Detail Recorded Client Recorded Date Recorded By Document 03/22/17 10:29 [id number] [id number] 03/22/17 10:29 [id number] 03/22/17 10:29 PMRU Outcome: Respiratory Does Patient Have a Trach No Outcome/Goals Maintain/ Improve O2 Sat per MD Order Maintain/ Improve Baseline Respiratory Status Maintain/ Improve Activity Tolerance Prevent Pneumonia/ Atelectasis Progression Toward Outcome/Goals Progressing Safety- Improve/Maintain Start: 02/14/17 17:06 Freq: DAILY Status: Active Target: Protocol: Activity Type Activity Date Activity User E-Sign Co-Sign Detail Recorded Client Recorded Date Recorded By Document 03/22/17 10:29 [id number] [id number] 03/22/17 10:29 [id number] 03/22/17 10:29 PMRU Outcome: Safety Outcome/Goals Remain Free of Injury or Harm Cooperates with Safety Measures for Least Restrictive Environment Prevent Falls/ Injury Progression Toward Outcome/Goals Progressing Outcome/Goals Met Comment PA in place Skin- Improve/Maintain Start: 02/14/17 17:06 Freq: DAILY Status: Active Target: Protocol: Activity Type Activity Date Activity User E-Sign Co-Sign Detail Recorded Client Recorded Date Recorded By Document 03/22/17 10:29 [id number] [id number] 03/22/17 10:29 [id number] 03/22/17 10:29 PMRU Outcome: Skin Skin Risk Level High Outcome/Goals Maintain/ Improve Skin Intergrity Free from Decubitus Progression Toward Outcome/Goals Progressing Medicine Note: Length of Stay: 2-5 days Anticipated Discharge Destination: Home Tentative Discharge Date: TBD Discharged to: Likely SNF
--- NOTE | 2017-03-22 16:38 | PN ---
Progress Note - Progress Note Date of Service: 03/22/17 Note: Minda visited. She was discussed in interdisciplinary team rounds. After family training yesterday, her acknowledges he cannot care for her at home even with supplemental help and that Minda will go to a subacute Current Medications Acetaminophen (Tylenol Tab*) 650 mg PO Q6H PRN PRN Reason: FEVER/PAIN Last Admin: 03/21/17 19:18 Dose: 650 mg Al Hydrox/Mg Hydrox/Simethicone (Maalox Plus*) 30 ml PO Q6H PRN PRN Reason: DYSPEPSIA Last Admin: 03/16/17 19:17 Dose: 30 ml Aspirin (Aspirin Low Dose Tab*) 81 mg PO DAILY [facility] Last Admin: 03/22/17 09:06 Dose: 81 mg Atorvastatin Calcium (Lipitor*) 80 mg PO 1700 [facility] Last Admin: 03/21/17 17:32 Dose: 80 mg Clopidogrel Bisulfate (Plavix Tab*) 75 mg PO DAILY [facility] Last Admin: 03/22/17 09:06 Dose: 75 mg Docusate Sodium (Colace Cap*) 100 mg PO BID [facility] Last Admin: 03/22/17 09:06 Dose: 100 mg Fluoxetine HCl (Prozac Cap*) 20 mg PO DAILY [facility] Last Admin: 03/22/17 09:06 Dose: 20 mg Heparin Sodium (Porcine) (Heparin Vial(*)) 5,000 units SUBCUT Q8HR [facility] Last Admin: 03/22/17 13:16 Dose: 5,000 units Levetiracetam (Keppra Tab*) 1,500 mg PO BID [facility] Last Admin: 03/22/17 09:06 Dose: 1,500 mg Levothyroxine Sodium (Synthroid Tab*) 50 mcg PO DAILY@0600 [facility] Last Admin: 03/22/17 06:07 Dose: 50 mcg Magnesium Hydroxide (Milk Of Magnesia Liq*) 30 ml PO Q6H PRN PRN Reason: CONSTIPATION Methocarbamol (Robaxin Tab*) 750 mg PO Q6H PRN PRN Reason: SPASMS Polyethylene Glycol/Electrolytes (Miralax*) 17 gm PO DAILY PRN PRN Reason: CONSTIPATION Polyvinyl Alcohol (Polyvinyl Alcohol 1.4% Opth*) 1 drop BOTH EYES Q2H PRN PRN Reason: DRY EYE Last Admin: 11/28/17 07:15 Dose: 1 applic Senna (Senokot Tab*) 2 tab PO BEDTIME PRN PRN Reason: CONSTIPATION Last Admin: 02/26/17 20:27 Dose: 2 tab Timolol Maleate (Timoptic 0.5% Opth*) 1 drop BOTH EYES BID [facility] Last Admin: 03/22/17 09:04 Dose: 1 drop Zonisamide (Zonegran (Nf)) 100 mg PO BID [facility] Last Admin: 03/22/17 09:05 Dose: 100 mg Vital Signs Temp Pulse Resp BP Pulse Ox 97.6 F 59 17 128/50 100 03/22/17 06:02 03/22/17 06:02 03/22/17 06:02 03/22/17 06:02 03/22/17 09:12 EXAM: HEENT: Right facial palsy LUNGS: Clear HEART: S1, S2 ABDOMEN: Soft NEUROLOGIC: Increased tone RLE and RUE; Aphasic; some movement at right ankle and knee but nothing functional in arm ASSESSMENT/PLAN: 1. 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 Dysphagia: Pureed consistencies, nectar thick liquids 3. Seizure Disorder: Keppra/Zonegran 4. Spasms: Robaxin PRN 5. DVT Prophylaxis: Heparin S/Q. TEDs 6. Code Status: full code. 7. 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 Dry eyes: Natural tears 10: Disposition: TBD, [facility] likely go to [facility]
[2017-03-22] MEDS: Atorvastatin* 80 MG TAB PO SCH (17:20)
[2017-03-23] MEDS: Artificial Tears* 15 ML BTL BOTH EYES PRN ×3 (03:49→23:36)
[2017-03-23] MEDS: Levothyroxine TAB* 50 MCG TAB PO SCH (05:38)
[2017-03-23] MEDS: Heparin VIAL(*) 5000 UNITS/ML VIAL (FIVE THOUSAND) SUBCUT SCH ×3 (05:38→23:30)
[2017-03-23] MEDS: Timolol 0.5% OPTH.SOL* BTL BOTH EYES SCH ×2 (09:09→23:51)
[2017-03-23] MEDS: CMCS: Zonisamide (NF) 50 MG CAP PO SCH ×2 (09:11→23:51)
[2017-03-23] MEDS: levETIRAcetam TAB* 500 MG PO SCH ×2 (09:12→23:42)
[2017-03-23] MEDS: Aspirin Low Dose CHEW TAB* 81 MG PO SCH (09:12)
[2017-03-23] MEDS: FLUoxetine CAP* 20 MG PO SCH (09:12)
[2017-03-23] MEDS: Docusate CAP* 100 MG PO SCH ×2 (09:12→23:42)
[2017-03-23] MEDS: Clopidogrel TAB* 75 MG PO SCH (09:12)
[2017-03-23] MEDS: Acetaminophen TAB* 325 MG PO PRN (09:13)
--- NOTE | 2017-03-23 16:28 | PN ---
Progress Note - Progress Note Date of Service: 03/23/17 Note: Minda visited. Therapy notes read and reviewed. Minda has a bed offer at [facility] for tomorrow. Current Medications Acetaminophen (Tylenol Tab*) 650 mg PO Q6H PRN PRN Reason: FEVER/PAIN Last Admin: 03/23/17 09:13 Dose: 650 mg Al Hydrox/Mg Hydrox/Simethicone (Maalox Plus*) 30 ml PO Q6H PRN PRN Reason: DYSPEPSIA Last Admin: 03/16/17 19:17 Dose: 30 ml Aspirin (Aspirin Low Dose Tab*) 81 mg PO DAILY [facility] Last Admin: 03/23/17 09:12 Dose: 81 mg Atorvastatin Calcium (Lipitor*) 80 mg PO 1700 [facility] Last Admin: 03/22/17 17:20 Dose: 80 mg Clopidogrel Bisulfate (Plavix Tab*) 75 mg PO DAILY [facility] Last Admin: 03/23/17 09:12 Dose: 75 mg Docusate Sodium (Colace Cap*) 100 mg PO BID [facility] Last Admin: 03/23/17 09:12 Dose: 100 mg Fluoxetine HCl (Prozac Cap*) 20 mg PO DAILY [facility] Last Admin: 03/23/17 09:12 Dose: 20 mg Heparin Sodium (Porcine) (Heparin Vial(*)) 5,000 units SUBCUT Q8HR [facility] Last Admin: 03/23/17 15:42 Dose: 5,000 units Levetiracetam (Keppra Tab*) 1,500 mg PO BID [facility] Last Admin: 03/23/17 09:12 Dose: 1,500 mg Levothyroxine Sodium (Synthroid Tab*) 50 mcg PO DAILY@0600 [facility] Last Admin: 03/23/17 05:38 Dose: 50 mcg Magnesium Hydroxide (Milk Of Magnesia Liq*) 30 ml PO Q6H PRN PRN Reason: CONSTIPATION Methocarbamol (Robaxin Tab*) 750 mg PO Q6H PRN PRN Reason: SPASMS Polyethylene Glycol/Electrolytes (Miralax*) 17 gm PO DAILY PRN PRN Reason: CONSTIPATION Polyvinyl Alcohol (Polyvinyl Alcohol 1.4% Opth*) 1 drop BOTH EYES Q2H PRN PRN Reason: DRY EYE Last Admin: 03/23/17 11:50 Dose: 1 applic Senna (Senokot Tab*) 2 tab PO BEDTIME PRN PRN Reason: CONSTIPATION Last Admin: 02/26/17 20:27 Dose: 2 tab Timolol Maleate (Timoptic 0.5% Opth*) 1 drop BOTH EYES BID [facility] Last Admin: 03/23/17 09:09 Dose: 1 drop Zonisamide (Zonegran (Nf)) 100 mg PO BID [facility] Last Admin: 03/23/17 09:11 Dose: 100 mg Vital Signs Temp Pulse Resp BP Pulse Ox 98.6 F 80 16 126/64 98 03/23/17 05:40 03/23/17 05:40 03/23/17 05:40 03/23/17 05:40 03/23/17 05:40 EXAM: HEENT: Right facial palsy LUNGS: Clear HEART: S1, S2 ABDOMEN: Soft NEUROLOGIC: Increased tone RLE and RUE; Aphasic; some movement at right ankle and knee but nothing functional in arm ASSESSMENT/PLAN: 1. 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 Dysphagia: Pureed consistencies, nectar thick liquids 3. Seizure Disorder: Keppra/Zonegran 4. Spasms: Robaxin PRN 5. DVT Prophylaxis: Heparin S/Q. TEDs 6. Code Status: full code. 7. 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 Dry eyes: Natural tears 10: Disposition: TBD, will likely go to [facility] tomorrow
[2017-03-23] MEDS: Atorvastatin* 80 MG TAB PO SCH (16:31)
[2017-03-24] MEDS: Artificial Tears* 15 ML BTL BOTH EYES PRN ×2 (01:30→06:24)
[2017-03-24] MEDS: Heparin VIAL(*) 5000 UNITS/ML VIAL (FIVE THOUSAND) SUBCUT SCH (06:26)
[2017-03-24] MEDS: Levothyroxine TAB* 50 MCG TAB PO SCH (06:26)
--- NOTE | 2017-03-24 07:41 | TRS ---
CC: Keshawn Ladd* TRANSFER SUMMARY: DATE OF ADMISSION: 02/14/17 DATE OF DISCHARGE: 03/24/17 DISCHARGE DIAGNOSES: 1. Stroke with right hemiplegia. 2. Aphasia. 3. Seizure disorder. 4. Hypothyroidism. 5. Glaucoma. 6. Hematuria, resolved. HISTORY OF ILLNESS AND HOSPITAL COURSE: For a complete history of the events leading up to her rehab stay, please see the history and physical dictated by me on 02/14/17. While on the rehab unit, Becki initially had developed hematuria which she had had on the acute service. It is unclear if this resulted from a Hall insertion, but it seems to be likely. The hematuria was felt to be secondary to Lovenox, which she was on for DVT prophylaxis. This was stopped. Later she was put on heparin for DVT prophylaxis. No further episodes of hematuria occurred. The patient finished up treatment for an aspiration pneumonia while on the rehab unit. The patient was put on Prozac in an attempt to foster neuronal recovery. The patient seemed to do better while on Prozac. The patient was maintained on Plavix and aspirin for secondary stroke prevention. This should continue indefinitely. The patient was seen by Physical Therapy, Occupational Therapy, and Speech Therapy while on the unit. She made gains in all disciplines. With physical therapy, at the time of admission, the patient required moderate amount of assistance to do a transfer. She was unable to ambulate. With occupational therapy, at the time of admission, the patient required total assistance for lower body dressing, max assist for upper body dressing, total assistance for bathing, total assistance for toileting, moderate amount of assistance of 2 people for toilet transfer. By the time of discharge, the patient remained max assist for lower body dressing and moderate assist for upper body dressing. Toileting varied from moderate to max assist and toilet transfers with moderate amount of assistance. With physical therapy at the time of discharge, the patient was able to ambulate up to 50 feet with a samuel walker and contact guard. Her functional status did vary depending on her fatigue level. The patient also was seen by Speech Therapy. Initially, she was on a pureed diet, with pudding thick liquids. This was upgraded to honey thick during her treatment sessions and later upgraded to nectar thick. The patient's verbal output and her understanding of language remained limited. At the time of discharge she was still only 60% accurate with yes/no questions. She had approximations of 2 words noted at times, but usually only monosyllables. The patient's came in for family training prior to discharge. He realized he was not able to care for her at home. She is now going to be sent to [facility] in order to undergo continued rehab on a slightly slower scale that she might return to independent living. DISCHARGE DIET: Pureed with nectar thick liquids. DISCHARGE MEDICATIONS: 1. Aspirin 81 mg daily. 2. Lipitor 80 mg daily. 3. Plavix 75 mg daily. 4. Prozac 20 mg daily. 5. Keppra 1500 mg twice a day. 6. Synthroid 50 mcg daily. 7. Robaxin 750 mg every 6 hours as needed. 8. MiraLAX 17 g daily as needed. 9. Senokot 2 tablets at bedtime as needed. 10. Colace 100 mg twice a day. 11. Timoptic 1 drop both eyes twice a day. 12. Zonegran 100 mg twice daily. She should have restorative physical therapy, occupational therapy, and speech therapy. FOLLOWUP: The patient can follow up with her primary care doctor who is Dr. Rose Marie Beth. She can also follow up with Dr. Tod Stewart from Neurology as needed. [id number]/[facility] #: [id number] JR
--- NOTE | 2017-03-24 07:53 | PN ---
Progress Note - Progress Note Date of Service: 03/24/17 Note: I visited Minda this morning. No new events overnight. Acetaminophen (Tylenol Tab*) 650 mg PO Q6H PRN PRN Reason: FEVER/PAIN Last Admin: 03/23/17 09:13 Dose: 650 mg Al Hydrox/Mg Hydrox/Simethicone (Maalox Plus*) 30 ml PO Q6H PRN PRN Reason: DYSPEPSIA Last Admin: 03/16/17 19:17 Dose: 30 ml Aspirin (Aspirin Low Dose Tab*) 81 mg PO DAILY [facility] Last Admin: 03/23/17 09:12 Dose: 81 mg Atorvastatin Calcium (Lipitor*) 80 mg PO 1700 [facility] Last Admin: 03/23/17 16:31 Dose: 80 mg Clopidogrel Bisulfate (Plavix Tab*) 75 mg PO DAILY [facility] Last Admin: 03/23/17 09:12 Dose: 75 mg Docusate Sodium (Colace Cap*) 100 mg PO BID [facility] Last Admin: 03/23/17 23:42 Dose: Not Given Fluoxetine HCl (Prozac Cap*) 20 mg PO DAILY [facility] Last Admin: 03/23/17 09:12 Dose: 20 mg Heparin Sodium (Porcine) (Heparin Vial(*)) 5,000 units SUBCUT Q8HR [facility] Last Admin: 03/24/17 06:26 Dose: 5,000 units Levetiracetam (Keppra Tab*) 1,500 mg PO BID [facility] Last Admin: 03/23/17 23:42 Dose: Not Given Levothyroxine Sodium (Synthroid Tab*) 50 mcg PO DAILY@0600 [facility] Last Admin: 03/24/17 06:26 Dose: 50 mcg Magnesium Hydroxide (Milk Of Magnesia Liq*) 30 ml PO Q6H PRN PRN Reason: CONSTIPATION Methocarbamol (Robaxin Tab*) 750 mg PO Q6H PRN PRN Reason: SPASMS Polyethylene Glycol/Electrolytes (Miralax*) 17 gm PO DAILY PRN PRN Reason: CONSTIPATION Polyvinyl Alcohol (Polyvinyl Alcohol 1.4% Opth*) 1 drop BOTH EYES Q2H PRN PRN Reason: DRY EYE Last Admin: 03/24/17 06:24 Dose: 1 applic Senna (Senokot Tab*) 2 tab PO BEDTIME PRN PRN Reason: CONSTIPATION Last Admin: 02/26/17 20:27 Dose: 2 tab Timolol Maleate (Timoptic 0.5% Opth*) 1 drop BOTH EYES BID [facility] Last Admin: 03/23/17 23:51 Dose: Not Given Zonisamide (Zonegran (Nf)) 100 mg PO BID [facility] Last Admin: 03/23/17 23:51 Dose: Not Given Vital Signs Temp Pulse Resp BP Pulse Ox 99.0 F 64 16 112/54 100 03/23/17 18:14 03/23/17 18:14 03/23/17 18:14 03/23/17 18:14 03/23/17 18:14 EXAM: GEN: no acute distress. alert and appropriate with aphasia. HEENT: Right facial palsy LUNGS: Clear HEART: regular ABDOMEN: Soft, non-tender, non-distended. +BS NEUROLOGIC: Increased tone RLE and RUE; some movement at right ankle and knee but nothing functional in arm ASSESSMENT/PLAN: 1. Left CVA with R hemiplegia and Aphasia: PT/OT/RETAIL SUPPORT MANAGER. 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 Dysphagia: Pureed consistencies, nectar thick liquids 3. Seizure Disorder: Keppra/Zonegran 4. Spasms: Robaxin PRN 5. DVT Prophylaxis: Heparin S/Q. TEDs 6. Code Status: full code. 7. Hypothyroidism: Synthroid 8. Depression/Neuronal recovery: Prozac 20 mg daily 9. Dry eyes: Natural tears 10: Disposition: [facility] today. See Dr. Jackson's discharge summary for more detailed information.
[2017-03-24] MEDS: CMCS: Zonisamide (NF) 50 MG CAP PO SCH (08:43)
[2017-03-24] MEDS: Clopidogrel TAB* 75 MG PO SCH (08:44)
[2017-03-24] MEDS: levETIRAcetam TAB* 500 MG PO SCH (08:44)
[2017-03-24] MEDS: FLUoxetine CAP* 20 MG PO SCH (08:44)
[2017-03-24] MEDS: Docusate CAP* 100 MG PO SCH (08:44)
[2017-03-24] MEDS: Aspirin Low Dose CHEW TAB* 81 MG PO SCH (08:44)
[2017-03-24] MEDS: Timolol 0.5% OPTH.SOL* BTL BOTH EYES SCH (08:48)
[2017-03-24 10:48] VITALS: BP 125/59
== END 2017-03-24 11:00 | DRG 56 ==
LOC: PMRU 13:08
PROVIDERS: ADMIT Physical Medicine & Rehabilitation; ATTEND Physical Medicine & Rehabilitation
PROC: F07Z5ZZ Bed Mobility Treatment (ICD-10-PCS; principal; 2017-02-14)
PROC: F07Z9ZZ Gait Training/Functional Ambulation Treatment (ICD-10-PCS; 2017-02-14)
PROC: F07Z8ZZ Transfer Training Treatment (ICD-10-PCS; 2017-02-14)
PROC: F08Z0ZZ Bathing/Showering Techniques Treatment (ICD-10-PCS; 2017-02-14)
PROC: F08Z1ZZ Dressing Techniques Treatment (ICD-10-PCS; 2017-02-14)
PROC: F08Z3ZZ Feeding/Eating Treatment (ICD-10-PCS; 2017-02-14)
PROC: F06Z3ZZ Aphasia Treatment (ICD-10-PCS; 2017-02-14)
DX: I69.351 Hemiplegia and hemiparesis following cerebral infarction affecting right dominant side (principal); J69.0 Pneumonitis due to inhalation of food and vomit; D68.32 Hemorrhagic disorder due to extrinsic circulating anticoagulants; I69.320 Aphasia following cerebral infarction; I69.391 Dysphagia following cerebral infarction; R13.10 Dysphagia, unspecified; G40.909 Epilepsy, unspecified, not intractable, without status epilepticus; E03.9 Hypothyroidism, unspecified; H40.9 Unspecified glaucoma; R31.9 Hematuria, unspecified; T45.525A Adverse effect of antithrombotic drugs, initial encounter; Y92.9 Unspecified place or not applicable; X58.XXXA Exposure to other specified factors, initial encounter; Z79.01 Long term (current) use of anticoagulants; Z79.82 Long term (current) use of aspirin; Z79.899 Other long term (current) drug therapy; Z88.1 Allergy status to other antibiotic agents; Z88.2 Allergy status to sulfonamides; H53.10 Unspecified subjective visual disturbances; F32.9 Major depressive disorder, single episode, unspecified
CPT/HCPCS: 36415; 80053; 81003; 81015; 85025; 87086; A9270-GY; J0696; J1644; J1650; J3490

== ENCOUNTER 2017-03-29 19:56 | Emergency (ER) | payer MEDICARE, OTHER ==
--- NOTE | 2017-03-29 20:46 | RAD ---
Indication: Fall. CT of the brain was performed without IV contrast. Ventricular structures are midline. No midline shift is noted. The extraction spaces are unremarkable. Encephalomalacia in the left temporal insula is noted from prior infarct. There is no evidence of intracranial mass or hemorrhage. No other high or low density lesions are noted. Mastoid air cells and paranasal sinuses are grossly unremarkable. Calvaria is unremarkable. IMPRESSION: Encephalomalacia in the left medial temporal lobe from prior infarct. No intracranial mass or hemorrhage is noted.
--- NOTE | 2017-03-29 21:53 | RAD ---
Indication: Fall. Single view of the pelvis demonstrates bilateral hip replacements in satisfactory position. No fracture is noted. IMPRESSION: No fracture of the pelvis is noted. Bilateral hip replacements.
--- NOTE | 2017-03-29 21:54 | RAD ---
Indication: Right shoulder pain. 3 views of the right shoulder demonstrates AC joint arthritis. Glenohumeral joint arthritis is noted. Superiorly subluxed humeral head is noted. Lung campo are clear. IMPRESSION: Degenerative changes of the glenohumeral joint. Superiorly subluxed humeral head.
[2017-03-29 22:05] VITALS: BP 115/56
--- NOTE | 2017-04-05 05:20 | ED ---
Stan Palomino Benjamin, scribed for Eleni Stafford MD on 03/29/17 at 2015 . Adult Trauma - HPI Summary HPI Summary: 76yo female BIBA from [facility] after an unwitnessed fall today from her wheelchair. Pt was found later by staff and EMS was call. Pt has hx of CVA with residual right sided paralysis and is currently on a blood thinner. Pt is nonverbal. LEVEL 5 CAVEAT - Pt is nonverbal. - History of Current Complaint Stated Complaint: FALL Time Seen by Provider: 03/29/17 20:00 Hx Obtained From: Family/Research Pharmacist, EMS Hx From Patient Unobtainable Due To: Other - LEVEL 5 CAVEAT - Pt is nonverbal. ?: No Mechanism of Injury: Fall Loss of Consciousness: no loss of consciousness Pain Scale Used: Adult Non Verbal Aggravating Factor(s): Movement Alleviating Factor(s): Nothing Associated Signs & Symptoms: Positive: Negative - Additional Pertinent History Primary Care Physician: GEOVANI - Allergy/Home Medications Allergies/Adverse Reactions: Allergies Allergy/AdvReac Type Severity Reaction Status Date / Time Amoxicillin Allergy Unknown Verified 02/09/17 09:20 Reaction Details Chocolate Allergy Runny Nose Verified 02/23/17 12:19 Sulfa Antibiotics Allergy Unknown Verified 02/09/17 09:20 Reaction Details PMH/Surg Hx/FS Hx/Imm Hx Endocrine/Hematology History: Denies: Hx Diabetes Cardiovascular History: Denies: Hx Hypertension, Hx Pacemaker/ICD Musculoskeletal History: Comment Only: Other Musculoskeletal History - B hip replacement 2 and 6 yrs ago Sensory History: Reports: Hx Contacts or Glasses, Hx Glaucoma, Hx Hearing Problem - ELY SHOSHONE Denies: Hx Hearing Aid Opthamlomology History: Reports: Hx Contacts or Glasses, Hx Glaucoma Neurological History: Reports: Hx Dementia - ?memory problems, Hx Seizures, Other Neuro Impairments/Disorders - epilepsy Psychiatric History: Denies: Hx Panic Disorder - Surgical History Surgery Procedure, Year, and Place: BILAT HIP REPLACEMENT;. TONSILECTOMY Infectious Disease History: Denies: Traveled Outside the [place] in Last 30 Days - Family History Known Family History: Positive: Unknown - due to pt's current condition, nonverbal - Social History Occupation: Disabled Lives: [facility] Alcohol Use: None Hx Substance Use: No Substance Use Type: Reports: None Smoking Status (MU): Former Smoker Review of Systems - ROS Summary Review of Systems Summary: LEVEL 5 CAVEAT - Pt is nonverbal. Constitutional: Negative Negative: Arthralgia - no neck pain All Other Systems Reviewed And Are Negative: No Physical Exam - Summary Physical Exam Summary: VITAL SIGNS: Reviewed. GENERAL: Patient is a well-developed and nourished elderly FEMALE who is lying comfortable in the stretcher. Patient is not in any acute respiratory distress. HEAD AND FACE: No signs of trauma. No ecchymosis, hematomas or skull depressions. No sinus tenderness. EYES: PERRLA, EOMI x 2, No injected conjunctiva, no nystagmus. EARS: Hearing grossly intact. Ear canals and tympanic membranes are within normal limits. MOUTH: Oropharynx within normal limits. NECK: Supple, trachea is midline, no adenopathy, no JVD, no carotid bruit, no c- spine tenderness, neck with full ROM. CHEST: Symmetric, no tenderness at palpation LUNGS: Clear to auscultation bilaterally. No wheezing or crackles. CVS: Regular rate and rhythm, S1 and S2 present, no murmurs or gallops appreciated. ABDOMEN: Soft, non-tender. No signs of distention. No rebound no guarding, and no masses palpated. Bowel sounds are normal. Ecchymosis over the abdomen wall. EXTREMITIES: FROM in all major joints, no edema, no cyanosis or clubbing. Slight pain with movement of the pelvis and the RLE. NEURO: Pre-existing right sided samuel-paralysis from previous CVA. No acute neurological deficits. Speech is normal and follows commands. Pt is aphasic. SKIN: Dry and warm Triage Information Reviewed: Yes Vital Signs Reviewed: Yes Diagnostics - Laboratory Lab Statement: Any lab studies that have been ordered have been reviewed, and results considered in the medical decision making process. - Radiology Right Shoulder XR Xray Interpretation: No Acute Changes - Degenerative changes of the glenohumeral joint. Superiorly subluxed humeral head. Radiology Interpretation Completed By: Radiologist - ED physician has reviewed this radiology report and agrees. Pelvis XR Xray Interpretation: No Acute Changes - No fracture of the pelvis is noted. Bilateral hip replacements. Radiology Interpretation Completed By: Radiologist - ED physician has reviewed this radiology report and agrees. - CT CT Brain CT Interpretation: No Acute Changes - IMPRESSION: Encephalomalacia in the left medial temporal lobe from prior infarct. No intracranial mass or hemorrhage is noted. CT Interpretation Completed By: Radiologist - ED physician has reviewed this radiology report and agrees. Adult Trauma Course/Dx - Course Course Of Treatment: Pt has a hx of CVA, with right sided hemiparalysis and aphasia. Pt fell off a wheel chair today, but didnt have any specific complaints. No acute injuries found in her X-rays and CT reports. Family ( and son) is in the room with the pt. - Diagnoses Provider Diagnoses: Fall Discharge - Discharge Plan Condition: Stable Disposition: HOME Patient Education Materials: Fall Prevention for Older Adults (ED) Referrals: Rose Marie Beth MD [Primary Care Provider] - Additional Instructions: RETURN TO EMERGENCY DEPARTMENT FOR ANY NEW OR WORSENING SYMPTOMS The documentation as recorded by the Stan valverde Benjamin accurately reflects the service I personally performed and the decisions made by Rivera newell Abdul, MD.
== END 2017-03-29 22:57 | disposition home or self-care (01) ==
LOC: ED 19:56
DX: Z04.3 Encounter for examination and observation following other accident (principal); I69.320 Aphasia following cerebral infarction; I69.361 Other paralytic syndrome following cerebral infarction affecting right dominant side; W05.0XXA Fall from non-moving wheelchair, initial encounter; Y92.129 Unspecified place in nursing home as the place of occurrence of the external cause; G40.909 Epilepsy, unspecified, not intractable, without status epilepticus; Z79.01 Long term (current) use of anticoagulants; Z88.0 Allergy status to penicillin; Z88.2 Allergy status to sulfonamides; Z87.891 Personal history of nicotine dependence
CPT/HCPCS: 70450; 72170; 99282

== ENCOUNTER 2017-04-07 18:53 | Inpatient (IN) | payer MEDICARE, OTHER ==
[2017-04-07] MEDS ORDERED: Morphine INJ* 4 MG/ML 1 ML CARPUJECT IV ONE (20:07)
[2017-04-07] MEDS ORDERED: Ondansetron INJ* 2 MG/ML VIAL IV ONE (20:07)
[2017-04-07] MEDS: NS 0.9% 1000 ML* 2,000 ML IV ONE (20:41)
[2017-04-07 20:43] LABS: Hematocrit 39 % (35-47); Hemoglobin 12.9 g/dl (12.0-16.0); Mean Corpuscular HGB Conc 34 g/dl (31-36); Mean Corpuscular Hemoglobin 32 pg (27-31); Mean Corpuscular Volume 95 fL (80-97); Mean Platelet Volume 8 um3 (7.4-10.4); Red Blood Count 4.06 10^6/ul (4.0-5.4); Red Cell Distribution Width 13 % (10.5-15); White Blood Count 8.6 10^3/ul (3.5-10.8)
[2017-04-07 20:57] LABS: ALT 14 U/L (7-52); AST 14 U/L (13-39); Albumin 3.4 g/dL (3.2-5.2); Alkaline Phosphatase 89 U/L (34-104); Anion Gap 9 mmol/L (2-11); BUN/Creatinine Ratio 18.6 (8-20); Blood Urea Nitrogen 11 mg/dL (6-24); C Reactive Protein 80.26 mg/L (< 5.00); CO2 Carbon Dioxide 25 mmol/L (22-32); Calcium 9.1 mg/dL (8.6-10.3); Chloride 102 mmol/L (101-111); EGFR African American 126.8 (>60); EGFR Non-African American 98.6 (>60); Glucose 106 mg/dL (70-100); Lipase < 10 U/L (11.0-82.0); Potassium 3.7 mmol/L (3.5-5.0); Sodium 136 mmol/L (133-145); Total Protein 6.4 g/dL (6.4-8.9)
--- NOTE | 2017-04-07 21:01 | RAD ---
CLINICAL HISTORY: Abdominal distention COMPARISON: None relevant TECHNIQUE: Multiple contiguous axial CT scans were obtained of the abdomen and pelvis, without intravenous contrast enhancement. Coronal and sagittal multiplanar reformations are submitted for review. Oral contrast was not administered. FINDINGS: The study is limited by the lack of intravenous contrast. This limits evaluation of the solid organs and vasculature. LUNG BASES: The lung bases are clear. LIVER: The liver is normal in shape, size, contour, and attenuation. BILE DUCTS: There is no intrahepatic or extrahepatic biliary dilatation. GALLBLADDER: The gallbladder is normal, without pericholecystic inflammatory change. PANCREAS: The pancreas is normal, without mass or ductal dilatation. SPLEEN: Normal in size and appearance. UPPER GI TRACT: Evaluation of the gastrointestinal tract is limited by incomplete gastric distention. There is a small sliding hiatal hernia. SMALL BOWEL AND MESENTERY: The small bowel is normal in contour, course, and caliber. There is no obstruction or dilatation. COLON: There is gaseous distention of the transverse colon without dilatation. There is large amount of stool within the colon. ADRENALS: Normal bilaterally. KIDNEYS: The kidneys are normal in shape, size, contour, and axis. There is no hydronephrosis or nephrolithiasis. BLADDER: Evaluation limited by streak artifact from bilateral hip prostheses. PELVIC ORGANS: Evaluation of the pelvic organs is limited by streak artifact from bilateral hip prostheses. AORTA: There is calcific atherosclerotic disease of the abdominal aorta and its branches, without aneurysmal dilatation IVC: Unremarkable LYMPH NODES: There is no lymphadenopathy by size criteria. ABDOMINAL WALL: There is no evidence for abdominal wall hernia. BONES AND SOFT TISSUES: Degenerative changes are noted of the spine. The patient is status post bilateral hip arthroplasty OTHER: There is no appreciable free intraperitoneal gas or free intraperitoneal fluid. IMPRESSION: 1. GASEOUS DISTENTION OF THE COLON WITHOUT DILATATION. LARGE AMOUNT STOOL WITHIN THE COLON. NO OBSTRUCTION. 2. SMALL HIATAL HERNIA. 3. ATHEROSCLEROSIS. 4. EVALUATION OF THE PELVIS IS LIMITED BY STREAK ARTIFACT FROM BILATERAL HIP PROSTHESES. 5. NO APPRECIABLE FREE INTRAPERITONEAL GAS.
[2017-04-07 21:14] LABS: Urine Bilirubin Negative (Negative); Urine Glucose Negative (Negative); Urine Nitrite Negative (Negative)
[2017-04-07] MEDS ORDERED: Sodium Phosphate ADULT ENEMA* 118 ml bottle PR ONE (21:35)
--- NOTE | 2017-04-07 21:55 | ED ---
Jese Palomino Sixian, scribed for Shmuel Escobar MD on 04/07/17 at 1958 . Abdominal Pain/Female - HPI Summary HPI Summary: LEVEL 5 CAVAET DUE TO AMS.This patient is a 76 year old F BIBA from [facility] to [facility] accompanied by son with a chief complaint of abdominal pain and swelling since earlier today. Pt had a CVA 3 weeks ago. She currently has residual right side weakness and has gained some mobility back in her right leg. The patient rates the pain 8/10 in severity. Symptoms aggravated and alleviated by nothing. The son reports back pain and flu symptoms. The son denies vomiting. - History of Current Complaint Chief Complaint: EDAbdPain Stated Complaint: ABD PAIN Time Seen by Provider: 04/07/17 19:50 Hx Obtained From: Family/Waste Management Engineer - son Hx From Patient Unobtainable Due To: Altered Mental Status Onset/Duration: Gradual Onset, Lasting Hours, Still Present Timing: Constant Severity Currently: Moderate - 8/10 Pain Intensity: 8 Pain Scale Used: 0-10 Numeric Aggravating Factor(s): Nothing Alleviating Factor(s): Nothing Associated Signs and Symptoms: Positive: Other: - The son reports back pain and flu symptoms. The son denies vomiting. Allergies/Adverse Reactions: Allergies Allergy/AdvReac Type Severity Reaction Status Date / Time Amoxicillin Allergy Unknown Verified 02/09/17 09:20 Reaction Details Chocolate Allergy Runny Nose Verified 02/23/17 12:19 Sulfa Antibiotics Allergy Unknown Verified 02/09/17 09:20 Reaction Details PMH/Surg Hx/FS Hx/Imm Hx Endocrine/Hematology History: Denies: Hx Diabetes Cardiovascular History: Denies: Hx Hypertension, Hx Pacemaker/ICD Musculoskeletal History: Comment Only: Other Musculoskeletal History - B hip replacement 2 and 6 yrs ago Sensory History: Reports: Hx Contacts or Glasses, Hx Glaucoma, Hx Hearing Problem - [place] Denies: Hx Hearing Aid Opthamlomology History: Reports: Hx Contacts or Glasses, Hx Glaucoma Neurological History: Reports: Hx Dementia - ?memory problems, Hx Seizures, Other Neuro Impairments/Disorders - epilepsy Psychiatric History: Denies: Hx Panic Disorder - Surgical History Surgery Procedure, Year, and Place: BILAT HIP REPLACEMENT;. 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 Negative: Vomiting Positive: Other - RUE weakness, back pain All Other Systems Reviewed And Are Negative: No Physical Exam Triage Information Reviewed: Yes Vital Signs On Initial Exam: Initial Vitals BP 139/66 04/07/17 19:15 Vital Signs Reviewed: Yes Completion Of Physical Exam Limited Due To: Level 5 Appearance: Positive: Pain Distress Skin: Positive: Warm, Skin Color Reflects Adequate Perfusion Head/Face: Positive: Normal Head/Face Inspection Eyes: Positive: EOMI Neck: Positive: Nontender Respiratory/Lung Sounds: Positive: Clear to Auscultation, Breath Sounds Present Cardiovascular: Positive: RRR. Negative: Murmur Abdomen Description: Positive: Distended - suprapubic area, Other: - rectal exam with yellow colored stool, no gross blood. Musculoskeletal: Positive: Strength/ROM Intact Diagnostics - Vital Signs Vital Signs Temp Pulse Resp BP Pulse Ox 04/07/17 19:30 64 16 141/62 98 04/07/17 19:21 98.2 F 96 15 139/66 98 04/07/17 19:16 68 16 97 04/07/17 19:15 139/66 - Laboratory Lab Results: Lab Results 04/07/17 04/07/17 04/07/17 Range/Units 20:35 20:35 20:35 WBC 8.6 (3.5-10.8) 10^3/ul RBC 4.06 (4.0-5.4) 10^6/ul Hgb 12.9 (12.0-16.0) g/dl Hct 39 (35-47) % MCV 95 (80-97) fL MCH 32 H (27-31) pg MCHC 34 (31-36) g/dl RDW 13 (10.5-15) % Plt Count 244 (150-450) 10^3/ul MPV 8 (7.4-10.4) um3 Neut % (Auto) 68.1 (38-83) % Lymph % (Auto) 20.4 L (25-47) % Starke % (Auto) 8.0 (1-9) % Eos % (Auto) 2.9 (0-6) % Baso % (Auto) 0.6 (0-2) % Absolute Neuts (auto) 5.8 (1.5-7.7) 10^3/ul Absolute Lymphs (auto) 1.7 (1.0-4.8) 10^3/ul Absolute Monos (auto) 0.7 (0-0.8) 10^3/ul Absolute Eos (auto) 0.2 (0-0.6) 10^3/ul Absolute Basos (auto) 0.1 (0-0.2) 10^3/ul Absolute Nucleated RBC 0 10^3/ul Nucleated RBC % 0 INR (Anticoag Therapy) 1.06 H (0.77-1.02) APTT 27.5 (26.0-36.3) seconds Sodium 136 (133-145) mmol/L Potassium 3.7 (3.5-5.0) mmol/L Chloride 102 (101-111) mmol/L Carbon Dioxide 25 (22-32) mmol/L Anion Gap 9 (2-11) mmol/L BUN 11 (6-24) mg/dL Creatinine 0.59 (0.51-0.95) mg/dL Est GFR ( Amer) 126.8 (>60) Est GFR (Non-Af Amer) 98.6 (>60) BUN/Creatinine Ratio 18.6 (8-20) Glucose 106 H (70-100) mg/dL Lactic Acid (0.5-2.0) mmol/L Calcium 9.1 (8.6-10.3) mg/dL Total Bilirubin 0.50 (0.2-1.0) mg/dL AST 14 (13-39) U/L ALT 14 (7-52) U/L Alkaline Phosphatase 89 (34-104) U/L C-Reactive Protein 80.26 H (< 5.00) mg/L Total Protein 6.4 (6.4-8.9) g/dL Albumin 3.4 (3.2-5.2) g/dL Globulin 3.0 (2-4) g/dL Albumin/Globulin Ratio 1.1 (1-3) Lipase < 10 L (11.0-82.0) U/L Blood Type Antibody Screen 04/07/17 04/07/17 Range/Units 20:35 20:35 WBC (3.5-10.8) 10^3/ul RBC (4.0-5.4) 10^6/ul Hgb (12.0-16.0) g/dl Hct (35-47) % MCV (80-97) fL MCH (27-31) pg MCHC (31-36) g/dl RDW (10.5-15) % Plt Count (150-450) 10^3/ul MPV (7.4-10.4) um3 Neut % (Auto) (38-83) % Lymph % (Auto) (25-47) % Starke % (Auto) (1-9) % Eos % (Auto) (0-6) % Baso % (Auto) (0-2) % Absolute Neuts (auto) (1.5-7.7) 10^3/ul Absolute Lymphs (auto) (1.0-4.8) 10^3/ul Absolute Monos (auto) (0-0.8) 10^3/ul Absolute Eos (auto) (0-0.6) 10^3/ul Absolute Basos (auto) (0-0.2) 10^3/ul Absolute Nucleated RBC 10^3/ul Nucleated RBC % INR (Anticoag Therapy) (0.77-1.02) APTT (26.0-36.3) seconds Sodium (133-145) mmol/L Potassium (3.5-5.0) mmol/L Chloride (101-111) mmol/L Carbon Dioxide (22-32) mmol/L Anion Gap (2-11) mmol/L BUN (6-24) mg/dL Creatinine (0.51-0.95) mg/dL Est GFR ( Amer) (>60) Est GFR (Non-Af Amer) (>60) BUN/Creatinine Ratio (8-20) Glucose (70-100) mg/dL Lactic Acid 0.8 (0.5-2.0) mmol/L Calcium (8.6-10.3) mg/dL Total Bilirubin (0.2-1.0) mg/dL AST (13-39) U/L ALT (7-52) U/L Alkaline Phosphatase (34-104) U/L C-Reactive Protein (< 5.00) mg/L Total Protein (6.4-8.9) g/dL Albumin (3.2-5.2) g/dL Globulin (2-4) g/dL Albumin/Globulin Ratio (1-3) Lipase (11.0-82.0) U/L Blood Type O Positive Antibody Screen Pending Result Diagrams: 04/07/17 20:35 04/07/17 20:35 Lab Statement: Any lab studies that have been ordered have been reviewed, and results considered in the medical decision making process. - CT A/P CT Interpretation Completed By: Radiologist - 1. GASEOUS DISTENTION OF THE COLON WITHOUT DILATATION. LARGE AMOUNT STOOL WITHIN THE COLON. NO OBSTRUCTION. 2. SMALL HIATAL HERNIA. 3. ATHEROSCLEROSIS. 4. EVALUATION OF THE PELVIS IS LIMITED BY STREAK ARTIFACT FROM BILATERAL HIP PROSTHESES. 5. NO APPRECIABLE FREE INTRAPERITONEAL GAS. ED physician has reviewed this radiology report. - EKG 2012 Cardiac Rate: NL EKG Rhythm: Sinus Rhythm - 71 BPM EKG Interpretation: No STEMI. Re-Evaluation - Re-Evaluation First Eval Re-Evaluation Time: 21:22 Change: Improved Comment: belly less distented, but lime vat tender. Plan rescan with IV and oral contrast. Abdominal Pain Fem Course/Dx - Course Course Of Treatment: 76 yr old with acute urine retention, 800cc, etiology not known. Rescanning her with IV contrast. And reevals plan to admit to hospitalist for bowel clean out. She is getting rescanned to be sure vasculature/ mesentary OK. Limited BY IV per rad and Dr Hudson. - Diagnoses Provider Diagnoses: Urinary retention, Constipation - Provider Notifications Discussed Care Of Patient With: Rosalio Hudson - Dr Hudson reviewed the CT scan and felt no general surgery issue at this time. Bladder distention. Time Discussed With Above Provider: 20:45 Discharge - Discharge Plan Condition: Good Disposition: ADMITTED TO [facility] Referrals: Rose Marie Beth MD [Primary Care Provider] - The documentation as recorded by the Jese valverde Sixian accurately reflects the service I personally performed and the decisions made by me, Shmuel Escobar MD.
[2017-04-07] MEDS ORDERED: Acetaminophen TAB* 325 MG PO PRN (22:39)
[2017-04-07] MEDS ORDERED: Al Hydrox/Mg Hydrox/Simet LIQ* 30 ML UDC PO PRN (22:39)
[2017-04-07] MEDS ORDERED: LORazepam TAB(*) 0.5 MG PO PRN (23:21)
[2017-04-07] MEDS ORDERED: Artificial Tears* 15 ML BTL BOTH EYES PRN (23:21)
[2017-04-07] MEDS ORDERED: Magnesium Hydroxide LIQ* 30 ML UDC PO ONE (23:55)
[2017-04-08] MEDS: Senna TAB PO SCH ×4 (00:43→19:55)
[2017-04-08] MEDS: Methocarbamol TAB* 500 MG PO SCH ×5 (00:43→23:30)
[2017-04-08] MEDS: Morphine INJ* 2 MG/ML 1 ML SYRINGE (TWO MG - NEW SYRINGE VERSION) IV PRN ×2 (01:32→06:25)
[2017-04-08] MEDS ORDERED: Iohexol 300* (CONTRAST) 10 ML SDV IV ONE (01:55)
--- NOTE | 2017-04-08 03:00 | HP ---
CC: Dr. Rose Marie Beth; Dr. Stanford at [facility] * HISTORY AND PHYSICAL: DATE OF ADMISSION: 04/07/17 PRIMARY CARE PROVIDER: Dr. Rose Marie Beth. CHIEF COMPLIANT: Abdominal pain. HISTORY OF PRESENT ILLNESS: Becki Marrero is a 76-year-old female who has history of significant neuro deficits due to recent CVA. She is at senior living rehabilitation, for that at [facility], and today she presents with diffuse abdominal pain. As per nursing staff from [facility], the patient had a bowel movement yesterday, but the patient herself stated that she has not had a bowel movement for 5 days. Having said that, the patient is a poor historian and with her expressive aphasia, it is very difficult to purchasing clerk if the information given by the patient is actually correct. Nevertheless, the patient's workup in the emergency department included CT of abdomen and pelvis that showed gaseous distension of the colon without dilatation and large amount of stool within the colon with no obstruction. The patient also was noted to have urinary retention and 800 mL of postvoid residual after Hall was placed in the ED was obtained. The patient is going to be placed on overnight observation with a diagnosis of abdominal pain. PAST MEDICAL HISTORY: 1. History of seizure disorder. 2. 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 The patient currently is at short- term rehabilitation at [facility]. 3. History of dysphagia due to that. The patient is on nectar thick liquids and mechanical ground diet. 4. History of glaucoma. 5. Hypothyroidism. 7. Bilateral hip surgeries in the past. MEDICATIONS: At [facility] include: 1. Aspirin 81 mg daily. 2. Colace 100 mg b.i.d. p.r.n. 3. MiraLAX on a p.r.n. basis. 4. Lipitor 80 mg daily. 5. Senokot on a p.r.n. basis. 6. Plavix 75 mg daily. 7. Prozac 20 mg daily. 8. Keppra 1500 mg b.i.d. 9. Synthroid 50 mcg daily. 10. Robaxin 750 mg every 6 hours for muscle spasms. 11. Phenergan 100 mg b.i.d. 12. Timoptic solution 0.5% bilateral eyes b.i.d. ALLERGIES: Include AMOXICILLIN, CHOCOLATE, and SULFA MEDICATIONS. FAMILY HISTORY: Positive for father with history of VT at the age of 79. SOCIAL HISTORY: The patient denies any tobacco, alcohol, or drug use. Her surrogate decision maker is her , Mg Marrero, who lives at [place]. Please also note that Dr. Jose is notified at [facility] that Mg was diagnosed with flu and he had been visiting his at [facility] on a daily basis. REVIEW OF SYSTEMS: Please see history of present illness. The patient has significant expressive aphasia and complaints of abdominal pain. All the remaining 12 systems were attempted to be reviewed with the patient, but is originally impossible to be able to gather any further information from the patient due to mentioned above expressive aphasia. PHYSICAL EXAMINATION GENERAL: The patient is a very pleasant 76-year-old female who is in no acute distress. The patient is able to recognize me from my previous visit with her a week and a half ago. Otherwise, she has expressive aphasia and unable to obtain any further information in regards to her orientation. VITAL SIGNS: Blood pressure of 167/64, heart rate of 72 and regular, respiratory rate 17, oxygen saturation 99% on room air, temperature 98.2. HEENT: Head: Atraumatic, normocephalic. Eyes: Pupils are equal and reactive to light and accommodation. Oropharynx clear. Mucosa dry. NECK: Supple. No JVD, no bruits bilaterally. RESPIRATORY: Clear to auscultation bilaterally. CARDIOVASCULAR: Regular rate and rhythm. No murmur. ABDOMEN: Soft, distended. Tympanic to percussion. Tender diffusely mostly in the left lower quadrant with no rebound and no guarding. Bowel sounds are present in all 4 quadrants. EXTREMITIES: There is no edema. Pulses are +2 bilaterally. There is no clubbing or cyanosis. NEURO EVALUATION: The patient has slight flattening of the right nasolabial fold. She has a significant expressive aphasia. Her right arm has significant weakness at 3/5 and is mildly contracted. The right leg is 4+/5. There is no motor deficit in the left upper and lower extremity noted. SKIN: On evaluation of the skin, no ecchymotic areas or rashes noted. DIAGNOSTIC STUDIES/LAB DATA: Laboratory data performed in the ED showed urinalysis, which was unremarkable. Sodium was 136, potassium 2.7, chloride 102, carbon dioxide 25, BUN 11, creatinine 0.59. Liver function tests were unremarkable. C-reactive protein of 80. Lipase of below 10. Lactic acid of 0.8. White blood cell count of 8.6 , hemoglobin of 12.9, hematocrit of 39, and platelets of 244. Abdomen and pelvis CT, impression: "Gaseous distension of the colon without dilatation. Large amount of stool within the colon. No obstruction. Small hiatal hernia. Atherosclerosis. Evaluation of the pelvis limited by a streak artifact from bilateral hip prosthesis. No appreciable free intraperitoneal gas." ASSESSMENT AND PLAN: 1. Diffuse abdominal pain in a patient with constipation who also has history of recent cerebrovascular accident and is on modified diet due to dysphagia. At this point, the patient is going to be placed on a clear liquid diet. We will place the patient on multiple laxatives. She also received a Fleet Enema in the emergency department. The patient also appears mildly dehydrated and she is going to be placed on intravenous hydration. 2. In regards to the patient's hypothyroidism, her Synthroid is going to be continued. 3. In regards to the patient's history of seizure disorder, the seizure medications are going to be continued and the patient is going to be placed on a seizure precautions. 4. The patient's code status is full and her surrogate is her . 5. Please also note that the patient was just noted to have her who was positive for flu as a contact. The patient is going to be placed on Tamiflu for prophylaxis. TIME SPENT: Approximately 60 minutes were spent on evaluation of this patient in the ER and history and physical taken. [id number]/[facility] #: [id number]
[2017-04-08] MEDS: Levothyroxine TAB* 50 MCG TAB PO SCH (05:25)
[2017-04-08] MEDS: Heparin VIAL(*) 5000 UNITS/ML VIAL (FIVE THOUSAND) SUBCUT SCH ×3 (05:25→22:16)
[2017-04-08 06:55] LABS: Hematocrit 35 % (35-47); Hemoglobin 11.8 g/dl (12.0-16.0); Mean Corpuscular HGB Conc 34 g/dl (31-36); Mean Corpuscular Hemoglobin 32 pg (27-31); Mean Corpuscular Volume 94 fL (80-97); Mean Platelet Volume 8 um3 (7.4-10.4); Red Blood Count 3.69 10^6/ul (4.0-5.4); Red Cell Distribution Width 13 % (10.5-15); White Blood Count 8.9 10^3/ul (3.5-10.8)
[2017-04-08 07:08] LABS: BUN/Creatinine Ratio 18.4 (8-20); Calcium 8.4 mg/dL (8.6-10.3); EGFR African American 157.1 (>60); EGFR Non-African American 122.1 (>60); Potassium 3.5 mmol/L (3.5-5.0)
--- NOTE | 2017-04-08 07:26 | PN ---
Subjective Date of Service: 04/08/17 Interval History: Ms. Marrero is reported to be feeling much better. Her condition was discussed at length with her son (who has been involved with her care throughout) at the bedside today. He reports that she had severe abdominal pain yesterday but that she does not evidence pain now and is back to her normal smiling, communicative self. She denies any pain with palpation to the abdomen today. She evidences discomfort when I attempt to move her right arm or leg. She does not offer any clear other complaint though she has significant expressive aphasia. Objective Active Medications: Acetaminophen (Tylenol Tab*) 650 mg PO Q4H PRN Al Hydrox/Mg Hydrox/Simethicone (Maalox Plus*) 30 ml PO Q6H PRN Aspirin (Aspirin Low Dose Tab*) 81 mg PO DAILY BRIAN Atorvastatin Calcium (Lipitor*) 80 mg PO 1700 BRIAN Clopidogrel Bisulfate (Plavix Tab*) 75 mg PO DAILY BRIAN Docusate Sodium (Colace Cap*) 100 mg PO BID BRIAN Fluoxetine HCl (Prozac Cap*) 20 mg PO DAILY [facility] Heparin Sodium (Porcine) (Heparin Vial(*)) 5,000 units SUBCUT Q8HR BRIAN Sodium Chloride (Ns 0.9% 1000 Ml*) 1,000 mls @ 75 mls/hr IV PER RATE BRIAN Levetiracetam (Keppra Liq*) 1,500 mg PO BID BRIAN Levothyroxine Sodium (Synthroid Tab*) 50 mcg PO DAILY@0600 BRIAN Lorazepam (Ativan Tab(*)) 0.5 mg PO BID PRN Methocarbamol (Robaxin Tab*) 750 mg PO Q6H BRIAN Morphine Sulfate (Morphine Inj (Syringe)*) 1 mg IV Q4H PRN Oseltamivir Phosphate (Tamiflu Cap*) 75 mg PO DAILY BRIAN Polyvinyl Alcohol (Polyvinyl Alcohol 1.4% Opth*) 1 drop BOTH EYES Q2H PRN Senna (Senokot Tab*) 1 tab PO BID BRIAN Senna (Senokot Tab*) 2 tab PO BEDTIME BRIAN Timolol Maleate (Timoptic 0.5% Opth*) 1 drop BOTH EYES BID BRIAN Zonisamide (Zonegran (Nf)) 100 mg PO BID BRIAN Vital Signs: Temp Pulse Resp BP Pulse Ox 98.0 F 79 16 144/73 92 04/08/17 03:06 04/08/17 03:06 04/08/17 06:25 04/08/17 03:06 04/08/17 03:06 Oxygen Devices in Use Now: None Appearance: Female lying in bed in NAD Eyes: No Scleral Icterus Ears/Nose/Mouth/Throat: NL Teeth, Lips, Gums Neck: NL Appearance and Movements; NL JVP, Trachea Midline Respiratory: Symmetrical Chest Expansion and Respiratory Effort, Clear to Auscultation Cardiovascular: NL Sounds; No Murmurs; No JVD, No Edema Abdominal: NL Sounds; No Tenderness; No Distention Lymphatic: No Cervical Adenopathy Extremities: No Edema Skin: No Rash or Ulcers Neurological: - - Alert, no movement to right arm noted, able to move right leg +3-4 strength. +5 strength L U/LE. Expressive aphasia. Result Diagrams: 04/08/17 06:45 04/08/17 06:46 Additional Lab and Data: Vital Signs: Temp Pulse Resp BP Pulse Ox 98.0 F 79 16 144/73 92 04/08/17 03:06 04/08/17 03:06 04/08/17 06:25 04/08/17 03:06 04/08/17 03:06 Assess/Plan/Problems-Billing Assessment: Ms. Marrero is a 76 yo female with a PMH of CVA with right sided weakness who was admitted on 04/07/17 with ileus vs partial SBO. - Patient Problems (1) Ileus Comment: - Repeat CT abd with concern for ileus vs partial SBO. - Continue clear liquid diet. - Continue colace and senna. (2) CVA (cerebral vascular accident) Comment: - Continue atorvastatin, plavix. (3) Depression Comment: - Continue fluoxetine. (4) Hypothyroid Comment: - Continue levothyroxine. (5) Seizure disorder Comment: - Continue Keppra and Zonisamide. (6) DVT prophylaxis Comment: - Heparin SQ. (7) Full code status Status and Disposition: OBV, convert to inpatient with expected LOS > 2 days. [facility]ate [facility] stable.
--- NOTE | 2017-04-08 08:28 | RAD ---
INDICATION: Lower abdominal pain and distention. Dementia and epilepsy. COMPARISON: April 07, 2017 CT. TECHNIQUE: Multidetector CT images were obtained from the lung bases to the ischial tuberosities with 91 mL Omnipaque 300 IV and oral contrast. Multiplanar reformation. REPORT: RIGHT arms down position and bilateral hip prostheses degrades image quality. Mild basilar subsegmental atelectasis. Negative for pleural effusion, cardiomegaly, or pericardial effusion. Mild decreased density of the liver consistent with fatty infiltration. No focal lesion of the liver, gallbladder, pancreas, spleen. Small hiatal hernia. No additional abnormality of the upper GI. Mild dilatation of the proximal small bowel loops measuring up to 2.8 cm diameter. Enteric contrast reaches the distal jejunum/proximal ileum. Multiple air-fluid levels. No discrete transition point visualized. Redundant colon with large volume of stool at the ascending colon and transverse colon. Assessment of the sigmoid colon is limited due to artifact from the hip prostheses. Fluid level at the distal sigmoid colon. The sigmoid colon appears featureless with contiguous mild mural thickening from the distal sigmoid through the rectum suspicious for long-standing inflammatory process including ulcerative colitis. While the appendix is not discretely visualized, there is no inflammatory change in the right lower quadrant or region of the tip of the cecum to suggest presence of an acute inflammatory process. Negative for ascites, free air, hernias. Normal adrenal glands. Unremarkable kidneys with symmetric nephrograms and pyelograms. The visualized ureters are normal in diameter. Catheterized urinary bladder artifact from the prostheses precluding diagnostic unremarkable uterus and adnexal regions. Negative for lymphadenopathy. Atherosclerotic plaque of normal diameter abdominal aorta and iliac arteries. Physiologic partial distention of the IVC. Polyarticular degenerative arthropathy. Negative for suspicious focal osseous lesions or fracture. IMPRESSION: 1. Hepatic steatosis. 2. Ileus versus low-grade partial bowel obstruction without visualized transition point. 3. Chronic finding of featureless distal sigmoid colon and rectum with mild mural thickening which may reflect chronic inflammatory disease such as ulcerative colitis. 4. Negative for obstructive uropathy.
[2017-04-08] MEDS ORDERED: Oseltamivir CAP* 75 MG PO SCH (09:00)
--- NOTE | 2017-04-08 09:55 | RAD ---
Indication: Evaluate ileus. Flat and decubitus views of the abdomen demonstrates no free air. No dilated loops of bowel are noted. Air distended colon is noted. IMPRESSION: Air distended colon. Small bowel demonstrates no abnormal dilatation. Overall appearance appears similar to the CT performed at April 08, 2017.
[2017-04-08] MEDS: CMCS: Zonisamide (NF) 50 MG CAP PO SCH ×2 (10:35→19:56)
[2017-04-08] MEDS: levETIRAcetam LIQ* 500 MG/5 ML UDC PO SCH ×2 (10:36→19:55)
[2017-04-08] MEDS: Docusate CAP* 100 MG PO SCH ×2 (10:36→19:55)
[2017-04-08] MEDS: Clopidogrel TAB* 75 MG PO SCH (10:36)
[2017-04-08] MEDS: Aspirin Low Dose CHEW TAB* 81 MG PO SCH (10:36)
[2017-04-08] MEDS: Timolol 0.5% OPTH.SOL* BTL BOTH EYES SCH ×2 (10:36→19:56)
[2017-04-08] MEDS: FLUoxetine CAP* 20 MG PO SCH (10:37)
[2017-04-08] MEDS ORDERED: Atorvastatin* 80 MG TAB PO SCH (17:00)
[2017-04-08] MEDS: NS 0.9% 1000 ML* 1,000 ML IV SCH (19:38)
[2017-04-09] MEDS: Methocarbamol TAB* 500 MG PO SCH ×2 (05:44→12:35)
[2017-04-09] MEDS: Levothyroxine TAB* 50 MCG TAB PO SCH (05:44)
[2017-04-09] MEDS: Heparin VIAL(*) 5000 UNITS/ML VIAL (FIVE THOUSAND) SUBCUT SCH (05:51)
[2017-04-09 07:38] VITALS: BP 125/64
--- NOTE | 2017-04-09 07:47 | PN ---
Subjective Date of Service: 04/09/17 Interval History: Ms. Marrero is doing well today. Her only complaint seems to be of dry eyes. She denies nausea or abdominal pain. She is reported to have had a large stool overnight. Her garrett is draining clear yellow urine. Objective Active Medications: Acetaminophen (Tylenol Tab*) 650 mg PO Q4H PRN Al Hydrox/Mg Hydrox/Simethicone (Maalox Plus*) 30 ml PO Q6H PRN Aspirin (Aspirin Low Dose Tab*) 81 mg PO DAILY BRIAN Atorvastatin Calcium (Lipitor*) 80 mg PO 1700 BRIAN Clopidogrel Bisulfate (Plavix Tab*) 75 mg PO DAILY BRIAN Docusate Sodium (Colace Cap*) 100 mg PO BID BRIAN Fluoxetine HCl (Prozac Cap*) 20 mg PO DAILY BRIAN Heparin Sodium (Porcine) (Heparin Vial(*)) 5,000 units SUBCUT Q8HR BRIAN Sodium Chloride (Ns 0.9% 1000 Ml*) 1,000 mls @ 75 mls/hr IV PER RATE BRIAN Levetiracetam (Keppra Liq*) 1,500 mg PO BID BRIAN Levothyroxine Sodium (Synthroid Tab*) 50 mcg PO DAILY@0600 BRIAN Lorazepam (Ativan Tab(*)) 0.5 mg PO BID PRN Methocarbamol (Robaxin Tab*) 750 mg PO Q6H BRIAN Morphine Sulfate (Morphine Inj (Syringe)*) 1 mg IV Q4H PRN Polyvinyl Alcohol (Polyvinyl Alcohol 1.4% Opth*) 1 drop BOTH EYES Q2H PRN Senna (Senokot Tab*) 1 tab PO BID BRIAN Senna (Senokot Tab*) 2 tab PO BEDTIME BRIAN Timolol Maleate (Timoptic 0.5% Opth*) 1 drop BOTH EYES BID BRIAN Zonisamide (Zonegran (Nf)) 100 mg PO BID [facility] Vital Signs: Temp Pulse Resp BP Pulse Ox 98.3 F 77 18 125/64 97 04/09/17 07:26 04/09/17 07:26 04/09/17 07:42 04/09/17 07:26 04/09/17 07:26 Oxygen Devices in Use Now: None Appearance: Female sitting up in bed in NAD Eyes: No Scleral Icterus Ears/Nose/Mouth/Throat: Mucous Membranes Moist Neck: Trachea Midline Respiratory: Symmetrical Chest Expansion and Respiratory Effort, Clear to Auscultation Cardiovascular: NL Sounds; No Murmurs; No JVD, No Edema Abdominal: NL Sounds; No Tenderness; No Distention, No Hepatosplenomegaly Extremities: No Edema Skin: No Rash or Ulcers Neurological: Alert and Oriented x 3, NL Muscle Strength and Tone Nutrition: Taking PO's Result Diagrams: 04/08/17 06:45 04/08/17 06:46 Additional Lab and Data: . Assess/Plan/Problems-Billing Assessment: Ms. Marrero is a 76 yo female with a PMH of CVA with right sided weakness who was admitted on 04/07/17 with ileus vs partial SBO. - Patient Problems (1) Ileus Comment: - Resolved. Bowel movement overnight, pain resolved. - Suspect secondary to urinary retention. - Tolerating soft diet. (2) Urinary retention Comment: - Continue garrett. - Recommend follow up in ~ 10 days with urology for voiding trial. - May be related to CVA, not on any medications that cause retention. (3) CVA (cerebral vascular accident) Comment: - Continue asa, atorvastatin, plavix. - Continue robaxin for muscle spasms. (4) Depression Comment: - Continue fluoxetine. (5) Hypothyroid Comment: - Continue levothyroxine. (6) Seizure disorder Comment: - Continue Keppra and Zonisamide. (7) DVT prophylaxis Comment: - Heparin SQ. (8) Full code status Status and Disposition: Discharge to [facility].
[2017-04-09] MEDS: levETIRAcetam LIQ* 500 MG/5 ML UDC PO SCH (07:50)
[2017-04-09] MEDS: CMCS: Zonisamide (NF) 50 MG CAP PO SCH (07:50)
[2017-04-09] MEDS: Timolol 0.5% OPTH.SOL* BTL BOTH EYES SCH (07:50)
[2017-04-09] MEDS: Clopidogrel TAB* 75 MG PO SCH (07:51)
[2017-04-09] MEDS: Aspirin Low Dose CHEW TAB* 81 MG PO SCH (07:51)
[2017-04-09] MEDS: Docusate CAP* 100 MG PO SCH (07:51)
[2017-04-09] MEDS: FLUoxetine CAP* 20 MG PO SCH (07:51)
[2017-04-09] MEDS: Senna TAB PO SCH (07:51)
[2017-04-09] MEDS: NS 0.9% 1000 ML* 1,000 ML IV SCH (09:05)
[2017-04-09] MEDS: Oseltamivir CAP* 75 MG PO SCH ×2 (12:35→12:50)
--- NOTE | 2017-04-09 12:36 | DS ---
CC: Dr. Rose Marie Beth * [facility] MEDICINE DISCHARGE SUMMARY: DATE OF ADMISSION: 04/07/17 DATE OF DISCHARGE: 04/09/17 PRIMARY CARE PROVIDER: Dr. Rose Marie Beth. ATTENDING PHYSICIAN: Rashad Ken MD * (dictation provided by Dawna Carranza NP). PRIMARY DIAGNOSES: 1. Urinary tract retention. 2. Ileus, now resolved. SECONDARY DIAGNOSES: 1. 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 2. History of seizure disorder. 3. History of dysphagia, on a nectar thick and mechanical ground diet. 4. History of glaucoma. 5. Hypothyroidism. 6. Bilateral hip surgeries in the past. MEDICATIONS AT THE TIME OF DISCHARGE: 1. Tamiflu 75 mg p.o. daily. 2. Aspirin 81 mg p.o. daily. 3. Colace 100 mg b.i.d. p.r.n. 4. MiraLAX on a p.r.n. basis. 5. Lipitor 80 mg daily. 6. Senokot p.r.n. 7. Plavix 75 mg daily. 8. Prozac 20 mg daily. 9. Keppra 1500 mg p.o. b.i.d. 10. Synthroid 50 mcg daily. 11. Robaxin 750 mg q.6 hours p.r.n. pain. 12. Phenergan 100 mg b.i.d. 13. Timoptic solution 0.5% bilateral eyes b.i.d. HOSPITAL COURSE: Ms. Marrero is a 76-year-old female with a past medical history of recent CVA in January 2017, who is undergoing rehab at [facility], who presented to the hospital on 04/07/17 with concern for abdominal pain. Please see the dictated H and P from Dr. Federica Stanford for complete details. In brief , the patient reported diffuse abdominal pain with abdominal distention. She does have significant expressive aphasia, but was clearly evidencing pain. She was reported to have had her last bowel movement on 04/06/17. The patient had a CT of the abdomen and pelvis that showed gaseous distention of the colon without dilatation and a large amount of stool within the colon, but no obstruction. She was also noted to have urinary retention with about 800 mL of postvoid residual after Hall placed in the ED. Ms. Marrero was placed on a clear diet. She had a followup x-ray the following morning, which showed gaseous pattern only, but no evidence of obstruction. She complained of no abdominal pain and her diet was advanced. Overnight she has had 1 bowel movement. She remains pain free on examination. Ms. Marrero had a Hall placed as noted above at the beginning of this hospitalization. In speaking with the family, the son notes that over the past week or so that she has been more irritable and having issues with urinary incontinence. Based on the description of the pattern of urination with multiple small voids and complaint of discomfort, I suspect perhaps that she was having overflow incontinence. I do not have a clear reason for her urinary retention. She is not on any offending medications. Perhaps, it is related to her CVA. Regardless, given the degree of bladder distention, she will need at least 10 days of bladder rest before a voiding trial is attempted. I recommend that she follow up with Urology as outpatient for this and this has been noted in discharge with family. Ms. Marrero is medically stable for discharge to [facility]. DISPOSITION: To [facility]. DIET: Heart healthy. ACTIVITY: As tolerated. FOLLOW-UP PLANS: 1. Please follow up with Urology in approximately 10 days for voiding trial for urinary retention. 2. Please follow up with Dr. Beth as needed. TIME SPENT: Approximately 60 minutes were spent in the discharge of this patient, more than half that time was spent with the patient at the bedside reviewing the events leading up to and during this hospitalization, performing the physical exam, and reviewing my plan of care. DAWNA CARRANZA NP [id number]/CPS #: [id number] JR
== END 2017-04-09 13:50 | DRG 389 ==
LOC: ED 18:53 → OBSVTOIN 22:39 → MED 22:39
PROVIDERS: ADMIT Internal Medicine; ATTEND Internal Medicine
PROC: 0T9B70Z Drainage of Bladder with Drainage Device, Via Natural or Artificial Opening (ICD-10-PCS; principal; 2017-04-07)
DX: K56.7 Ileus, unspecified (principal); E86.0 Dehydration; G40.909 Epilepsy, unspecified, not intractable, without status epilepticus; H40.9 Unspecified glaucoma; R33.9 Retention of urine, unspecified; E03.9 Hypothyroidism, unspecified; Z96.643 Presence of artificial hip joint, bilateral; H91.90 Unspecified hearing loss, unspecified ear; R14.0 Abdominal distension (gaseous); Z79.82 Long term (current) use of aspirin; Z79.02 Long term (current) use of antithrombotics/antiplatelets; Z88.0 Allergy status to penicillin; Z88.2 Allergy status to sulfonamides; Z91.018 Allergy to other foods; I69.920 Aphasia following unspecified cerebrovascular disease; I69.351 Hemiplegia and hemiparesis following cerebral infarction affecting right dominant side; Z87.891 Personal history of nicotine dependence
CPT/HCPCS: 36415; 74020; 74176; 74177; 80048; 80053; 81003; 82272; 83605; 83690; 85025; 85610; 85730; 86140; 86850; 86900; 86901; 87040; 93005; A9270-GY; J1644; J2270; J2405; Q9967

== ENCOUNTER 2017-08-14 01:26 | Observation (INO) | payer MEDICARE, OTHER ==
[2017-08-14 02:12] LABS: ABS Basophils 0.1 10^3/ul (0-0.2); ABS Eosinophils 0.2 10^3/ul (0-0.6); ABS Lymphocytes 1.3 10^3/ul (1.0-4.8); ABS Monocytes 0.6 10^3/ul (0-0.8); ABS Neutrophils 3.7 10^3/ul (1.5-7.7); ABS Nucleated RBC 0 10^3/ul; Eosinophil % 3.8 % (0-6); Hematocrit 38 % (35-47); Hemoglobin 12.5 g/dl (12.0-16.0); Lymphocyte % 22.4 % (25-47); Mean Corpuscular HGB Conc 33 g/dl (31-36); Mean Corpuscular Hemoglobin 31 pg (27-31); Mean Corpuscular Volume 93 fL (80-97); Mean Platelet Volume 8.3 um3 (7.4-10.4); Nucleated Red Blood Cells % 0; Platelet Count 202 10^3/ul (150-450); Red Blood Count 4.08 10^6/ul (4.0-5.4); Red Cell Distribution Width 14 % (10.5-15)
--- NOTE | 2017-08-14 02:19 | ED ---
HPI Chest Pain - HPI Summary HPI Summary: Patient with history of expressive aphasia S/P prior CVA can answer yes or no to questions. Brought by EMS with complaint of chest pain. Was given 324 MG of ASA, and nitroglycerin 1 by EMS. CP left-sided, sharp, no radiation, intermittent, resolved with nitroglycerin. Denies fever, cough, sore throat, SOB, N/V/D, abdomen pain, trauma, change in urinary BM. Patient cannot give medical history, medical history per records is prior CVA January 2017. History of transesophageal echocardiogram 07/21/17 with EF of 55-60%, PFO. No stress test or cardiac catheter on file - History of Current Complaint Chief Complaint: EDChestPainROMI Hx Obtained From: Patient Timing: Intermittent Initial Severity: Moderate Current Severity: None Pain Intensity: 3 Pain Scale Used: 0-10 Numeric Chest Pain Location: Left Lateral Chest Pain Radiates: No Character: Sharp/Stabbing Aggravating Factor(s): Nothing Alleviating Factor(s): Nothing Associated Signs and Symptoms: Positive: Chest Pain. Negative: Shortness of Breath, Syncope, Diaphoresis - Additional Pertinent History Primary Care Physician: [id number] - Allergy/Home Medications Allergies/Adverse Reactions: Allergies Allergy/AdvReac Type Severity Reaction Status Date / Time amoxicillin Allergy Unknown Verified 07/20/17 15:12 Reaction Details Sulfa (Sulfonamide Allergy Unknown Verified 07/20/17 15:12 Antibiotics) Reaction Details Home Medications: Home Medications Fluoxetine HCl [Prozac] 20 mg PO DAILY 08/14/17 [History Confirmed 08/14/17] PMH/Surg Hx/FS Hx/Imm Hx Endocrine/Hematology History: Denies: Hx Diabetes Cardiovascular History: Denies: Hx Hypertension, Hx Pacemaker/ICD History: Denies: Hx Dialysis, Hx Renal Disease Musculoskeletal History: Comment Only: Other Musculoskeletal History - B hip replacement 2 and 6 yrs ago Sensory History: Reports: Hx Glaucoma, Hx Hearing Problem - [place] Denies: Hx Contacts or Glasses, Hx Hearing Aid Opthamlomology History: Reports: Hx Glaucoma Denies: Hx Contacts or Glasses Neurological History: Reports: Hx Dementia - ?memory problems, Hx Seizures, Other Neuro Impairments/Disorders - epilepsy Psychiatric History: Denies: Hx Panic Disorder - Surgical History Surgery Procedure, Year, and Place: BILAT HIP REPLACEMENT;. TONSILECTOMY Infectious Disease History: No Infectious Disease History: Denies: Traveled Outside the [place] in Last 30 Days - Family History Known Family History: Positive: Unknown - due to pt's current condition, nonverbal - Social History Alcohol Use: None Hx Substance Use: No Substance Use Type: Reports: None Hx Tobacco Use: Yes Smoking Status (MU): Former Smoker Review of Systems Constitutional: Negative Positive: Fever Eyes: Negative ENT: Negative Positive: Chest Pain Respiratory: Negative Gastrointestinal: Negative Genitourinary: Negative Musculoskeletal: Negative Skin: Negative Neurological: Negative Psychological: Normal All Other Systems Reviewed And Are Negative: Yes Physical Exam Triage Information Reviewed: Yes Vital Signs On Initial Exam: Initial Vitals Temp Pulse Resp BP Pulse Ox 97.8 F 78 16 116/58 95 08/14/17 01:31 08/14/17 01:31 08/14/17 01:31 08/14/17 01:31 08/14/17 01:31 Vital Signs Reviewed: Yes Appearance: Positive: Well-Appearing Skin: Positive: Warm Head/Face: Positive: Normal Head/Face Inspection Eyes: Positive: Normal Neck: Positive: Supple Respiratory/Lung Sounds: Positive: Clear to Auscultation Cardiovascular: Positive: Normal, Other - Chest nontender to palpation Abdomen Description: Positive: Nontender Musculoskeletal: Positive: Normal Neurological: Positive: Normal Psychiatric: Positive: Normal AVPU Assessment: Alert - Ricardo Coma Scale Best Eye Response: 4 - Spontaneous Best Motor Response: 6 - Obeys Commands Diagnostics - Vital Signs Vital Signs Temp Pulse Resp BP Pulse Ox 08/14/17 01:31 97.8 F 78 16 116/58 95 - Laboratory Lab Results: Lab Results 08/14/17 Range/Units 02:00 WBC 6.0 (3.5-10.8) 10^3/ul RBC 4.08 (4.0-5.4) 10^6/ul Hgb 12.5 (12.0-16.0) g/dl Hct 38 (35-47) % MCV 93 (80-97) fL MCH 31 (27-31) pg MCHC 33 (31-36) g/dl RDW 14 (10.5-15) % Plt Count 202 (150-450) 10^3/ul MPV 8.3 (7.4-10.4) um3 Neut % (Auto) 62.8 (38-83) % Lymph % (Auto) 22.4 L (25-47) % Cecil % (Auto) 9.8 H (0-7) % Eos % (Auto) 3.8 (0-6) % Baso % (Auto) 1.2 (0-2) % Absolute Neuts (auto) 3.7 (1.5-7.7) 10^3/ul Absolute Lymphs (auto) 1.3 (1.0-4.8) 10^3/ul Absolute Monos (auto) 0.6 (0-0.8) 10^3/ul Absolute Eos (auto) 0.2 (0-0.6) 10^3/ul Absolute Basos (auto) 0.1 (0-0.2) 10^3/ul Absolute Nucleated RBC 0 10^3/ul Nucleated RBC % 0 Result Diagrams: 08/14/17 02:00 08/14/17 02:00 Lab Statement: Any lab studies that have been ordered have been reviewed, and results considered in the medical decision making process. - EKG 1 Cardiac Rate: NL EKG Rhythm: Sinus Rhythm ST Segment: Normal Ectopy: None Re-Evaluation - Re-Evaluation 1 Re-Evaluation Time: 02:59 Change: Unchanged - pt continues to deny active cp, sob. sleeping when provider went for re-eval Chest Pain Course/Dx - Diagnoses Provider Diagnoses: Chest pain, Dehydration - Provider Notifications Discussed Care Of Patient With: Shania Medina Time Discussed With Above Provider: 03:12 Instructed by Provider To: Admit As Inpatient Discharge - Sign-Out/Discharge Documenting (check all that apply): Discharge - Discharge Plan Condition: Stable Disposition: ADMITTED TO [facility] Referrals: Rose Marie Beth MD [Primary Care Provider] - - Billing Disposition and Condition Condition: STABLE [place] [place]
[2017-08-14 02:20] LABS: INR 0.94 (0.77-1.02)
[2017-08-14 02:30] LABS: EGFR Non-African American 100.5 (>60)
[2017-08-14] MEDS ORDERED: Acetaminophen TAB* 325 MG PO PRN ×2 (03:41→03:45)
[2017-08-14] MEDS ORDERED: Al Hydrox/Mg Hydrox/Simet LIQ* 30 ML UDC PO PRN (03:41)
[2017-08-14] MEDS ORDERED: LORazepam TAB(*) 0.5 MG PO PRN (03:45)
[2017-08-14] MEDS ORDERED: Artificial Tears* 15 ML BTL BOTH EYES PRN (03:45)
[2017-08-14] MEDS ORDERED: Methocarbamol TAB* 500 MG PO PRN (03:45)
[2017-08-14] MEDS ORDERED: Nitroglycerin TAB 0.4 MG* 0.4 MG TAB SL PRN (04:02)
[2017-08-14] MEDS: Enoxaparin(*) 40 MG/0.4 ML SYR SUBCUT SCH (06:39)
[2017-08-14] MEDS: Levothyroxine TAB* 50 MCG TAB PO SCH (06:39)
--- NOTE | 2017-08-14 06:49 | HP ---
HISTORY AND PHYSICAL: DATE OF ADMISSION: 08/14/17. TIME OF ADMISSION: 4 a.m. PRIMARY CARE PROVIDER: Dr. Rose Marie Beth. CHIEF COMPLAINT: Chest pain. HISTORY OF PRESENT ILLNESS: This is a 76-year-old female with a history of a recent CVA with expressive aphasia, who presents from [facility] today with left- sided chest pain. She struggles to provide an HPI given her aphasia; however, with yes and no questions, I am able to ascertain the following about her chest pain. It began suddenly today while she was at rest; however, it did get worse with exertion and was relieved ultimately in the ambulance when she received sublingual nitroglycerin. Since she received sublingual nitroglycerin, it has been resolved and she is currently chest pain-free. When she had the chest pain , it was located in the left side of her chest, with some radiation to her shoulder, and was not associated with shortness of breath. She also denied nausea or vomiting at that time, and she does not believe she has ever had any pain like this before. PAST MEDICAL HISTORY: 1. 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 2. Seizure disorder. 3. Hypothyroidism. 4. Glaucoma. 5. PFO as recently diagnosed by a SRINIVASAN. HOME MEDICATIONS: As obtained from her [facility] record. 1. Tylenol 650 q. 4 p.r.n. pain. 2. Artificial Tears two drops both eyes q. 6 p.r.n. dry eyes. 3. Aspirin 81 mg daily. 4. Atorvastatin 80 mg daily. 5. Plavix 75 mg daily. 6. Docusate 100 mg q.h.s. 7. Fluoxetine 20 mg daily. 8. Keppra 1500 mg b.i.d. 9. Levothyroxine 50 mcg daily. 10. Ativan 0.5 mg b.i.d. p.r.n. anxiety. 11. Robaxin 750 mg p.o. q. 6 p.r.n. 12. MiraLAX 17 g daily. 13. Senna 2 tablets b.i.d. 14. Timolol both eyes b.i.d. 15. Zonegran 100 mg b.i.d. ALLERGIES: AMOXICILLIN and SULFA. FAMILY HISTORY: I am unable to obtain a family history from her, but per the chart she has a family history of "heart problems" in both her parents. SOCIAL HISTORY: She is currently residing at [facility]. She lives there with her . She has never been a smoker and does not use alcohol. REVIEW OF SYSTEMS: She denies weight gain, weight loss, shortness of breath, wheezing, palpitations, nausea, vomiting, diarrhea or constipation. PHYSICAL EXAMINATION GENERAL: Alert, well-appearing female, in no distress. VITAL SIGNS: Temperature 97.8, heart rate 78, respiratory rate 16, pulse ox 95 % on room air, blood pressure 116/58. HEENT: Pupils are equal, round, and reactive to light. Face is symmetric. Moist mucosa. NECK: No JVP, no cervical lymphadenopathy. LUNGS: Clear bilaterally. CHEST: Regular rate and rhythm. No murmurs. PMI is nondisplaced. Nontender to palpation. Shoulder is nontender to palpation. ABDOMEN: Soft, nontender, nondistended. EXTREMITIES: No edema. No rashes, no ulcers. NEUROLOGIC: Right upper extremity 3/5 in strength at the shoulder and elbow, 1/ 5 in her hand movement. She follows all simple commands; however, she has expressive aphasia and words become jumbled when she attempts to speak. She seems to answer yes and no questions appropriately though. LABORATORY DATA: White blood cells 6.0, hemoglobin 12.5, platelets 202. Sodium 137, potassium 3.9, chloride 105, bicarb 24, BUN 8, creatinine 0.58, glucose 113. DIAGNOSTIC STUDIES: Chest x-ray shows an elevated right hemidiaphragm with no edema, effusion or infiltrates. EKG, normal sinus rhythm, normal axis, normal intervals, no ST or T wave changes. ASSESSMENT AND PLAN: This is a 76-year-old female with a recent history of cerebrovascular accident and expressive aphasia with right upper extremity weakness, who presents to the emergency department with chest pain that began today at rest. 1. Chest pain. Her pain has some typical and some atypical components; however , she does have a history of vascular disease and takes aspirin and Plavix daily. So, she should be admitted under observation with troponins trended and monitored on telemetry. She is currently chest pain-free, I am ordering nitroglycerin p.r.n. for any further chest pain. She may have 2 more troponins and after the troponins were trended, the decision can be made about further workup from an ischemic standpoint. She received aspirin 325 mg in the emergency department and she is scheduled to receive her daily aspirin, Plavix and statin this morning. She has no musculoskeletal findings on my exam that suggest that could be the source of her pain. GI should be included on the differential of her chest pain, so I am also ordering Maalox p.r.n.. 2. Cerebrovascular accident with expressive aphasia. Based on her recent notes from Neurology, she appears at her baseline from the standpoint. Continue aspirin, Plavix, and statin. Of note, she had a recent transesophageal echocardiogram, which did show a PFO. She should follow up with Dr. Stewart, and she should be considered for PFO closure. 3. Seizure disorder. Continue Zonegran and Keppra. 4. Depression. Continue fluoxetine. 5. Hypothyroidism. Continue levothyroxine. 6. Glaucoma. Continue timolol. 7. DVT prophylaxis. Lovenox subcutaneously. 8. Diet. Based on prior admission, she adheres to a mechanical ground diet. 9. Code status. She has a MOLST with her from [place] that indicates that she would like to be full code. Admit to the hospitalist service for observation and two more troponins and monitoring on telemetry. After her troponins are trended, a decision can be made about an ischemic evaluation. [id number]/[facility] #: [id number] JR
[2017-08-14] MEDS: Polyethylene Glycol 3350* 17 GM PACKET PO SCH (08:20)
[2017-08-14] MEDS: Clopidogrel TAB* 75 MG PO SCH (08:21)
[2017-08-14] MEDS: Timolol 0.5% OPTH.SOL* BTL BOTH EYES SCH ×2 (08:21→21:01)
[2017-08-14] MEDS: levETIRAcetam TAB* 500 MG PO SCH ×2 (08:21→20:56)
[2017-08-14] MEDS: FLUoxetine CAP* 20 MG PO SCH (08:21)
[2017-08-14] MEDS: Aspirin 81 mg CHEW TAB* 81 MG TAB.CHEW PO SCH (08:21)
[2017-08-14] MEDS: Senna TAB PO SCH ×2 (08:21→20:56)
[2017-08-14] MEDS: CMCS Zonisamide (NF) 50 MG CAP PO SCH ×2 (08:21→20:56)
--- NOTE | 2017-08-14 10:14 | RAD ---
Indication: Chest pain. Single frontal view of the chest performed at 0207 hours was reviewed. Comparison is made with previous exam dated February 13, 2017. No mediastinal shift is noted. Heart is of normal size and configuration. Lung campo appear clear. IMPRESSION: NO ACTIVE CARDIOPULMONARY DISEASE IS NOTED.
--- NOTE | 2017-08-14 14:34 | PN ---
Hospitalist Progress Note Date of Service: 08/14/17 HOSPITALIST ADDENDUM Patient seen and examined at bedside. H&P reviewed. Mrs. Marrero is a76yo F with PMH of CVA with right hemiparesis and expressive aphasia, seizure disorder, hypothyroidism, who presented to ED with c/o CP. Vital signs 08/14/17 11:54 Temperature 98.8 F Pulse Rate 65 Respiratory 18 Rate Blood Pressure 121/59 (mmHg) O2 Sat by Pulse 98 Oximetry CVS: normal S1 and S2, RRR. Chest: BS+ bilaterally with no added sounds. EKG showed no ischemic changes and CxR showed no active pulmonary disease. Plan for pharmacological stress test in AM.
[2017-08-14] MEDS: Atorvastatin* 80 MG TAB PO SCH (16:48)
[2017-08-14] MEDS ORDERED: Docusate CAP* 100 MG PO SCH (21:00)
[2017-08-15] MEDS: Levothyroxine TAB* 50 MCG TAB PO SCH (06:07)
[2017-08-15] MEDS: Enoxaparin(*) 40 MG/0.4 ML SYR SUBCUT SCH (06:07)
[2017-08-15] MEDS: FLUoxetine CAP* 20 MG PO SCH (08:43)
[2017-08-15] MEDS: levETIRAcetam TAB* 500 MG PO SCH (08:43)
[2017-08-15] MEDS: Timolol 0.5% OPTH.SOL* BTL BOTH EYES SCH (08:43)
[2017-08-15] MEDS: Clopidogrel TAB* 75 MG PO SCH (08:43)
[2017-08-15] MEDS: CMCS Zonisamide (NF) 50 MG CAP PO SCH (08:43)
[2017-08-15] MEDS: Polyethylene Glycol 3350* 17 GM PACKET PO SCH (08:43)
[2017-08-15] MEDS: Aspirin 81 mg CHEW TAB* 81 MG TAB.CHEW PO SCH (08:43)
[2017-08-15] MEDS: Senna TAB PO SCH (08:43)
[2017-08-15] MEDS ORDERED: Regadenoson* 0.4 MG/5 ML SYRINGE ONE (12:08)
[2017-08-15] MEDS ORDERED: Aminophylline IV* 25 MG/ML 10 ML VIAL ONE (12:08)
--- NOTE | 2017-08-15 13:52 | RAD ---
Edited for charges. INDICATION: Chest pain, family history of heart disease. COMPARISON: No relevant prior exams available on the [facility] PACS for comparison. TECHNIQUE: 10.030 mCi of Tc-99m Myoview were administered IV. SPECT images of the heart were obtained. Later on the same day. Under the direction of Dr. Hill, the patient was given an IV injection of a pharmacologic stress agent. Subsequently, the patient was given an IV injection of 25.400 mCi Tc-99m Myoview. SPECT images of the heart were obtained and a gated wall motion study was performed. No CT for attenuation correction due to limitation in range of motion of the arms. Prior stroke. FINDINGS: Gated wall motion images were obtained at stress and demonstrate wall motion to be within normal limits. The calculated left ventricular ejection fraction is 64 % at stress. Estimated LEFT ventricular end diastolic volume is 54 mL. TID 1.07. Based on review of the non corrected images the distribution of radiopharmaceutical within the myocardium on the stress and rest images is within normal limits. No fixed or reversible regions of hypoperfusion evident. IMPRESSION: 1. No evidence for stress induced myocardial ischemia or presence of an infarct. 2. Normal left ventricular wall motion and ejection fraction. ASSESSMENT: Low risk based on nuclear portion. Based on imaging criteria from ACC/AHA 2002 Guideline Update for the Management of Patients With Chronic Stable Angina Table 23. Noninvasive Risk Stratification. MTDD
[2017-08-15 16:08] VITALS: BP 134/63
[2017-08-15] MEDS: Atorvastatin* 80 MG TAB PO SCH (17:07)
--- NOTE | 2017-08-16 01:01 | DS ---
CC: Dr. Rose Marie Beth; Dr. Stewart* DISCHARGE SUMMARY: DATE OF ADMISSION: 08/14/17 DATE OF DISCHARGE: 08/15/17 PRIMARY CARE PROVIDER: Dr. Rose Marie Beth. NEUROLOGIST: Dr. Stewart. DISCHARGE DIAGNOSES: Atypical chest pain, acute coronary syndrome ruled out, negative stress test. SECONDARY DIAGNOSES: 1. Status post MCA cerebrovascular accident with residual right hemiparesis and expressive aphasia. 2. Seizure disorder. 3. Hypothyroidism. 4. Glaucoma. 5. Recent SRINIVASAN that revealed a patent foramen ovale. MEDICATIONS LIST: 1. Acetaminophen 650 mg p.o. q.4 hours p.r.n. pain or fever. 2. Artificial Tears 2 drops to both eyes q.6 hours p.r.n. dry eye. 3. Aspirin 81 mg p.o. daily. 4. Atorvastatin 80 mg p.o. at 1700. 5. Plavix 75 mg p.o. daily. 6. Colace 100 mg p.o. at bedtime. 7. Fluoxetine 20 mg daily. 8. Keppra 1500 mg b.i.d. 9. Levothyroxine 50 mcg p.o. daily at 6 a.m. 10. Lorazepam 0.5 mg p.o. b.i.d. as needed for seizures. 11. Methocarbamol 750 mg p.o. q.6 hours as needed for spasms. 12. MiraLax 17 g p.o. daily. 13. Senna 2 tablets p.o. b.i.d. 14. Timolol 0.5% 1 drop to both eyes b.i.d. 15. Zonisamide 100 mg p.o. b.i.d. HOSPITAL COURSE: Ms. Marrero is a 76-year-old lady with a past medical history as stated above that presented to the emergency room with complaints of left- sided chest pain. As per HPI, the pain got worse with exertion and was relieved by sublingual nitro. The pain was described on her left side radiating to her left shoulder and not associated with shortness of breath. The patient was admitted to the telemetry floor for further evaluation. Serial troponins were negative and her EKG showed no acute ischemic changes. The patient underwent a nuclear medicine stress test that showed no evidence for a stress-induced myocardial ischemia or presence of an infarct. There is normal left ventricular wall motion and ejection fraction of 64% at stress. I do suspect her chest pain may have a GI component as she is able to tell me that the pain felt better after she was able to burp. The patient is medically stable to be discharged back to [facility] at this time and she will follow up with Dr. Beth as outpatient. Of note, the patient's kindly requested that we checked her zonisamide and levetiracetam levels as requested by Dr. Stewart as it is very taxing for the patient to have this test done as an outpatient. So those results are pending at the time of this dictation and will be sent to Dr. Stewart. PHYSICAL EXAMINATION: Vital Signs: Temperature 98.6, heart rate is 64, respiratory rate 16, oxygen saturation 96% on room air, blood pressure is 123/ 58. General: The patient is a pleasant elderly lady sitting up in the bed in no acute distress. CVS: Normal S1 and S2. Regular rate and rhythm. Chest: Breath sounds present bilaterally with no added sounds. Extremities: No edema. Neuro: She is alert and awake with significant expressive aphasia. She also has residual right hemiparesis. DIET: Regular diet with mechanical ground texture. ACTIVITY: As tolerated. DISPOSITION: Back to [facility]. STATUS IN THE HOSPITAL: Observation. Please keep in mind this is a summarized version of this patient's hospital stay. If you need more information, please feel free to call me at [phone] or please obtain the full medical records. TIME SPENT: Approximately 45 minutes were spent to complete this discharge. [id number]/[facility] #: [id number] MTDD
== END 2017-08-15 18:38 | disposition home or self-care (01) ==
LOC: ED 01:26 → MEDTELE 03:41
PROVIDERS: ADMIT Internal Medicine; ATTEND Internal Medicine
DX: R07.89 Other chest pain (principal); I69.351 Hemiplegia and hemiparesis following cerebral infarction affecting right dominant side; I69.320 Aphasia following cerebral infarction; G40.909 Epilepsy, unspecified, not intractable, without status epilepticus; E03.9 Hypothyroidism, unspecified; H40.9 Unspecified glaucoma; F32.9 Major depressive disorder, single episode, unspecified; Z79.899 Other long term (current) drug therapy; Z88.2 Allergy status to sulfonamides; Z88.1 Allergy status to other antibiotic agents; Z87.891 Personal history of nicotine dependence
CPT/HCPCS: 36415; 71045; 78452; 80053; 80177; 80203; 83605; 83880; 84484; 85025; 85610; 85730; 87641; 93005; 93017; 96372; 99285; A9270-GY; A9502; G0378; J0280; J1650; J2785

== ENCOUNTER → 2018-05-18 09:39 | Emergency (ER) | payer MEDICARE, OTHER ==
[~2018-05-18 09:39] MED LIST: Pantoprazole IV* 40 MG IV ONE; Sucralfate TAB* 1 GM PO ONE
--- NOTE | 2018-05-18 10:47 | ED ---
Abdominal Pain/Female - HPI Summary HPI Summary: This patient is a 77 year old female brought in by EMS to the ED with a cc of intermittent LUQ pain that began yesterday. She reports the pain as 3/10 in severity. She states she is hungry. Pt denies nausea. The patient does not answer all questions and answers with laughs for most. LEVEL 5 CAVEAT: Exam limited due to chronic deficits s/p CVA. - History of Current Complaint Chief Complaint: EDAbdPain Stated Complaint: ABD PAIN Time Seen by Provider: 05/18/18 09:54 Hx Obtained From: Patient, Medical Records Onset/Duration: Lasting Days - 1, Still Present Timing: Constant Severity Initially: Mild Severity Currently: Mild Pain Intensity: 3 Pain Scale Used: 0-10 Numeric Location: Discrete At: RUQ Radiates: No Associated Signs and Symptoms: Negative: Nausea Allergies/Adverse Reactions: Allergies Allergy/AdvReac Type Severity Reaction Status Date / Time amoxicillin Allergy Unknown Verified 07/20/17 15:12 Reaction Details Sulfa (Sulfonamide Allergy Unknown Verified 07/20/17 15:12 Antibiotics) Reaction Details Home Medications: Home Medications Atorvastatin* [Lipitor 80 MG*] 80 mg PO QPM 05/18/18 [History Confirmed 05/18/18 ] FLUoxetine CAP* [PROzac CAP*] 20 mg PO DAILY 05/18/18 [History Confirmed ] Oxybutynin TAB* [Ditropan TAB*] 2.5 mg PO DAILY 05/18/18 [History Confirmed ] levETIRAcetam TAB* [Keppra TAB*] 1,000 mg PO QAM 05/18/18 [History Confirmed ] levETIRAcetam TAB* [Keppra TAB*] 1,500 mg PO QPM 05/18/18 [History Confirmed ] PMH/Surg Hx/FS Hx/Imm Hx Endocrine/Hematology History: Denies: Hx Diabetes Cardiovascular History: Denies: Hx Congestive Heart Failure, Hx Hypertension, Hx Pacemaker/ICD History: Denies: Hx Dialysis, Hx Renal Disease Musculoskeletal History: Comment Only: Other Musculoskeletal History - B hip replacement 2 and 6 yrs ago Sensory History: Reports: Hx Glaucoma, Hx Hearing Problem - ANGOON Denies: Hx Contacts or Glasses, Hx Hearing Aid Opthamlomology History: Reports: Hx Glaucoma Denies: Hx Contacts or Glasses Neurological History: Reports: Hx CVA, Hx Dementia - ?memory problems, Hx Seizures, Other Neuro Impairments/Disorders - epilepsy Psychiatric History: Denies: Hx Panic Disorder - Surgical History Surgery Procedure, Year, and Place: BILAT HIP REPLACEMENT;. TONSILECTOMY Infectious Disease History: No Infectious Disease History: Denies: Traveled Outside the [place] in Last 30 Days - Family History Known Family History: Positive: Unknown - due to pt's current condition, nonverbal - Social History Alcohol Use: None Hx Substance Use: No Substance Use Type: Reports: None Hx Tobacco Use: Yes Smoking Status (MU): Former Smoker Review of Systems - ROS Summary Review of Systems Summary: LEVEL 5 CAVEAT: Exam limited due to chronic deficits s/p CVA. Negative: Fever Positive: Abdominal Pain, Other - hungry . Negative: Nausea All Other Systems Reviewed And Are Negative: No Physical Exam - Summary Physical Exam Summary: Appearance: The patient is well-nourished in no acute distress and in no acute pain. Skin: The skin is warm and dry and skin color reflects adequate perfusion. HEENT: The head is normocephalic and atraumatic. The pupils are equal and reactive. The conjunctivae are clear and without drainage. Nares are patent and without drainage. Mouth reveals moist mucous membranes and the throat is without erythema and exudate. The external ears are intact. The ear canals are patent and without drainage. The tympanic membranes are intact. Neck: The neck is supple with full range of motion and non-tender. There are no carotid bruits. There is no neck vein distension. Respiratory: Chest is non-tender. Lungs are clear to auscultation and breath sounds are symmetrical and equal. Cardiovascular: Heart is regular rate and rhythm. There is no murmur or rub auscultated. There is no peripheral edema and pulses are symmetrical and equal. Abdomen: The abdomen is soft and TTP in the LUQ. There are normal bowel sounds heard in all four quadrants and there is no organomegaly palpated. Musculoskeletal: There is no back tenderness noted. Extremities are non-tender with full range of motion. There is good capillary refill. There is no peripheral edema or calf tenderness elicited. Neurological: Patient is alert and a poor historian. The patient has symmetrical motor strength in all four extremities. Cranial nerves are grossly intact. Deep tendon reflexes are symmetrical and equal in all four extremities. Psychiatric: The patient has an appropriate affect and does not exhibit any anxiety or depression. Triage Information Reviewed: Yes Vital Signs On Initial Exam: Initial Vitals Temp Pulse Resp BP Pulse Ox 97 F 66 16 129/80 96 05/18/18 09:46 05/18/18 09:46 05/18/18 09:46 05/18/18 09:46 05/18/18 09:46 Vital Signs Reviewed: Yes Completion Of Physical Exam Limited Due To: Level 5 - LEVEL 5 CAVEAT: Exam limited due to chronic deficits s/p CVA. Diagnostics - Vital Signs Vital Signs Temp Pulse Resp BP Pulse Ox 05/18/18 09:46 97 F 66 16 129/80 96 - Laboratory Result Diagrams: 05/18/18 10:39 05/18/18 10:39 Lab Statement: Any lab studies that have been ordered have been reviewed, and results considered in the medical decision making process. - CT CT ABD/Pelvis CT Interpretation Completed By: Radiologist Summary of CT Findings: There is stranding and edema in the mesentery in the left mid abdomen with. some mildly enlarged mesenteric lymph nodes. 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 No abnormal masses or fluid collections are noted. Dr. Manzanares has reviewed this report. Abdominal Pain Fem Course/Dx - Course Course Of Treatment: Ms. 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 She seems answer yes or no questions well. She is complaining of left upper quadrant pain that I believe started today. She denies nausea or change in bowels and bladder. She was nontoxic in appearance with stable vitals on arrival. 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 I recommended that transiently we treated her information with nonsteroidals and get her close follow-up with her PCP in case she needs a biopsy at some point. - Diagnoses Provider Diagnoses: LUQ pain Discharge - Sign-Out/Discharge Documenting (check all that apply): Patient Departure - Discharge Plan Condition: Stable Disposition: HOME Patient Education Materials: Acute Abdominal Pain (ED), Abdominal Pain (ED) Referrals: Rose Marie Beth MD [Primary Care Provider] - 2 Days Additional Instructions: RETURN TO THE EMERGENCY DEPARTMENT FOR CHANGING OR WORSENING SYMPTOMS - Billing Disposition and Condition Condition: STABLE Disposition: Home - Attestation Statements Document Initiated by Scribe: Yes Documenting Scribe: Pal Martinez Provider For Whom Aleja is Documenting (Include Credential): García Manzanares MD Scribe Attestation: IPal , scribed for García Manzanares MD on 05/18/18 at 1706. Scribe Documentation Reviewed: Yes Provider Attestation: The documentation as recorded by the Pal valverde accurately reflects the service I personally performed and the decisions made by meGarcía MD Status of Scribe Document: Viewed
[2018-05-18 10:48] LABS: ABS Basophils 0 10^3/ul (0-0.2); ABS Eosinophils 0.2 10^3/ul (0-0.6); ABS Lymphocytes 1.1 10^3/ul (1.0-4.8); ABS Monocytes 0.3 10^3/ul (0-0.8); ABS Nucleated RBC 0 10^3/ul; Eosinophil % 2.9 %; Hematocrit 42 % (35-47); Hemoglobin 13.7 g/dl (12.0-16.0); Lymphocyte % 19.3 %; Mean Corpuscular HGB Conc 33 g/dl (31-36); Mean Corpuscular Hemoglobin 31 pg (27-31); Mean Corpuscular Volume 94 fL (80-97); Mean Platelet Volume 8.7 fL (7.4-10.4); Nucleated Red Blood Cells % 0; Platelet Count 190 10^3/ul (150-450); Red Blood Count 4.47 10^6/ul (4.00-5.40); Red Cell Distribution Width 13 % (10.5-15); White Blood Count 5.6 10^3/ul (3.5-10.8)
[2018-05-18 11:03] LABS: INR 0.94 (0.77-1.02)
[2018-05-18 11:18] LABS: ALT 19 U/L (7-52); AST 15 U/L (13-39); Albumin 3.5 g/dL (3.2-5.2); Albumin/Globulin Ratio 1.2 (1-3); Alkaline Phosphatase 145 U/L (34-104); Anion Gap 5 mmol/L (2-11); Blood Urea Nitrogen 15 mg/dL (6-24); C Reactive Protein 12.51 mg/L (<8.01); CO2 Carbon Dioxide 27 mmol/L (22-32); Chloride 108 mmol/L (101-111); EGFR African American 259.7 (>60); EGFR Non-African American 214.6 (>60); Glucose 97 mg/dL (70-100); Potassium 4.1 mmol/L (3.5-5.0); Sodium 140 mmol/L (135-145); Total Protein 6.5 g/dL (6.4-8.9)
[2018-05-18 12:14] VITALS: BP 141/82
== END | disposition home or self-care (01) ==
LOC: ED 09:39
DX: R10.12 Left upper quadrant pain (principal); I69.320 Aphasia following cerebral infarction; Z87.891 Personal history of nicotine dependence; G40.909 Epilepsy, unspecified, not intractable, without status epilepticus; Z88.0 Allergy status to penicillin; Z88.2 Allergy status to sulfonamides; F03.90 Unspecified dementia, unspecified severity, without behavioral disturbance, psychotic disturbance, mood disturbance, and anxiety
CPT/HCPCS: 36415; 74176; 80053; 83605; 83690; 85025; 85610; 86140; 96374; 99282; A9270-GY

== ENCOUNTER 2019-06-26 19:15 | Inpatient (IN) | payer MEDICARE, OTHER ==
[2019-06-26] MEDS ORDERED: methylPREDNISolone 125 MG* 2 ML VIAL IV ONE (19:38)
[2019-06-26] MEDS: Albuterol/Ipratropium NEB.SOL* Albuterol 2.5 MG/Ipratropium 0.5 MG 3 ML INH ONE ×2 (19:53→19:54)
--- NOTE | 2019-06-26 20:34 | ED ---
Shortness of Breath - HPI Summary HPI Summary: Patient is an 78 y/o F presenting to [facility] via EMS from retirement for SOB. In room, audible wheezing is noted. Patient has Hx of CVA with residual dysarthria, right sided-weakness. Patient is a level 5 caveat secondary to inability to communicate. Hx of thyroid disease and glaucoma noted on medical records, no Hx of COPD is listed. Home medications and allergies are reviewed. - History of Current Complaint Time Seen by Provider: 06/26/19 19:27 Hx Obtained From: EMS Hx From Patient Unobtainable Due To: Other - Patient is a level 5 caveat secondary to inability to communicate due to residual CVA deficits. Onset/Duration: Still Present Timing: Constant Dyspnea At: Rest Associated Signs & Symptoms: Wheezing - Allergy/Home Medications Allergies/Adverse Reactions: Allergies Allergy/AdvReac Type Severity Reaction Status Date / Time amoxicillin Allergy Unknown Verified 07/20/17 15:12 Reaction Details Sulfa (Sulfonamide Allergy Unknown Verified 07/20/17 15:12 Antibiotics) Reaction Details Home Medications: Home Medications LORazepam TAB(*) [Ativan 0.5 MG TAB (*)] 0.5 mg PO BID PRN MDD 1 mg 02/09/17 [ History Confirmed 06/26/19] Timolol 0.5% OPTH.IAM* [Timoptic 0.5% Opth*] 1 drop BOTH EYES BID 02/09/17 [ History Confirmed 06/26/19] Aspirin 81 mg CHEW TAB* 81 mg PO DAILY tab.chew 02/14/17 [Rx Confirmed 06/26/19 ] Clopidogrel TAB* [Plavix TAB*] 75 mg PO DAILY tab 02/14/17 [Rx Confirmed ] Levothyroxine TAB* [Synthroid TAB*] 50 mcg PO DAILY@0600 tab 03/23/17 [Rx Confirmed 06/26/19] Methocarbamol TAB* [Robaxin 500 MG TAB*] 750 mg PO Q6H PRN tab 03/23/17 [Rx Confirmed 06/26/19] Zonisamide (NF) [Zonegran (NF)] 100 mg PO BID cap 03/23/17 [Rx Confirmed ] Acetaminophen TAB* [Tylenol TAB*] 650 mg PO Q6HR PRN 07/20/17 [History Confirmed 06/26/19] Artificial Tears* 15 ML BTL [Polyvinyl Alcohol 1.4% OPTH*] 2 drop BOTH EYES Q6H PRN 07/20/17 [History Confirmed 06/26/19] Docusate CAP* [Colace Cap*] 100 mg PO BEDTIME PRN 07/20/17 [History Confirmed ] Polyethylene Glycol 3350* [Miralax (17 GM DOSE MARY ANN)] 17 gm PO DAILY PRN [History Confirmed 06/26/19] Senna TAB 8.6 mg* [Senokot 8.6 mg TAB*] 2 tab PO DAILY PRN 07/20/17 [History Confirmed 06/26/19] Atorvastatin* [Lipitor 80 MG*] 80 mg PO QPM 05/18/18 [History Confirmed 06/26/19 ] FLUoxetine CAP* [PROzac CAP*] 20 mg PO DAILY 05/18/18 [History Confirmed ] Oxybutynin TAB* [Ditropan TAB*] 2.5 mg PO DAILY 05/18/18 [History Confirmed 07/12] levETIRAcetam TAB* [Keppra TAB*] 1,000 mg PO QAM 05/18/18 [History Confirmed 07/12] levETIRAcetam TAB* [Keppra TAB*] 1,500 mg PO QPM 05/18/18 [History Confirmed 07/12] PMH/Surg Hx/FS Hx/Imm Hx Endocrine/Hematology History: Denies: Hx Diabetes Cardiovascular History: Denies: Hx Congestive Heart Failure, Hx Hypertension, Hx Pacemaker/ICD History: Denies: Hx Dialysis, Hx Renal Disease Musculoskeletal History: Comment Only: Other Musculoskeletal History - B hip replacement 2 and 6 yrs ago Sensory History: Reports: Hx Glaucoma, Hx Hearing Problem - [place]SE[place] Denies: Hx Contacts or Glasses, Hx Hearing Aid Opthamlomology History: Reports: Hx Glaucoma Denies: Hx Contacts or Glasses Neurological History: Reports: Hx CVA, Hx Dementia - ?memory problems, Hx Seizures, Other Neuro Impairments/Disorders - epilepsy Psychiatric History: Denies: Hx Panic Disorder - Surgical History Surgery Procedure, Year, and Place: BILAT HIP REPLACEMENT;. TONSILECTOMY - Immunization History Immunizations Up to Date: Yes Infectious Disease History: Denies: Traveled Outside the [place] in Last 30 Days - Family History Known Family History: Positive: Unknown - Patient is a level 5 caveat secondary to inability to communicate - Social History Alcohol Use: None Hx Substance Use: No Substance Use Type: Reports: None Hx Tobacco Use: Yes Smoking Status (MU): Former Smoker Review of Systems - ROS Summary Review of Systems Summary: Patient is a level 5 caveat secondary to inability to communicate due to residual CVA deficits. Positive: Shortness Of Breath, Other - Wheezing All Other Systems Reviewed And Are Negative: No - Comments Additional Review of Systems Comments: Patient is a level 5 caveat secondary to inability to communicate due to residual CVA deficits. Physical Exam - Summary Physical Exam Summary: VITAL SIGNS: Reviewed. GENERAL: Patient is a well-developed and nourished female who is lying comfortable in the stretcher. Patient is not in any acute respiratory distress. HEAD AND FACE: No signs of trauma. No ecchymosis, hematomas or skull depressions. No sinus tenderness. EYES: PERRLA, EOMI x 2, No injected conjunctiva, no nystagmus. EARS: Hearing grossly intact. Ear canals and tympanic membranes are within normal limits. MOUTH: Oropharynx within normal limits. NECK: Supple, trachea is midline, no adenopathy, no JVD, no carotid bruit, no c- spine tenderness, neck with full ROM. CHEST: Symmetric, no tenderness at palpation. LUNGS: Decreased breath sounds bilaterally, diffuse wheezing, patient has o2 saturation of 94% on RA. CVS: Regular rate and rhythm, S1 and S2 present, no murmurs or gallops appreciated. ABDOMEN: Soft, non-tender. No signs of distention. No rebound, no guarding, and no masses palpated. Bowel sounds are normal. EXTREMITIES: FROM in all major joints, no edema, no cyanosis or clubbing. NEURO: Alert. Unable to give history secondary to dysarthria after stroke, chronic right-sided weakness noted. No acute neurological deficits. SKIN: Dry and warm. Triage Information Reviewed: Yes Vital Signs On Initial Exam: Initial Vitals Temp Pulse Resp BP Pulse Ox 97.2 F 81 22 159/108 94 06/26/19 19:29 06/26/19 19:29 06/26/19 19:29 06/26/19 19:29 06/26/19 19:29 Vital Signs Reviewed: Yes Procedures - Sedation Patient Received Moderate/Deep Sedation with Procedure: No Diagnostics - Vital Signs Vital Signs Temp Pulse Resp BP Pulse Ox 06/26/19 20:11 78 22 98 06/26/19 20:00 81 23 98 06/26/19 19:36 84 27 97 06/26/19 19:29 97.2 F 81 22 159/108 94 - Laboratory Result Diagrams: 06/26/19 21:23 Lab Statement: Any lab studies that have been ordered have been reviewed, and results considered in the medical decision making process. - EKG 1935 Cardiac Rate: NL - rate of 83 BPM EKG Rhythm: Sinus Rhythm Summary of EKG Findings: EKG showed sinus rhythm with rate of 83 BPM, no ST elevations. ED physician has reviewed and interpreted this EKG. Course/Dx - Course Assessment/Plan: Patient is an 78 y/o F presenting to [facility] via EMS from retirement for SOB. In room, audible wheezing is noted. Patient has Hx of CVA with residual dysarthria, right sided-weakness. Patient is a level 5 caveat secondary to inability to communicate. Hx of thyroid disease and glaucoma noted on medical records, no Hx of COPD is listed. Home medications and allergies are reviewed. In the ED course the patient was placed in a starch treating assistant, IV access was obtained. She was given Duoneb and solumedrol. Past medical records reviewed. Blood test is pending. CXR is pending. Patient will be signed out to Dr. Ruby aft shift change. She will f/u blood test results, CXR and further disposition for the patient. - Diagnoses Provider Diagnoses: SOB (shortness of breath), Wheezing Discharge ED - Sign-Out/Discharge Documenting (check all that apply): Sign-Out Patient Signing out patient TO: Rose Ruby - Discharge Plan Referrals: Rose Marie Beth MD [Primary Care Provider] - - Attestation Statements Document Initiated by Scribe: Yes Documenting Scribe: TOÑITO NAPIER Provider For Whom Scribe is Documenting (Include Credential): DISHA OZUNA MD Scribe Attestation: TOÑITO Palomino, scribed for DISHA OZUNA MD on 06/26/19 at 5435. Status of Scribe Document: Ready
[2019-06-26 21:37] LABS: ABS Eosinophils 0.1 10^3/ul (0-0.6); ABS Lymphocytes 0.8 10^3/ul (1.0-4.8); ABS Monocytes 0.3 10^3/ul (0-0.8); ABS Neutrophils 4.2 10^3/ul (1.5-7.7); Eosinophil % 1.7 %; Hematocrit 40 % (35-47); Hemoglobin 13.2 g/dL (12.0-16.0); Lymphocyte % 15.3 %; Mean Corpuscular HGB Conc 33 g/dL (31-36); Mean Corpuscular Hemoglobin 31 pg (27-31); Mean Corpuscular Volume 93 fL (80-97); Platelet Count 172 10^3/uL (150-450); Red Blood Count 4.27 10^6 /uL (3.70-4.87); Red Cell Distribution Width 14 % (10-15); White Blood Count 5.4 10^3/uL (3.5-10.8)
[2019-06-26 21:47] LABS: Activated Partial Thrombo Time 35.8 seconds (26.0-38.0); INR 1.04 (0.82-1.09)
[2019-06-26 22:02] LABS: Albumin 3.8 g/dL (3.2-5.2); Albumin/Globulin Ratio 1.4 (1-3); BUN/Creatinine Ratio 22.2 (8-20); C Reactive Protein 11.59 mg/L (<8.01); Calcium 8.7 mg/dL (8.6-10.3); EGFR Non-African American 90.9 (>60); Globulin 2.7 g/dL (2-4); Potassium 4.2 mmol/L (3.5-5.0); Total Bilirubin 0.3 mg/dL (0.2-1.0); Total Protein 6.5 g/dL (6.4-8.9)
[2019-06-26 22:06] LABS: Troponin I 0.01 ng/mL (<0.03)
[2019-06-26 22:08] LABS: CKMB ng/mL 0.8 ng/mL (0.6-6.3)
--- NOTE | 2019-06-26 22:32 | ED ---
Progress - Progress Note Progress Note: Patient signed out by Dr. Leon at 22:00 on June 26, 2019 pending chest x-ray, blood work, and disposition. Laboratory results with no significant abnormalities except for Absolute lymphs of 0.8, sodium of 134, BUN/creatinine ratio of 22.2, glucose of 137, alkaline phosphatase of 115, and CRP of 11.59. Chest x-ray, per ED physician, no acute process. Patient received Rocephin and Duoneb treatment. Spoke with Dr. Astudillo, the patient will be admitted. - Results/Orders Results/Orders: Chest x-ray impression: No acute process. ED physician has reviewed and interpreted this report. Course/Dx - Course Course Of Treatment: Patient received Rocephin and Duoneb treatment. referred to hospitalist for admission for pneumonia. Recommend IV steroids, antibiotics , breathing treatments. Oxygen as necessary. - Diagnoses Provider Diagnoses: SOB (shortness of breath), Wheezing, Pneumonia - Provider Notifications Discussed Care Of Patient With: Alcon Astudillo Time Discussed With Above Provider: 00:43 Instructed by Provider To: Other - Patient will be admitted. Discharge ED - Sign-Out/Discharge Documenting (check all that apply): Patient Departure - admit, Receiving Sign- Out Receiving patient FROM: Shmuel Leon - Pending chest x-ray, blood work, and disposition. - Discharge Plan Condition: Stable Disposition: ADMITTED TO [facility] - Billing Disposition and Condition Condition: STABLE Disposition: Admitted to [facility] - Attestation Statements Document Initiated by Rashidibe: Yes Documenting Scribe: Fany Mackay Provider For Whom Aleja is Documenting (Include Credential): Rose Ruby MD Scribe Attestation: Katalina Palomino Natalie George, scribed for Rose Ruby MD on 06/27/19 at 0508. Scribe Documentation Reviewed: Yes Provider Attestation: The documentation as recorded by the Katalina valverde Natalie George accurately reflects the service I personally performed and the decisions made by me, Rose Ruby MD Status of Scribe Document: Viewed Procedures - Sedation Patient Received Moderate/Deep Sedation with Procedure: No
[2019-06-26] MEDS ORDERED: cefTRIAXone(*) 1 GM in NS 0.9% 50 ML* 50 ML IVPB ONE (22:52)
[2019-06-26 23:18] LABS: Influenza A Molecular Negative (Negative); Influenza B Molecular Negative (Negative)
[2019-06-27] MEDS ORDERED: Albuterol/Ipratropium NEB.SOL* Albuterol 2.5 MG/Ipratropium 0.5 MG 3 ML INH ONE (00:47)
[2019-06-27] MEDS ORDERED: Acetaminophen TAB* 325 MG PO PRN (02:24)
[2019-06-27] MEDS ORDERED: LORazepam TAB(*) 0.5 MG PO PRN (02:24)
[2019-06-27] MEDS ORDERED: Docusate CAP* 100 MG PO PRN (02:24)
[2019-06-27] MEDS ORDERED: Artificial Tears* 15 ML BTL BOTH EYES PRN (02:24)
[2019-06-27] MEDS ORDERED: Methocarbamol TAB* 500 MG PO PRN (02:24)
[2019-06-27] MEDS ORDERED: Albuterol/Ipratropium NEB.SOL* Albuterol 2.5 MG/Ipratropium 0.5 MG 3 ML INH PRN (02:31)
[2019-06-27] MEDS ORDERED: Iohexol 350* (CONTRAST) 500 ML MDV IV ONE (02:40)
[2019-06-27] MEDS ORDERED: methylPREDNISolone SOD 40 MG* 1 ML VIAL IV SCH (03:00)
[2019-06-27] MEDS ORDERED: methylPREDNISolone SOD 40 MG* 1 ML VIAL ONE (03:07)
[2019-06-27] MEDS ORDERED: cefTRIAXone(*) 1 GM in NS 0.9% 50 ML* 50 ML IVPB SCH (03:54)
[2019-06-27] MEDS ORDERED: Azithromycin 500 mg/250 ml NS 500 MG/250 ML BAG IVPB SCH (04:00)
--- NOTE | 2019-06-27 04:03 | HP ---
History of Present Illness - History of Present Illness Reason for Visit: SOB, Wheezing History of Present Illness: 78 yo Female with PMHx significant for Stroke with residual dysarthria , right hemiparesis, Hypothyroidism, Depression and seizure and a client at nursing facility presented with acute SOB, wheezing and cough which is progressively worsening over a period of 1 week. Patient has speech difficulties but was able to state that problem started with cough which is dry and worsened to a hacking cough. There is associated wheezing which now became audible with SOB. Patient reported low grade fever. The son is at bedside and was able to offer more insight. Said she never had wheezing before. Her diet is Pureed with nectar thick liquid due to diagnosed dysphagia after CVA diagnosis. She denied nausea, vomiting, chest pain. - Past Medical History Cardiac: Hyperlipidemia [employer]: CVA, Seizure Psych: Depression Endocrine: Hypothyroidism - Past Surgical History Past Surgical History: Total Hip Replacement, Tonsillectomy - Past Family History Family History: Hypertension, Other - CHF - Past Social History Smoke: No Alcohol: None Drugs: None Lives: Shelter Domestic Violence: Negative - Health Maintenance Health Maintenance: Cholesterol Review of Systems - Measurements Intake and Output: Intake and Output Last 24 Hours 06/24/19 06/25/19 06/26/19 06/27/19 06:59 06:59 06:59 06:59 Intake Total 50 Balance 50 Weight 99.79 kg Intake: IV Fluids 50 - Review of Systems Constitutional Symptoms: Positive: Weakness, Fatigue Dermatology: Positive: Normal HEENT: Positive: Normal Eyes: Positive: Normal Thyroid: Positive: Normal Pulmonary: Positive: Cough, Wheezing, Respiratory Distress, Shortness of Breath Negative: Hemoptysis, Home Oxygen Cardiology: Positive: Shortness of Breath Negative: Chest Pain, Swelling of Ankles, Edema, Faintness, Syncope, Claudication Gastroenterology: Positive: Normal Negative: Nausea, Vomiting, Anorexia Genital - Urinary: Positive: Normal Genitourinay - Female: Positive: Menopause Endocrinology: Positive: Normal Hematologic/Lymphatic: Negative: Easy Bruising Neurology: Negative: Dizziness Psychiatry: Positive: Normal Allergic/Immunologic: Negative: Asthma Objective Active Medications: Acetaminophen (Tylenol Tab*) 650 mg PO Q6HR PRN PRN Reason: FEVER/PAIN Albuterol/Ipratropium (Duoneb (Albuterol 2.5 Mg/Ipratropium 0.5 Mg)) 1 neb INH Q2H PRN PRN Reason: SOB/WHEEZING Aspirin (Aspirin 81 Mg Chew Tab*) 81 mg PO DAILY [facility] Atorvastatin Calcium (Lipitor*) 80 mg PO BEDTIME [facility] Clopidogrel Bisulfate (Plavix Tab*) 75 mg PO DAILY [facility] Docusate Sodium (Colace Cap*) 100 mg PO BEDTIME PRN PRN Reason: CONSTIPATION Fluoxetine HCl (Prozac Cap*) 20 mg PO DAILY [facility] Azithromycin (Zithromax 500 Mg/250 Ml) 500 mg in 250 mls @ 250 mls/hr IVPB Q24H [facility] Ceftriaxone Sodium 1 gm/ (Sodium Chloride) 50 mls @ 100 mls/hr IVPB Q24H [facility] Levetiracetam (Keppra Tab*) 1,000 mg PO QAM [facility] Levetiracetam (Keppra Tab*) 1,500 mg PO BEDTIME [facility] Levothyroxine Sodium (Synthroid Tab*) 50 mcg PO DAILY@0600 [facility] Lorazepam (Ativan Tab(*)) 0.5 mg PO BID PRN PRN Reason: SEIZURES Methocarbamol (Robaxin Tab*) 750 mg PO Q6H PRN PRN Reason: SPASMS Methylprednisolone Sodium Succinate (Solu-Medrol 40 Mg) 60 mg IV Q8H [facility] Last Admin: 06/27/19 03:09 Dose: 60 mg Oxybutynin Chloride (Ditropan Tab*) 2.5 mg PO DAILY [facility] Polyvinyl Alcohol (Polyvinyl Alcohol 1.4% Opth*) 2 drop BOTH EYES Q6H PRN PRN Reason: DRY EYE Timolol Maleate (Timoptic 0.5% Opth*) 1 drop BOTH EYES BID [facility] Zonisamide (Zonegran (Nf)) 100 mg PO BID [facility]; Protocol Vital Signs - 8 hr 06/26/19 06/26/19 06/26/19 20:00 20:11 20:29 Temperature Pulse Rate 81 78 Respiratory 23 22 Rate Blood Pressure 132/73 (mmHg) O2 Sat by Pulse 98 98 Oximetry 06/26/19 06/26/19 06/26/19 21:00 22:01 22:07 Temperature Pulse Rate 81 79 Respiratory 22 21 Rate Blood Pressure 128/72 (mmHg) O2 Sat by Pulse 95 95 Oximetry 06/26/19 06/26/19 06/26/19 22:38 23:01 23:08 Temperature Pulse Rate 83 82 83 Respiratory 21 21 21 Rate Blood Pressure 149/87 140/75 (mmHg) O2 Sat by Pulse 96 95 94 Oximetry 06/26/19 06/26/19 06/27/19 23:38 23:59 00:01 Temperature Pulse Rate 85 76 76 Respiratory 21 16 17 Rate Blood Pressure 138/73 (mmHg) O2 Sat by Pulse 95 94 94 Oximetry 06/27/19 06/27/19 06/27/19 00:08 00:38 01:00 Temperature Pulse Rate 79 76 86 Respiratory 17 20 21 Rate Blood Pressure 134/78 126/79 (mmHg) O2 Sat by Pulse 95 95 95 Oximetry 06/27/19 06/27/19 06/27/19 01:08 01:38 02:00 Temperature Pulse Rate 79 82 79 Respiratory 24 18 15 Rate Blood Pressure 133/83 117/84 (mmHg) O2 Sat by Pulse 96 97 97 Oximetry 06/27/19 06/27/19 06/27/19 02:08 02:38 02:53 Temperature Pulse Rate 88 Respiratory 17 24 20 Rate Blood Pressure 120/72 141/95 (mmHg) O2 Sat by Pulse 91 Oximetry 06/27/19 06/27/19 06/27/19 03:00 03:08 03:38 Temperature Pulse Rate 78 77 Respiratory 21 15 15 Rate Blood Pressure 131/62 136/69 (mmHg) O2 Sat by Pulse 97 95 Oximetry 06/27/19 03:46 Temperature 97.9 F Pulse Rate 74 Respiratory 18 Rate Blood Pressure 136/69 (mmHg) O2 Sat by Pulse 97 Oximetry Oxygen Devices in Use Now: Nasal Cannula Appearance: Awake, alert, in respiratory distress, Right hemiparesis Eyes: No Scleral Icterus Ears/Nose/Mouth/Throat: Clear Oropharnyx Neck: NL Appearance and Movements; NL JVP, Trachea Midline, No Thyroid Enlargement, Masses Respiratory: Symmetrical Chest Expansion and Respiratory Effort, - - difuse global wheezing, decreased air entry Cardiovascular: NL Sounds; No Murmurs; No JVD, RRR Abdominal: NL Sounds; No Tenderness; No Distention, No Hepatosplenomegaly Lymphatic: No Cervical Adenopathy Extremities: No Edema, No Clubbing, Cyanosis Skin: No Rash or Ulcers Neurological: Alert and Oriented x 3 Result Diagrams: 06/26/19 21:23 06/26/19 21:23 Diagnostic Imaging: Diagnostics Summary of EKG Findings [1936] EKG showed sinus rhythm with rate of 83 BPM, no ST elevations. ED physician has reviewed and interpreted this EKG. 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 Small amount of fluid seen in the pericardial space. Assess/Plan/Problems-Billing Assessment: 78 yo Female with PMHx significant for CVA, HLD, Hypothyroidism presented with: - Patient Problems (1) SOB (shortness of breath) Current Visit: Yes Status: Acute Code(s): R06.02 - SHORTNESS OF BREATH SNOMED Code(s): 700848203 Comment: SOB is associated with audible wheezing. Duoneb sheduled until improves Solumedrol 60 mg Q8H and titrate and taper as needed. Oxygen therapy and titrate to SPO2 > 92% (2) Pneumonia Current Visit: Yes Status: Acute Code(s): J18.9 - PNEUMONIA, UNSPECIFIED ORGANISM SNOMED Code(s): 665633414 Comment: CT chest noted with LLL pneumonia I will start IV Ceftriaxone 1 g daily IV Azithromycin 500 mg daily to cover for atypical FU AM lab (3) Hypothyroid Current Visit: No Status: Acute Code(s): E03.9 - HYPOTHYROIDISM, UNSPECIFIED SNOMED Code(s): 61595438 Comment: - Continue levothyroxine as prescribed. (4) Seizure disorder Current Visit: No Status: Acute Code(s): G40.909 - EPILEPSY, UNSP, NOT INTRACTABLE, WITHOUT STATUS EPILEPTICUS SNOMED Code(s): 892086453 Comment: - Continue Keppra and Zonisamide as prescribed. Monitor for seizure activity. (5) DVT prophylaxis Current Visit: No Status: Acute Code(s): TOK3070 - SNOMED Code(s): 049595938 Comment: - Lovenox SQ. (6) Depression Current Visit: No Status: Acute Code(s): F32.9 - MAJOR DEPRESSIVE DISORDER, SINGLE EPISODE, UNSPECIFIED SNOMED Code(s): 05207016 Comment: - Continue fluoxetine. (7) Full code status Current Visit: No Status: Acute Code(s): Z78.9 - OTHER SPECIFIED HEALTH STATUS SNOMED Code(s): 996160934 (8) CVA (cerebral vascular accident) Current Visit: No Status: Acute Code(s): I63.9 - CEREBRAL INFARCTION, UNSPECIFIED SNOMED Code(s): 804405702 Comment: - Continue asa, atorvastatin, plavix. - Continue SSRI for motor function and depression due to a major life event. - c/w ADL Status and Disposition: Admit to medicine
[2019-06-27] MEDS ORDERED: cefTRIAXone(*) 1 GM ADVAN/BAG ONE (04:08)
[2019-06-27] MEDS ORDERED: Azithromycin 500 mg/250 ml NS 500 MG/250 ML BAG IVPB ONE (04:12)
[2019-06-27] MEDS: Levothyroxine TAB* 50 MCG TAB PO SCH (05:58)
[2019-06-27] MEDS: levETIRAcetam TAB* 500 MG PO SCH ×2 (09:52→20:19)
[2019-06-27] MEDS: CMCS: Zonisamide (NF) 50 MG CAP PO SCH ×2 (09:57→20:18)
--- NOTE | 2019-06-27 09:59 | PN ---
Subjective Date of Service: 06/27/19 Interval History: Sitting up in bed, NAD. Denies any headache, CP, N/V/D, unusual numbness/ tingling. States that she does believe her breathing has improved since arrival but that she is still hearing wheezing. Remains on 2L via NC. Denies feeling SOB. Using whiteboard for effective communication. Objective Active Medications: Acetaminophen (Tylenol Tab*) 650 mg PO Q6HR PRN PRN Reason: FEVER/PAIN Albuterol/Ipratropium (Duoneb (Albuterol 2.5 Mg/Ipratropium 0.5 Mg)) 1 neb INH Q2H PRN PRN Reason: SOB/WHEEZING Aspirin (Aspirin 81 Mg Chew Tab*) [facility] Atorvastatin Calcium (Lipitor*) 80 mg PO BEDTIME [facility] Clopidogrel Bisulfate (Plavix Tab*) 75 mg PO DAILY [facility] Docusate Sodium (Colace Cap*) 100 mg PO BEDTIME PRN PRN Reason: CONSTIPATION Enoxaparin Sodium (Lovenox(*)) 40 mg SUBCUT Q24H [facility] Fluoxetine HCl (Prozac Cap*) 20 mg PO DAILY [facility] Ceftriaxone Sodium 1 gm/ (Sodium Chloride) 50 mls @ 100 mls/hr IVPB Q24H [facility] Azithromycin (Zithromax 500 Mg/250 Ml) 500 mg in 250 mls @ 250 mls/hr IVPB Q24H [facility] Levetiracetam (Keppra Tab*) 1,000 mg PO QAM [facility] Levetiracetam (Keppra Tab*) 1,500 mg PO BEDTIME [facility] Levothyroxine Sodium (Synthroid Tab*) 50 mcg PO DAILY@0600 [facility] Last Admin: 06/27/19 05:58 Dose: 50 mcg Lorazepam (Ativan Tab(*)) 0.5 mg PO BID PRN PRN Reason: SEIZURES Methocarbamol (Robaxin Tab*) 750 mg PO Q6H PRN PRN Reason: SPASMS Methylprednisolone Sodium Succinate (Solu-Medrol 125mg *) 60 mg IV Q8H [facility] Oxybutynin Chloride (Ditropan Tab*) 2.5 mg PO DAILY [facility] Polyvinyl Alcohol (Polyvinyl Alcohol 1.4% Opth*) 2 drop BOTH EYES Q6H PRN PRN Reason: DRY EYE Timolol Maleate (Timoptic 0.5% Opth*) 1 drop BOTH EYES BID [facility] Zonisamide (Zonegran (Nf)) 100 mg PO BID [facility]; Protocol Vital Signs - 8 hr 06/27/19 06/27/19 06/27/19 02:00 02:08 02:38 Temperature Pulse Rate 79 88 Respiratory 15 17 24 Rate Blood Pressure 120/72 141/95 (mmHg) O2 Sat by Pulse 97 91 Oximetry 06/27/19 06/27/19 06/27/19 02:53 03:00 03:08 Temperature Pulse Rate 78 Respiratory 20 21 15 Rate Blood Pressure 131/62 (mmHg) O2 Sat by Pulse 97 Oximetry 06/27/19 06/27/19 06/27/19 03:38 03:46 04:00 Temperature 97.9 F Pulse Rate 77 74 74 Respiratory 15 18 14 Rate Blood Pressure 136/69 136/69 (mmHg) O2 Sat by Pulse 95 97 94 Oximetry 06/27/19 06/27/19 06/27/19 04:08 04:38 05:00 Temperature 97.6 F Pulse Rate 73 75 77 Respiratory 15 21 14 Rate Blood Pressure 129/71 136/76 134/65 (mmHg) O2 Sat by Pulse 92 94 94 Oximetry 06/27/19 06/27/19 07:23 07:42 Temperature 97.1 F Pulse Rate 66 Respiratory 20 16 Rate Blood Pressure 131/54 (mmHg) O2 Sat by Pulse 98 Oximetry Oxygen Devices in Use Now: Nasal Cannula Appearance: Laying in bed, NAD Eyes: No Scleral Icterus, - - EOMI Respiratory: Symmetrical Chest Expansion and Respiratory Effort, - - RUL clear, fine inspiratory crackles to RLL base, crackles throughout LLL, exiratory wheeze to JANNETTE Cardiovascular: RRR Abdominal: NL Sounds; No Tenderness; No Distention Skin: - - dry and intact Neurological: Alert and Oriented x 3, - - aphasic, significant RUE weakness Nutrition: - - awaiting swallow eval Result Diagrams: 06/26/19 21:23 06/26/19 21:23 Microbiology and Other Data: Microbiology 06/27/19 03:30 Nasal Screen MRSA (PCR) - Final Nasal Mrsa Not Detected Diagnostic Imaging: Diagnostics Summary of EKG Findings [1936] EKG showed sinus rhythm with rate of 83 BPM, no ST elevations. ED physician has reviewed and interpreted this EKG. 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 Small amount of fluid seen in the pericardial space. Assess/Plan/Problems-Billing Assessment: 78 yo Female with PMHx significant for CVA, HLD, Hypothyroidism. Resident of [place]. Presented with c/o SOB, wheezing, and cough. Was found to have LLL pneumonia per imaging. - Patient Problems (1) Pneumonia Current Visit: Yes Status: Acute Code(s): J18.9 - PNEUMONIA, UNSPECIFIED ORGANISM SNOMED Code(s): 810526853 Comment: CT chest noted with LLL pneumonia, pt does express improved breathing quality in comparison to how she felt on 3/3 UATs ordered, abx started <24hrs prior Continue IV Ceftriaxone 1 g daily Continue IV Azithromycin 500 mg daily to cover for atypicals O2 therapy as needed per protocol Continue duoneb treatments Continue IV solumedrol, may titrate down tomorrow with continued improvement Labs to be drawn in a.m. (2) History of CVA with residual deficit Current Visit: Yes Status: Acute Code(s): I69.30 - UNSPECIFIED SEQUELAE OF CEREBRAL INFARCTION SNOMED Code(s): 345670324 Comment: - Continue asa, atorvastatin, plavix. - Continue SSRI for motor function and depression due to a major life event. - c/w ADL, PT - Continue with usual pureed, nectar thick diet per ST recommendations (3) Depression Current Visit: No Status: Acute Code(s): F32.9 - MAJOR DEPRESSIVE DISORDER, SINGLE EPISODE, UNSPECIFIED SNOMED Code(s): 00784961 Comment: - Continue fluoxetine. (4) Hypothyroid Current Visit: No Status: Acute Code(s): E03.9 - HYPOTHYROIDISM, UNSPECIFIED SNOMED Code(s): 81688070 Comment: - Continue levothyroxine as prescribed. (5) Seizure disorder Current Visit: No Status: Acute Code(s): G40.909 - EPILEPSY, UNSP, NOT INTRACTABLE, WITHOUT STATUS EPILEPTICUS SNOMED Code(s): 868822965 Comment: - Continue Keppra and Zonisamide as prescribed. - Seizure precautions (6) Full code status Current Visit: No Status: Acute Code(s): Z78.9 - OTHER SPECIFIED HEALTH STATUS SNOMED Code(s): 746672175 (7) DVT prophylaxis Current Visit: No Status: Acute Code(s): XUD2007 - SNOMED Code(s): 823911421 Comment: - Lovenox SQ. Status and Disposition: Status: improving Disposition: 4N Attending: Shira Floyd
[2019-06-27] MEDS: Aspirin 81 mg CHEW TAB* 81 MG TAB.CHEW PO SCH (10:00)
[2019-06-27] MEDS: FLUoxetine CAP* 20 MG PO SCH (10:00)
[2019-06-27] MEDS: Oxybutynin TAB* 5 MG PO SCH (10:01)
[2019-06-27] MEDS: Clopidogrel TAB* 75 MG PO SCH (10:01)
[2019-06-27] MEDS: Enoxaparin(*) 40 MG/0.4 ML SYR SUBCUT SCH ×2 (10:04→10:31)
[2019-06-27] MEDS: Timolol 0.5% OPTH.SOL* BTL BOTH EYES SCH ×2 (10:04→20:15)
[2019-06-27] MEDS: methylPREDNISolone 125 MG* 2 ML VIAL IV SCH ×2 (13:01→20:16)
[2019-06-27] MEDS: Atorvastatin* 80 MG TAB PO SCH (20:18)
[2019-06-28] MEDS: methylPREDNISolone 125 MG* 2 ML VIAL IV SCH ×2 (03:59→11:00)
[2019-06-28] MEDS: cefTRIAXone(*) 1 GM in NS 0.9% 50 ML* 50 ML IVPB SCH (04:16)
[2019-06-28 05:17] LABS: ABS Lymphocytes 0.9 10^3/ul (1.0-4.8); ABS Monocytes 0.2 10^3/ul (0-0.8); ABS Neutrophils 7.6 10^3/ul (1.5-7.7); Hematocrit 37 % (35-47); Hemoglobin 12.4 g/dL (12.0-16.0); Lymphocyte % 10.1 %; Mean Corpuscular HGB Conc 34 g/dL (31-36); Mean Corpuscular Hemoglobin 32 pg (27-31); Mean Corpuscular Volume 93 fL (80-97); Mean Platelet Volume 9.2 fL (7.4-10.4); Platelet Count 171 10^3/uL (150-450); Red Blood Count 3.93 10^6 /uL (3.70-4.87); Red Cell Distribution Width 13 % (10-15); White Blood Count 8.7 10^3/uL (3.5-10.8)
[2019-06-28 05:31] LABS: BUN/Creatinine Ratio 29.1 (8-20); Blood Urea Nitrogen 16 mg/dL (6-24); CO2 Carbon Dioxide 22 mmol/L (22-32); Calcium 8.4 mg/dL (8.6-10.3); Chloride 105 mmol/L (101-111); EGFR African American 128.7 (>60); EGFR Non-African American 106.3 (>60); Glucose 170 mg/dL (70-100); Sodium 135 mmol/L (135-145)
[2019-06-28 05:33] LABS: Anion Gap 8 mmol/L (2-11)
[2019-06-28] MEDS: Levothyroxine TAB* 50 MCG TAB PO SCH (05:37)
[2019-06-28] MEDS: Azithromycin 500 mg/250 ml NS 500 MG/250 ML BAG IVPB SCH (05:37)
[2019-06-28 06:57] LABS: Potassium Redraw 4.3 mmol/L (3.5-5.0)
[2019-06-28] MEDS: levETIRAcetam TAB* 500 MG PO SCH ×2 (08:01→21:05)
[2019-06-28] MEDS: Enoxaparin(*) 40 MG/0.4 ML SYR SUBCUT SCH (08:01)
[2019-06-28] MEDS: Timolol 0.5% OPTH.SOL* BTL BOTH EYES SCH ×2 (08:01→21:14)
[2019-06-28] MEDS: Aspirin 81 mg CHEW TAB* 81 MG TAB.CHEW PO SCH (08:01)
[2019-06-28] MEDS: Clopidogrel TAB* 75 MG PO SCH (08:01)
[2019-06-28] MEDS: FLUoxetine CAP* 20 MG PO SCH (08:01)
[2019-06-28] MEDS: Oxybutynin TAB* 5 MG PO SCH (08:01)
[2019-06-28] MEDS: CMCS: Zonisamide (NF) 50 MG CAP PO SCH ×2 (08:01→21:15)
--- NOTE | 2019-06-28 12:04 | PN ---
Subjective Date of Service: 06/28/19 Interval History: Pt sitting up in chair, NAD. Maintaining 96-98% O2 SAT on RA while at rest. Reports feeling SOB and excessive coughing during PT, she was on 1L O2 at the time per nursing, reported that after she got back to the chair she was SATing at 98% with the O2 in place. Denied any CP during this episode, states she just got SOB and started coughing a lot. Currently denies any headache, CP, SOB, abdominal discomfort, unusual numbness/ tingling. Objective Active Medications: Acetaminophen (Tylenol Tab*) 650 mg PO Q6HR PRN PRN Reason: FEVER/PAIN Albuterol/Ipratropium (Duoneb (Albuterol 2.5 Mg/Ipratropium 0.5 Mg)) 1 neb INH Q2H PRN PRN Reason: SOB/WHEEZING Aspirin (Aspirin 81 Mg Chew Tab*) 81 mg PO DAILY [facility] Last Admin: 06/28/19 08:01 Dose: 81 mg Atorvastatin Calcium (Lipitor*) 80 mg PO BEDTIME [facility] Last Admin: 06/27/19 20:18 Dose: 80 mg Clopidogrel Bisulfate (Plavix Tab*) 75 mg PO DAILY [facility] Last Admin: 06/28/19 08:01 Dose: 75 mg Docusate Sodium (Colace Cap*) 100 mg PO BEDTIME PRN PRN Reason: CONSTIPATION Enoxaparin Sodium (Lovenox(*)) 40 mg SUBCUT Q24H [facility] Last Admin: 06/28/19 08:01 Dose: 40 mg Fluoxetine HCl (Prozac Cap*) 20 mg PO DAILY [facility] Last Admin: 06/28/19 08:01 Dose: 20 mg Ceftriaxone Sodium 1 gm/ (Sodium Chloride) 50 mls @ 100 mls/hr IVPB Q24H [facility] Last Admin: 06/28/19 04:16 Dose: 100 mls/hr Azithromycin (Zithromax 500 Mg/250 Ml) 500 mg in 250 mls @ 250 mls/hr IVPB Q24H [facility] Last Admin: 06/28/19 05:37 Dose: 250 mls/hr Levetiracetam (Keppra Tab*) 1,000 mg PO QAM [facility] Last Admin: 06/28/19 08:01 Dose: 1,000 mg Levetiracetam (Keppra Tab*) 1,500 mg PO BEDTIME [facility] Last Admin: 06/27/19 20:19 Dose: 1,500 mg Levothyroxine Sodium (Synthroid Tab*) 50 mcg PO DAILY@0600 [facility] Last Admin: 06/28/19 05:37 Dose: 50 mcg Lorazepam (Ativan Tab(*)) 0.5 mg PO BID PRN PRN Reason: SEIZURES Methocarbamol (Robaxin Tab*) 750 mg PO Q6H PRN PRN Reason: SPASMS Methylprednisolone Sodium Succinate (Solu-Medrol 125mg *) 60 mg IV Q8H [facility] Last Admin: 06/28/19 11:00 Dose: 60 mg Oxybutynin Chloride (Ditropan Tab*) 2.5 mg PO DAILY [facility] Last Admin: 06/28/19 08:01 Dose: 2.5 mg Polyvinyl Alcohol (Polyvinyl Alcohol 1.4% Opth*) 2 drop BOTH EYES Q6H PRN PRN Reason: DRY EYE Timolol Maleate (Timoptic 0.5% Opth*) 1 drop BOTH EYES BID [facility] Last Admin: 06/28/19 08:01 Dose: 1 drop Zonisamide (Zonegran (Nf)) 100 mg PO BID [facility]; Protocol Last Admin: 06/28/19 08:01 Dose: 100 mg Vital Signs - 8 hr 06/28/19 06/28/19 06/28/19 06:53 07:15 11:15 Temperature 97.5 F 97.2 F Pulse Rate 63 65 Respiratory 18 20 20 Rate Blood Pressure 144/62 145/60 (mmHg) O2 Sat by Pulse 99 98 Oximetry Oxygen Devices in Use Now: None Appearance: Sitting up in chair, NAD Eyes: - - PERRL Ears/Nose/Mouth/Throat: Clear Oropharnyx Respiratory: Symmetrical Chest Expansion and Respiratory Effort - mild inspiratory wheeze with expiratory rhonchi to JANNETTE, inspiratory rales to LLL, mild expiratory rhonchi to RUL, clear to RML and RLL, AFTER NEB TREATMENT: very mild inspiratory rales to LLL, all other lobes slightly diminished but clear Cardiovascular: RRR Abdominal: - - BS throughout, abdomen large, round, SNT Extremities: - - trace non-pitting edema RLE, no edema LLE Neurological: - - Alert and orientedX3, aphasic, can write down thoughts clearly and without difficulty, Significant weakness to RUE, mildly weak to RLE Nutrition: Taking PO's Result Diagrams: 06/28/19 04:53 06/28/19 06:25 Additional Lab and Data: Laboratory Results - last 24 hr 06/28/19 06/28/19 06/28/19 04:53 04:53 06:25 WBC 8.7 RBC 3.93 Hgb 12.4 Hct 37 MCV 93 MCH 32 H MCHC 34 RDW 13 Plt Count 171 MPV 9.2 Neut % (Auto) 87.3 Lymph % (Auto) 10.1 [place] % (Auto) 2.5 Eos % (Auto) 0.0 Baso % (Auto) 0.1 Absolute Neuts (auto) 7.6 Absolute Lymphs (auto) 0.9 L Absolute Monos (auto) 0.2 Absolute Eos (auto) 0.0 Absolute Basos (auto) 0.0 Absolute Nucleated RBC 0.0 Nucleated RBC % 0.0 Sodium 135 Potassium TNP 4.3 Chloride 105 Carbon Dioxide 22 Anion Gap 8 BUN 16 Creatinine 0.55 Est GFR ( Amer) 128.7 Est GFR (Non-Af Amer) 106.3 BUN/Creatinine Ratio 29.1 H Glucose 170 H Calcium 8.4 L Magnesium TNP 2.0 Microbiology and Other Data: Microbiology 06/27/19 03:30 Nasal Screen MRSA (PCR) - Final Nasal Mrsa Not Detected Diagnostic Imaging: Diagnostics Summary of EKG Findings [1936] EKG showed sinus rhythm with rate of 83 BPM, no ST elevations. ED physician has reviewed and interpreted this EKG. 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 Small amount of fluid seen in the pericardial space. Assess/Plan/Problems-Billing Assessment: 78 yo Female with PMHx significant for CVA, HLD, Hypothyroidism. Resident of [place]. Presented with c/o SOB, wheezing, and cough. Was found to have LLL pneumonia. - Patient Problems (1) Pneumonia Current Visit: Yes Status: Acute Code(s): J18.9 - PNEUMONIA, UNSPECIFIED ORGANISM SNOMED Code(s): 202108065 Comment: CT chest noted with LLL pneumonia, breathing quality okay while at rest and on RA, but became very SOB with excessive coughing during PT session while on 1L O2 via NC, was noted to have 98% O2 SAT once she got back to her chair UATs negative however the urine was collected >24 hrs p abx initiation Continue IV Ceftriaxone 1 g daily Continue IV Azithromycin 500 mg daily to cover for atypicals O2 therapy as needed per protocol, not necessary at this time while at rest Continue duoneb treatments - changed to q4hrs while awake scheduled with significant improvement in breath sounds Continue IV solumedrol - tapering dosage (2) History of CVA with residual deficit Current Visit: Yes Status: Acute Code(s): I69.30 - UNSPECIFIED SEQUELAE OF CEREBRAL INFARCTION SNOMED Code(s): 139693972 Comment: - Continue asa, atorvastatin, plavix. - Continue SSRI for motor function and depression due to a major life event. - c/w ADL, PT - Continue with usual pureed, nectar thick diet per ST recommendations (3) Depression Current Visit: No Status: Acute Code(s): F32.9 - MAJOR DEPRESSIVE DISORDER, SINGLE EPISODE, UNSPECIFIED SNOMED Code(s): 64954593 Comment: - Continue fluoxetine. (4) Hypothyroid Current Visit: No Status: Acute Code(s): E03.9 - HYPOTHYROIDISM, UNSPECIFIED SNOMED Code(s): 60444545 Comment: - Continue levothyroxine as prescribed. (5) Seizure disorder Current Visit: No Status: Acute Code(s): G40.909 - EPILEPSY, UNSP, NOT INTRACTABLE, WITHOUT STATUS EPILEPTICUS SNOMED Code(s): 424849100 Comment: - Continue Keppra and Zonisamide as prescribed. - Seizure precautions (6) Full code status Current Visit: No Status: Acute Code(s): Z78.9 - OTHER SPECIFIED HEALTH STATUS SNOMED Code(s): 809513736 (7) DVT prophylaxis Current Visit: No Status: Acute Code(s): RCV4788 - SNOMED Code(s): 331306448 Comment: - Lovenox SQ. Status and Disposition: Status: improving Disposition: 4S Attending: Malick House
[2019-06-28] MEDS: Magnesium Hydroxide LIQ* 30 ML UDC PO PRN (12:50)
[2019-06-28] MEDS ORDERED: Albuterol/Ipratropium NEB.SOL* Albuterol 2.5 MG/Ipratropium 0.5 MG 3 ML INH SCH (13:00)
[2019-06-28] MEDS: Albuterol/Ipratropium NEB.SOL* Albuterol 2.5 MG/Ipratropium 0.5 MG 3 ML INH SCH (19:57)
[2019-06-28] MEDS ORDERED: methylPREDNISolone 125 MG* 2 ML VIAL IV SCH (20:00)
[2019-06-28] MEDS: methylPREDNISolone SOD 40 MG* 1 ML VIAL IV SCH (21:04)
[2019-06-28] MEDS: Atorvastatin* 80 MG TAB PO SCH (21:05)
[2019-06-28] MEDS: Senna TAB 8.6 mg* TAB PO SCH (21:05)
[2019-06-29] MEDS: Albuterol/Ipratropium NEB.SOL* Albuterol 2.5 MG/Ipratropium 0.5 MG 3 ML INH SCH ×5 (01:43→19:57)
[2019-06-29] MEDS: methylPREDNISolone SOD 40 MG* 1 ML VIAL IV SCH ×3 (03:27→20:22)
[2019-06-29] MEDS: cefTRIAXone(*) 1 GM in NS 0.9% 50 ML* 50 ML IVPB SCH (05:28)
[2019-06-29] MEDS: Azithromycin 500 mg/250 ml NS 500 MG/250 ML BAG IVPB SCH (05:59)
[2019-06-29] MEDS: Levothyroxine TAB* 50 MCG TAB PO SCH (05:59)
[2019-06-29 06:16] LABS: Hematocrit 37 % (35-47); Hemoglobin 12.6 g/dL (12.0-16.0); Mean Corpuscular HGB Conc 34 g/dL (31-36); Mean Corpuscular Hemoglobin 31 pg (27-31); Mean Corpuscular Volume 92 fL (80-97); Platelet Count 172 10^3/uL (150-450); Red Blood Count 4.04 10^6 /uL (3.70-4.87); Red Cell Distribution Width 14 % (10-15); White Blood Count 8.4 10^3/uL (3.5-10.8)
[2019-06-29] MEDS: Oxybutynin TAB* 5 MG PO SCH (08:59)
[2019-06-29] MEDS: Aspirin 81 mg CHEW TAB* 81 MG TAB.CHEW PO SCH (08:59)
[2019-06-29] MEDS: Clopidogrel TAB* 75 MG PO SCH (08:59)
[2019-06-29] MEDS: Timolol 0.5% OPTH.SOL* BTL BOTH EYES SCH ×2 (08:59→20:22)
[2019-06-29] MEDS: levETIRAcetam TAB* 500 MG PO SCH ×2 (08:59→20:23)
[2019-06-29] MEDS: FLUoxetine CAP* 20 MG PO SCH (08:59)
[2019-06-29] MEDS: CMCS: Zonisamide (NF) 50 MG CAP PO SCH ×2 (09:00→20:22)
[2019-06-29] MEDS: Enoxaparin(*) 40 MG/0.4 ML SYR SUBCUT SCH (09:00)
[2019-06-29] MEDS: Magnesium Hydroxide LIQ* 30 ML UDC PO PRN (10:34)
--- NOTE | 2019-06-29 18:23 | PN ---
Subjective Date of Service: 06/29/19 Interval History: Pt expresses that her breathing quality is improving, believes duoneb treatments are helping. On RA this morning, breathing quality good with occasional cough, not coughing anything up. Denies headache, CP, SOB, abdominal discomfort, fever, chills, unusual numbness/ tingling. Objective Active Medications: Acetaminophen (Tylenol Tab*) 650 mg PO Q6HR PRN PRN Reason: FEVER/PAIN Albuterol/Ipratropium (Duoneb (Albuterol 2.5 Mg/Ipratropium 0.5 Mg)) 1 neb INH [id number] AWAKE [facility] Last Admin: 06/29/19 16:09 Dose: Not Given Aspirin (Aspirin 81 Mg Chew Tab*) 81 mg PO DAILY [facility] Last Admin: 06/29/19 08:59 Dose: 81 mg Atorvastatin Calcium (Lipitor*) 80 mg PO BEDTIME [facility] Last Admin: 06/28/19 21:05 Dose: 80 mg Clopidogrel Bisulfate (Plavix Tab*) 75 mg PO DAILY [facility] Last Admin: 06/29/19 08:59 Dose: 75 mg Docusate Sodium (Colace Cap*) 100 mg PO BEDTIME PRN PRN Reason: CONSTIPATION Enoxaparin Sodium (Lovenox(*)) 40 mg SUBCUT Q24H [facility] Last Admin: 06/29/19 09:00 Dose: 40 mg Fluoxetine HCl (Prozac Cap*) 20 mg PO DAILY [facility] Last Admin: 06/29/19 08:59 Dose: 20 mg Ceftriaxone Sodium 1 gm/ (Sodium Chloride) 50 mls @ 100 mls/hr IVPB Q24H [facility] Last Admin: 06/29/19 05:28 Dose: 100 mls/hr Azithromycin (Zithromax 500 Mg/250 Ml) 500 mg in 250 mls @ 250 mls/hr IVPB Q24H [facility] Last Admin: 06/29/19 05:59 Dose: 250 mls/hr Levetiracetam (Keppra Tab*) 1,000 mg PO QAM [facility] Last Admin: 06/29/19 08:59 Dose: 1,000 mg Levetiracetam (Keppra Tab*) 1,500 mg PO BEDTIME [facility] Last Admin: 06/28/19 21:05 Dose: 1,500 mg Levothyroxine Sodium (Synthroid Tab*) 50 mcg PO DAILY@0600 [facility] Last Admin: 06/29/19 05:59 Dose: 50 mcg Lorazepam (Ativan Tab(*)) 0.5 mg PO BID PRN PRN Reason: SEIZURES Magnesium Hydroxide (Milk Of Magnesia Liq*) 30 ml PO BID PRN PRN Reason: CONSTIPATION Last Admin: 06/29/19 10:34 Dose: 30 ml Methocarbamol (Robaxin Tab*) 750 mg PO Q6H PRN PRN Reason: SPASMS Methylprednisolone Sodium Succinate (Solu-Medrol 40 Mg) 40 mg IV Q8H [facility] Last Admin: 06/29/19 11:59 Dose: 40 mg Oxybutynin Chloride (Ditropan Tab*) 2.5 mg PO DAILY [facility] Last Admin: 06/29/19 08:59 Dose: 2.5 mg Polyvinyl Alcohol (Polyvinyl Alcohol 1.4% Opth*) 2 drop BOTH EYES Q6H PRN PRN Reason: DRY EYE Senna (Senokot 8.6 Mg Tab*) 1 tab PO BEDTIME [facility] Last Admin: 06/28/19 21:05 Dose: 1 tab Timolol Maleate (Timoptic 0.5% Opth*) 1 drop BOTH EYES BID [facility] Last Admin: 06/29/19 08:59 Dose: 1 drop Zonisamide (Zonegran (Nf)) 100 mg PO BID [facility]; Protocol Last Admin: 06/29/19 09:00 Dose: 100 mg Vital Signs - 8 hr 06/29/19 06/29/19 06/29/19 10:21 13:24 15:23 Temperature 97.1 F 98.2 F Pulse Rate 68 71 72 Respiratory 16 20 14 Rate Blood Pressure 134/62 148/72 (mmHg) O2 Sat by Pulse 96 97 97 Oximetry Oxygen Devices in Use Now: None Appearance: sitting up in bed, eating breakfast, NAD Eyes: - - PERRL Ears/Nose/Mouth/Throat: Mucous Membranes Moist Respiratory: Symmetrical Chest Expansion and Respiratory Effort - mild expiratory wheeze noted throughout bilaterally, inspiratory crackles noted to bases of BLL Cardiovascular: RRR Abdominal: NL Sounds; No Tenderness; No Distention, - Extremities: No Edema Neurological: - - Alert, answers some yes/no questions but also uses whiteboard for communication, aphasic, significant RUE weakness, mild-moderate RLE weakness Nutrition: Taking PO's Result Diagrams: 06/29/19 06:00 06/28/19 06:25 Additional Lab and Data: Laboratory Results - last 24 hr 06/28/19 06/28/19 06/28/19 04:53 04:53 06:25 WBC 8.7 RBC 3.93 Hgb 12.4 Hct 37 MCV 93 MCH 32 H MCHC 34 RDW 13 Plt Count 171 MPV 9.2 Neut % (Auto) 87.3 Lymph % (Auto) 10.1 [place] % (Auto) 2.5 Eos % (Auto) 0.0 Baso % (Auto) 0.1 Absolute Neuts (auto) 7.6 Absolute Lymphs (auto) 0.9 L Absolute Monos (auto) 0.2 Absolute Eos (auto) 0.0 Absolute Basos (auto) 0.0 Absolute Nucleated RBC 0.0 Nucleated RBC % 0.0 Sodium 135 Potassium TNP 4.3 Chloride 105 Carbon Dioxide 22 Anion Gap 8 BUN 16 Creatinine 0.55 Est GFR ( Amer) 128.7 Est GFR (Non-Af Amer) 106.3 BUN/Creatinine Ratio 29.1 H Glucose 170 H Calcium 8.4 L Magnesium TNP 2.0 Microbiology and Other Data: Microbiology 06/27/19 03:30 Nasal Screen MRSA (PCR) - Final Nasal Mrsa Not Detected Diagnostic Imaging: Diagnostics Summary of EKG Findings [1936] EKG showed sinus rhythm with rate of 83 BPM, no ST elevations. ED physician has reviewed and interpreted this EKG. 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 Small amount of fluid seen in the pericardial space. Assess/Plan/Problems-Billing Assessment: 78 yo Female with PMHx significant for CVA, HLD, Hypothyroidism. Resident of [place]. Presented with c/o SOB, wheezing, and cough. Was found to have LLL pneumonia. - Patient Problems (1) Pneumonia Current Visit: Yes Status: Acute Code(s): J18.9 - PNEUMONIA, UNSPECIFIED ORGANISM SNOMED Code(s): 970813862 Comment: CT chest noted with LLL pneumonia, breathing quality improving, last noted 97% on RA UATs negative. She is doing rather well, seeking [facility] before returning to [place], awaiting placement Will start oral abx therapy 06/29, cefdinir 300mg BID for 3 days, azithromycin 250mg daily for 2 days O2 therapy as needed per protocol Continue duoneb treatments Continue IV solumedrol - tapering dosage (2) History of CVA with residual deficit Current Visit: Yes Status: Acute Code(s): I69.30 - UNSPECIFIED SEQUELAE OF CEREBRAL INFARCTION SNOMED Code(s): 923609858 Comment: - Continue asa, atorvastatin, plavix. - Continue SSRI for motor function and depression due to a major life event. - c/w ADL, PT - Continue with usual pureed, nectar thick diet per ST recommendations (3) Depression Current Visit: No Status: Acute Code(s): F32.9 - MAJOR DEPRESSIVE DISORDER, SINGLE EPISODE, UNSPECIFIED SNOMED Code(s): 43270771 Comment: - Continue fluoxetine. (4) Hypothyroid Current Visit: No Status: Acute Code(s): E03.9 - HYPOTHYROIDISM, UNSPECIFIED SNOMED Code(s): 58821486 Comment: - Continue levothyroxine as prescribed. (5) Seizure disorder Current Visit: No Status: Acute Code(s): G40.909 - EPILEPSY, UNSP, NOT INTRACTABLE, WITHOUT STATUS EPILEPTICUS SNOMED Code(s): 721072817 Comment: - Continue Keppra and Zonisamide as prescribed. - Seizure precautions (6) Celiac artery stenosis Current Visit: Yes Status: Acute Code(s): I77.4 - CELIAC ARTERY COMPRESSION SYNDROME SNOMED Code(s): 67968625851130012 Comment: Approx 90% stenosis at the origin of the celiac artery, this was an incidental finding on imaging. Pt has no associated symptoms. She can follow-up with PCP and reasonable for them to give referral for vascular specialist. (7) Full code status Current Visit: No Status: Acute Code(s): Z78.9 - OTHER SPECIFIED HEALTH STATUS SNOMED Code(s): 423614263 (8) DVT prophylaxis Current Visit: No Status: Acute Code(s): OCT4291 - SNOMED Code(s): 188481777 Comment: - Lovenox SQ. Status and Disposition: Status: improving Disposition: 4S Attending: Malick House
[2019-06-29] MEDS ORDERED: Albuterol/Ipratropium NEB.SOL* Albuterol 2.5 MG/Ipratropium 0.5 MG 3 ML INH PRN (20:00)
[2019-06-29] MEDS: Atorvastatin* 80 MG TAB PO SCH (20:22)
[2019-06-29] MEDS: Senna TAB 8.6 mg* TAB PO SCH (20:23)
[2019-06-30] MEDS: methylPREDNISolone SOD 40 MG* 1 ML VIAL IV SCH ×3 (02:37→17:28)
[2019-06-30] MEDS: Levothyroxine TAB* 50 MCG TAB PO SCH (05:23)
[2019-06-30] MEDS: Cefdinir cap* 300 MG CAP PO SCH ×2 (05:23→16:58)
[2019-06-30] MEDS ORDERED: Azithromycin TAB* 250 MG PO ONE (06:00)
[2019-06-30] MEDS: Aspirin 81 mg CHEW TAB* 81 MG TAB.CHEW PO SCH (07:33)
[2019-06-30] MEDS: Azithromycin TAB* 250 MG PO SCH (07:33)
[2019-06-30] MEDS: FLUoxetine CAP* 20 MG PO SCH (07:34)
[2019-06-30] MEDS: levETIRAcetam TAB* 500 MG PO SCH ×2 (07:34→20:11)
[2019-06-30] MEDS: Oxybutynin TAB* 5 MG PO SCH (07:34)
[2019-06-30] MEDS: Clopidogrel TAB* 75 MG PO SCH (07:34)
[2019-06-30] MEDS: Timolol 0.5% OPTH.SOL* BTL BOTH EYES SCH ×2 (07:34→20:13)
[2019-06-30] MEDS: CMCS: Zonisamide (NF) 50 MG CAP PO SCH ×2 (07:34→20:11)
[2019-06-30] MEDS: Enoxaparin(*) 40 MG/0.4 ML SYR SUBCUT SCH (07:34)
--- NOTE | 2019-06-30 11:54 | PN ---
Subjective Date of Service: 06/30/19 Interval History: Pt reports feeling well today, denies any Chest pain, SOB, Dizziness, numbness or tingling. Family History: Unchanged from Admission Social History: Unchanged from Admission Past Medical History: Unchanged from Admission Objective Active Medications: Acetaminophen (Tylenol Tab*) 650 mg PO Q6HR PRN PRN Reason: FEVER/PAIN Albuterol/Ipratropium (Duoneb (Albuterol 2.5 Mg/Ipratropium 0.5 Mg)) 1 neb INH Q4H PRN PRN Reason: SOB/WHEEZING Aspirin (Aspirin 81 Mg Chew Tab*) 81 mg PO DAILY [facility] Last Admin: 06/30/19 07:33 Dose: 81 mg Atorvastatin Calcium (Lipitor*) 80 mg PO BEDTIME [facility] Last Admin: 06/29/19 20:22 Dose: 80 mg Azithromycin (Zithromax Tab*) 250 mg PO Q24H [facility] Stop: 07/01/19 09:01 Last Admin: 06/30/19 07:33 Dose: 250 mg Cefdinir (Cefdinir Cap*) 300 mg PO Q12H [facility] Last Admin: 06/30/19 05:23 Dose: 300 mg Clopidogrel Bisulfate (Plavix Tab*) 75 mg PO DAILY [facility] Last Admin: 06/30/19 07:34 Dose: 75 mg Docusate Sodium (Colace Cap*) 100 mg PO BEDTIME PRN PRN Reason: CONSTIPATION Enoxaparin Sodium (Lovenox(*)) 40 mg SUBCUT Q24H [facility] Last Admin: 06/30/19 07:34 Dose: 40 mg Fluoxetine HCl (Prozac Cap*) 20 mg PO DAILY [facility] Last Admin: 06/30/19 07:34 Dose: 20 mg Levetiracetam (Keppra Tab*) 1,000 mg PO QAM [facility] Last Admin: 06/30/19 07:34 Dose: 1,000 mg Levetiracetam (Keppra Tab*) 1,500 mg PO BEDTIME [facility] Last Admin: 06/29/19 20:23 Dose: 1,500 mg Levothyroxine Sodium (Synthroid Tab*) 50 mcg PO DAILY@0600 [facility] Last Admin: 06/30/19 05:23 Dose: 50 mcg Lorazepam (Ativan Tab(*)) 0.5 mg PO BID PRN PRN Reason: SEIZURES Magnesium Hydroxide (Milk Of Magnesia Liq*) 30 ml PO BID PRN PRN Reason: CONSTIPATION Last Admin: 06/29/19 10:34 Dose: 30 ml Methocarbamol (Robaxin Tab*) 750 mg PO Q6H PRN PRN Reason: SPASMS Methylprednisolone Sodium Succinate (Solu-Medrol 40 Mg) 40 mg IV Q8H [facility] Last Admin: 06/30/19 10:48 Dose: 40 mg Oxybutynin Chloride (Ditropan Tab*) 2.5 mg PO DAILY [facility] Last Admin: 06/30/19 07:34 Dose: 2.5 mg Polyvinyl Alcohol (Polyvinyl Alcohol 1.4% Opth*) 2 drop BOTH EYES Q6H PRN PRN Reason: DRY EYE Senna (Senokot 8.6 Mg Tab*) 1 tab PO BEDTIME [facility] Last Admin: 06/29/19 20:23 Dose: 1 tab Timolol Maleate (Timoptic 0.5% Opth*) 1 drop BOTH EYES BID [facility] Last Admin: 06/30/19 07:34 Dose: 1 drop Zonisamide (Zonegran (Nf)) 100 mg PO BID [facility]; Protocol Last Admin: 06/30/19 07:34 Dose: 100 mg Vital Signs - 8 hr 06/30/19 06/30/19 07:15 07:24 Temperature 97.3 F Pulse Rate 66 Respiratory 20 18 Rate Blood Pressure 161/75 (mmHg) O2 Sat by Pulse 93 Oximetry Oxygen Devices in Use Now: None Appearance: Elderly female pt sitting up in chair reading newspaper. Does not appear to be in any distress. Eyes: No Scleral Icterus, PERRLA Ears/Nose/Mouth/Throat: NL Teeth, Lips, Gums, Clear Oropharnyx, Mucous Membranes Moist Neck: NL Appearance and Movements; NL JVP Respiratory: Symmetrical Chest Expansion and Respiratory Effort, - - Rhonchi noted to bilateral lungs mid way to bases. Pt's cough ineffective to clear Cardiovascular: NL Sounds; No Murmurs; No JVD Abdominal: NL Sounds; No Tenderness; No Distention, No Hepatosplenomegaly Lymphatic: No Cervical Adenopathy Skin: No Rash or Ulcers, No Nodules or Sclerosis Neurological: Alert and Oriented x 3, NL Sensation, NL Muscle Strength and Tone , - - Right arm with greatly diminished function, unable to test Result Diagrams: 06/29/19 06:00 06/28/19 06:25 Additional Lab and Data: Laboratory Results - last 24 hr 06/28/19 06/28/19 06/28/19 04:53 04:53 06:25 WBC 8.7 RBC 3.93 Hgb 12.4 Hct 37 MCV 93 MCH 32 H MCHC 34 RDW 13 Plt Count 171 MPV 9.2 Neut % (Auto) 87.3 Lymph % (Auto) 10.1 [place] % (Auto) 2.5 Eos % (Auto) 0.0 Baso % (Auto) 0.1 Absolute Neuts (auto) 7.6 Absolute Lymphs (auto) 0.9 L Absolute Monos (auto) 0.2 Absolute Eos (auto) 0.0 Absolute Basos (auto) 0.0 Absolute Nucleated RBC 0.0 Nucleated RBC % 0.0 Sodium 135 Potassium TNP 4.3 Chloride 105 Carbon Dioxide 22 Anion Gap 8 BUN 16 Creatinine 0.55 Est GFR ( Amer) 128.7 Est GFR (Non-Af Amer) 106.3 BUN/Creatinine Ratio 29.1 H Glucose 170 H Calcium 8.4 L Magnesium TNP 2.0 Microbiology and Other Data: Microbiology 06/27/19 03:30 Nasal Screen MRSA (PCR) - Final Nasal Mrsa Not Detected Diagnostic Imaging: Diagnostics Summary of EKG Findings [1936] EKG showed sinus rhythm with rate of 83 BPM, no ST elevations. ED physician has reviewed and interpreted this EKG. 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 Small amount of fluid seen in the pericardial space. Assess/Plan/Problems-Billing Assessment: 78 yo Female with PMHx significant for CVA, HLD, Hypothyroidism. Resident of [place]. Presented with c/o SOB, wheezing, and cough. Was found to have LLL pneumonia. - Patient Problems (1) Pneumonia Current Visit: Yes Comment: -Sx improving on abx. -UATs negative. Seeking [facility] before returning to [place], awaiting placement -Has started cefdinir 300mg BID for 3 days, azithromycin 250mg daily for 2 days -O2 therapy as needed per protocol -Continue duoneb treatments -Continue IV solumedrol - tapering dosage -Waiting on PT evaluation, will likely DC to [facility] on tuesday (2) SOB (shortness of breath) Current Visit: Yes Comment: -Has resolved presently -Duoneb still available PRN -Solumedrol has been tapered to 40mg IV -Room air presently (3) Celiac artery stenosis Current Visit: Yes Comment: Approx 90% stenosis at the origin of the celiac artery, this was an incidental finding on imaging. Pt has no associated symptoms. She can follow-up with PCP and reasonable for them to give referral for vascular specialist. (4) History of CVA with residual deficit Current Visit: Yes Comment: - Continue asa, atorvastatin, plavix. - Continue SSRI for motor function and depression due to a major life event. - c/w ADL, PT - Continue with usual pureed, nectar thick diet per ST recommendations (5) Hypothyroid Current Visit: No Comment: - Continue levothyroxine as prescribed. (6) Seizure disorder Current Visit: No Comment: - Continue Keppra and Zonisamide as prescribed. - Seizure precautions - Pt is unable to report last seizure occurance. (7) Full code status Current Visit: No (8) DVT prophylaxis Current Visit: No Comment: - Lovenox SQ. Status and Disposition: Status: improving Disposition: 4S
[2019-06-30] MEDS: Atorvastatin* 80 MG TAB PO SCH (20:09)
[2019-06-30] MEDS: Senna TAB 8.6 mg* TAB PO SCH (20:12)
[2019-07-01] MEDS: methylPREDNISolone SOD 40 MG* 1 ML VIAL IV SCH ×2 (05:07→16:57)
[2019-07-01] MEDS: Cefdinir cap* 300 MG CAP PO SCH ×2 (05:07→16:57)
[2019-07-01] MEDS: Levothyroxine TAB* 50 MCG TAB PO SCH (05:07)
[2019-07-01] MEDS: Enoxaparin(*) 40 MG/0.4 ML SYR SUBCUT SCH (09:05)
[2019-07-01] MEDS: Oxybutynin TAB* 5 MG PO SCH (09:05)
[2019-07-01] MEDS: Timolol 0.5% OPTH.SOL* BTL BOTH EYES SCH ×2 (09:06→21:13)
[2019-07-01] MEDS: Clopidogrel TAB* 75 MG PO SCH (09:06)
[2019-07-01] MEDS: FLUoxetine CAP* 20 MG PO SCH (09:06)
[2019-07-01] MEDS: Aspirin 81 mg CHEW TAB* 81 MG TAB.CHEW PO SCH (09:06)
[2019-07-01] MEDS: levETIRAcetam TAB* 500 MG PO SCH ×2 (09:06→21:12)
[2019-07-01] MEDS: Azithromycin TAB* 250 MG PO SCH (09:07)
[2019-07-01] MEDS: CMCS: Zonisamide (NF) 50 MG CAP PO SCH ×2 (09:07→21:13)
--- NOTE | 2019-07-01 12:15 | PN ---
Subjective Date of Service: 07/01/19 Interval History: Pt with dysarthria R/T CVA. Denies complaints of chest pain, SOB, N/V, abdominal pain. Family History: Unchanged from Admission Social History: Unchanged from Admission Past Medical History: Unchanged from Admission Objective Active Medications: Acetaminophen (Tylenol Tab*) 650 mg PO Q6HR PRN PRN Reason: FEVER/PAIN Last Admin: 06/30/19 14:40 Dose: 650 mg Albuterol/Ipratropium (Duoneb (Albuterol 2.5 Mg/Ipratropium 0.5 Mg)) 1 neb INH Q4H PRN PRN Reason: SOB/WHEEZING Last Admin: 06/30/19 15:13 Dose: 1 neb Aspirin (Aspirin 81 Mg Chew Tab*) 81 mg PO DAILY [facility] Last Admin: 07/01/19 09:06 Dose: 81 mg Atorvastatin Calcium (Lipitor*) 80 mg PO BEDTIME [facility] Last Admin: 06/30/19 20:09 Dose: 80 mg Cefdinir (Cefdinir Cap*) 300 mg PO Q12H [facility] Last Admin: 07/01/19 05:07 Dose: 300 mg Clopidogrel Bisulfate (Plavix Tab*) 75 mg PO DAILY [facility] Last Admin: 07/01/19 09:06 Dose: 75 mg Docusate Sodium (Colace Cap*) 100 mg PO BEDTIME PRN PRN Reason: CONSTIPATION Enoxaparin Sodium (Lovenox(*)) 40 mg SUBCUT Q24H [facility] Last Admin: 07/01/19 09:05 Dose: 40 mg Fluoxetine HCl (Prozac Cap*) 20 mg PO DAILY [facility] Last Admin: 07/01/19 09:06 Dose: 20 mg Levetiracetam (Keppra Tab*) 1,000 mg PO QAM [facility] Last Admin: 07/01/19 09:06 Dose: 1,000 mg Levetiracetam (Keppra Tab*) 1,500 mg PO BEDTIME [facility] Last Admin: 06/30/19 20:11 Dose: 1,500 mg Levothyroxine Sodium (Synthroid Tab*) 50 mcg PO DAILY@0600 [facility] Last Admin: 07/01/19 05:07 Dose: 50 mcg Lorazepam (Ativan Tab(*)) 0.5 mg PO BID PRN PRN Reason: SEIZURES Magnesium Hydroxide (Milk Of Magnesia Liq*) 30 ml PO BID PRN PRN Reason: CONSTIPATION Last Admin: 06/29/19 10:34 Dose: 30 ml Methocarbamol (Robaxin Tab*) 750 mg PO Q6H PRN PRN Reason: SPASMS Methylprednisolone Sodium Succinate (Solu-Medrol 40 Mg) 40 mg IV Q12H [facility] Last Admin: 07/01/19 05:07 Dose: 40 mg Oxybutynin Chloride (Ditropan Tab*) 2.5 mg PO DAILY [facility] Last Admin: 07/01/19 09:05 Dose: 2.5 mg Polyvinyl Alcohol (Polyvinyl Alcohol 1.4% Opth*) 2 drop BOTH EYES Q6H PRN PRN Reason: DRY EYE Senna (Senokot 8.6 Mg Tab*) 1 tab PO BEDTIME [facility] Last Admin: 06/30/19 20:12 Dose: Not Given Timolol Maleate (Timoptic 0.5% Opth*) 1 drop BOTH EYES BID [facility] Last Admin: 07/01/19 09:06 Dose: 1 drop Zonisamide (Zonegran (Nf)) 100 mg PO BID [facility]; Protocol Last Admin: 07/01/19 09:07 Dose: 100 mg Vital Signs - 8 hr 07/01/19 07/01/19 07/01/19 07:15 07:54 08:00 Temperature 97.3 F Pulse Rate 56 Respiratory 16 18 Rate Blood Pressure 180/83 152/62 (mmHg) O2 Sat by Pulse 95 Oximetry Oxygen Devices in Use Now: None Appearance: Sitting up in chair reading a magazine with legs elevated on seat of another chair. Does not appear to be in any distress. Eyes: No Scleral Icterus, PERRLA Ears/Nose/Mouth/Throat: NL Teeth, Lips, Gums, Clear Oropharnyx, Mucous Membranes Moist Neck: NL Appearance and Movements; NL JVP Respiratory: Symmetrical Chest Expansion and Respiratory Effort, Clear to Auscultation Cardiovascular: NL Sounds; No Murmurs; No JVD, RRR, No Edema Abdominal: NL Sounds; No Tenderness; No Distention, No Hepatosplenomegaly Lymphatic: No Cervical Adenopathy Extremities: No Edema, No Clubbing, Cyanosis Skin: No Rash or Ulcers, No Nodules or Sclerosis Neurological: NL Sensation, NL Gait, NL Muscle Strength and Tone, - - Is alert, difficult to assess pt's level of orientation, pt is able to write down answers on dry erase board next to bed. However, written answers do not always make sense. Result Diagrams: 06/29/19 06:00 06/28/19 06:25 Additional Lab and Data: Laboratory Results - last 24 hr 06/28/19 06/28/19 06/28/19 04:53 04:53 06:25 WBC 8.7 RBC 3.93 Hgb 12.4 Hct 37 MCV 93 MCH 32 H MCHC 34 RDW 13 Plt Count 171 MPV 9.2 Neut % (Auto) 87.3 Lymph % (Auto) 10.1 [place] % (Auto) 2.5 Eos % (Auto) 0.0 Baso % (Auto) 0.1 Absolute Neuts (auto) 7.6 Absolute Lymphs (auto) 0.9 L Absolute Monos (auto) 0.2 Absolute Eos (auto) 0.0 Absolute Basos (auto) 0.0 Absolute Nucleated RBC 0.0 Nucleated RBC % 0.0 Sodium 135 Potassium TNP 4.3 Chloride 105 Carbon Dioxide 22 Anion Gap 8 BUN 16 Creatinine 0.55 Est GFR ( Amer) 128.7 Est GFR (Non-Af Amer) 106.3 BUN/Creatinine Ratio 29.1 H Glucose 170 H Calcium 8.4 L Magnesium TNP 2.0 Microbiology and Other Data: Microbiology 06/27/19 03:30 Nasal Screen MRSA (PCR) - Final Nasal Mrsa Not Detected Diagnostic Imaging: Diagnostics Summary of EKG Findings [1936] EKG showed sinus rhythm with rate of 83 BPM, no ST elevations. ED physician has reviewed and interpreted this EKG. 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 Small amount of fluid seen in the pericardial space. Assess/Plan/Problems-Billing Assessment: 78 yo Female with PMHx significant for CVA, HLD, Hypothyroidism. Resident of [place]. Presented with c/o SOB, wheezing, and cough. Was found to have LLL pneumonia. - Patient Problems (1) Pneumonia Current Visit: Yes Comment: -Sx improving on abx. -UATs negative. Seeking [facility] before returning to [place], awaiting placement -Has started cefdinir 300mg BID for 3 days, azithromycin completed -O2 therapy as needed per protocol -Continue duoneb treatments -Continue IV solumedrol - tapering dosage -Waiting on PT evaluation, will likely DC to [facility] on tuesday (2) SOB (shortness of breath) Current Visit: Yes Comment: -Has resolved presently -Duoneb still available PRN -Solumedrol has been tapered to 40mg IV -Room air presently (3) Celiac artery stenosis Current Visit: Yes Comment: Approx 90% stenosis at the origin of the celiac artery, this was an incidental finding on imaging. Pt has no associated symptoms. She can follow-up with PCP and reasonable for them to give referral for vascular specialist. (4) History of CVA with residual deficit Current Visit: Yes Comment: - Continue asa, atorvastatin, plavix. - Continue SSRI for motor function and depression due to a major life event. - c/w ADL, PT - Continue with usual pureed, nectar thick diet per ST recommendations (5) Hypothyroid Current Visit: No Comment: - Continue levothyroxine as prescribed. (6) Seizure disorder Current Visit: No Comment: - Continue Keppra and Zonisamide as prescribed. - Seizure precautions - Pt is unable to report last seizure occurance. (7) Full code status Current Visit: No (8) DVT prophylaxis Current Visit: No Comment: - Lovenox SQ. Status and Disposition: Status: improving Disposition: 4S
[2019-07-01] MEDS: Atorvastatin* 80 MG TAB PO SCH (21:12)
[2019-07-01] MEDS: Senna TAB 8.6 mg* TAB PO SCH (21:12)
[2019-07-02] MEDS: Cefdinir cap* 300 MG CAP PO SCH (06:22)
[2019-07-02] MEDS: methylPREDNISolone SOD 40 MG* 1 ML VIAL IV SCH (06:22)
[2019-07-02] MEDS: Levothyroxine TAB* 50 MCG TAB PO SCH (06:22)
[2019-07-02] MEDS: FLUoxetine CAP* 20 MG PO SCH (09:04)
[2019-07-02] MEDS: Clopidogrel TAB* 75 MG PO SCH (09:04)
[2019-07-02] MEDS: CMCS: Zonisamide (NF) 50 MG CAP PO SCH (09:04)
[2019-07-02] MEDS: levETIRAcetam TAB* 500 MG PO SCH (09:05)
[2019-07-02] MEDS: Aspirin 81 mg CHEW TAB* 81 MG TAB.CHEW PO SCH (09:05)
[2019-07-02] MEDS: Oxybutynin TAB* 5 MG PO SCH (09:06)
[2019-07-02] MEDS: Enoxaparin(*) 40 MG/0.4 ML SYR SUBCUT SCH (09:06)
[2019-07-02] MEDS: Timolol 0.5% OPTH.SOL* BTL BOTH EYES SCH (09:06)
--- NOTE | 2019-07-02 14:09 | PN ---
Subjective Date of Service: 07/02/19 Interval History: Pt is pleasantly confused, smiling, eating her lunch, no complaints. Family History: Unchanged from Admission Social History: Unchanged from Admission Past Medical History: Unchanged from Admission Objective Active Medications: Acetaminophen (Tylenol Tab*) 650 mg PO Q6HR PRN PRN Reason: FEVER/PAIN Last Admin: 06/30/19 14:40 Dose: 650 mg Albuterol/Ipratropium (Duoneb (Albuterol 2.5 Mg/Ipratropium 0.5 Mg)) 1 neb INH Q4H PRN PRN Reason: SOB/WHEEZING Last Admin: 06/30/19 15:13 Dose: 1 neb Aspirin (Aspirin 81 Mg Chew Tab*) 81 mg PO DAILY [facility] Last Admin: 07/02/19 09:05 Dose: 81 mg Atorvastatin Calcium (Lipitor*) 80 mg PO BEDTIME [facility] Last Admin: 07/01/19 21:12 Dose: 80 mg Cefdinir (Cefdinir Cap*) 300 mg PO Q12H [facility] Last Admin: 07/02/19 06:22 Dose: 300 mg Clopidogrel Bisulfate (Plavix Tab*) 75 mg PO DAILY [facility] Last Admin: 07/02/19 09:04 Dose: 75 mg Docusate Sodium (Colace Cap*) 100 mg PO BEDTIME PRN PRN Reason: CONSTIPATION Enoxaparin Sodium (Lovenox(*)) 40 mg SUBCUT Q24H [facility] Last Admin: 07/02/19 09:06 Dose: 40 mg Fluoxetine HCl (Prozac Cap*) 20 mg PO DAILY [facility] Last Admin: 07/02/19 09:04 Dose: 20 mg Levetiracetam (Keppra Tab*) 1,000 mg PO QAM [facility] Last Admin: 07/02/19 09:05 Dose: 1,000 mg Levetiracetam (Keppra Tab*) 1,500 mg PO BEDTIME [facility] Last Admin: 07/01/19 21:12 Dose: 1,500 mg Levothyroxine Sodium (Synthroid Tab*) 50 mcg PO DAILY@0600 [facility] Last Admin: 07/02/19 06:22 Dose: 50 mcg Lorazepam (Ativan Tab(*)) 0.5 mg PO BID PRN PRN Reason: SEIZURES Magnesium Hydroxide (Milk Of Magnesia Liq*) 30 ml PO BID PRN PRN Reason: CONSTIPATION Last Admin: 06/29/19 10:34 Dose: 30 ml Methocarbamol (Robaxin Tab*) 750 mg PO Q6H PRN PRN Reason: SPASMS Oxybutynin Chloride (Ditropan Tab*) 2.5 mg PO DAILY [facility] Last Admin: 07/02/19 09:06 Dose: 2.5 mg Polyvinyl Alcohol (Polyvinyl Alcohol 1.4% Opth*) 2 drop BOTH EYES Q6H PRN PRN Reason: DRY EYE Prednisone (Deltasone 20 Mg Tab) 40 mg PO DAILY [facility] Senna (Senokot 8.6 Mg Tab*) 1 tab PO BEDTIME [facility] Last Admin: 07/01/19 21:12 Dose: 1 tab Timolol Maleate (Timoptic 0.5% Opth*) 1 drop BOTH EYES BID [facility] Last Admin: 07/02/19 09:06 Dose: 1 drop Zonisamide (Zonegran (Nf)) 100 mg PO BID [facility]; Protocol Last Admin: 07/02/19 09:04 Dose: 100 mg Vital Signs - 8 hr 07/02/19 07/02/19 07/02/19 07:15 08:00 11:15 Temperature 96.9 F 97.6 F Pulse Rate 69 70 Respiratory 16 20 16 Rate Blood Pressure 147/73 149/74 (mmHg) O2 Sat by Pulse 97 95 Oximetry Oxygen Devices in Use Now: None Appearance: 78 yo f in n[place], stated that her age is 38 yo, alert to self, pleasant and cooperative Eyes: No Scleral Icterus, PERRLA Ears/Nose/Mouth/Throat: NL Teeth, Lips, Gums, Mucous Membranes Moist Neck: NL Appearance and Movements; NL JVP, Trachea Midline Respiratory: Symmetrical Chest Expansion and Respiratory Effort, - - minimal bibasiliar rhonchi Cardiovascular: NL Sounds; No Murmurs; No JVD, RRR Abdominal: NL Sounds; No Tenderness; No Distention Lymphatic: No Cervical Adenopathy Extremities: No Edema, No Clubbing, Cyanosis Skin: No Rash or Ulcers Neurological: NL Muscle Strength and Tone Result Diagrams: 06/29/19 06:00 06/28/19 06:25 Additional Lab and Data: Laboratory Results - last 24 hr 06/28/19 06/28/19 06/28/19 04:53 04:53 06:25 WBC 8.7 RBC 3.93 Hgb 12.4 Hct 37 MCV 93 MCH 32 H MCHC 34 RDW 13 Plt Count 171 MPV 9.2 Neut % (Auto) 87.3 Lymph % (Auto) 10.1 [place] % (Auto) 2.5 Eos % (Auto) 0.0 Baso % (Auto) 0.1 Absolute Neuts (auto) 7.6 Absolute Lymphs (auto) 0.9 L Absolute Monos (auto) 0.2 Absolute Eos (auto) 0.0 Absolute Basos (auto) 0.0 Absolute Nucleated RBC 0.0 Nucleated RBC % 0.0 Sodium 135 Potassium TNP 4.3 Chloride 105 Carbon Dioxide 22 Anion Gap 8 BUN 16 Creatinine 0.55 Est GFR ( Amer) 128.7 Est GFR (Non-Af Amer) 106.3 BUN/Creatinine Ratio 29.1 H Glucose 170 H Calcium 8.4 L Magnesium TNP 2.0 Microbiology and Other Data: Microbiology 06/27/19 03:30 Nasal Screen MRSA (PCR) - Final Nasal Mrsa Not Detected Diagnostic Imaging: Diagnostics Summary of EKG Findings [1936] EKG showed sinus rhythm with rate of 83 BPM, no ST elevations. ED physician has reviewed and interpreted this EKG. 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 Small amount of fluid seen in the pericardial space. Assess/Plan/Problems-Billing Assessment: 78 yo Female with PMHx significant for CVA, HLD, Hypothyroidism. Resident of [place]. Presented with c/o SOB, wheezing, and cough. Was found to have LLL pneumonia. - Patient Problems (1) Pneumonia Comment: -Sx improving on abx. -UATs negative. Seeking [facility] before returning to [place], awaiting placement -cont cefdinir 300mg BID , azithromycin tx completed -O2 therapy as needed per protocol -Continue duoneb treatments -tapering steroids down -Waiting on Assist Facility eval for d/c disposition (2) Celiac artery stenosis Comment: Approx 90% stenosis at the origin of the celiac artery, this was an incidental finding on imaging. Pt c/o no abd pain and is tolerating her diet with no problems. She can follow-up with PCP for further referral for vascular specialist. (3) CVA (cerebral vascular accident) Comment: - Continue asa, atorvastatin, plavix. - chronic dysphagia noted: cont pureed solids and nectar thick liquids (4) Seizure disorder Comment: - Continue Keppra and Zonisamide as prescribed. - Seizure precautions - Pt is unable to report last seizure occurance. (5) DVT prophylaxis Comment: - Lovenox SQ. Status and Disposition: Status: medically ready for d/c
[2019-07-02 16:27] VITALS: BP 149/80
--- NOTE | 2019-07-03 03:13 | DS ---
CC: Dr. Rose Marie Beth * DISCHARGE SUMMARY: DATE OF ADMISSION: 06/27/19 DATE OF DISCHARGE: 07/02/19 PRIMARY CARE PROVIDER: Dr. oRse Marie Beth. DISPOSITION AT DISCHARGE: To [facility]. CONDITION AT DISCHARGE: Stable. DISCHARGE DIAGNOSES: 1. Pneumonia with bronchospasm. 2. 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 SECONDARY DIAGNOSES: 1. Hyperlipidemia. 2. History of cerebrovascular accident. 3. Seizure. 4. Depression. 5. Hypothyroidism. 6. Total hip replacement. 7. Tonsillectomy. 8. Dementia. 9. Residual mixed aphasia post stroke. MEDICATIONS AT DISCHARGE: Include new medication which is prednisone taper 20 mg daily for 2 days, then 10 mg daily for 2 days, then stop. The remaining medications are unchanged from admission and include: 1. Aspirin 81 mg daily. 2. Plavix 75 mg daily. 3. Synthroid 50 mcg daily. 4. Robaxin 750 mg every 6 hours p.r.n. 5. Zonegran 100 mg b.i.d. 6. Senna 2 tablets daily. 7. MiraLax 17 g daily p.r.n. 8. Ditropan 2.5 mg daily. 9. Ativan 0.5 mg b.i.d. p.r.n. 10. Keppra 1000 mg q.a.m. and 1500 mg q.p.m. 11. Prozac 20 mg daily. 12. Colace 100 mg at bedtime. 13. Lipitor 80 mg q.p.m. 14. Artificial tears 2 drops both eyes every 6 hours p.r.n. LABORATORY DATA AND STUDIES PERFORMED DURING HOSPITAL STAY: On 06/28/19, sodium of 135, potassium 4.3, chloride 105, carbon dioxide 22, BUN 15, creatinine 0.55. CBC that was obtained on 06/29/19, white blood cell count of 8.4, hemoglobin 12.6, hematocrit of 37, platelets 172. Influenza testing was negative. CT angiogram of the chest obtained on 06/27/19, impression: "No pulmonary embolism. Approximately 90% stenosis of the origin of celiac artery. Overall opacity in the left lower lobe suggesting atelectasis and pneumonia. Small amount of fluid in the pericardial space." The patient's microbiology test, blood cultures were negative for 5 days. There were negative Streptococcus pneumoniae and legionella antigens in the urine. Influenza testing was negative. HOSPITALIZATION COURSE: Becki Marrero is an 78-year-old female with a history of dementia and mixed aphasia after ischemic stroke in the past, also history of seizures. She lives in assisted living facility, presented with acute shortness of breath, wheezing, and cough for approximately [address] angiogram was positive for an infiltrate as well as asymptomatic 90% stenosis of the patient's celiac artery. She was admitted to the hospital, treated with azithromycin and ceftriaxone. The day prior to her discharge, her ceftriaxone was switched to cefdinir. She completed 5 days of azithromycin and 6 days of third generation cephalosporin during her hospital stay. During her hospital stay, she was also noted to have significant bronchospasm. She was placed on parenteral steroids. Those were tapered down and she is going to continue with p.o. prednisone taper at discharge. In regards to the patient's celiac artery stenosis, the patient was asymptomatic from a GI standpoint. She is on modified pureed solids and nectar thick diet, which is chronic due to her dysphagia after the stroke. I discussed the case with the patient's healthcare proxy, her son Aroldo. At this point, we do not have Vascular Surgery availability for consultation in our hospital. The patient is asymptomatic. The finding is incidental, although it is a significant stenosis. At this point, it is recommended for the patient to be followed up with her primary care provider for possibility of referral for a vascular surgery consultation. On the day of discharge, the patient is pleasant, cooperative. She is disoriented to her age, oriented to self and occasionally location. She is on room air. Eating lunch comfortably. Her physical exam is included in her daily progress note and on the day of discharge. She is going to go back to [facility] where she was accepted back to. She is also recommended to follow with her primary care provider Dr. Beth in 4 to 7 days. DISPOSITION AT DISCHARGE: [facility]. CONDITION ON DISCHARGE: Stable. Please note that this is a short summary of the patient's hospital stay. Please refer to further medical records for details. [id number]/CPS #: [id number] MTDD
== END 2019-07-02 17:20 | DRG 194 ==
LOC: ED 19:15 → MEDTELE 06-27 03:01
PROVIDERS: ADMIT Family Medicine; ATTEND Internal Medicine
DX: J18.9 Pneumonia, unspecified organism (principal); I77.4 Celiac artery compression syndrome; J98.11 Atelectasis; I69.351 Hemiplegia and hemiparesis following cerebral infarction affecting right dominant side; F03.90 Unspecified dementia, unspecified severity, without behavioral disturbance, psychotic disturbance, mood disturbance, and anxiety; J98.01 Acute bronchospasm; E78.5 Hyperlipidemia, unspecified; G40.909 Epilepsy, unspecified, not intractable, without status epilepticus; F32.9 Major depressive disorder, single episode, unspecified; R13.10 Dysphagia, unspecified; E03.9 Hypothyroidism, unspecified; Z96.649 Presence of unspecified artificial hip joint; I69.391 Dysphagia following cerebral infarction; Z86.69 Personal history of other diseases of the nervous system and sense organs; I69.320 Aphasia following cerebral infarction; Z82.49 Family history of ischemic heart disease and other diseases of the circulatory system; Z79.82 Long term (current) use of aspirin; Z79.899 Other long term (current) drug therapy
CPT/HCPCS: 36415; 71046; 71275; 80048; 80053; 82550; 82553; 83605; 83735; 83880; 84484; 85025; 85027; 85610; 85730; 86140; 87040; 87641; 87899; 93005; 94640; 96374; 96375; 99284; A9270-GY; J0456; J0696; J1650; J2920; J2930; Q9967

== ENCOUNTER 2022-03-25 09:14 | Inpatient (IN) ==
[2022-03-25] MEDS ORDERED: levETIRAcetam 1000MG IVPREMIX 1,000 MG/100 ML BAG IVPB ONE (10:08)
[2022-03-25 11:22] LABS: ABS Eosinophils 0.1 10^3/ul (0-0.6); ABS Lymphocytes 1.1 10^3/ul (1.0-4.8); ABS Monocytes 0.5 10^3/ul (0-0.8); ABS Neutrophils 7.3 10^3/ul (1.5-7.7); Eosinophil % 0.8 %; Hematocrit 39 % (35-47); Hemoglobin 12.5 g/dL (12.0-16.0); Mean Corpuscular HGB Conc 32 g/dL (31-36); Mean Corpuscular Hemoglobin 30 pg (27-31); Mean Corpuscular Volume 93 fL (80-97); Mean Platelet Volume 9.3 fL (7.4-10.4); Platelet Count 187 10^3/uL (150-450); Red Blood Count 4.17 10^6 /uL (3.70-4.87); Red Cell Distribution Width 14 % (10-15)
[2022-03-25 12:38] LABS: Albumin 3.8 g/dL (3.2-5.2); Albumin/Globulin Ratio 1.5 (1-3); Calcium 8.9 mg/dL (8.6-10.3); Globulin 2.6 g/dL (2-4); Potassium 4.4 mmol/L (3.5-5.0); Total Bilirubin 0.6 mg/dL (0.2-1.0); Total Protein 6.4 g/dL (6.4-8.9); eGFR CKD-EPI 65.2 (>60)
[2022-03-25 14:07] LABS: Urine Appearance Turbid; Urine Bilirubin Negative (Negative); Urine Blood Negative (Negative); Urine Color Yellow; Urine Glucose Negative (Negative); Urine Ketones Negative (Negative); Urine Nitrite Negative (Negative); Urine Protein Negative (Negative); Urine Urobilinogen Negative (Negative)
[2022-03-25 14:13] LABS: Urine Amorphous Crystals Present (Absent); Urine Bacteria 1+ (Absent); Urine Red Blood Cell 3+(>10/hpf) (Absent); Urine Squamous Epithelial Cell Present (Absent); Urine White Blood Cell 3+(>20/hpf) (Absent)
[2022-03-25] MEDS ORDERED: cefTRIAXone 1 gm/50 mL D5W 1 GM/50 ML BAG IV ONE (14:19)
[2022-03-25 14:28] LABS: High Sensitivity Troponin 1 Hr 297 pg/mL (<15)
[2022-03-25] MEDS ORDERED: Enoxaparin 40 MG/0.4 ML SYR SUBCUT SCH (17:00)
[2022-03-25 17:18] LABS: C Reactive Protein 15.25 mg/L (<8.01)
[2022-03-25] MEDS: Polyethylene Glycol 3350 17 GM PACKET PO SCH (18:24)
[2022-03-25] MEDS ORDERED: Zonisamide 100 mg CAP (NF) PO SCH (21:00)
[2022-03-25] MEDS ORDERED: Timolol 0.5% OPTH.SOL BTL BOTH EYES SCH (21:00)
[2022-03-25] MEDS: CMCS: Zonisamide 100 mg CAP (NF) PO SCH (21:13)
[2022-03-25] MEDS: Timolol 0.5% OPTH.SOL BTL BOTH EYES SCH (21:14)
[2022-03-26 08:11] LABS: Hematocrit 37 % (35-47); Hemoglobin 12.2 g/dL (12.0-16.0); Mean Corpuscular HGB Conc 33 g/dL (31-36); Mean Corpuscular Hemoglobin 30 pg (27-31); Mean Corpuscular Volume 93 fL (80-97); Mean Platelet Volume 8.9 fL (7.4-10.4); Platelet Count 161 10^3/uL (150-450); Red Blood Count 4.02 10^6 /uL (3.70-4.87); Red Cell Distribution Width 14 % (10-15)
[2022-03-26 08:32] LABS: Calcium 8.5 mg/dL (8.6-10.3); Magnesium 2.3 mg/dL (1.9-2.7); Potassium 4.1 mmol/L (3.5-5.0); eGFR CKD-EPI 70.9 (>60)
[2022-03-26] MEDS: Polyethylene Glycol 3350 17 GM PACKET PO SCH (11:06)
[2022-03-26] MEDS: Timolol 0.5% OPTH.SOL BTL BOTH EYES SCH (11:21)
[2022-03-26] MEDS: CMCS: Zonisamide 100 mg CAP (NF) PO SCH (11:22)
[2022-03-26 19:23] VITALS: BP 125/56
== END 2022-03-26 19:30 | DRG 101 ==
LOC: ED 09:14 → MEDTELE 16:37 → ED 19:21
PROVIDERS: ADMIT Student in an Organized Health Care Education/Training Program; ATTEND Internal Medicine